=== PATIENT | female | born 1945 | race Caucasian/White ===

== ENCOUNTER → 2017-02-01 | Outpatient (CLI) | payer BC | END | disposition home or self-care (01) | LOC: LABWHC1 12:11 | PROVIDERS: ATTEND Internal Medicine Endocrinology, Diabetes & Metabolism | DX: E89.0 Postprocedural hypothyroidism (principal) | CPT/HCPCS: 36415; 84439; 84443 ==

== ENCOUNTER → 2017-04-23 | Outpatient (CLI) | payer BC ==
--- NOTE | 2017-04-27 07:39 | MM ---
Reason for exam: screening (asymptomatic). Last mammogram was performed 8 months ago. History: Patient is postmenopausal and is nulliparous. Benign excisional biopsy of the right breast. Took estrogen for 1 year beginning at age 53. Took progesterone for 1 year beginning at age 53. Took unspecified hormones for 30 years beginning at age 31. Physical Findings: A clinical breast exam by your physician is recommended on an annual basis and results should be correlated with mammographic findings. MG Screening Mammo w CAD Bilateral CC and MLO view(s) were taken. Prior study comparison: April 20, 2016, bilateral MG screening mammo w CAD. April 18, 2015, bilateral MG screening mammo w CAD. April 16, 2014, bilateral MG screening mammo w CAD. The breast tissue is heterogeneously dense. This may lower the sensitivity of mammography. No significant changes when compared with prior studies. ASSESSMENT: Negative, BI-RAD 1 RECOMMENDATION: Routine screening mammogram of both breasts in 1 year.
== END | disposition home or self-care (01) ==
LOC: RADMAMWWP 12:54
PROVIDERS: ATTEND Internal Medicine Geriatric Medicine
DX: Z12.31 Encounter for screening mammogram for malignant neoplasm of breast (principal)

== ENCOUNTER → 2018-02-11 | Outpatient (CLI) | payer BC ==
[2018-02-11 15:13] LABS: T4, Free (Free Thyroxine) 0.96 ng/dL (0.78-2.19)
== END | disposition home or self-care (01) ==
LOC: LABWHC1 13:25
PROVIDERS: ATTEND Internal Medicine Endocrinology, Diabetes & Metabolism
DX: E89.0 Postprocedural hypothyroidism (principal)
CPT/HCPCS: 36415; 84439; 84443

== ENCOUNTER → 2018-04-29 | Outpatient (CLI) | payer BC ==
--- NOTE | 2018-05-02 11:00 | MM ---
Reason for exam: screening (asymptomatic). Last mammogram was performed 1 year ago. History: Patient is postmenopausal and is nulliparous. Benign excisional biopsy of the right breast. Took estrogen for 1 year beginning at age 53. Took progesterone for 1 year beginning at age 53. Took unspecified hormones for 30 years beginning at age 31. Physical Findings: A clinical breast exam by your physician is recommended on an annual basis and results should be correlated with mammographic findings. MG 3D Screening Mammo W/Cad Bilateral CC and MLO view(s) were taken. Prior study comparison: April 23, 2017, bilateral MG screening mammo w CAD. September 02, 2016, left breast MG 3d diag mammo w/cad LT. The breast tissue is heterogeneously dense. This may lower the sensitivity of mammography. No significant changes when compared with prior studies. ASSESSMENT: Negative, BI-RAD 1 RECOMMENDATION: Routine screening mammogram of both breasts in 1 year.
== END | disposition home or self-care (01) ==
LOC: RADMAMWWP 13:12
PROVIDERS: ATTEND Internal Medicine Geriatric Medicine
DX: Z12.31 Encounter for screening mammogram for malignant neoplasm of breast (principal)
CPT/HCPCS: 77063; 77067

== ENCOUNTER → 2018-06-22 | Outpatient (CLI) | payer BC ==
[2018-06-22 13:25] LABS: T4, Free (Free Thyroxine) 0.98 ng/dL (0.78-2.19)
== END | disposition home or self-care (01) ==
LOC: LABWHC1 12:06
PROVIDERS: ATTEND Internal Medicine Endocrinology, Diabetes & Metabolism
DX: E89.0 Postprocedural hypothyroidism (principal); M89.9 Disorder of bone, unspecified; R00.2 Palpitations
CPT/HCPCS: 36415; 84439; 84443

== ENCOUNTER → 2019-03-04 | Outpatient (CLI) | payer BC ==
[2019-03-04 16:59] LABS: T4, Free (Free Thyroxine) 1.1 ng/dL (0.80-1.80)
== END | disposition home or self-care (01) ==
LOC: LABWHC1 11:23
PROVIDERS: ATTEND Internal Medicine Endocrinology, Diabetes & Metabolism
DX: E89.0 Postprocedural hypothyroidism (principal); M89.9 Disorder of bone, unspecified; R00.2 Palpitations
CPT/HCPCS: 36415; 84439; 84443

== ENCOUNTER → 2019-05-01 | Outpatient (CLI) | payer BC ==
--- NOTE | 2019-05-03 08:06 | MM ---
Reason for exam: screening (asymptomatic). Last mammogram was performed 1 year ago. History: Patient is postmenopausal and is nulliparous. Benign excisional biopsy of the right breast. Took estrogen for 1 year beginning at age 53. Took progesterone for 1 year beginning at age 53. Took unspecified hormones for 30 years beginning at age 31. Physical Findings: A clinical breast exam by your physician is recommended on an annual basis and results should be correlated with mammographic findings. MG 3D Screening Mammo W/Cad Bilateral CC and MLO view(s) were taken. Prior study comparison: April 29, 2018, bilateral MG 3d screening mammo w/cad. April 23, 2017, bilateral MG screening mammo w CAD. The breast tissue is heterogeneously dense. This may lower the sensitivity of mammography. No significant changes when compared with prior studies. ASSESSMENT: Negative, BI-RAD 1 RECOMMENDATION: Routine screening mammogram of both breasts in 1 year.
== END | disposition home or self-care (01) ==
LOC: RADMAMWWP 15:06
PROVIDERS: ATTEND Internal Medicine Geriatric Medicine
DX: Z12.31 Encounter for screening mammogram for malignant neoplasm of breast (principal)
CPT/HCPCS: 77063; 77067

== ENCOUNTER 2020-03-04 09:43 | Inpatient (IN) | payer BC ==
[2020-03-04] MEDS ORDERED: SODIUM CHLORIDE 0.9% 500 ML 500 ML IV STA (10:10)
--- NOTE | 2020-03-04 10:30 | ED ---
General Adult HPI - General Source: patient, family, RN notes reviewed Mode of arrival: wheelchair Limitations: no limitations <Nils Perez - Last Filed: 03/04/20 14:37> <Oz Toledo - Last Filed: 03/04/20 14:46> - General Chief complaint: Neck Pain/Injury Stated complaint: extreme fatigue Time Seen by Provider: 03/04/20 09:53 - History of Present Illness Initial comments: 74-year-old female with a past medical history of hypertension, thyroid disorder presents to the emergency department for several complaints. Patient's main complaint today seems to be weakness for the past month. They said she has required assistance from her with things like getting in the shower whereas she normally does not require this. States she just feels generally weak all over. States she is tired and has significant fatigue. She denies fevers. She states she has a disc bulge in her lumbar spine that is 7 mm and is also causing her pain. States her primary care provider is managing this. Denies any bladder bowel changes, numbness or tingling in the lower extremities, fevers or chills. Patient also complaining of suicidal thoughts. States that when she woke up this morning she felt like no one would help her with her ailments. States that this caused her to feel suicidal and she wanted to take all of her Xanax. States that she is feeling a little better at this time because she thinks we're helping her but that it is not normal for her to have the states of thoughts.Patient has no other complaints at this time including shortness of breath, chest pain, abdominal pain, nausea or vomiting, headache, or visual changes. (Nils Perez) - Related Data Home Medications Medication Instructions Recorded Confirmed ALPRAZolam [Xanax] 0.25 mg PO BID PRN 03/04/20 03/04/20 Acetaminophen Tab [Tylenol Tab] 1,000 mg PO Q6HR PRN 03/04/20 03/04/20 Aspirin [Adult Low Dose Aspirin EC] 81 mg PO DAILY 03/04/20 03/04/20 Biotin 2,500mcg Cap 2,500 mcg PO DAILY 03/04/20 03/04/20 Cholecalciferol [Vitamin D3 (25 1,000 unit PO DAILY 03/04/20 03/04/20 Mcg = 1000 Iu)] Fish Oil/Dha/Epa [Fish Oil 1,200 1 cap PO DAILY 03/04/20 03/04/20 mg Fish Oil] Fludrocortisone [Florinef] 0.05 mg PO DAILY 03/04/20 03/04/20 Hydrocortisone 10 mg PO BID 03/04/20 03/04/20 Levothyroxine Sodium [Synthroid] 37.5 mcg PO SUTH 03/04/20 03/04/20 Levothyroxine Sodium [Synthroid] 75 mcg PO [id number] 03/04/20 03/04/20 Loratadine [Claritin] 10 mg PO DAILY PRN 03/04/20 03/04/20 Metoprolol Succinate (ER) [Toprol 37.5 mg PO BID 03/04/20 03/04/20 Xl] Naproxen Sodium [Aleve] 220 mg PO Q12HR PRN 03/04/20 03/04/20 Vitamin B Complex 1 cap PO DAILY 03/04/20 03/04/20 Vitamin B-12/Folic Acid 400mcg 1 tab SL DAILY 03/04/20 03/04/20 Allergies Allergy/AdvReac Type Severity Reaction Status Date / Time epinephrine Allergy elevates Verified 03/04/20 12:36 heart rate Review of Systems ROS Other: All systems not noted in ROS Statement are negative. <Nils Perez - Last Filed: 03/04/20 14:37> ROS Other: All systems not noted in ROS Statement are negative. <Oz Toledo - Last Filed: 03/04/20 14:46> ROS Statement: Those systems with pertinent positive or pertinent negative responses have been documented in the HPI. Past Medical History Past Medical History: Hypertension, Thyroid Disorder History of Any Multi-Drug Resistant Organisms: None Reported Past Surgical History: Orthopedic Surgery Additional Past Surgical History / Comment(s): rt knee Past Psychological History: Anxiety Smoking Status: Never smoker Past Alcohol Use History: None Reported Past Drug Use History: None Reported <Nils Perez - Last Filed: 03/04/20 14:37> General Exam Limitations: no limitations General appearance: alert, in no apparent distress Head exam: Present: atraumatic, normocephalic, normal inspection Eye exam: Present: normal appearance, PERRL, EOMI. Absent: scleral icterus, conjunctival injection, periorbital swelling ENT exam: Present: normal exam, mucous membranes moist Neck exam: Present: normal inspection, full ROM. Absent: tenderness, meningismus, lymphadenopathy Respiratory exam: Present: normal lung sounds bilaterally. Absent: respiratory distress, wheezes, rales, rhonchi, stridor Cardiovascular Exam: Present: regular rate, normal rhythm, normal heart sounds. Absent: systolic murmur, diastolic murmur, rubs, gallop, clicks GI/Abdominal exam: Present: soft, normal bowel sounds. Absent: distended, tenderness, guarding, rebound, rigid Back exam: Absent: vertebral tenderness Neurological exam: Present: alert, oriented X3, normal gait Psychiatric exam: Present: depressed <Nils Perez - Last Filed: 03/04/20 14:37> Course <Oz Toledo - Last Filed: 03/04/20 14:46> Vital Signs 03/04/20 03/04/20 03/04/20 09:47 09:52 09:56 Temperature 98.2 F Pulse Rate 73 Respiratory 20 18 18 Rate Blood Pressure 176/94 O2 Sat by Pulse 99 Oximetry 03/04/20 03/04/20 03/04/20 10:25 10:30 10:56 Temperature Pulse Rate 68 74 Respiratory 11 L 16 18 Rate Blood Pressure 178/89 166/81 O2 Sat by Pulse 99 98 Oximetry 03/04/20 03/04/20 03/04/20 11:00 11:30 12:00 Temperature Pulse Rate 71 69 71 Respiratory 14 48 H 35 H Rate Blood Pressure 166/81 170/85 170/85 O2 Sat by Pulse 98 Oximetry 03/04/20 03/04/20 12:30 14:17 Temperature Pulse Rate 75 77 Respiratory 21 21 Rate Blood Pressure 166/78 166/94 O2 Sat by Pulse Oximetry - Reevaluation(s) Reevaluation #1: 03/04/20 14:46 PA supervision: I proceeded [id number] evaluation the patient she does present with complaints of generalized weakness and increased lower back pain also she is suicidal today. The patient presents with these findings patient did have imaging studies done in [facility] [place] there going to be brought in by the patient's . Case was discussed with Dr. Calixto. Patient be admitted with inpatient evaluation. I do agree with the assessment and plan (Oz Toledo) EKG Findings - EKG Comments: EKG Findings:: Normal sinus rhythm, ventricular rate 70, LA interval 140, QTC 4 21 <Nils Perez - Last Filed: 03/04/20 14:37> Medical Decision Making - Lab Data Result diagrams: 03/04/20 10:36 03/04/20 10:36 <Nils Perez - Last Filed: 03/04/20 14:37> - Lab Data Result diagrams: 03/04/20 10:36 03/04/20 10:36 <Oz Toledo - Last Filed: 03/04/20 14:46> - Medical Decision Making Vitals are stable. Patient is very weak. She has had generalized weakness for the last few weeks. She has also had associated back pain. She denies weakness being only in her legs and states it is general fatigue. Patient states she any assistance using the restroom from her and she is not able to care for herself at home. Patient was able to get out of the bed with 1 person assist but did feel weak. She does not have any neurologic deficits in the lower extremity. Neurovascular status intact. CBC CMP unremarkable. Patient states she has a 7 mm disc bulge. States she has a disc at home showing this and we will contact her to obtain this. Patient will be admitted to Dr. Calixto for generalized weakness. Dr. Christopher will be consulted given back pain times one month that seems to be worsening. Psychiatry will also be consulted given suicidal thoughts. She will be kept on suicide precautions. (Nils Perez) - Lab Data Lab Results 03/04/20 03/04/20 03/04/20 Range/Units 10:36 10:36 10:36 WBC 7.6 (3.8-10.6) k/uL RBC 4.21 (3.80-5.40) m/uL Hgb 14.3 (11.4-16.0) gm/dL Hct 41.2 (34.0-46.0) % MCV 97.7 (80.0-100.0) fL MCH 33.8 (25.0-35.0) pg MCHC 34.6 (31.0-37.0) g/dL RDW 12.8 (11.5-15.5) % Plt Count 301 (150-450) k/uL Neutrophils % 76 % Lymphocytes % 15 % Monocytes % 6 % Eosinophils % 1 % Basophils % 0 % Neutrophils # 5.8 (1.3-7.7) k/uL Lymphocytes # 1.2 (1.0-4.8) k/uL Monocytes # 0.5 (0-1.0) k/uL Eosinophils # 0.1 (0-0.7) k/uL Basophils # 0.0 (0-0.2) k/uL PT 9.7 (9.0-12.0) sec INR 0.9 (<1.2) APTT 22.6 (22.0-30.0) sec Sodium 132 L (137-145) mmol/L Potassium 4.2 (3.5-5.1) mmol/L Chloride 96 L (98-107) mmol/L Carbon Dioxide 29 (22-30) mmol/L Anion Gap 7 mmol/L BUN 17 (7-17) mg/dL Creatinine 0.55 (0.52-1.04) mg/dL Est GFR (CKD-EPI)AfAm >90 (>60 ml/min/1.73 sqM) Est GFR (CKD-EPI)NonAf >90 (>60 ml/min/1.73 sqM) Glucose 95 (74-99) mg/dL Plasma Lactic Acid Morteza (0.7-2.0) mmol/L Calcium 9.7 (8.4-10.2) mg/dL Magnesium 2.1 (1.6-2.3) mg/dL Total Bilirubin 0.7 (0.2-1.3) mg/dL AST 32 (14-36) U/L ALT 29 (4-34) U/L Alkaline Phosphatase 23 L (38-126) U/L Troponin I (0.000-0.034) ng/mL Total Protein 7.2 (6.3-8.2) g/dL Albumin 4.4 (3.5-5.0) g/dL TSH 8.100 H (0.465-4.680) mIU/L Urine Color Urine Appearance (Clear) Urine pH (5.0-8.0) Ur Specific Lentner (1.001-1.035) Urine Protein (Negative) Urine Glucose (UA) (Negative) Urine Ketones (Negative) Urine Blood (Negative) Urine Nitrite (Negative) Urine Bilirubin (Negative) Urine Urobilinogen (<2.0) mg/dL Ur Leukocyte Esterase (Negative) Urine WBC (0-5) /hpf Amorphous Sediment (None) /hpf Urine Bacteria (None) /hpf Urine Mucus (None) /hpf Urine Opiates Screen (NotDetected) Ur Oxycodone Screen (NotDetected) Urine Methadone Screen (NotDetected) Ur Propoxyphene Screen (NotDetected) Ur Barbiturates Screen (NotDetected) U Tricyclic Antidepress (NotDetected) Ur Phencyclidine Scrn (NotDetected) Ur Amphetamines Screen (NotDetected) U Methamphetamines Scrn (NotDetected) U Benzodiazepines Scrn (NotDetected) Urine Cocaine Screen (NotDetected) U Marijuana (THC) Screen (NotDetected) Coronavirus (PCR) (Not Detectd) 03/04/20 03/04/20 03/04/20 Range/Units 10:36 10:36 10:53 WBC (3.8-10.6) k/uL RBC (3.80-5.40) m/uL Hgb (11.4-16.0) gm/dL Hct (34.0-46.0) % MCV (80.0-100.0) fL MCH (25.0-35.0) pg MCHC (31.0-37.0) g/dL RDW (11.5-15.5) % Plt Count (150-450) k/uL Neutrophils % % Lymphocytes % % Monocytes % % Eosinophils % % Basophils % % Neutrophils # (1.3-7.7) k/uL Lymphocytes # (1.0-4.8) k/uL Monocytes # (0-1.0) k/uL Eosinophils # (0-0.7) k/uL Basophils # (0-0.2) k/uL PT (9.0-12.0) sec INR (<1.2) APTT (22.0-30.0) sec Sodium (137-145) mmol/L Potassium (3.5-5.1) mmol/L Chloride (98-107) mmol/L Carbon Dioxide (22-30) mmol/L Anion Gap mmol/L BUN (7-17) mg/dL Creatinine (0.52-1.04) mg/dL Est GFR (CKD-EPI)AfAm (>60 ml/min/1.73 sqM) Est GFR (CKD-EPI)NonAf (>60 ml/min/1.73 sqM) Glucose (74-99) mg/dL Plasma Lactic Acid Morteza 1.6 (0.7-2.0) mmol/L Calcium (8.4-10.2) mg/dL Magnesium (1.6-2.3) mg/dL Total Bilirubin (0.2-1.3) mg/dL AST (14-36) U/L ALT (4-34) U/L Alkaline Phosphatase (38-126) U/L Troponin I <0.012 (0.000-0.034) ng/mL Total Protein (6.3-8.2) g/dL Albumin (3.5-5.0) g/dL TSH (0.465-4.680) mIU/L Urine Color Urine Appearance (Clear) Urine pH (5.0-8.0) Ur Specific Lentner (1.001-1.035) Urine Protein (Negative) Urine Glucose (UA) (Negative) Urine Ketones (Negative) Urine Blood (Negative) Urine Nitrite (Negative) Urine Bilirubin (Negative) Urine Urobilinogen (<2.0) mg/dL Ur Leukocyte Esterase (Negative) Urine WBC (0-5) /hpf Amorphous Sediment (None) /hpf Urine Bacteria (None) /hpf Urine Mucus (None) /hpf Urine Opiates Screen (NotDetected) Ur Oxycodone Screen (NotDetected) Urine Methadone Screen (NotDetected) Ur Propoxyphene Screen (NotDetected) Ur Barbiturates Screen (NotDetected) U Tricyclic Antidepress (NotDetected) Ur Phencyclidine Scrn (NotDetected) Ur Amphetamines Screen (NotDetected) U Methamphetamines Scrn (NotDetected) U Benzodiazepines Scrn (NotDetected) Urine Cocaine Screen (NotDetected) U Marijuana (THC) Screen (NotDetected) Coronavirus (PCR) Not Detected (Not Detectd) 03/04/20 Range/Units 11:15 WBC (3.8-10.6) k/uL RBC (3.80-5.40) m/uL Hgb (11.4-16.0) gm/dL Hct (34.0-46.0) % MCV (80.0-100.0) fL MCH (25.0-35.0) pg MCHC (31.0-37.0) g/dL RDW (11.5-15.5) % Plt Count (150-450) k/uL Neutrophils % % Lymphocytes % % Monocytes % % Eosinophils % % Basophils % % Neutrophils # (1.3-7.7) k/uL Lymphocytes # (1.0-4.8) k/uL Monocytes # (0-1.0) k/uL Eosinophils # (0-0.7) k/uL Basophils # (0-0.2) k/uL PT (9.0-12.0) sec INR (<1.2) APTT (22.0-30.0) sec Sodium (137-145) mmol/L Potassium (3.5-5.1) mmol/L Chloride (98-107) mmol/L Carbon Dioxide (22-30) mmol/L Anion Gap mmol/L BUN (7-17) mg/dL Creatinine (0.52-1.04) mg/dL Est GFR (CKD-EPI)AfAm (>60 ml/min/1.73 sqM) Est GFR (CKD-EPI)NonAf (>60 ml/min/1.73 sqM) Glucose (74-99) mg/dL Plasma Lactic Acid Morteza (0.7-2.0) mmol/L Calcium (8.4-10.2) mg/dL Magnesium (1.6-2.3) mg/dL Total Bilirubin (0.2-1.3) mg/dL AST (14-36) U/L ALT (4-34) U/L Alkaline Phosphatase (38-126) U/L Troponin I (0.000-0.034) ng/mL Total Protein (6.3-8.2) g/dL Albumin (3.5-5.0) g/dL TSH (0.465-4.680) mIU/L Urine Color Light Yellow Urine Appearance Cloudy H (Clear) Urine pH 7.5 (5.0-8.0) Ur Specific Lentner 1.010 (1.001-1.035) Urine Protein Negative (Negative) Urine Glucose (UA) Negative (Negative) Urine Ketones Negative (Negative) Urine Blood Negative (Negative) Urine Nitrite Negative (Negative) Urine Bilirubin Negative (Negative) Urine Urobilinogen <2.0 (<2.0) mg/dL Ur Leukocyte Esterase Negative (Negative) Urine WBC 2 (0-5) /hpf Amorphous Sediment Rare H (None) /hpf Urine Bacteria Rare H (None) /hpf Urine Mucus Rare H (None) /hpf Urine Opiates Screen Not Detected (NotDetected) Ur Oxycodone Screen Not Detected (NotDetected) Urine Methadone Screen Not Detected (NotDetected) Ur Propoxyphene Screen Not Detected (NotDetected) Ur Barbiturates Screen Not Detected (NotDetected) U Tricyclic Antidepress Not Detected (NotDetected) Ur Phencyclidine Scrn Not Detected (NotDetected) Ur Amphetamines Screen Not Detected (NotDetected) U Methamphetamines Scrn Not Detected (NotDetected) U Benzodiazepines Scrn Not Detected (NotDetected) Urine Cocaine Screen Not Detected (NotDetected) U Marijuana (THC) Screen Not Detected (NotDetected) Coronavirus (PCR) (Not Detectd) Disposition Is patient prescribed a controlled substance at d/c from ED?: No Time of Disposition: 14:41 <Nils Perez - Last Filed: 03/04/20 14:37> <Oz Toledo - Last Filed: 03/04/20 14:46> Clinical Impression: Generalized weakness, Back pain, Suicidal thoughts Disposition: ADMITTED IP TO THIS HOSP Condition: Fair Referrals: Billy Cisse MD [Primary Care Provider] - 1-2 days
[2020-03-04 11:04] LABS: Basophils % (A) 0 %; Eosinophils # (A) 0.1 k/uL (0-0.7); Eosinophils % (A) 1 %; HCT 41.2 % (34.0-46.0); HGB 14.3 gm/dL (11.4-16.0); Lymphocytes # (A) 1.2 k/uL (1.0-4.8); Lymphocytes % (A) 15 %; MCH 33.8 pg (25.0-35.0); MCHC 34.6 g/dL (31.0-37.0); MCV 97.7 fL (80.0-100.0); Mean Platelet Volume 6.9; Monocytes # (A) 0.5 k/uL (0-1.0); Monocytes % (A) 6 %; Neutrophils # (A) 5.8 k/uL (1.3-7.7); Neutrophils % (A) 76 %; Platelet Count 301 k/uL (150-450); RBC 4.21 m/uL (3.80-5.40); RDW 12.8 % (11.5-15.5); WBC 7.6 k/uL (3.8-10.6)
[2020-03-04] MEDS ORDERED: IBUPROFEN 400 MG TAB PO STA (11:08)
--- NOTE | 2020-03-04 11:11 | XR ---
EXAMINATION TYPE: XR chest 1V portable DATE OF EXAM: 03/04/2020 COMPARISON: NONE HISTORY: Weakness TECHNIQUE: Single frontal view of the chest is obtained. FINDINGS: There is no focal air space opacity, pleural effusion, or pneumothorax seen. The cardiac silhouette size is mildly enlarged. The osseous structures are intact. Pulmonary hyperinflation sug gests underlying COPD with biapical lucency noted. IMPRESSION: No acute process.
[2020-03-04 11:16] LABS: ALT 29 U/L (4-34); AST 32 U/L (14-36); African American GFR (CKD) >90 (>60 ml/min/1.73 sqM); Albumin 4.4 g/dL (3.5-5.0); Alkaline Phosphatase 23 U/L (38-126); Anion Gap 7 mmol/L; Blood Urea Nitrogen 17 mg/dL (7-17); Calcium 9.7 mg/dL (8.4-10.2); Carbon Dioxide 29 mmol/L (22-30); Chloride 96 mmol/L (98-107); Glucose 95 mg/dL (74-99); Magnesium 2.1 mg/dL (1.6-2.3); Non-African American GFR(CKD) >90 (>60 ml/min/1.73 sqM); Potassium 4.2 mmol/L (3.5-5.1); Sodium 132 mmol/L (137-145); Total Bilirubin 0.7 mg/dL (0.2-1.3); Total Protein 7.2 g/dL (6.3-8.2)
[2020-03-04 11:23] LABS: INR 0.9 (<1.2); Partial Thromboplastin Time 22.6 sec (22.0-30.0); Prothrombin Time 9.7 sec (9.0-12.0)
[2020-03-04 11:52] LABS: Amorphous Sediment,Urine Rare /hpf; Appearance,Urine Cloudy (Clear); Bacteria,Urine Rare /hpf; Bilirubin,Urine Negative (Negative); Blood,Urine Negative (Negative); Color,Urine Light Yellow; Glucose,Urine (UA) Negative (Negative); Ketones,Urine Negative (Negative); Leukocyte Esterase,Urine Negative (Negative); Mucus,Urine Rare /hpf; Nitrite,Urine Negative (Negative); PH, Urine 7.5 (5.0-8.0); Protein,Urine Negative (Negative); Urobilinogen,Urine <2.0 mg/dL (<2.0); WBC,Urine 2 /hpf (0-5)
[2020-03-04 11:55] LABS: Amphetamine Screen,Urine Not Detected (NotDetected); Barbiturate Screen,Urine Not Detected (NotDetected); Benzodiazepines Screen,Urine Not Detected (NotDetected); Cocaine Screen,Urine Not Detected (NotDetected); Methadone Screen, Urine Not Detected (NotDetected); Opiate Screen,Urine Not Detected (NotDetected); Oxycodone Screen, Urine Not Detected (NotDetected); Phencyclidine Screen,Urine Not Detected (NotDetected); Tricyclic Antidepressant,Urine Not Detected (NotDetected); Urn Cannabinoid Scrn Not Detected (NotDetected)
[2020-03-04] MEDS ORDERED: ACETAMINOPHEN TAB 500 MG TAB PO STA (12:10)
[2020-03-04] MEDS ORDERED: KETOROLAC 30 MG/ML 1 ML VIAL IVP STA (14:15)
[2020-03-04] MEDS: LIDOCAINE 5% PATCH TOPICAL SCH (14:22)
[2020-03-04] MEDS ORDERED: NALOXONE 0.4 MG/ML 1 ML VIAL IV PRN (14:42)
[2020-03-04] MEDS: SODIUM CHLORIDE 0.9% 1,000 ML IV SCH (16:01)
[2020-03-04] MEDS ORDERED: GABAPENTIN 100 MG CAP PO PRN (17:02)
[2020-03-04] MEDS ORDERED: hydrALAZINE HCL 20 MG/ML 1 ML VIAL IVP PRN (17:02)
[2020-03-04] MEDS ORDERED: LORATADINE 10 MG TAB PO PRN (17:03)
[2020-03-04] MEDS: methylPREDNISolone SOD SUCCI 125 MG/2 ML VIAL IV SCH (17:12)
[2020-03-04] MEDS ORDERED: LEVOTHYROXINE 75 MCG TAB PO SCH (17:15)
[2020-03-04] MEDS: KETOROLAC 30 MG/ML 1 ML VIAL IVP PRN (17:16)
[2020-03-04] MEDS: METOPROLOL SUCCINATE (ER) 25 MG TAB.ER.24H PO SCH (20:03)
[2020-03-04] MEDS ORDERED: HYDROCORTISONE 10 MG TAB PO SCH (21:00)
[2020-03-05] MEDS: KETOROLAC 30 MG/ML 1 ML VIAL IVP PRN ×2 (00:03→05:57)
[2020-03-05] MEDS: methylPREDNISolone SOD SUCCI 125 MG/2 ML VIAL IV SCH ×3 (00:04→12:30)
[2020-03-05] MEDS: SODIUM CHLORIDE 0.9% 1,000 ML IV SCH ×3 (00:04→22:33)
[2020-03-05] MEDS: LEVOTHYROXINE 75 MCG TAB PO SCH (05:58)
[2020-03-05] MEDS: ASPIRIN 81 MG PO SCH (07:10)
[2020-03-05] MEDS: CHOLECALCIFEROL 1,000 UNIT TAB PO SCH (07:11)
[2020-03-05] MEDS: FLUDROCORTISONE 0.1 MG TAB PO SCH (07:11)
[2020-03-05] MEDS: METOPROLOL SUCCINATE (ER) 25 MG TAB.ER.24H PO SCH ×2 (07:11→20:31)
[2020-03-05] MEDS: LIDOCAINE 5% PATCH TOPICAL SCH (08:20)
[2020-03-05] MEDS ORDERED: FOLIC ACID SL SCH (09:00)
[2020-03-05] MEDS ORDERED: NON FORMULARY DRUG (Vitamin B Complex [Vitamin B Complex] 1 CAP) PO SCH (09:00)
[2020-03-05] MEDS ORDERED: NON FORMULARY DRUG (Fish Oil/Dha/Epa [Fish Oil 1,200 Mg Fish Oil] 1 CAP) PO SCH (09:00)
[2020-03-05] MEDS ORDERED: VITAMIN B12 SL SCH (09:00)
[2020-03-05 12:58] VITALS: BMI 17.2
[2020-03-05 13:21] LABS: C Reactive Protein <5.0 mg/L (<10.0); Creatine Kinase 38 U/L (30-135)
--- NOTE | 2020-03-05 13:34 | P.CNOR ---
History of Present Illness - [facility] Consult date: 03/05/20 Requesting physician: Nils Perez Consult reason: low back pain History of present illness: Patient is a pleasant 74-year-old female who is seen and examined at the bedside for further evaluation for low back pain. Patient presented to the emergency department yesterday, 03/04/2020 with complaint of generalized weakness. Patient states her generalized weakness started initially in November 2019. She states she was prescribed a steroid medication at the end of December 2019. She was prescribed a second prednisone prescription in early January 2020. She states following the completion of her second steroid prescription she has had significant generalized weakness. She's been following with her primary care provider Dr. Cisse. She states her primary care provider feels her generalized weakness may be in regards to her adrenals. Patient did recently traveled to [facility] and was feeling significant weakness in the lower extremities while in [place]. She had an MRI of the lumbar spine performed while in [place]. This MRI was performed on 02/26/2020. She brought this MRI back with her the imaging has been loaded into [facility]. At the bedside today she states she does not have specific lower extremity radiculopathy or weakness but just feels generally weaker. She is currently being seen by medicine and is undergoing further workup. She does admit to some low back pain most significant on the lower right along some pain of the left buttock. She has been doing some stretches for her left piriformis. She denies any recent falls or specific injuries. Patient's past medical history does include hypertension, anxiety and thyroid disorder. She is eating and voiding without difficulty. At the time of her presentation she told the emergency department she did feel suicidal as she felt no one was helping her with her symptoms and wanted to take all of her Xanax medications. She is currently waiting for psychiatric consultation. She is concerned about the cause of her symptoms and what her plan of care will be when discussed at the bedside. Past Medical History Past Medical History: Hypertension, Thyroid Disorder History of Any Multi-Drug Resistant Organisms: None Reported Past Surgical History: Orthopedic Surgery Additional Past Surgical History / Comment(s): rt knee Past Psychological History: Anxiety Smoking Status: Never smoker Past Alcohol Use History: None Reported Past Drug Use History: None Reported Medications and Allergies Home Medications Medication Instructions Recorded Confirmed Type ALPRAZolam [Xanax] 0.25 mg PO BID PRN 03/04/20 03/04/20 History Acetaminophen Tab [Tylenol Tab] 1,000 mg PO Q6HR PRN 03/04/20 03/04/20 History Aspirin [Adult Low Dose Aspirin EC] 81 mg PO DAILY 03/04/20 03/04/20 History Biotin 2,500mcg Cap 2,500 mcg PO DAILY 03/04/20 03/04/20 History Cholecalciferol [Vitamin D3 (25 1,000 unit PO DAILY 03/04/20 03/04/20 History Mcg = 1000 Iu)] Fish Oil/Dha/Epa [Fish Oil 1,200 1 cap PO DAILY 03/04/20 03/04/20 History mg Fish Oil] Fludrocortisone [Florinef] 0.05 mg PO DAILY 03/04/20 03/04/20 History Hydrocortisone 10 mg PO BID 03/04/20 03/04/20 History Levothyroxine Sodium [Synthroid] 37.5 mcg PO SUTH 03/04/20 03/04/20 History Levothyroxine Sodium [Synthroid] 75 mcg PO MOTUWEFRSA 03/04/20 03/04/20 History Loratadine [Claritin] 10 mg PO DAILY PRN 03/04/20 03/04/20 History Metoprolol Succinate (ER) [Toprol 37.5 mg PO BID 03/04/20 03/04/20 History Xl] Naproxen Sodium [Aleve] 220 mg PO Q12HR PRN 03/04/20 03/04/20 History Vitamin B Complex 1 cap PO DAILY 03/04/20 03/04/20 History Vitamin B-12/Folic Acid 400mcg 1 tab SL DAILY 03/04/20 03/04/20 History Allergies Allergy/AdvReac Type Severity Reaction Status Date / Time epinephrine Allergy elevates Verified 03/04/20 12:36 heart rate Physical Examination Physical exam: Patient is awake, alert, and oriented 3 Vital signs stable Good chest excursion with deep inspiration and expiration Abdomen soft nontender Examination of lumbar spine reveals skin is intact with no abrasions, ulcerations, or bruises; no erythema, purulence or signs of infection Mild pain with palpation over the lower lumbar spine at the right sacroiliac joint Dorsiflexion, plantarflexion, and extensor hallucis longus positive sustained bilaterally Patient is able to perform good active range of motion of the bilateral lower extremities without difficulty throughout range of motion Lower extremity strength 5/5 bilaterally Patellar reflex 2+ bilaterally bilaterally No lower extremity hyperreflexia bilaterally Straight leg test negative bilateral lower extremities Negative Lasegue's test bilaterally No signs or symptoms of DVT; no calf pain No pain with internal and external rotation of the hips bilaterally Neurovascularly intact Results Pertinent studies: MRI of the lumbar spine taken at an outside facility at [facility] in [place] on 02/26/2020 in which imaging is available but not the report: L2-S1 disc desiccation; L1-2 and L2-3 appear to be within normal limits except for disc desiccation; L3-4 small disc bulging and facet arthropathy without evidence of stenosis; L4-5 left-sided disc bulging and facet arthropathy with mild left neural foraminal narrowing without evidence of stenosis; L5-S1 central disc protrusion without evidence of stenosis; no evidence of vertebral body compression fracture; overall alignment appears to be adequately maintained; apparent T12 hemangioma - Labs Labs: H & H 03/04/20 Range/Units 10:36 Hgb 14.3 (11.4-16.0) gm/dL Hct 41.2 (34.0-46.0) % Coagulation 03/04/20 Range/Units 10:36 INR 0.9 (<1.2) Result Diagrams: 03/04/20 10:36 03/04/20 10:36 Assessment and Plan Assessment: Assessment: Generalized full body weakness over the past month History of recent multiple prescriptions for steroid medication Lumbar facet arthropathy Lumbar disc desiccation Left buttock/piriformis pain History of thyroid disorder Anxiety Hypertension (1) Low back pain Current Visit: Yes Status: Acute Code(s): M54.5 - LOW BACK PAIN SNOMED Code(s): 011777582 (2) Lumbar degenerative disc disease Current Visit: Yes Status: Acute Code(s): M51.36 - OTHER INTERVERTEBRAL DISC DEGENERATION, LUMBAR REGION SNOMED Code(s): 22623322 (3) Lumbar facet arthropathy Current Visit: Yes Status: Acute Code(s): M47.816 - SPONDYLOSIS W/O MYELOPATHY OR RADICULOPATHY, LUMBAR REGION SNOMED Code(s): 826242962 (4) Left buttock pain Current Visit: Yes Status: Acute Code(s): M79.18 - MYALGIA, OTHER SITE SNOMED Code(s): 220508133 (5) History of thyroid disorder Current Visit: Yes Status: Acute Code(s): Z86.39 - PERSONAL HISTORY OF ENDO, NUTRITIONAL AND METABOLIC DISEASE SNOMED Code(s): 533254314 (6) History of recent steroid use Current Visit: Yes Status: Acute Code(s): Z92.241 - PERSONAL HISTORY OF SYSTEMIC STEROID THERAPY SNOMED Code(s): 201659176 (7) Generalized weakness Current Visit: Yes Status: Acute Code(s): R53.1 - WEAKNESS SNOMED Code(s): 17126742 (8) Anxiety Current Visit: Yes Status: Acute Code(s): F41.9 - ANXIETY DISORDER, UNSPECIFIED SNOMED Code(s): 44612632 Plan: Plan: 1. After physical examination of the patient, further discussion with the patient in regards to her symptoms, and reviewing of MR imaging, we are not currently planning for acute surgical intervention in regards to her lumbar spine. Reviewing of lumbar imaging does not show evidence of significant herniated nucleus pulposus, no evidence of spinal canal stenosis, no evidence of instability, and no evidence of compression fracture deformity. Patient's most significant symptom is generalized weakness throughout her body which has been significantly exacerbated after completing a second prescription of steroid medication. We discussed she should continue with further workup from a medicine standpoint. Her whole body generalized weakness does not correlate well with her lumbar spine. We discussed were not currently planning for surgical intervention at her lumbar spine as there are not any indications in which surgical intervention would provide any significant improvement of her symptoms. We discussed she may continue to work with physical therapy and may continue with her own stretching exercises in regards to her left puriform S pain. At this time, patient will be clear for discharge from an orthopedic spine standpoint. We did discuss she may plan to follow-up outpatient setting on an as-needed basis. If the patient's symptoms are not improving and she needs follow-up evaluation, she may call [facility] and plan to follow up with Cristi Gonzalez or Dr. Luis Christopher. The patient will be discussed in detail with Dr. Luis Christopher. 2. Patient will continue to be seen and examined by medicine 3. Patient currently waiting for psychiatric evaluation Time with Patient: Greater than 30 (Including obtaining history, physical examination, reviewing of imaging, and dictation.)
[2020-03-05] MEDS: ACETAMINOPHEN TAB 325 MG TAB PO PRN (14:02)
--- NOTE | 2020-03-05 14:12 | P.HPIM ---
History of Present Illness H&P Date: 03/05/20 This is a 74-year-old female patient of Dr. Cervantes with past medical history of hypertension, hypothyroidism, degenerative disc disease, scoliosis. Patient gives history that in November she had increasing lower back pain and saw an orthopedic physician in [place]. Subsequently she started having trouble with her balance and by the end of December she started using a walker. She was able to get to episodes of therapy but then was on shutdown due to Covid 19. Patient states she continued to have increasing weakness and balance issues as well as low back pain to the bilateral lower extremities but more so to the left buttocks and also weakness in her knees. She had some numbness in the left heel area. She denies any falls. She does have radiation of the pain around to the left side or lower abdomen. With ambulation she has pain in both legs. She gives history of having trouble sleeping due to the pain. She states she's been taking Tylenol around the clock. Due to generalized weakness she was recently started on Florinef by Dr. Brock. He states she states she has no energy and feels like just a vegetable bread she went through several days where she did not sleep at nighttime. Patient relates that she was in bed and the pain was severe and she was feeling weak and her stated that no one can help us. She states she snapped and stated I can go on like this we have to take me to the hospital. Patient states that she feels overwhelmed. There was concern for suicidal ideation in the emergency center and suicide precautions were placed. Patient came into [facility] emergency center for evaluation. Initial blood pressure 176/94, afebrile, heart rate 73, pulse ox 99% on room air. CBC unremarkable. Sodium 132, potassium 4.2, chloride 96, CO2 29, BUN 17 creatinine 0.55, blood sugar 55. TSH 8.1. Lactic acid 1.6, troponin negative. Coronavirus PCR not detected. Urinalysis negative, urine drug screen negative. Patient admitted to the [facility] floor and consult in place with psychiatry and orthopedic spine. Patient was started on IV Solu-Medrol. Past Medical History Past Medical History: Hypertension, Thyroid Disorder History of Any Multi-Drug Resistant Organisms: None Reported Past Surgical History: Orthopedic Surgery Additional Past Surgical History / Comment(s): rt knee Past Psychological History: Anxiety Smoking Status: Never smoker Past Alcohol Use History: None Reported Past Drug Use History: None Reported Medications and Allergies Home Medications Medication Instructions Recorded Confirmed Type ALPRAZolam [Xanax] 0.25 mg PO BID PRN 03/04/20 03/04/20 History Acetaminophen Tab [Tylenol Tab] 1,000 mg PO Q6HR PRN 03/04/20 03/04/20 History Aspirin [Adult Low Dose Aspirin EC] 81 mg PO DAILY 03/04/20 03/04/20 History Biotin 2,500mcg Cap 2,500 mcg PO DAILY 03/04/20 03/04/20 History Cholecalciferol [Vitamin D3 (25 1,000 unit PO DAILY 03/04/20 03/04/20 History Mcg = 1000 Iu)] Fish Oil/Dha/Epa [Fish Oil 1,200 1 cap PO DAILY 03/04/20 03/04/20 History mg Fish Oil] Fludrocortisone [Florinef] 0.05 mg PO DAILY 03/04/20 03/04/20 History Hydrocortisone 10 mg PO BID 03/04/20 03/04/20 History Levothyroxine Sodium [Synthroid] 37.5 mcg PO SUTH 03/04/20 03/04/20 History Levothyroxine Sodium [Synthroid] 75 mcg PO MOTUWEFRSA 03/04/20 03/04/20 History Loratadine [Claritin] 10 mg PO DAILY PRN 03/04/20 03/04/20 History Metoprolol Succinate (ER) [Toprol 37.5 mg PO BID 03/04/20 03/04/20 History Xl] Naproxen Sodium [Aleve] 220 mg PO Q12HR PRN 03/04/20 03/04/20 History Vitamin B Complex 1 cap PO DAILY 03/04/20 03/04/20 History Vitamin B-12/Folic Acid 400mcg 1 tab SL DAILY 03/04/20 03/04/20 History Allergies Allergy/AdvReac Type Severity Reaction Status Date / Time epinephrine Allergy elevates Verified 03/04/20 12:36 heart rate Physical Exam Vitals: Vital Signs Temp Pulse Pulse Resp BP BP Pulse Ox 03/05/20 07:00 98.7 F 70 18 135/78 97 03/05/20 03:25 97.9 F 75 149/77 97 03/04/20 20:00 18 03/04/20 19:05 97.9 F 88 134/72 96 03/04/20 17:13 163/80 03/04/20 15:41 98.1 F 72 18 192/94 98 03/04/20 15:10 97 F L 77 21 158/78 98 03/04/20 15:09 97 F L 77 21 158/78 03/04/20 14:17 77 21 166/94 03/04/20 12:30 75 21 166/78 03/04/20 12:00 71 35 H 170/85 03/04/20 11:30 69 48 H 170/85 03/04/20 11:00 71 14 166/81 98 Intake and Output 03/04/20 03/05/20 03/05/20 22:59 06:59 14:59 Intake Total 120 Balance 120 Intake: Oral 120 Other: Voiding Method Bedside Commode Bedside Commode # Voids 1 5 Results CBC & Chem 7: 03/04/20 10:36 03/04/20 10:36 Labs: Abnormal Lab Results - Last 24 Hours (Table) 03/04/20 03/04/20 Range/Units 10:36 11:15 Sodium 132 L (137-145) mmol/L Chloride 96 L (98-107) mmol/L Alkaline Phosphatase 23 L (38-126) U/L TSH 8.100 H (0.465-4.680) mIU/L Urine Appearance Cloudy H (Clear) Amorphous Sediment Rare H (None) /hpf Urine Bacteria Rare H (None) /hpf Urine Mucus Rare H (None) /hpf Thrombosis Risk Factor Assmnt - Choose All That Apply Any of the Below Risk Factors Present?: No Other Risk Factors: No Each Risk Factor Represents 2 Points: Age 61-74 years Other congenital or acquired thrombophilia - If yes, enter type in comment: No Thrombosis Risk Factor Assessment Total Risk Factor Score: 2 Thrombosis Risk Factor Assessment Level: Very Low Risk Assessment and Plan Plan: 1. Generalized weakness and fatigue, malaise possibly secondary to depression, complicated by chronic pain and insomnia/sleep deprivation. Consult with psychiatry. Obtain TSH, free T4, vitamin B12, CPK, sed rate, CRP, BOBO, Lyme titer, cortisol level. Start Flexeril 5 mg 3 times daily. Start melatonin 10 mg at at bedtime. 2. Lumbar facet arthropathy and lumbar disc desiccation, left sciatica. Consult with orthopedic spine. Patient is refusing to take steroids. Continue Toradol 50 mg IV push every 6 hours as needed, Lidoderm patch daily, continue Tylenol. Add Flexeril 5 mg 3 times daily and gabapentin 100 mg 3 times daily as needed. Physical therapy evaluation. 3. Depression with possible suicidal ideation. Patient is in suicide precautions. Consult with psychiatry. 4. Hypertension. Continue Toprol-XL 37.5 mg twice daily, hydralazine 10 mg IV push as needed for elevated blood pressure greater than 160 systolic. 5. Hypothyroidism continue levothyroxine at current dosing. 6. Generalized anxiety disorder and insomnia. Continue Xanax or 0.25 mg twice daily as needed. 7. DVT prophylaxis. Heparin subcu. 8. GI prophylaxis. Pepcid. Patient voiced as an observation status. Discharge plan: Most likely return home. PT evaluation pending. Impression and plan of care have been directed as dictated by the signing physician. Earline Baker nurse practitioner acting as scribe for signing physician.
[2020-03-05] MEDS: CYCLOBENZAPRINE 5 MG TAB PO SCH ×2 (15:18→20:37)
--- NOTE | 2020-03-05 15:43 | P.CN ---
Psychiatric Consult - . Consult date: 03/05/20 Consult:: IDENTIFYING DATA: The patient is 74-year-old female admitted to medicine for evaluation of generalized weakness. The hospitalist submitted a consult to psychiatry for evaluation of suicidal suicide risk. HISTORY OF PRESENT ILLNESS: I reviewed the medical record and interviewed the patient. She was predominantly concerned about her physical health and talked extensively about her physical problem. She is most distressed by a general sense of weakness and fatigue that developed over the last several months and became worse about one month prior to admission. She attributes the marked increase in weakness to oral steroid medications for the treatment of chronic back pain. On the day of admission she became increasingly distressed. She repeatedly asked her to take her to the emergency room for an evaluation. He was unwilling concerned that it with increased risk for exposure to Thorofare virus. She became frustrated because she believes that her did not recognize the severity of her distress and her need for a higher level of medical care. She alleged that in the state of frustration she talked about taking her medication "ending it all". She regrets making the statement because it alarmed her . She denied that she had suicidal intent or plan. During our interview she mentions several times that she wished she could take backpacking that statement. She is frustrated by her worsening health and chronic back pain but she denies feeling persistently depressed, hopeless and worthless. She expresses helplessness regarding her inability to improve her to find treatments that would improve her health and well-being. She denied that she had thought about suicide or any past suicide attempts or gestures. She expressed concern about her health but denied a history of persistent and uncontrollable anxiety. She denied experiencing obsessions or compulsions. She denied panic attacks. She denied such psychotic symptoms as hallucinations, paranoia or disturbance of thought. She does not drink and denied use of drugs get high, help her sleep or change her mood. PAST PSYCHIATRIC HISTORY: She met with a therapist from of her mother. She is made up and prescribed psychotropic medication but except of Xanax for the treatment of mood. She is not met with a psychiatrist. She has had no psychiatric hospitalizations. PAST MEDICAL HISTORY: She reported that the generalized weakness and increasing back pain is worsened since the beginning of the year while she and her were wintering in [place]. ALLERGIES: Ephedrine. SUBSTANCE USE HISTORY: She denied a history of substance use problems. FAMILY PSYCHIATRIC/SUBSTANCE USE HISTORY: She is unaware of family history of psychiatric or substance use problems. SOCIAL HISTORY: She born and raised in intact family. She has 5 sisters. She graduated high school. for 38 years. They have no children. She is retired but her is working at a [employer].. MENTAL STATUS EXAM: He presented as a pale appearing elderly female who is sitting in bed. She frequently sifted positions complaining of back pain. She made eye contact and attempted to interview. She had no distinguishing features or prominent physical abnormalities. She had a blunted but bright facial expression. She is alert and oriented to person, place and time. She showed no abnormality of psychomotor activity. She had no abnormal involuntary movements. Her speech was spontaneous with normal rate, rhythm and volume. Affect was blunted but stable and appropriate. She denied suicidal ideation and wishes. She denied homicidal ideation. She she denied feeling hopeless, helpless or worthless. She ruminated about her physical health, her chronic back pain and increasing fatigue. She did not express phobias, ideas reference, paranoid ideation or delusions. Her thinking was abstract and associations were coherent, logical and goal directed. She denied hallucinations did not appear to be responding to internal stimuli.. IMPRESSIONS: She is a 74-year-old female admitted to Hospital for evaluation of increasing fatigue. The hospitalist consult to psychiatry because prior to admission she expressed suicidal thoughts during which she describes a state of increasing frustration. Despite her repeated urging her would not take her to emergency room to evaluate her medical complaints. She denied that she made a statement with the intent to end her life. She feels guilty for having made a statement and denied that she had suicidal intent or plan. She is no history of major psychiatric disorders. Her primary care prescribed Xanax for anxiety and intermittent insomnia. She has no history of psychiatric hospitalizations and no history of substance use problems. She denied symptoms suggestive of major depressive disorder or major anxiety disorder. There is no indication for psychiatric intervention at this time. PLAN: Discontinue one-to-one. There is no indication for transfer to the psychiatric unit. Refer her for outpatient therapy for stress management. Thank you for this consult. Psychiatry will sign off on the case.. 03/05/20 14:07
[2020-03-05] MEDS: MELATONIN 5 MG TABLET PO SCH (20:37)
[2020-03-05] MEDS: HYDROCORTISONE 10 MG TAB PO SCH (22:30)
[2020-03-06] MEDS: ACETAMINOPHEN TAB 325 MG TAB PO PRN (04:04)
[2020-03-06] MEDS: ALPRAZolam 0.25 MG TAB PO PRN ×2 (04:07→20:43)
[2020-03-06] MEDS: LEVOTHYROXINE 75 MCG TAB PO SCH (05:17)
[2020-03-06] MEDS: SODIUM CHLORIDE 0.9% 1,000 ML IV SCH ×2 (05:17→17:08)
[2020-03-06] MEDS: FLUDROCORTISONE 0.1 MG TAB PO SCH (07:23)
[2020-03-06] MEDS: CYCLOBENZAPRINE 5 MG TAB PO SCH ×3 (07:23→20:43)
[2020-03-06] MEDS: HYDROCORTISONE 10 MG TAB PO SCH ×2 (07:24→16:40)
[2020-03-06] MEDS: LIDOCAINE 5% PATCH TOPICAL SCH (07:24)
[2020-03-06] MEDS: CHOLECALCIFEROL 1,000 UNIT TAB PO SCH (07:24)
[2020-03-06] MEDS: ASPIRIN 81 MG PO SCH (07:24)
[2020-03-06] MEDS: METOPROLOL SUCCINATE (ER) 25 MG TAB.ER.24H PO SCH ×2 (07:24→20:42)
--- NOTE | 2020-03-06 09:51 | P.PN ---
Progress Note - Text Progress Note Date: 03/06/20 patient is seen and examined today at bedside. I reviewed the MRI images as well as the dictation from Cristi Ray yesterday I am in agreement with the dictation from yesterday. The patient is very pleasant and is following commands well and very conversant. She says that her legs feel weak over the past several. She does not know specific incident but had some occasional strain. The weakness feels to be in both her legs. She did start a new calcium channel alison a few months ago disc proceeding her feelings of weakness and she says that she read the product inserted after starting that and noticed that it did have a side effect of possible weakness. She denies any changes in bowel bladder function. She denies any specific pattern to weakness although she says that extends down both legs towards her knees. On exam Patient's afebrile with stable vital signs. She is conversant without any shortness of breath She has no hesitation with motion at her neck upper extremity is or bilateral lower extremities Her neck is nontender to palpation and has full active and passive range of motion upper extremity have full active and passive range of motion. There is no hyperreflexia there is no clonus there is no Johann's At her lower extremity Schloesser legs up off the bed quite easily. She is no pain with internal/external rotation of her hips and has full active and passive range of motion her knees and ankles and feet. There is no calf or thigh tenderness. There is no hyperreflexia there is no clonus. She is able to sit up in bed without any hesitation or problems Assessment and plan Perceived lower extremity weakness without neurologic deficit Decreased confidence in her mobilization and ambulation due to her perceived weakness Degenerative disc disease and facet arthrosis lumbar spine, chronic without specific neurologic impingement or neurologic deficit Mild degenerative osteoarthritis bilateral knees I think the patient is not having any specific weakness or specific radiculopathy from her lumbar spine to contribute significantly to her perceived lower extremity weakness. I do not have any plan for surgical intervention or further imaging or interventional pain management for her lumbar spine at this point. I explained this to her and she understands. I do not think that she has a mechanical issue in her spine causing her perceived weakness. It is difficult to ascertain the specific nature of the symptoms. She has had evaluation with psychiatry which I think is appropriate. I think that medicine we'll continue to investigate the possibility of adrenal issues versus other medication causing some of her symptoms of weakness. She is encouraged to continue with mobilization and physical therapy weightbearing as tolerated. I expect her that I'm very encouraged by her neurologic function that she does have good strength in her lower extremities and it is good for her to try to maintain that strength and gain confidence in her ability to mobilize with physical therapy. I can see her on an as-needed basis outpatient.
[2020-03-06] MEDS: KETOROLAC 30 MG/ML 1 ML VIAL IVP PRN ×2 (13:17→19:47)
--- NOTE | 2020-03-06 14:18 | P.CNNES ---
History of Present Illness Consult date: 03/06/20 Requesting physician: Barby Calixto Reason for Consult: Myopathy, possible myasthenia gravis, has adrenal insufficiency, steroid my History of Present Illness: Patient is a 74-year-old female, who has history of chronic back pain, hypertension, hypothyroidism, came to the ER because of intermittent generalized weakness. Patient states that she has history of chronic back pain. She was in [place], and was given a course of dexamethasone 4 mg for 9 days, for back pain. Right after she was given prednisone 10 mg twice a day for 7 days. She started having episodes of exhaustion, generalized weakness. She felt off balance, as if she was drugged. She has been admitted for possible adrenal insufficiency. She had episodes of feeling extreme tiredness on 02/14/2020. She feels like she was going downhill, couldn't function, moving slow, no strength. She denied any slurred speech, facial droop, diplopia. She did have some blurred vision. No loss of vision. No focal weakness. She has been having some paresthesias of upper extremities. Patient denies any ptosis. She does have some problem with dysphagia with solid food getting caught in the throat but no problem with drinking liquids. Patient had undergone Chest x-ray showed no acute process. EKG showed normal sinus rhythm. Patient had an MRI of the lumbar spine performed 02/26/2020 in [place], which I reviewed, was completely normal. No disc herniation, or degenerative disks. Patient's hepatic panel, renal panel, thyroid functions are normal. Vitamin B12 3095. CRP is normal <0.5, ESR 11. Creatine kinase 38. BOBO negative, ricketts virus PCR negative. Lyme titer negative. UA negative. Troponin negative. Patient denies history of diabetes, tobacco use or alcohol. Review of Systems As above. Patient does have some balance issues, some neck pain but no radicular features. Has chronic back pain. Denies chest pain shortness of breath wheezing or cough. No abdominal pain nausea vomiting diarrhea. All other review of systems unremarkable. She does have fatigue. Past Medical History Past Medical History: Hypertension, Thyroid Disorder History of Any Multi-Drug Resistant Organisms: None Reported Past Surgical History: Orthopedic Surgery Additional Past Surgical History / Comment(s): rt knee Past Psychological History: Anxiety Smoking Status: Never smoker Past Alcohol Use History: None Reported Past Drug Use History: None Reported Medications and Allergies Home Medications Medication Instructions Recorded Confirmed Type ALPRAZolam [Xanax] 0.25 mg PO BID PRN 03/04/20 03/04/20 History Acetaminophen Tab [Tylenol] 1,000 mg PO Q6HR PRN 03/04/20 03/04/20 History Aspirin [Adult Low Dose Aspirin EC] 81 mg PO DAILY 03/04/20 03/04/20 History Biotin 2,500mcg Cap 2,500 mcg PO DAILY 03/04/20 03/04/20 History Cholecalciferol [Vitamin D3 (25 1,000 unit PO DAILY 03/04/20 03/04/20 History Mcg = 1000 Iu)] Fish Oil/Dha/Epa [Fish Oil 1,200 1 cap PO DAILY 03/04/20 03/04/20 History mg Fish Oil] Levothyroxine Sodium [Synthroid] 37.5 mcg PO SUTH 03/04/20 03/04/20 History Levothyroxine Sodium [Synthroid] 75 mcg PO MOTUWEFRSA 03/04/20 03/04/20 History Loratadine [Claritin] 10 mg PO DAILY PRN 03/04/20 03/04/20 History Metoprolol Succinate (ER) [Toprol 37.5 mg PO BID 03/04/20 03/04/20 History XL] Naproxen Sodium [Aleve] 220 mg PO Q12HR PRN 03/04/20 03/04/20 History Vitamin B Complex 1 cap PO DAILY 03/04/20 03/04/20 History Vitamin B-12/Folic Acid 400mcg 1 tab SL DAILY 03/04/20 03/04/20 History Cyclobenzaprine [Flexeril] 5 mg PO TID #90 tab 03/06/20 Rx Gabapentin [Neurontin] 100 mg PO TID PRN #9 cap 03/06/20 Rx Hydrocortisone 10 mg PO BID #34 tab 03/06/20 Rx Lidocaine 5% Patch [Lidoderm 5% 1 patch TOPICAL DAILY #30 patch 03/06/20 Rx Patch] Allergies Allergy/AdvReac Type Severity Reaction Status Date / Time epinephrine Allergy elevates Verified 03/04/20 12:36 heart rate Physical Examination - Vital Signs Vital Signs: Vital Signs Temp Pulse Resp BP Pulse Ox 03/06/20 07:00 97.7 F 69 18 151/79 97 03/06/20 02:46 98.1 F 74 18 160/78 97 03/05/20 18:58 98.2 F 77 16 137/54 99 03/05/20 15:00 98.8 F 83 16 126/60 95 Intake and Output 03/05/20 03/06/20 03/06/20 22:59 06:59 14:59 Intake Total 240 Balance 240 Intake: Oral 240 Other: Voiding Method Toilet # Voids 2 2 3 On examination patient is an elderly female, in no distress. Patient is alert and awake oriented to time place and person. Speech and language functions are normal. Attention and concentration fund of knowledge is adequate. On cranial nerve examination pupils are round and reactive to light. Visual arshad are full, extraocular muscles are intact with no nystagmus. No ptosis. No diplopia on examination. Face is symmetric, tongue protrudes the midline. Palatal elevation and sensation normal. Shoulder shrug normal. On muscle strength testing patient has completely normal strength in the arms and legs distally and proximally including detailed testing of shoulders, biceps triceps, senior planning manager, hip flexion knees and ankles. Reflexes are 1+ in the upper limbs, 2+ to 3 at the knees, 1+ at ankles and plantars are questionable up versus withdrawal. Sensory touch is equal. No ataxia for [id number] testing. Tone and bulk of muscles normal. Patient was able to get up from the bed without much difficulty. Walked with a walker and appeared very steady. No obvious bruit or murmur, peripheral pulses present. No edema. Abdomen soft nontender. Results - Laboratory Findings CBC and BMP: 03/04/20 10:36 03/04/20 10:36 Abnormal Lab Findings: Abnormal Labs 03/04/20 03/04/20 03/05/20 10:36 11:15 12:30 Sodium 132 L Chloride 96 L Alkaline Phosphatase 23 L Vitamin B12 3095.0 H TSH 8.100 H Urine Appearance Cloudy H Amorphous Sediment Rare H Urine Bacteria Rare H Urine Mucus Rare H Assessment and Plan Assessment: * 74-year-old female, admitted with intermittent generalized weakness, unclear etiology. Patient has been on high-dose steroids for back pain, therefore may have developed adrenal insufficiency. At present, there is no clinical evidence of myopathy, or myasthenia gravis. Her strength is completely normal. There are no cranial nerve dysfunction noted either. * Hypertension * Hypothyroidism, controlled. * Chronic back pain with normal MRI lumbar spine. Plan: * Patient is currently on hydrocortisone for possible adrenal insufficiency. * Patient has myasthenia gravis panel checked, the results are pending. I have low index of suspicion for myasthenia gravis. * Patient's neurological examination is normal. * PT OT. * We will check carotid Doppler to rule out carotid stenosis, as patient has been having episodic weakness, rule out stenosis.
--- NOTE | 2020-03-06 14:31 | P.CONS ---
History of Present Illness - Chief Complaint General weakness - History of Present Illness I had the opportunity see patient for inpatient rehab consultation. General weakness and possible myopathy. Patient admitted to [facility] for history previous back pain treated with steroids. May have developed adrenal insufficiency and myopathy. These assents resolved. Evaluated by Dr. Sparks of neurology who feels patient does not have signs of myasthenia or myopathy. Seen by psychiatry for possible suicidal thought but appears not to be a concern at this time. Also by orthopedics for the back pain. PT prescribed but patient declined secondary to walking in the hallway twice with nursing. I've added OT at this time. Previous functional history as elicited from patient: 74-year-old right-handed white female who is lives in one floor home with . Patient retired but her works full-time. Patient describes independent cooking, laundry, driving, standing shower and gait without device. For the last month and a half she's been doing a sitdown shower and using 4 wheeled walker for gait. PMD is Dr. Cisse. Denies tobacco or alcohol. Family history of both parents with hypertension and father with heart disease. Review of Systems Review of systems: ENT: Denies sneezes or discharge. Eyes: Denies discharge or photophobia. Cardiac: Denies chest pain or palpitation. Pulmonary: Denies cough or shortness of breath. Breast: Denies discharge or lumps. Gastrointestinal: Denies nausea, emesis, constipation, diarrhea. Genitourinary: Denies discharge or frequency. Musculoskeletal: Denies muscle or bone aches. Neurologic: General weakness, in fact patient feels that she is unable to ambulate normally although apparently did ambulate in the hallway. Endocrine: Denies shakes or sweats. Oncology: Denies cancers. Dermatologic: Denies rash, itching, pruritus. ALLERGY/immunology: Denies sneezes, rashes. Past Medical History Past Medical History: Hypertension, Thyroid Disorder History of Any Multi-Drug Resistant Organisms: None Reported Past Surgical History: Orthopedic Surgery Additional Past Surgical History / Comment(s): rt knee Past Psychological History: Anxiety Smoking Status: Never smoker Past Alcohol Use History: None Reported Past Drug Use History: None Reported Medications and Allergies Home Medications Medication Instructions Recorded Confirmed Type ALPRAZolam [Xanax] 0.25 mg PO BID PRN 03/04/20 03/04/20 History Acetaminophen Tab [Tylenol] 1,000 mg PO Q6HR PRN 03/04/20 03/04/20 History Aspirin [Adult Low Dose Aspirin EC] 81 mg PO DAILY 03/04/20 03/04/20 History Biotin 2,500mcg Cap 2,500 mcg PO DAILY 03/04/20 03/04/20 History Cholecalciferol [Vitamin D3 (25 1,000 unit PO DAILY 03/04/20 03/04/20 History Mcg = 1000 Iu)] Fish Oil/Dha/Epa [Fish Oil 1,200 1 cap PO DAILY 03/04/20 03/04/20 History mg Fish Oil] Levothyroxine Sodium [Synthroid] 37.5 mcg PO SUTH 03/04/20 03/04/20 History Levothyroxine Sodium [Synthroid] 75 mcg PO MOTUWEFRSA 03/04/20 03/04/20 History Loratadine [Claritin] 10 mg PO DAILY PRN 03/04/20 03/04/20 History Metoprolol Succinate (ER) [Toprol 37.5 mg PO BID 03/04/20 03/04/20 History XL] Naproxen Sodium [Aleve] 220 mg PO Q12HR PRN 03/04/20 03/04/20 History Vitamin B Complex 1 cap PO DAILY 03/04/20 03/04/20 History Vitamin B-12/Folic Acid 400mcg 1 tab SL DAILY 03/04/20 03/04/20 History Cyclobenzaprine [Flexeril] 5 mg PO TID #90 tab 03/06/20 Rx Gabapentin [Neurontin] 100 mg PO TID PRN #9 cap 03/06/20 Rx Hydrocortisone 10 mg PO BID #34 tab 03/06/20 Rx Lidocaine 5% Patch [Lidoderm 5% 1 patch TOPICAL DAILY #30 patch 03/06/20 Rx Patch] Allergies Allergy/AdvReac Type Severity Reaction Status Date / Time epinephrine Allergy elevates Verified 03/04/20 12:36 heart rate Physical Exam Vitals: Vital Signs Temp Pulse Resp BP Pulse Ox 03/06/20 07:00 97.7 F 69 18 151/79 97 03/06/20 02:46 98.1 F 74 18 160/78 97 03/05/20 18:58 98.2 F 77 16 137/54 99 03/05/20 15:00 98.8 F 83 16 126/60 95 Intake and Output 03/05/20 03/06/20 03/06/20 22:59 06:59 14:59 Intake Total 240 Balance 240 Intake: Oral 240 Other: Voiding Method Toilet # Voids 2 2 3 Skin: Good color, texture, turgor. General: Medium build and comfortable appearance. Head: Normocephalic, atraumatic. Eyes: Symmetric. Pupils equal round. Ears: Symmetric. Hearing within normal limits. Mouth: Clear. Neck: Supple. Carotid without bruit. Cardiac: Regular rate and rhythm. Lungs: Clear anteriorly and posteriorly. Abdomen: Soft active nontender. Extremities: Normal tone. Neurological: Mental status: Alert, cooperative, pleasant. Cranial nerves: Symmetric facial tone and trapezius. Motor: Can actively elevate all 4 limbs and otherwise demonstrates normal movement. Sensation: Intact throughout. DTRs: Symmetric and equal throughout. Mobility: Did not attempt to sit or stand on my own. Results CBC & Chem 7: 03/04/20 10:36 03/04/20 10:36 Labs: Abnormal Lab Results - Last 24 Hours (Table) 03/05/20 Range/Units 12:30 Vitamin B12 3095.0 H (200.0-944.0) pg/mL Assessment and Plan (1) History of recent steroid use Current Visit: Yes Status: Acute Code(s): Z92.241 - PERSONAL HISTORY OF SYSTEMIC STEROID THERAPY SNOMED Code(s): 250183939 (2) Lumbar degenerative disc disease Current Visit: Yes Status: Acute Code(s): M51.36 - OTHER INTERVERTEBRAL DISC DEGENERATION, LUMBAR REGION SNOMED Code(s): 17702167 Plan: Impression: 1. General weakness rule out myopathy. 2. Lumbar DDD. 3. Hypertension. 4. Hypothyroid. Comments and plan: At this time PT prescribed and I have added OT. Discussed possible inpatient rehab with patient. She did however have to participate with both PT and OT and demonstrate [facility]
[2020-03-06] MEDS ORDERED: MECLIZINE 25 MG TAB PO PRN (14:55)
--- NOTE | 2020-03-06 15:03 | P.PN ---
Subjective Progress Note Date: 03/06/20 This is a 74-year-old female patient of Dr. Cervantes with past medical history of hypertension, hypothyroidism, degenerative disc disease, scoliosis. Patient gives history that in November she had increasing lower back pain and saw an orthopedic physician in [place]. Subsequently she started having trouble with her balance and by the end of December she started using a walker. She was able to get to episodes of therapy but then was on shutdown due to Covid 19. Patient states she continued to have increasing weakness and balance issues as well as low back pain to the bilateral lower extremities but more so to the left buttocks and also weakness in her knees. She had some numbness in the left heel area. She denies any falls. She does have radiation of the pain around to the left side or lower abdomen. With ambulation she has pain in both legs. She gives history of having trouble sleeping due to the pain. She states she's been taking Tylenol around the clock. Due to generalized weakness she was recently started on Florinef by Dr. Brock. He states she states she has no energy and feels like just a vegetable bread she went through several days where she did not sleep at nighttime. Patient relates that she was in bed and the pain was severe and she was feeling weak and her stated that no one can help us. She states she snapped and stated I can go on like this we have to take me to the hospital. Patient states that she feels overwhelmed. There was concern for suicidal ideation in the emergency center and suicide precautions were placed. Patient came into [facility] emergency center for evaluation. Initial blood pressure 176/94, afebrile, heart rate 73, pulse ox 99% on room air. CBC unremarkable. Sodium 132, potassium 4.2, chloride 96, CO2 29, BUN 17 creatinine 0.55, blood sugar 55. TSH 8.1. Lactic acid 1.6, troponin negative. Coronavirus PCR not detected. Urinalysis negative, urine drug screen negative. Patient admitted to the [facility] floor and consult in place with psychiatry and orthopedic spine. Patient was started on IV Solu-Medrol. 03/06: Patient has been seen by orthopedic spine with no plan for acute surgical intervention. No significant herniated nucleus pulposus, no evidence of spinal, no stenosis, no evidence of instability and no evidence of compression fracture deformity. Patient was cleared for discharge from orthopedics. Patient has refused all steroids which were discontinued yesterday afternoon. Patient has been seen by psychiatry with recommendations to can discontinue suicide precautions and refer to outpatient therapy for stress management. She has been afebrile, heart rate 69, blood pressure 151/79, pulse ox 97% on room air. Vitamin B12 3095, TSH 2.640. C-reactive protein less than 5, CK 38, sed rate 11. Patient was evaluated by physical therapy with recommendations for home care. Patient states that she had an episode of dizziness last night after she took medications and meclizine will be added as needed. At this time, patient states that she is too weak in her upper and lower body in order to do any physical therapy and is not able to go home. Consult will be added for Dr. Jonatan childs to rule out myasthenia gravis. Adjustments have been made to her Cortef as this was discussed with Dr. Niranjan Holden. classification case manager will arrange for home care anticipate discharge home tomorrow. Consult with Dr. Felecia walker for possible inpatient rehab. Objective - Vital Signs Vital signs: Vital Signs Temp 97.7 F 03/06/20 07:00 Pulse 69 03/06/20 07:00 Resp 18 03/06/20 07:00 BP 151/79 03/06/20 07:00 Pulse Ox 97 03/06/20 07:00 Intake & Output 03/05/20 03/06/20 03/06/20 18:59 06:59 18:59 Intake Total 120 120 Balance 120 120 Weight 47 kg Intake: Oral 120 120 Other: Voiding Method Toilet # Voids 3 2 - Exam Review Of Systems: Constitutional: No fever, no chills, no night sweats. No weight change. Reports weakness, fatigue or lethargy. No daytime sleepiness. EENT: No headache. No blurred vision or double vision, no loss of vision. No loss of Hearing, no ringing in the ears, no dizziness. No nasal drainage or congestion. No epistaxis. No sore throat. Lungs: No shortness of breath, cough, no sputum production. No wheezing. Cardiovascular: No chest pain, no lower extremity edema. No palpitations. No paroxysmal nocturnal dyspnea. No orthopnea. No lightheadedness or dizziness. No syncopal episodes. Abdominal: No abdominal pain. No nausea, vomiting. No diarrhea. No constipation. No bloody or tarry stools.. No loss of appetite. Genitourinary: No dysuria, increased frequency, urgency. No urinary retention. Musculoskeletal: No myalgias. Reports muscle weakness, reports gait dysfunction, no frequent falls. Reports back pain. No neck pain. Integumentary: No wounds, no lesions. No rash or pruritus. No unusual bruising. No change in hair or nails. Neurologic: No aphasia. No facial droop. No change in mentation. No head injury. No headache. No paralysis. No paresthesia. Psychiatric: Reports depression. No anxiety. No mood swings. Endocrine: No abnormal blood sugars. No weight change. No excessive sweating or thirst. No cold intolerance. Physical examination Gen: This is a 74-year-old female. Patient is resting in bed appears to be comfortable but anxious. HEENT: Head is atraumatic, normocephalic. Pupils equal, round. Sclerae is anicteric. NECK: Supple. No JVD. No lymphadenopathy. No thyromegaly. LUNGS: Clear to auscultation. No wheezes or rhonchi. No intercostal retractions. HEART: Regular rate and rhythm. No murmur. ABDOMEN: Soft. Bowel sounds are present. No masses. No tenderness. BACK: Tenderness to the left buttocks area. EXTREMITIES: No pedal edema. No calf tenderness. NEUROLOGICAL: Patient is awake, alert and oriented x3. Cranial nerves 2 through 12 are grossly intact. - Labs CBC & Chem 7: 03/04/20 10:36 03/04/20 10:36 Labs: Abnormal Lab Results - Last 24 Hours (Table) 03/05/20 Range/Units 12:30 Vitamin B12 3095.0 H (200.0-944.0) pg/mL Assessment and Plan Plan: 1. Generalized weakness and fatigue, malaise possibly secondary to depression, complicated by chronic pain and insomnia/sleep deprivation. Consult with psychiatry appreciated. TSH, free T4, vitamin B12, CPK, sed rate, CRP, BOBO, cortisol level as above. Lyme titer pending. Continue Flexeril 5 mg 3 times daily, melatonin 10 mg at at bedtime. Consult with neurology for possible myasthenia gravis. Cortef dosing has been adjusted to 15 mg in the morning and 5 in the afternoon and new prescription prepared for home. 2. Lumbar facet arthropathy and lumbar disc desiccation, left sciatica. Consult with orthopedic spine. Patient is refusing to take steroids. Continue Toradol 50 mg IV push every 6 hours as needed, Lidoderm patch daily, continue Tylenol. Continue Flexeril 5 mg 3 times daily and gabapentin 100 mg 3 times daily as needed. Physical therapy evaluation. 3. Depression with possible suicidal ideation. Patient is in suicide precautions. Consult with psychiatry. 4. Hypertension. Continue Toprol-XL 37.5 mg twice daily, hydralazine 10 mg IV push as needed for elevated blood pressure greater than 160 systolic. 5. Hypothyroidism continue levothyroxine at current dosing. 6. Generalized anxiety disorder and insomnia. Continue Xanax or 0.25 mg twice daily as needed. 7. DVT prophylaxis. Heparin subcu. 8. GI prophylaxis. Pepcid. 9. Dizziness. Meclizine added. Discharge plan: Most likely return home. PT evaluation appreciated with recommendations for home with homecare. Consult with Dr. Abel added. Impression and plan of care have been directed as dictated by the signing physician. Earline Baker nurse practitioner acting as scribe for signing physician.
--- NOTE | 2020-03-06 16:14 | US ---
EXAMINATION TYPE: US carotid duplex BILAT DATE OF EXAM: 03/06/2020 COMPARISON: NONE CLINICAL HISTORY: Episodic weakness, rule out TIA. weakness EXAM MEASUREMENTS: RIGHT: Peak Systolic Velocity (PSV) cm/sec ----- Right CCA: 64.5 ----- Right ICA: 106.0 ----- Right ECA: 99.5 ICA/CCA ratio: 1.6 RIGHT: End Diastole cm/sec ----- Right CCA: 16.5 ----- Right ICA: 25.8 ----- Right ECA: 8.9 LEFT: Peak Systolic Velocity (PSV) cm/sec ----- Left CCA: 65.8 ----- Left ICA: 95.6 ----- Left ECA: 95.5 ICA/CCA ratio: 1.5 LEFT: End Diastole cm/sec ----- Left CCA: 13.1 ----- Left ICA: 29.6 ----- Left ECA: 7.6 VERTEBRALS (direction of flow): Right Vertebral: Antegrade Left Vertebral: Antegrade Rhythm: Normal Mild plaque bilateral bifurcations. No evidence of significant stenosis Grayscale, color Doppler, spectral Doppler imaging performed of the carotid arteries. Waveform analys is does not show significant stenosis. IMPRESSION: No hemodynamic significant stenosis of the proximal internal carotid arteries by Doppler criteria, an indirect measurement of carotid stenosis Criteria for Assigning % of Stenosis / Diameter reduction (Estimation based on the indirect measurements of the internal carotid artery velocities (ICA PSV). 1. Normal (no stenosis)=ICA PSV < 125 cm/s: ratio < 2.0: ICA EDV<40 cm/s. 2. Less than 50% stenosis=ICA PSV < 125 cm/s: ratio < 2.0: ICA EDV<40 cm/s. 3. 50 to 69% stenosis=ICA PSV of 125 to 230 cm/s: ration 2.0 ? 4.0: ICA EDV 40-100 cm/s. 4. Greater than 70% stenosis to near occlusion= ICA PSV > 230 cm/s: ratio > 4.0: ICA EDV > 100 cm/s. 5. Near occlusion= ICA PSV velocities may be low or undetectable: variable ratio and ICA EDV. 6. Total occlusion=unable to detect flow.
[2020-03-06] MEDS: GABAPENTIN 100 MG CAP PO SCH ×2 (16:43→20:42)
[2020-03-06 19:49] VITALS: RESP 18
[2020-03-06] MEDS: MELATONIN 5 MG TABLET PO SCH (20:43)
[2020-03-07] MEDS ORDERED: ACETAMINOPHEN TAB 325 MG TAB ONE (01:07)
[2020-03-07] MEDS: SODIUM CHLORIDE 0.9% 1,000 ML IV SCH (06:09)
[2020-03-07] MEDS ORDERED: LEVOTHYROXINE 75 MCG TAB PO SCH ×2 (06:30→17:03)
[2020-03-07] MEDS ORDERED: HYDROCORTISONE 10 MG TAB PO SCH ×2 (08:00)
[2020-03-07 08:31] VITALS: BP 158/83; PULSE 65; TEMP 98
[2020-03-07] MEDS: GABAPENTIN 100 MG CAP PO SCH (10:04)
[2020-03-07] MEDS: CYCLOBENZAPRINE 5 MG TAB PO SCH (10:05)
[2020-03-07] MEDS: LIDOCAINE 5% PATCH TOPICAL SCH (10:05)
[2020-03-07] MEDS: ASPIRIN 81 MG PO SCH (10:05)
[2020-03-07] MEDS: METOPROLOL SUCCINATE (ER) 25 MG TAB.ER.24H PO SCH (10:05)
[2020-03-07] MEDS: CHOLECALCIFEROL 1,000 UNIT TAB PO SCH (10:07)
[2020-03-07] MEDS ORDERED: LEVOTHYROXINE 75 MCG TAB PO STA (10:23)
[2020-03-07] MEDS: ACETAMINOPHEN TAB 325 MG TAB PO PRN (10:34)
[2020-03-07] MEDS: HYDROCORTISONE 10 MG TAB PO SCH (13:01)
--- NOTE | 2020-03-08 07:51 | P.DS ---
Providers Date of admission: 03/04/20 14:52 Expected date of discharge: 03/07/20 Attending physician: Barby Calixto Consults: 03/04/20 14:43 Consult Physician Routine Consulting Provider: Billy Caro Consult Reason/Comments: suicidal thoughts Do you want consulting provider notified?: Yes Consult Physician Routine Consulting Provider: Yared Christopher Consult Reason/Comments: back pain, weakness, Do you want consulting provider notified?: Yes Primary care physician: [facility] Course: This is a 74-year-old female patient of Dr. Cervantes with past medical history of hypertension, hypothyroidism, degenerative disc disease, scoliosis. Patient gives history that in November she had increasing lower back pain and saw an orthopedic physician in [place]. Subsequently she started having trouble with her balance and by the end of December she started using a walker. She was able to get to episodes of therapy but then was on shutdown due to Covid 19. Patient states she continued to have increasing weakness and balance issues as well as low back pain to the bilateral lower extremities but more so to the left buttocks and also weakness in her knees. She had some numbness in the left heel area. She denies any falls. She does have radiation of the pain around to the left side or lower abdomen. With ambulation she has pain in both legs. She gives history of having trouble sleeping due to the pain. She states she's been taking Tylenol around the clock. Due to generalized weakness she was recently started on Florinef by Dr. Brock. He states she states she has no energy and feels like just a vegetable bread she went through several days where she did not sleep at nighttime. Patient relates that she was in bed and the pain was severe and she was feeling weak and her stated that no one can help us. She states she snapped and stated I can go on like this we have to take me to the hospital. Patient states that she feels overwhelmed. There was concern for suicidal ideation in the emergency center and suicide precautions were placed. Patient came into [facility] emergency center for evaluation. Initial blood pressure 176/94, afebrile, heart rate 73, pulse ox 99% on room air. CBC unremarkable. Sodium 132, potassium 4.2, chloride 96, CO2 29, BUN 17 creatinine 0.55, blood sugar 55. TSH 8.1. Lactic acid 1.6, troponin negative. Coronavirus PCR not detected. Urinalysis negative, urine drug screen negative. Patient admitted to the [facility] floor and consult in place with psychiatry and orthopedic spine. Patient was started on IV Solu-Medrol. 03/06: Patient has been seen by orthopedic spine with no plan for acute surgical intervention. No significant herniated nucleus pulposus, no evidence of spinal, no stenosis, no evidence of instability and no evidence of compression fracture deformity. Patient was cleared for discharge from orthopedics. Patient has refused all steroids which were discontinued yesterday afternoon. Patient has been seen by psychiatry with recommendations to can discontinue suicide precautions and refer to outpatient therapy for stress management. She has been afebrile, heart rate 69, blood pressure 151/79, pulse ox 97% on room air. Vitamin B12 3095, TSH 2.640. C-reactive protein less than 5, CK 38, sed rate 11. Patient was evaluated by physical therapy with recommendations for home care. Patient states that she had an episode of dizziness last night after she took medications and meclizine will be added as needed. At this time, patient states that she is too weak in her upper and lower body in order to do any physical therapy and is not able to go home. Consult will be added for Dr. Smith to rule out myasthenia gravis. Adjustments have been made to her Cortef as this was discussed with Dr. Niranjan Holden. insurance agency sales manager will arrange for home care anticipate discharge home tomorrow. Consult with Dr. Izquierdo added for possible inpatient rehab. 03/07: Patient has been seen by neurology and ruled out for myasthenia gravis on clinical evaluation. Patient does not have any weakness, no neurological deficits. If necessary, patient will have myasthenia gravis blood work done as an outpatient. Note that blood work was not ordered yesterday as previously discussed with neurology and will need to be done as an outpatient if necessary. Patient has been seen by PT and OT and have signed off her case as she is independent. Patient will be discharged home today in stable condition. Discharge diagnoses: 1. Generalized weakness and fatigue, malaise possibly secondary to depression, complicated by chronic pain and insomnia/sleep deprivation. 2. Lumbar facet arthropathy and lumbar disc desiccation, left sciatica. 3. Situational depression with possible suicidal ideation ruled out. 4. Hypertension. 5. Hypothyroidism. 6. Generalized anxiety disorder and insomnia. Discharge plan: home with [facility]. Impression and plan of care have been directed as dictated by the signing physician. Earline Baker nurse practitioner acting as scribe for signing physician. Patient Condition at Discharge: Good Plan - Discharge Summary Discharge Rx Participant: Yes New Discharge Prescriptions: New Cyclobenzaprine [Flexeril] 5 mg PO TID #90 tab Gabapentin [Neurontin] 100 mg PO TID PRN #9 cap PRN Reason: pain Lidocaine 5% Patch [Lidoderm 5% Patch] 1 patch TOPICAL DAILY #30 patch Continue Levothyroxine Sodium [Synthroid] 37.5 mcg PO SUTH Metoprolol Succinate (ER) [Toprol XL] 37.5 mg PO BID Naproxen Sodium [Aleve] 220 mg PO Q12HR PRN PRN Reason: Pain Acetaminophen Tab [Tylenol] 1,000 mg PO Q6HR PRN PRN Reason: Pain Biotin 2,500mcg Cap 2,500 mcg PO DAILY Aspirin [Adult Low Dose Aspirin EC] 81 mg PO DAILY Vitamin B-12/Folic Acid 400mcg 1 tab SL DAILY Loratadine [Claritin] 10 mg PO DAILY PRN PRN Reason: Allergy Symptoms Fish Oil/Dha/Epa [Fish Oil 1,200 mg Fish Oil] 1 cap PO DAILY Cholecalciferol [Vitamin D3 (25 Mcg = 1000 Iu)] 1,000 unit PO DAILY Vitamin B Complex 1 cap PO DAILY ALPRAZolam [Xanax] 0.25 mg PO BID PRN PRN Reason: Anxiety Hydrocortisone 10 mg PO BID #34 tab Changed Levothyroxine Sodium [Synthroid] 75 mcg PO DAILY #0 Discontinued Fludrocortisone [Florinef] 0.05 mg PO DAILY Discharge Medication List ALPRAZolam [Xanax] 0.25 mg PO BID PRN 03/04/20 [History] Acetaminophen Tab [Tylenol] 1,000 mg PO Q6HR PRN 03/04/20 [History] Aspirin [Adult Low Dose Aspirin EC] 81 mg PO DAILY 03/04/20 [History] Biotin 2,500mcg Cap 2,500 mcg PO DAILY 03/04/20 [History] Cholecalciferol [Vitamin D3 (25 Mcg = 1000 Iu)] 1,000 unit PO DAILY 03/04/20 [History] Fish Oil/Dha/Epa [Fish Oil 1,200 mg Fish Oil] 1 cap PO DAILY 03/04/20 [History] Levothyroxine Sodium [Synthroid] 37.5 mcg PO SUTH 03/04/20 [History] Loratadine [Claritin] 10 mg PO DAILY PRN 03/04/20 [History] Metoprolol Succinate (ER) [Toprol XL] 37.5 mg PO BID 03/04/20 [History] Naproxen Sodium [Aleve] 220 mg PO Q12HR PRN 03/04/20 [History] Vitamin B Complex 1 cap PO DAILY 03/04/20 [History] Vitamin B-12/Folic Acid 400mcg 1 tab SL DAILY 03/04/20 [History] Cyclobenzaprine [Flexeril] 5 mg PO TID #90 tab 03/06/20 [Rx] Gabapentin [Neurontin] 100 mg PO TID PRN #9 cap 03/06/20 [Rx] Hydrocortisone 10 mg PO BID #34 tab 03/06/20 [Rx] Lidocaine 5% Patch [Lidoderm 5% Patch] 1 patch TOPICAL DAILY #30 patch 03/06/20 [Rx] Levothyroxine Sodium [Synthroid] 75 mcg PO DAILY #0 03/07/20 [Rx] Follow up Appointment(s)/Referral(s): Billy Cisse MD [Primary Care Provider] - 1 Week (Please call office for appointment.) Cristi Gonzalez PAC [PHYSICIAN YOUTH DEVELOPMENT SPECIALIST] - As Needed (Patient may follow-up with Cristi Gonzalez PA-C or Dr. Luis Christopher at [facility] on an as-needed basis following discharge. ) [facility], [NON-STAFF] - Patient Instructions/Handouts: Low Back Strain (DC) Discharge Disposition: HOME WITH HOME HEALTH SERVICES
== END 2020-03-07 13:21 | disposition home health service (06) | DRG 881 ==
LOC: EC 09:43 → 4SSUR 14:52 → OBSVTOIN 03-06 15:45
PROVIDERS: ADMIT Family Medicine; ATTEND Family Medicine
DX: F32.9 Major depressive disorder, single episode, unspecified (principal); E03.9 Hypothyroidism, unspecified; F41.1 Generalized anxiety disorder; G47.00 Insomnia, unspecified; G89.29 Other chronic pain; I10 Essential (primary) hypertension; M41.9 Scoliosis, unspecified; M47.816 Spondylosis without myelopathy or radiculopathy, lumbar region; R13.10 Dysphagia, unspecified; M51.17 Intervertebral disc disorders with radiculopathy, lumbosacral region; M17.0 Bilateral primary osteoarthritis of knee; Z11.59 Encounter for screening for other viral diseases; Z79.82 Long term (current) use of aspirin; Z79.890 Hormone replacement therapy; Z79.899 Other long term (current) drug therapy; Z88.8 Allergy status to other drugs, medicaments and biological substances; Z80.49 Family history of malignant neoplasm of other genital organs; Z82.49 Family history of ischemic heart disease and other diseases of the circulatory system; Z82.61 Family history of arthritis
CPT/HCPCS: 36415; 71045; 80053; 80306; 81001; 82075; 82533; 82550; 82607; 83605; 83735; 84439; 84443; 84484; 85025; 85610; 85652; 85730; 86038; 86140; 86618; 87635; 93005; 93880; 96361; 96374; 99285

== ENCOUNTER 2020-03-29 14:49 | Emergency (ER) | payer BC ==
[2020-03-29] MEDS ORDERED: SODIUM CHLORIDE 0.9% 1,000 ML IV STA (15:49)
[2020-03-29 15:58] LABS: Basophils % (A) 0 %; Eosinophils # (A) 0.1 k/uL (0-0.7); Eosinophils % (A) 1 %; HCT 39.6 % (34.0-46.0); Lymphocytes # (A) 1.4 k/uL (1.0-4.8); Lymphocytes % (A) 21 %; MCH 32.8 pg (25.0-35.0); MCHC 32.9 g/dL (31.0-37.0); MCV 99.9 fL (80.0-100.0); Mean Platelet Volume 6.8; Monocytes # (A) 0.6 k/uL (0-1.0); Monocytes % (A) 9 %; Neutrophils # (A) 4.5 k/uL (1.3-7.7); Neutrophils % (A) 68 %; Platelet Count 237 k/uL (150-450); RBC 3.96 m/uL (3.80-5.40); RDW 12.7 % (11.5-15.5); WBC 6.6 k/uL (3.8-10.6)
[2020-03-29 16:07] LABS: ALT 22 U/L (4-34); AST 23 U/L (14-36); Acetaminophen <10.0 ug/mL; African American GFR (CKD) >90 (>60 ml/min/1.73 sqM); Albumin 3.9 g/dL (3.5-5.0); Alcohol <10 mg/dL; Alkaline Phosphatase 26 U/L (38-126); Anion Gap 3 mmol/L; Blood Urea Nitrogen 16 mg/dL (7-17); Carbon Dioxide 32 mmol/L (22-30); Chloride 98 mmol/L (98-107); Glucose 93 mg/dL (74-99); Non-African American GFR(CKD) >90 (>60 ml/min/1.73 sqM); Salicylate <1.0 mg/dL; Sodium 133 mmol/L (137-145); Total Bilirubin 0.5 mg/dL (0.2-1.3); Total Protein 6.4 g/dL (6.3-8.2)
[2020-03-29] MEDS ORDERED: HYDROCORTISONE 20 MG TAB PO STA (17:17)
--- NOTE | 2020-03-29 17:54 | XR ---
EXAMINATION TYPE: XR chest 2V DATE OF EXAM: 03/29/2020 COMPARISON: 03/04/2020 HISTORY: Weakness TECHNIQUE: Frontal and lateral views of the chest are obtained. FINDINGS: There is no focal air space opacity, pleural effusion, or pneumothorax seen. Biapical riccardo ency suggests underlying COPD. The cardiac silhouette size is stable and mildly enlarged. The osseo us structures are intact. IMPRESSION: No acute cardiopulmonary process.
--- NOTE | 2020-03-29 19:12 | CT ---
EXAMINATION TYPE: CT brain wo con DATE OF EXAM: 03/29/2020 COMPARISON: None HISTORY: Altered mental status CT DLP: 1090.4 mGycm Automated exposure control for dose reduction was used. TECHNIQUE: CT scan of the head is performed without contrast. FINDINGS: There is no acute intracranial hemorrhage or midline shift identified. There is diffuse v entricular and sulcal prominence consistent with diffuse age-related cerebral atrophy. There a few a reas of low-attenuation in the periventricular white matter most commonly related to chronic microang iopathy. The globes are intact. Within the right maxillary sinus there are multiple (at least 4) hig h density probable polyps versus mucosal retention cysts measuring up to 1 cm. There is leftward nasa l septal deviation and a small leftward nasal septal spur. Very scant mucosal thickening of the ethmo id and frontal sinuses. Visualized left maxillary sinus is well aerated. Mild mucosal thickening in t he right sphenoid sinus on image 9. Mastoid air cells are well aerated. Atherosclerosis of the intrac ranial vasculature is seen. IMPRESSION: 1. No acute intracranial hemorrhage or midline shift. There is mild age-related cerebral atrophy and mild burden nonspecific white matter change. 2. Multiple right maxillary high density probable polyps versus mucosal retention cysts. Mild mucosal thickening in the ethmoid, sphenoid, and frontal sinuses.
[2020-03-29 19:32] LABS: Appearance,Urine Clear (Clear); Bilirubin,Urine Negative (Negative); Blood,Urine Negative (Negative); Color,Urine Light Yellow; Glucose,Urine (UA) Negative (Negative); Ketones,Urine Negative (Negative); Leukocyte Esterase,Urine Small (Negative); Mucus,Urine Rare /hpf; Nitrite,Urine Negative (Negative); Protein,Urine Negative (Negative); RBC,Urine 1 /hpf (0-5); Specific Gravity,Urine 1.008 (1.001-1.035); Squamous Epithelial Cell,Urine <1 /hpf (0-4); Urobilinogen,Urine <2.0 mg/dL (<2.0); WBC,Urine 3 /hpf (0-5)
[2020-03-29 20:01] LABS: Amphetamine Screen,Urine Not Detected (NotDetected); Barbiturate Screen,Urine Not Detected (NotDetected); Benzodiazepines Screen,Urine Detected (NotDetected); Cocaine Screen,Urine Not Detected (NotDetected); Methadone Screen, Urine Not Detected (NotDetected); Opiate Screen,Urine Not Detected (NotDetected); Oxycodone Screen, Urine Not Detected (NotDetected); Phencyclidine Screen,Urine Not Detected (NotDetected); Tricyclic Antidepressant,Urine Not Detected (NotDetected); Urn Cannabinoid Scrn Not Detected (NotDetected)
--- NOTE | 2020-03-29 20:49 | ED ---
General Adult HPI - General Chief complaint: Weakness Stated complaint: Weakness Time Seen by Provider: 03/29/20 15:35 Source: EMS, RN notes reviewed Mode of arrival: EMS Limitations: no limitations - History of Present Illness Initial comments: 74-year-old female with past medical history of anxiety, hypertension, adrenal insufficiency presents to the emergency department for weakness. Patient states this is an ongoing for over a month. Patient states she feels fatigue and does not want to get out of bed. She states that she cannot sleep at night. She is not able to eat or drink anything. Her states that he noted she was more lethargic than normal today and called Dr. Cisse who recommended he come to the emergency room. Upon presentation patient admits she took 20 0.25 mg Xanax tablets. States she did this because she is feeling hopeless because she cannot get to the bottom of this fatigue and weakness. She did she did want to hurt herself at the time but denies suicidal thoughts at this moment.Patient has no other complaints at this time including shortness of breath, chest pain, abdominal pain, nausea or vomiting, headache, or visual changes. - Related Data Home Medications Medication Instructions Recorded Confirmed ALPRAZolam [Xanax] 0.25 mg PO BID PRN 03/04/20 03/04/20 Acetaminophen Tab [Tylenol] 1,000 mg PO Q6HR PRN 03/04/20 03/04/20 Aspirin [Adult Low Dose Aspirin EC] 81 mg PO DAILY 03/04/20 03/04/20 Biotin 2,500mcg Cap 2,500 mcg PO DAILY 03/04/20 03/04/20 Cholecalciferol [Vitamin D3 (25 1,000 unit PO DAILY 03/04/20 03/04/20 Mcg = 1000 Iu)] Fish Oil/Dha/Epa [Fish Oil 1,200 1 cap PO DAILY 03/04/20 03/04/20 mg Fish Oil] Levothyroxine Sodium [Synthroid] 37.5 mcg PO SUTH 03/04/20 03/04/20 Loratadine [Claritin] 10 mg PO DAILY PRN 03/04/20 03/04/20 Metoprolol Succinate (ER) [Toprol 37.5 mg PO BID 03/04/20 03/04/20 XL] Naproxen Sodium [Aleve] 220 mg PO Q12HR PRN 03/04/20 03/04/20 Vitamin B Complex 1 cap PO DAILY 03/04/20 03/04/20 Vitamin B-12/Folic Acid 400mcg 1 tab SL DAILY 03/04/20 03/04/20 Previous Rx's Medication Instructions Recorded Cyclobenzaprine [Flexeril] 5 mg PO TID #90 tab 03/06/20 Gabapentin [Neurontin] 100 mg PO TID PRN #9 cap 03/06/20 Hydrocortisone 10 mg PO BID #34 tab 03/06/20 Lidocaine 5% Patch [Lidoderm 5% 1 patch TOPICAL DAILY #30 patch 03/06/20 Patch] Levothyroxine Sodium [Synthroid] 75 mcg PO DAILY #0 03/07/20 Allergies Allergy/AdvReac Type Severity Reaction Status Date / Time epinephrine Allergy elevates Verified 03/04/20 12:36 heart rate Review of Systems ROS Statement: Those systems with pertinent positive or pertinent negative responses have been documented in the HPI. ROS Other: All systems not noted in ROS Statement are negative. Past Medical History Past Medical History: Hypertension, Thyroid Disorder Additional Past Medical History / Comment(s): adrenal insufficiency History of Any Multi-Drug Resistant Organisms: None Reported Past Surgical History: Orthopedic Surgery Additional Past Surgical History / Comment(s): rt knee Past Psychological History: Anxiety Smoking Status: Never smoker Past Alcohol Use History: None Reported Past Drug Use History: None Reported General Exam Limitations: no limitations General appearance: alert (Drowsy but alert), in no apparent distress Head exam: Present: atraumatic, normocephalic, normal inspection Eye exam: Present: normal appearance, PERRL, EOMI. Absent: scleral icterus, conjunctival injection, periorbital swelling ENT exam: Present: normal exam, mucous membranes moist Neck exam: Present: normal inspection, full ROM. Absent: tenderness, meningismus, lymphadenopathy Respiratory exam: Present: normal lung sounds bilaterally. Absent: respiratory distress, wheezes, rales, rhonchi, stridor Cardiovascular Exam: Present: regular rate, normal rhythm, normal heart sounds. Absent: systolic murmur, diastolic murmur, rubs, gallop, clicks GI/Abdominal exam: Present: soft, normal bowel sounds. Absent: distended, tenderness, guarding, rebound, rigid Neurological exam: Present: alert Course Vital Signs 03/29/20 03/29/20 03/29/20 14:50 17:00 19:58 Temperature 98.0 F 98.0 F Pulse Rate 87 78 71 Respiratory 18 16 16 Rate Blood Pressure 150/88 132/74 O2 Sat by Pulse 97 96 97 Oximetry 03/29/20 20:00 Temperature Pulse Rate 71 Respiratory 18 Rate Blood Pressure 152/91 O2 Sat by Pulse 97 Oximetry Medical Decision Making - Medical Decision Making Vitals are stable have remained stable throughout her stay. Poison control was contacted several times and updated on results. CBC and CMP is unremarkable. Urinalysis is unremarkable. Toxicology screen is negative aside from benzodiazepines. Chest x-ray shows no acute cardio pulmonary process. CT shows no acute cranial hemorrhage or midline shift. There is age-related through atrophy and mild burden nonspecific white matter change. Patient was admitted into the hospital for several days for this complaint and saw neurology as well as psychiatry. I had extensive conversation with Dr. Cisse who strongly feels this is psychiatric in nature. I also talked with Dr. Calixto who saw patient in the hospital last stay and agrees. They recommend transferring patient to [facility] facility and both patient and are on board. Patient was signed out to Dr. Bobby at 9:00 PM - Lab Data Result diagrams: 03/29/20 15:40 03/29/20 15:40 Lab Results 03/29/20 03/29/20 03/29/20 Range/Units 15:40 15:40 18:19 WBC 6.6 (3.8-10.6) k/uL RBC 3.96 (3.80-5.40) m/uL Hgb 13.0 (11.4-16.0) gm/dL Hct 39.6 (34.0-46.0) % MCV 99.9 (80.0-100.0) fL MCH 32.8 (25.0-35.0) pg MCHC 32.9 (31.0-37.0) g/dL RDW 12.7 (11.5-15.5) % Plt Count 237 (150-450) k/uL Neutrophils % 68 % Lymphocytes % 21 % Monocytes % 9 % Eosinophils % 1 % Basophils % 0 % Neutrophils # 4.5 (1.3-7.7) k/uL Lymphocytes # 1.4 (1.0-4.8) k/uL Monocytes # 0.6 (0-1.0) k/uL Eosinophils # 0.1 (0-0.7) k/uL Basophils # 0.0 (0-0.2) k/uL Sodium 133 L (137-145) mmol/L Potassium 4.0 (3.5-5.1) mmol/L Chloride 98 (98-107) mmol/L Carbon Dioxide 32 H (22-30) mmol/L Anion Gap 3 mmol/L BUN 16 (7-17) mg/dL Creatinine 0.60 (0.52-1.04) mg/dL Est GFR (CKD-EPI)AfAm >90 (>60 ml/min/1.73 sqM) Est GFR (CKD-EPI)NonAf >90 (>60 ml/min/1.73 sqM) Glucose 93 (74-99) mg/dL Calcium 9.0 (8.4-10.2) mg/dL Total Bilirubin 0.5 (0.2-1.3) mg/dL AST 23 (14-36) U/L ALT 22 (4-34) U/L Alkaline Phosphatase 26 L (38-126) U/L Total Protein 6.4 (6.3-8.2) g/dL Albumin 3.9 (3.5-5.0) g/dL Urine Color Light Yellow Urine Appearance Clear (Clear) Urine pH 6.0 (5.0-8.0) Ur Specific [place] 1.008 (1.001-1.035) Urine Protein Negative (Negative) Urine Glucose (UA) Negative (Negative) Urine Ketones Negative (Negative) Urine Blood Negative (Negative) Urine Nitrite Negative (Negative) Urine Bilirubin Negative (Negative) Urine Urobilinogen <2.0 (<2.0) mg/dL Ur Leukocyte Esterase Small H (Negative) Urine RBC 1 (0-5) /hpf Urine WBC 3 (0-5) /hpf Ur Squamous Epith Cells <1 (0-4) /hpf Urine Mucus Rare H (None) /hpf Salicylates <1.0 mg/dL Urine Opiates Screen Not Detected (NotDetected) Ur Oxycodone Screen Not Detected (NotDetected) Urine Methadone Screen Not Detected (NotDetected) Ur Propoxyphene Screen Not Detected (NotDetected) Acetaminophen <10.0 ug/mL Ur Barbiturates Screen Not Detected (NotDetected) U Tricyclic Antidepress Not Detected (NotDetected) Ur Phencyclidine Scrn Not Detected (NotDetected) Ur Amphetamines Screen Not Detected (NotDetected) U Methamphetamines Scrn Not Detected (NotDetected) U Benzodiazepines Scrn Detected H (NotDetected) Urine Cocaine Screen Not Detected (NotDetected) U Marijuana (THC) Screen Not Detected (NotDetected) Serum Alcohol <10 mg/dL Disposition Clinical Impression: Insomnia, Generalized weakness Disposition: TRANSFER TO PSYCH HOSP/UNIT Condition: Fair Is patient prescribed a controlled substance at d/c from ED?: No Referrals: Billy Cisse MD [Primary Care Provider] - 1-2 days Time of Disposition: 20:51
[2020-03-30] MEDS ORDERED: ACETAMINOPHEN TAB 500 MG TAB PO STA ×2 (06:52→13:50)
[2020-03-30] MEDS ORDERED: METOPROLOL SUCCINATE (ER) 25 MG TAB.ER.24H PO STA (08:41)
[2020-03-30] MEDS ORDERED: HYDROCORTISONE 10 MG TAB PO STA (08:48)
[2020-03-30] MEDS ORDERED: LEVOTHYROXINE 75 MCG TAB PO STA (09:19)
[2020-03-30 14:02] VITALS: RESP 18
[2020-03-30] MEDS ORDERED: SODIUM CHLORIDE 0.9% 500 ML 500 ML IV STA (15:34)
[2020-03-30 18:03] VITALS: BP 130/84; PULSE 84; TEMP 98.3
[2020-03-30] MEDS ORDERED: HYDROCORTISONE 10 MG TAB PO SCH (21:00)
[2020-03-30] MEDS ORDERED: METOPROLOL SUCCINATE (ER) 25 MG TAB.ER.24H PO SCH (21:00)
[2020-03-31] MEDS ORDERED: LEVOTHYROXINE 75 MCG TAB PO SCH ×2 (06:30)
[2020-04-01] MEDS ORDERED: LEVOTHYROXINE 75 MCG TAB PO SCH (06:30)
== END 2020-03-30 18:24 ==
LOC: EC 14:49
DX: G47.00 Insomnia, unspecified (principal); R53.1 Weakness; I10 Essential (primary) hypertension; F41.9 Anxiety disorder, unspecified; E07.9 Disorder of thyroid, unspecified; Z79.82 Long term (current) use of aspirin; Z79.890 Hormone replacement therapy; Z79.899 Other long term (current) drug therapy; Z88.8 Allergy status to other drugs, medicaments and biological substances
CPT/HCPCS: 36415; 70450; 71046; 80053; 80306; 80320; 80329; 81001; 83520; 85025; 93005; 96360; 96361; 99285

== ENCOUNTER 2020-06-17 08:02 | Inpatient (IN) | payer BC, MEDICARE ==
[2020-06-17] MEDS ORDERED: SODIUM CHLORIDE 0.9% 1,000 ML IV STA (08:30)
[2020-06-17 08:51] LABS: Basophils % (A) 0 %; Eosinophils % (A) 1 %; HCT 49.4 % (34.0-46.0); HGB 16.8 gm/dL (11.4-16.0); Lymphocytes # (A) 1.4 k/uL (1.0-4.8); Lymphocytes % (A) 23 %; MCH 31.4 pg (25.0-35.0); MCHC 34.1 g/dL (31.0-37.0); Mean Platelet Volume 7.5; Monocytes # (A) 0.5 k/uL (0-1.0); Monocytes % (A) 8 %; Neutrophils # (A) 4.1 k/uL (1.3-7.7); Neutrophils % (A) 66 %; Platelet Count 186 k/uL (150-450); RBC 5.37 m/uL (3.80-5.40); RDW 12.3 % (11.5-15.5); WBC 6.2 k/uL (3.8-10.6)
[2020-06-17 08:59] LABS: ALT 15 U/L (4-34); African American GFR (CKD) >90 (>60 ml/min/1.73 sqM); Albumin 4.4 g/dL (3.5-5.0); Anion Gap 16 mmol/L; Blood Urea Nitrogen 22 mg/dL (7-17); Calcium 9.1 mg/dL (8.4-10.2); Carbon Dioxide 24 mmol/L (22-30); Chloride 90 mmol/L (98-107); Creatine Kinase 58 U/L (30-135); Glucose 99 mg/dL (74-99); Non-African American GFR(CKD) >90 (>60 ml/min/1.73 sqM); Partial Thromboplastin Time 23.4 sec (22.0-30.0); Sodium 130 mmol/L (137-145); Total Bilirubin 1.1 mg/dL (0.2-1.3); Total Protein 7.2 g/dL (6.3-8.2)
--- NOTE | 2020-06-17 09:00 | ED ---
Weakness HPI - General Chief complaint: Weakness Stated complaint: weakness Time Seen by Provider: 06/17/20 08:14 Source: patient Mode of arrival: ambulatory Limitations: no limitations - History of Present Illness Initial comments: Patient is a 74-year-old female, history of chronic back pain, hypertension, dysphagia, presenting to the emergency Department with complaints of general weakness that has been increasing over the past 2-3 weeks. is here with patient and is helping provide history. states that patient was admitted in the [facility] 3 weeks ago and has had multiple admissions before that for weakness. Patient has not been able to eat solid foods for more than a month and is only drinking a little bit of water and a half a protein shake daily. She has lost a lot of weight in the past month. Patient is complaining of chronic low back pain, no other pains including no chest pain or shortness of breath. She states she used to be able to walk with her walker but in the last 1-2 weeks she is not able to do that on her own. She states that she is completely bedridden. She denies any fever or chills, nausea or vomiting. She denies any diarrhea. She did develop a mild case of C. diff on her past admission at [facility]. She has no further complaints at this time. Upon arrival to the ER, her vitals are stable. - Related Data Home Medications Medication Instructions Recorded Confirmed ALPRAZolam [Xanax] 0.25 mg PO BID PRN 03/04/20 06/17/20 Acetaminophen Tab [Tylenol] 1,000 mg PO Q6HR PRN 03/04/20 06/17/20 Lidocaine 5% Patch [Lidoderm 5% 1 patch TOPICAL DAILY PRN 03/30/20 06/17/20 Patch] Metoprolol Succinate (ER) [Toprol 50 mg PO DAILY 06/17/20 06/17/20 Xl] Previous Rx's Medication Instructions Recorded Levothyroxine Sodium [Synthroid] 75 mcg PO DAILY #0 03/07/20 Allergies Allergy/AdvReac Type Severity Reaction Status Date / Time epinephrine Allergy elevates Verified 06/17/20 09:07 heart rate Review of Systems ROS Statement: Those systems with pertinent positive or pertinent negative responses have been documented in the HPI. ROS Other: All systems not noted in ROS Statement are negative. Past Medical History Past Medical History: Hypertension, Thyroid Disorder Additional Past Medical History / Comment(s): adrenal insufficiency History of Any Multi-Drug Resistant Organisms: None Reported Past Surgical History: Orthopedic Surgery Additional Past Surgical History / Comment(s): rt knee Past Psychological History: Anxiety Smoking Status: Never smoker Past Alcohol Use History: None Reported Past Drug Use History: None Reported - Past Family History Father Additional Family Medical History / Comment(s): "heart problems" Mother Family Medical History: No Reported History Additional Family Medical History / Comment(s): Mother was healthy General Exam - General Exam Comments Initial Comments: GENERAL: Patient is pale, dry, cachectic. HEAD: Atraumatic, normocephalic. EYES: Pupils equal round and reactive to light, extraocular movements intact, sclera anicteric, conjunctiva are normal. Eyelids were unremarkable. ENT: TMs normal, nares patent, oropharynx clear without exudates. Dry mucous membranes, dry lips. NECK: Normal range of motion, supple without lymphadenopathy or JVD. LUNGS: Unlabored respirations. Breath sounds clear to auscultation bilaterally and equal. No wheezes rales or rhonchi. HEART: Regular rate and rhythm without murmurs, rubs or gallops. ABDOMEN: Soft, nontender, normoactive bowel sounds. No guarding, no rebound. No masses appreciated. : Deferred MUSCULOSKELETAL: Normal extremities with decreased strength and normal range of motion, no pitting or edema. No clubbing or cyanosis. She is neurovascular intact bilateral lower extremities. She has chronic low back pain with palpation. NEUROLOGICAL: Patient is alert and oriented x 3. Motor and sensory are also intact. Cranial nerves II through XII grossly intact. Symmetrical smile. Normal speech. PSYCH: Normal mood, normal affect. SKIN: Warm, Dry, normal turgor, no rashes or lesions noted. Limitations: no limitations Course Vital Signs 06/17/20 06/17/20 06/17/20 08:04 08:47 09:17 Temperature 98.7 F Pulse Rate 105 H 75 72 Respiratory 16 18 16 Rate Blood Pressure 122/94 133/89 129/87 O2 Sat by Pulse 97 98 97 Oximetry EKG Findings - EKG Comments: EKG Findings:: Normal sinus rhythm, biatrial enlargement, nonspecific ST-T segment changes in lead 3, lead 2. Ventricular rate 81, AR interval 136, QT 380. Medical Decision Making - Medical Decision Making Patient is a 74-year-old female history hypertension, dysphagia, chronic back pain, here for generalized weakness increasing over the past 3 weeks. Her vital signs are stable. Patient looks pale, dry, cachectic on arrival. Her EKG shows no acute findings. Laboratories normal white count, sodium is low at 1:30, BUN is slightly elevated at 22, troponin is normal, BNP is 134. Urine shows no evidence of infection, 3+ ketones. Chest x-ray shows no acute process, emphysema changes. She was given fluids in the ER. Patient was seen and evaluated by Dr. Cisse. Midline was placed, [facility], [facility]. Consults the GI as well Dr. Christopher. Case discussed with Dr. Bobby. - Lab Data Result diagrams: 06/17/20 08:38 06/17/20 08:38 Lab Results 06/17/20 06/17/20 06/17/20 Range/Units 08:38 08:38 08:38 WBC 6.2 (3.8-10.6) k/uL RBC 5.37 (3.80-5.40) m/uL Hgb 16.8 H (11.4-16.0) gm/dL Hct 49.4 H (34.0-46.0) % MCV 92.0 (80.0-100.0) fL MCH 31.4 (25.0-35.0) pg MCHC 34.1 (31.0-37.0) g/dL RDW 12.3 (11.5-15.5) % Plt Count 186 (150-450) k/uL Neutrophils % 66 % Lymphocytes % 23 % Monocytes % 8 % Eosinophils % 1 % Basophils % 0 % Neutrophils # 4.1 (1.3-7.7) k/uL Lymphocytes # 1.4 (1.0-4.8) k/uL Monocytes # 0.5 (0-1.0) k/uL Eosinophils # 0.0 (0-0.7) k/uL Basophils # 0.0 (0-0.2) k/uL PT 10.0 (9.0-12.0) sec INR 1.0 (<1.2) APTT 23.4 (22.0-30.0) sec Sodium 130 L (137-145) mmol/L Potassium 4.2 (3.5-5.1) mmol/L Chloride 90 L (98-107) mmol/L Carbon Dioxide 24 (22-30) mmol/L Anion Gap 16 mmol/L BUN 22 H (7-17) mg/dL Creatinine 0.49 L (0.52-1.04) mg/dL Est GFR (CKD-EPI)AfAm >90 (>60 ml/min/1.73 sqM) Est GFR (CKD-EPI)NonAf >90 (>60 ml/min/1.73 sqM) Glucose 99 (74-99) mg/dL Plasma Lactic Acid Morteza (0.7-2.0) mmol/L Calcium 9.1 (8.4-10.2) mg/dL Magnesium 1.9 (1.6-2.3) mg/dL Total Bilirubin 1.1 (0.2-1.3) mg/dL AST 35 (14-36) U/L ALT 15 (4-34) U/L Alkaline Phosphatase 35 L (38-126) U/L Creatine Kinase 58 (30-135) U/L Troponin I (0.000-0.034) ng/mL NT-Pro-B Natriuret Pep pg/mL Total Protein 7.2 (6.3-8.2) g/dL Albumin 4.4 (3.5-5.0) g/dL 06/17/20 06/17/20 06/17/20 Range/Units 08:38 08:38 08:38 WBC (3.8-10.6) k/uL RBC (3.80-5.40) m/uL Hgb (11.4-16.0) gm/dL Hct (34.0-46.0) % MCV (80.0-100.0) fL MCH (25.0-35.0) pg MCHC (31.0-37.0) g/dL RDW (11.5-15.5) % Plt Count (150-450) k/uL Neutrophils % % Lymphocytes % % Monocytes % % Eosinophils % % Basophils % % Neutrophils # (1.3-7.7) k/uL Lymphocytes # (1.0-4.8) k/uL Monocytes # (0-1.0) k/uL Eosinophils # (0-0.7) k/uL Basophils # (0-0.2) k/uL PT (9.0-12.0) sec INR (<1.2) APTT (22.0-30.0) sec Sodium (137-145) mmol/L Potassium (3.5-5.1) mmol/L Chloride (98-107) mmol/L Carbon Dioxide (22-30) mmol/L Anion Gap mmol/L BUN (7-17) mg/dL Creatinine (0.52-1.04) mg/dL Est GFR (CKD-EPI)AfAm (>60 ml/min/1.73 sqM) Est GFR (CKD-EPI)NonAf (>60 ml/min/1.73 sqM) Glucose (74-99) mg/dL Plasma Lactic Acid Morteza 1.4 (0.7-2.0) mmol/L Calcium (8.4-10.2) mg/dL Magnesium (1.6-2.3) mg/dL Total Bilirubin (0.2-1.3) mg/dL AST (14-36) U/L ALT (4-34) U/L Alkaline Phosphatase (38-126) U/L Creatine Kinase (30-135) U/L Troponin I <0.012 (0.000-0.034) ng/mL NT-Pro-B Natriuret Pep 134 pg/mL Total Protein (6.3-8.2) g/dL Albumin (3.5-5.0) g/dL Disposition Clinical Impression: Generalized weakness, Dysphagia, Chronic low back pain Disposition: ADMITTED IP TO THIS [facility] Condition: Fair Decision Date: 06/17/20 Decision Time: 09:30
[2020-06-17 09:01] LABS: AST 35 U/L (14-36); Alkaline Phosphatase 35 U/L (38-126); Magnesium 1.9 mg/dL (1.6-2.3); Potassium 4.2 mmol/L (3.5-5.1)
[2020-06-17] MEDS ORDERED: MORPHINE SULFATE 4 MG/ML SYRINGE IV PRN (09:27)
[2020-06-17] MEDS ORDERED: NALOXONE 0.4 MG/ML 1 ML VIAL IV PRN (09:27)
--- NOTE | 2020-06-17 09:38 | XR ---
EXAMINATION TYPE: XR chest 2V DATE OF EXAM: 06/17/2020 CLINICAL HISTORY: Weakness. Chronic lower back pain. TECHNIQUE: Frontal and lateral views of the chest are obtained. COMPARISON: 03/29/2020 chest radiograph FINDINGS: The lungs are hyperexpanded with interstitial coarsening. The cardiomediastinal silhouette is within normal limits for size. Pulmonary vasculature is normal. There is no focal air space opaci ty, pleural effusion, or pneumothorax seen. The osseous structures are intact. IMPRESSION: 1. No acute cardiopulmonary process. 2. Emphysematous changes.
[2020-06-17 10:41] LABS: Amorphous Sediment,Urine Rare /hpf; Bacteria,Urine Rare /hpf; Mucus,Urine Rare /hpf; RBC,Urine 1 /hpf (0-5)
[2020-06-17 10:42] LABS: Appearance,Urine Slightly Cloudy (Clear); Bilirubin,Urine Negative (Negative); Color,Urine Dark Yellow; Glucose,Urine (UA) Negative (Negative); Ketones,Urine 3+ (Negative); Protein,Urine 1+ (Negative)
[2020-06-17 10:43] LABS: Blood,Urine Negative (Negative); Leukocyte Esterase,Urine Small (Negative); Nitrite,Urine Negative (Negative); Urobilinogen,Urine <2.0 mg/dL (<2.0); WBC,Urine 7 /hpf (0-5)
[2020-06-17] MEDS ORDERED: ACETAMINOPHEN TAB 500 MG TAB PO PRN (11:38)
[2020-06-17] MEDS ORDERED: LIDOCAINE 5% PATCH TOPICAL PRN (11:38)
[2020-06-17] MEDS ORDERED: ALPRAZolam 0.25 MG TAB PO PRN (11:38)
--- NOTE | 2020-06-17 11:46 | P.HPIM ---
History of Present Illness H&P Date: 06/17/20 Chief Complaint: Dysphagia, weight loss, failure to thrive, chronic back pain, confusion HISTORY OF PRESENT ILLNESS This is a 74-year-old female patient of Dr. Cisse with past medical history of hypertension, hypothyroidism, degenerative disc disease and chronic back pain, scoliosis. Patient gives history that in November she had increasing lower back pain and saw an orthopedic physician in [place]. Subsequently she started having trouble with her balance and by the end of December she started using a walker. She was hospitalized at [facility] in March of this year which time she was treated for weakness and fatigue, malaise possibly secondary to depression, complicated by chronic pain and insomnia/sleep deprivation. She was seen at that time orthopedic spine was no plan for any surgical intervention. She was discharged home with [facility] at that time. According to the patient's , she has had difficulty with dysphagia, was to be set up with Dr. Pleitez for outpatient EGD. She has had no oral intake for t he past 2 weeks and hardly drinking any water and taking half bottle of protein shake only. She has had weight loss along with increasing weakness and difficulty even walking with walker now into a wheelchair. states she's also had more confusion. She continues to complain of low back pain. Patient's notified us of ER visit. We are ordering midline in order to get IV fluid started and discuss case with ER staff. Patient came into [facility] emergency center for evaluation. She was found to be afebrile, heart rate 105, blood pressure 122/94, pulse ox 97% on room air. WBC 6.2, hemoglobin 16.8, platelet count 186. Sodium 130, potassium 4.2, chloride 90, CO2 24, BUN 22 and creatinine 0.49, blood sugar 99. Liver function tests within normal limits. Lactic acid 1.4. Troponin negative. ProBNP 134. EKG sinus rhythm. Chest x-ray shows no acute cardiopulmonary process. Emphysematous change. Initial blood pressure 176/94, afebrile, heart rate 73, pulse ox 99% on room air. CBC unremarkable. Sodium 132, potassium 4.2, chloride 96, CO2 29, BUN 17 creatinine 0.55, blood sugar 55. TSH 8.1. Lactic acid 1.6, troponin negative. Urinalysis slightly cloudy, protein 1+, ketones 3+. Patient to be admitted to the [facility] floor and consult requested with GI for dysphagia and EGD, pain management for chronic back pain and epidural injection. REVIEW OF SYSTEMS Constitutional: No fever, no chills, no night sweats. Reports weight change. Reports weakness, Reportsfatigue Reportsr lethargy. Reports daytime sleepiness. EENT: No headache. No blurred vision or double vision, no loss of vision. No loss of Hearing, no ringing in the ears, no dizziness. No nasal drainage or congestion. No epistaxis. No sore throat. Lungs: No shortness of breath, cough, no sputum production. No wheezing. Cardiovascular: No chest pain, no lower extremity edema. No palpitations. No paroxysmal nocturnal dyspnea. No orthopnea. No lightheadedness or dizziness. No syncopal episodes. Abdominal: No abdominal pain. No nausea, vomiting. No diarrhea. No constipation. No bloody or tarry stools.. No loss of appetite. Genitourinary: No dysuria, increased frequency, urgency. No urinary retention. Musculoskeletal: No myalgias. Reports muscle weakness, Reports gait dysfunction, no frequent falls. Reports back pain. No neck pain. Integumentary: No wounds, no lesions. No rash or pruritus. No unusual bruising. No change in hair or nails. Neurologic: No aphasia. No facial droop. Reports change in mentation. Reports dysphagia No head injury. No headache. No paralysis. No paresthesia. Psychiatric: No depression. No anxiety. No mood swings. Endocrine: No abnormal blood sugars. SOCIAL HISTORY Patient is a lifelong nonsmoker, no alcohol use, no marijuana use or illicit drug use. Patient lives at home with her . FAMILY HISTORY Mother at age 49 from cervical cancer. Father at age 79 from coronary artery disease. Patient has 5 sisters with no major medical problems. She does not have any brothers. She does not have any children. PHYSICAL EXAMINATION Gen: This is a 74-year-old female. Patient is resting in ER stretcher appears to be comfortable but anxious. HEENT: Head is atraumatic, normocephalic. Pupils equal, round. Sclerae is anicteric. Conjunctiva slightly pale. Oral mucous membranes are dry. NECK: Supple. No JVD. No lymphadenopathy. No thyromegaly. LUNGS: Clear to auscultation. No wheezes or rhonchi. No intercostal retractions. HEART: Regular rate and rhythm. No murmur. ABDOMEN: Soft. Bowel sounds are present. No masses. No tenderness. BACK: Tenderness to the left buttocks area. EXTREMITIES: No pedal edema. No calf tenderness. NEUROLOGICAL: Patient is awake, alert and oriented x3. Cranial nerves 2 through 12 are grossly intact. Significant generalized weakness. ASSESSMENT AND PLAN 1. Metabolic encephalopathy secondary to dehydration, electrolyte ab normalities, malnutrition. 2. Dysphagia, unable to maintain adequate oral intake with weight loss. Consult with GI for EGD. 3. Dehydration with electrolyte abnormalities with hyponatremia and hy pochloremia. Midline has been ordered. IV fluids at 75 mL per hour. 4. Chronic back pain secondary to lumbar facet arthropathy and lumbar disc desiccation, left sciatica. Consult with pain management. Continue Toradol 15 mg IV push every 6 hours as needed, Lidoderm patch daily, continue Tylenol. Physical therapy evaluation. 5. Severe protein calorie malnutrition. Await EGD results. Patient may require PEG tube placement, plan to order protein supplementation. 6. Recurrent depression and generalized anxiety disorder. Patient is currently on Xanax or 0.25 mg twice daily as needed. 7. Hypertension. Continue Toprol-XL 50 mg daily. 8. Hypothyroidism continue levothyroxine 75 g daily. Obtain TSH and free T4. 9. DVT prophylaxis. Heparin subcu. 10. GI prophylaxis. Protonix. CODE STATUS: Full code Patient will be admitted to the hospital for a minimum of 2 night stay. Discharge plan: To be determined. PT, OT, social work for subacute rehab. Impression and plan of care have been directed as dictated by the signing physician. Earline Baker nurse practitioner acting as scribe for signing physician. Past Medical History Past Medical History: Hypertension, Thyroid Disorder Additional Past Medical History / Comment(s): adrenal insufficiency History of Any Multi-Drug Resistant Organisms: None Reported Past Surgical History: Orthopedic Surgery Additional Past Surgical History / Comment(s): rt knee Past Psychological History: Anxiety Smoking Status: Never smoker Past Alcohol Use History: None Reported Past Drug Use History: None Reported - Past Family History Father Additional Family Medical History / Comment(s): "heart problems" Mother Family Medical History: No Reported History Additional Family Medical History / Comment(s): Mother was healthy Medications and Allergies Home Medications Medication Instructions Recorded Confirmed Type ALPRAZolam [Xanax] 0.25 mg PO BID PRN 03/04/20 06/17/20 History Acetaminophen Tab [Tylenol] 1,000 mg PO Q6HR PRN 03/04/20 06/17/20 History Levothyroxine Sodium [Synthroid] 75 mcg PO DAILY #0 03/07/20 06/17/20 Rx Lidocaine 5% Patch [Lidoderm 5% 1 patch TOPICAL DAILY PRN 03/30/20 06/17/20 History Patch] Metoprolol Succinate (ER) [Toprol 50 mg PO DAILY 06/17/20 06/17/20 History Xl] Allergies Allergy/AdvReac Type Severity Reaction Status Date / Time epinephrine Allergy elevates Verified 06/17/20 09:07 heart rate Physical Exam Vitals: Vital Signs Temp Pulse Resp BP Pulse Ox 06/17/20 08:04 98.7 F 105 H 16 122/94 97 Intake and Output 06/16/20 06/17/20 06/17/20 22:59 06:59 14:59 Other: Weight 49.895 kg Results CBC & Chem 7: 06/17/20 08:38 06/17/20 08:38
[2020-06-17] MEDS: SODIUM CHLORIDE 0.9% 1,000 ML IV SCH (13:02)
[2020-06-17] MEDS: KETOROLAC 15 MG/ML 1 ML VIAL IVP PRN ×2 (13:02→21:09)
[2020-06-17 13:13] LABS: T4, Free (Free Thyroxine) 0.75 ng/dL (0.78-2.19)
[2020-06-17] MEDS: HEPARIN SODIUM,PORCINE 5,000 UNIT/ML 1 ML VIAL SQ SCH (19:32)
--- NOTE | 2020-06-18 00:44 | CONS ---
CONSULTATION DATE OF DICTATION: 06/17/2020 REASON FOR CONSULTATION: Decreased oral intake, possible EGD. HISTORY OF PRESENT ILLNESS: The patient is a 74-year-old pleasant white female who was brought into the emergency room by her because of complaining of severe chronic back pain, decreased oral intake and progressive weight loss with increasing weakness for the last several weeks duration. We are consulted for possible upper endoscopy. However, the patient states that her oral intake has been increased, has been normal. She states that she has such severe chronic back pain that she is not able to sit up to eat solid food and as a result her oral intake has decreased significantly over the last several months and thus had lost weight. She, however, reports no dysphagia. She denies any abdominal pain. No nausea, no vomiting. PAST MEDICAL HISTORY: Significant for anxiety, history of severe chronic low back pain and hypertension. MEDICATIONS: Medications at home include Toprol, Tylenol and Xanax. ALLERGIES: EPINEPHRINE. SOCIAL HISTORY: No smoking. No alcohol use. FAMILY HISTORY: Unremarkable. PAST SURGICAL HISTORY: Back surgery. FAMILY HISTORY: Father had heart problems. Mother was healthy. REVIEW OF SYSTEMS: CARDIOPULMONARY: She denies any chest pain or shortness of breath. GENITOURINARY: No dysuria or hematuria. MUSCULOSKELETAL: Severe chronic back pain for several months duration and the pain is so intense that it is affecting her overall life. GI: As mentioned above. NEUROLOGY: Unremarkable. PSYCHIATRIC: Unremarkable. ENT/VISION: Unremarkable. CONSTITUTIONAL: Weight loss of about 20 pounds. No fever, chills, night sweats. PHYSICAL EXAMINATION: She appears comfortable. No apparent distress. Vital signs are stable. Blood pressure is 142/86, pulse rate 67, temperature 98.7. HEENT EXAMINATION: Unremarkable. Conjunctivae pink. Sclerae anicteric. Oral cavity, no lesions. NECK: No JVD or lymph node enlargement. CHEST: Clear to auscultation. HEART: Regular rate and rhythm. ABDOMEN: Soft. Bowel sounds are positive. No organomegaly. EXTREMITIES: No pedal edema. SKIN: No rashes. NEURO: She is alert and oriented x3. No focal deficits. LABS: WBC 6.2, hemoglobin 16.5, platelets are normal. Basic metabolic panel is within normal limits. BUN is 22, creatinine 0.47. ALT and AST are normal. Alkaline phosphatase and T-bilirubin are within normal limits. TSH is 21. IMPRESSION: 1. Severe chronic low back pain. 2. Decreased oral intake resulting in progressive weight loss and fatigue and weakness; however, patient denies any dysphagia. 3. Mild electrolyte abnormalities. 4. History of anxiety and depression. 5. History of hypertension. RECOMMENDATIONS: I had a lengthy discussion with the patient regarding her oral intake. I suggested to the patient that we will start her on a regular diet and see how she does with a calorie count for the next day or 2. If she continues to have any problems with her oral intake, we will consider a barium esophagogram or an upper endoscopy during this hospitalization. At this time, she does not want to have any endoscopy intervention done so we will reevaluate her in the tomorrow and further decisions will be made. Thank you for this consultation. JULIA / TIMOTHY: [id number] /
[2020-06-18] MEDS: SODIUM CHLORIDE 0.9% 1,000 ML IV SCH ×2 (04:31→15:05)
[2020-06-18] MEDS: LEVOTHYROXINE 75 MCG TAB PO SCH (04:34)
[2020-06-18] MEDS: KETOROLAC 15 MG/ML 1 ML VIAL IVP PRN ×2 (04:59→11:16)
[2020-06-18] MEDS: LEVOTHYROXINE 100 MCG TAB PO SCH (06:11)
[2020-06-18 07:30] LABS: Basophils % (A) 1 %; Eosinophils # (A) 0.1 k/uL (0-0.7); Eosinophils % (A) 2 %; HCT 39.5 % (34.0-46.0); Lymphocytes # (A) 0.7 k/uL (1.0-4.8); Lymphocytes % (A) 18 %; MCH 31.2 pg (25.0-35.0); MCHC 33.9 g/dL (31.0-37.0); MCV 92.1 fL (80.0-100.0); Mean Platelet Volume 7.4; Monocytes # (A) 0.3 k/uL (0-1.0); Monocytes % (A) 7 %; Neutrophils # (A) 2.6 k/uL (1.3-7.7); Neutrophils % (A) 71 %; Platelet Count 157 k/uL (150-450); RBC 4.29 m/uL (3.80-5.40); RDW 12.5 % (11.5-15.5); WBC 3.7 k/uL (3.8-10.6)
[2020-06-18 07:43] LABS: ALT 10 U/L (4-34); AST 25 U/L (14-36); African American GFR (CKD) >90 (>60 ml/min/1.73 sqM); Alkaline Phosphatase 22 U/L (38-126); Anion Gap 10 mmol/L; Blood Urea Nitrogen 13 mg/dL (7-17); Calcium 7.6 mg/dL (8.4-10.2); Carbon Dioxide 24 mmol/L (22-30); Chloride 96 mmol/L (98-107); Glucose 82 mg/dL (74-99); HGB 13.4 gm/dL (11.4-16.0); Non-African American GFR(CKD) >90 (>60 ml/min/1.73 sqM); Potassium 3.1 mmol/L (3.5-5.1); Sodium 130 mmol/L (137-145); Total Bilirubin 0.8 mg/dL (0.2-1.3); Total Protein 5.3 g/dL (6.3-8.2)
[2020-06-18] MEDS: HEPARIN SODIUM,PORCINE 5,000 UNIT/ML 1 ML VIAL SQ SCH ×2 (07:45→21:44)
[2020-06-18] MEDS ORDERED: POTASSIUM CHLORIDE ER 20 MEQ TAB.ER PO STA (08:01)
[2020-06-18] MEDS: POTASSIUM CHLORIDE 10 MEQ in WATER FOR INJECTION 1 100ML.BAG IVPB SCH ×4 (08:36→12:29)
[2020-06-18] MEDS: ARIPiprazole 2 MG TAB PO SCH (08:37)
[2020-06-18] MEDS: METOPROLOL SUCCINATE (ER) 50 MG TAB.ER.24H PO SCH (08:37)
[2020-06-18] MEDS ORDERED: PANTOPRAZOLE 40 MG/10 ML VIAL IVP SCH (09:00)
[2020-06-18 09:56] VITALS: BMI 17.7
--- NOTE | 2020-06-18 11:04 | P.PN ---
Subjective Progress Note Date: 06/18/20 HISTORY OF PRESENT ILLNESS This is a 74-year-old female patient of Dr. Cisse with past medical history of hypertension, hypothyroidism, degenerative disc disease and chronic back pain, scoliosis. Patient gives history that in November she had increasing lower back pain and saw an orthopedic physician in [place]. Subsequently she started having trouble with her balance and by the end of December she started using a walker. She was hospitalized at [facility] in March of this year which time she was treated for weakness and fatigue, malaise possibly secondary to depression, complicated by chronic pain and insomnia/sleep deprivation. She was seen at that time orthopedic spine was no plan for any surgical intervention. She was discharged home with [facility] at that time. According to the patient's , she has had difficulty with dysphagia, was to be set up with Dr. Pleitez for outpatient EGD. She has had no oral intake for the past 2 weeks and hardly drinking any water and taking half bottle of protein shake only. She has had weight loss along with increasing weakness and difficulty even walking with walker now into a wheelchair. states she's also had more confusion. She continues to complain of low back pain. Patient's notified us of ER visit. We are ordering midline in order to get IV fluid started and discuss case with ER staff. Patient came into [facility] emergency center for evaluation. She was found to be afebrile, heart rate 105, blood pressure 122/94, pulse ox 97% on room air. WBC 6.2, hemoglobin 16.8, platelet count 186. Sodium 130, potassium 4.2, chloride 90, CO2 24, BUN 22 and creatinine 0.49, blood sugar 99. Liver function tests within normal limits. Lactic acid 1.4. Troponin negative. ProBNP 134. EKG sinus rhythm. Chest x-ray shows no acute cardiopulmonary process. Emphysematous change. Initial blood pressure 176/94, afebrile, heart rate 73, pulse ox 99% on room air . CBC unremarkable. Sodium 132, potassium 4.2, chloride 96, CO2 29, BUN 17 creatinine 0.55, blood sugar 55. TSH 8.1. Lactic acid 1.6, troponin negative. Urinalysis slightly cloudy, protein 1+, ketones 3+. Patient to be admitted to the [facility] floor and consult requested with GI for dysphagia and EGD, pain management for chronic back pain and epidural injection. 06/18: Patient was seen by GI yesterday and attempted diet. Patient refused to eat any food last evening or for at bedtime snack. She is tentatively scheduled for EGD today at 1 PM. We have added in a consult with psychiatry and Abilify was ordered. Patient has had some nausea. Discussed in detail with the patient that she needs to undergo EGD. Later in the morning, patient complained of chest pain to her nurse and we have added an EKG, troponins cardiology consult and echocardiogram. This seems to eat attempt to avoid undergoing EGD versus true episode of chest pain. Blood pressure at the time was 125/71 and heart rate 58. Pulse ox is 99% on room air. Repeat blood work reveals W BC 3.7, hemoglobin 13.4. Sodium 130, potassium 3.1 and will be replaced, chloride 96, CO2 24, creatinine 0.38. Patient is waiting to see pain management which will hopefully occur today. REVIEW OF SYSTEMS Constitutional: No fever, no chills, no night sweats. Reports weight change. Reports weakness, Reports fatigue Reportsr lethargy. Reports daytime sleepiness. EENT: No headache. No blurred vision or double vision, no loss of vision. No loss of Hearing, no ringing in the ears, no dizziness. No nasal drainage or congestion. No epistaxis. No sore throat. Lungs: No shortness of breath, cough, no sputum production. No wheezing. Cardiovascular: No chest pain, no lower extremity edema. No palpitations. No paroxysmal nocturnal dyspnea. No orthopnea. No lightheadedness or dizziness. No syncopal episodes. Abdominal: No abdominal pain. Reports nausea, denies vomiting. No diarrhea. No constipation. No bloody or tarry stools.. No loss of appetite. Genitourinary: No dysuria, increased frequency, urgency. No urinary retention. Musculoskeletal: No myalgias. Reports muscle weakness, Reports gait dysfunction, no frequent falls. Reports back pain. No neck pain. Integumentary: No wounds, no lesions. No rash or pruritus. No unusual bruising. No change in hair or nails. Neurologic: No aphasia. No facial droop. Reports change in mentation. Reports dysphagia No head injury. No headache. No paralysis. No paresthesia. Psychiatric: No depression. No anxiety. No mood swings. Endocrine: No abnormal blood sugars. PHYSICAL EXAMINATION Gen: This is a 74-year-old female. Patient is resting in bed and appears to be comfortable but anxious. HEENT: Head is atraumatic, normocephalic. Pupils equal, round. Sclerae is anicteric. Conjunctiva slightly pale. NECK: Supple. No JVD. No lymphadenopathy. No thyromegaly. LUNGS: Clear to auscultation. No wheezes or rhonchi. No intercostal retractions. HEART: Regular rate and rhythm. No murmur. ABDOMEN: Soft. Bowel sounds are present. No masses. No tenderness. BACK: Tenderness to the left buttocks area. EXTREMITIES: No pedal edema. No calf tenderness. NEUROLOGICAL: Patient is awake, alert and oriented x3. Cranial nerves 2 through 12 are grossly intact. Significant generalized weakness. ASSESSMENT AND PLAN 1. Metabolic encephalopathy secondary to dehydration, electrolyte abnormalities, malnutrition. 2. Dysphagia, unable to maintain adequate oral intake with weight loss. Consult with GI for EGD. 3. Dehydration with electrolyte abnormalities with hyponatremia and hypochloremia. Midline has been ordered. IV fluids at 75 mL per hour. 4. Chronic back pain secondary to lumbar facet arthropathy and lumbar disc desiccation, left sciatica. Consult with pain management. Continue Toradol 15 mg IV push every 6 hours as needed, Lidoderm patch daily, continue Tylenol. Physical therapy evaluation. 5. Severe protein calorie malnutrition. Await EGD results. Patient may require PEG tube placement, plan to order protein supplementation. 6. Recurrent depression and generalized anxiety disorder. Patient is currently on Xanax or 0.25 mg twice daily as needed. 7. Hypertension. Continue Toprol-XL 50 mg daily. 8. Hypothyroidism continue levothyroxine 75 g daily. Obtain TSH and free T4. 9. DVT prophylaxis. Heparin subcu. 10. GI prophylaxis. Protonix. 11. Episode of chest pain. EKG, cardiology consult, troponins, nitroglycerin, echocardiogram. CODE STATUS: Full code Discharge plan: To be determined. PT, OT, social work for subacute rehab. Impression and plan of care have been directed as dictated by the signing physician. Earline Baker nurse practitioner acting as scribe for signing physician. Objective - Vital Signs Vital signs: Vital Signs Temp 97.6 F 08/18/20 05:00 Pulse 71 06/18/20 05:00 Resp 18 06/18/20 05:00 BP 143/89 06/18/20 05:00 Pulse Ox 99 06/18/20 05:00 Intake & Output 06/17/20 06/18/20 06/18/20 18:59 06:59 18:59 Intake Total 0 Balance 0 Weight 49.895 kg Intake: Oral 0 Other: # Voids 2 - Labs CBC & Chem 7: 06/18/20 06:34 06/18/20 06:34 Labs: Abnormal Lab Results - Last 24 Hours (Table) 06/17/20 06/17/20 06/17/20 Range/Units 08:38 08:38 08:38 Hgb 16.8 H (11.4-16.0) gm/dL Hct 49.4 H (34.0-46.0) % Sodium 130 L (137-145) mmol/L Chloride 90 L (98-107) mmol/L BUN 22 H (7-17) mg/dL Creatinine 0.49 L (0.52-1.04) mg/dL Alkaline Phosphatase 35 L (38-126) U/L TSH 21.400 H (0.465-4.680) mIU/L Free T4 0.75 L (0.78-2.19) ng/dL Urine Appearance (Clear) Urine Protein (Negative) Urine Ketones (Negative) Urine WBC (0-5) /hpf Amorphous Sediment (None) /hpf Urine Bacteria (None) /hpf Urine Mucus (None) /hpf 06/17/20 Range/Units 10:28 Hgb (11.4-16.0) gm/dL Hct (34.0-46.0) % Sodium (137-145) mmol/L Chloride (98-107) mmol/L BUN (7-17) mg/dL Creatinine (0.52-1.04) mg/dL Alkaline Phosphatase (38-126) U/L TSH (0.465-4.680) mIU/L Free T4 (0.78-2.19) ng/dL Urine Appearance Slightly Cloudy H (Clear) Urine Protein 1+ H (Negative) Urine Ketones 3+ H (Negative) Urine WBC 7 H (0-5) /hpf Amorphous Sediment Rare H (None) /hpf Urine Bacteria Rare H (None) /hpf Urine Mucus Rare H (None) /hpf
--- NOTE | 2020-06-18 15:54 | P.PAINCN ---
History of Present Illness - Reason for Consult Consult date: 06/18/20 - History of Present Illness This is a 74-year-old patient presenting as inpatient. Patient gives history that in November she had increasing lower back pain and saw an orthopedic physician in [place]. Subsequently she started having trouble with her balance and by the end of December she started using a walker. She was hospitalized at [facility] in March of this year which time she was treated for weakness and fatigue, malaise possibly secondary to depression, complicated by chronic pain and insomnia/sleep deprivation. She was seen at that time orthopedic spine was no plan for any surgical intervention. She was discharged home with [facility] at that time. She was actually admitted for dysphagia and was planning to have an EGD today but ended up not having that. We are consulted for low back pain. Patient states that she has pain in her bilateral low back and bi lateral buttocks are greater than 2 months duration as well as pain in her lower extremities. He says the pain is described as sharp and stabbing and constant throughout the day. She also mentions that she does have weakness in her bilateral legs. Alleviating factors include hot shower. Exacerbating factors include sitting and standing up from a seated position. Of note patient mentions that she has an MRI that she had in [place] in January. She does not have the results of this MRI, however does and will bring them tomorrow. Of note primary care physician note from earlier this year notes that the MRI was completely normal. Patient denies adverse drug effects from medications. Patient also denies new- onset weakness, bowel/bladder incontinence, or any other signs or symptoms of cauda equina syndrome. There are no signs of acute intoxication, and no ind ications of medication diversion or overuse. In addition to above, 13-point review of systems is also negative for chest pain, shortness of breath, changes in vision, changes in hearing, new onset w eakness, abdominal pain, diarrhea, extreme fatigue, malaise, fever, skin changes, homicidal or suicidal ideation, or bowel or bladder incontinence. Physical exam: Vital Signs: Reviewed in EMR GENERAL: Well appearing, in no acute distress PSYCH: Mood and affect is appropriate. Awake, alert, and oriented SKIN: Skin color, texture, turgor normal, no rashes or lesions HEENT: Normocephalic, atraumatic. EOM intact CV: No pedal edema RESP: Respirations are unlabored, no audible wheezing GI: Abdomen non-distended MUSCULOSKELETAL: Patient was unable to purchase vitamin exam. So that she was too weak to get out of bed and could not do any meaningful physical examination maneuvers. Of note she was able to move bilateral lower extremities with hip flexion being seemingly intact. However all other maneuvers were unable to perform given that the patient says she was unable to get out of the bed due to pain Imaging: None in the chart. There is an MRI that the patient's other will bring tomorrow. Assessment: 1. Low back pain 2. Possible sacroiliitis Plan: 1. Explanation: Diagnoses, prognoses, and multiple treatment options including but not limited to physical therapy, interventional therapies, medication management and surgery were discussed with the patient and all questions were answered to the patient's satisfaction. 2. Investigations: Review MRI tomorrow if patient's is able to bring report. 4. Procedures: At this point is unclear what is causing the patient's pain. She is having significant weakness in her bilateral lower extremities that she says is been happening for some time. I am not sure epidural steroid injection be helpful for her. It is possible bilateral sacroiliac joint injection could be helpful for her. I will review the MRI if the patient's brings it tomorrow and see if she is a candidate for any injection 5. Consultations: None 6. Medications: Continue current medication regimen 7. Disposition: We'll review MRI tomorrow Past Medical History Past Medical History: Hypertension, Thyroid Disorder Additional Past Medical History / Comment(s): adrenal insufficiency History of Any Multi-Drug Resistant Organisms: None Reported Past Surgical History: Orthopedic Surgery Additional Past Surgical History / Comment(s): rt knee Past Anesthesia/Blood Transfusion Reactions: No Reported Reaction Past Psychological History: Anxiety Smoking Status: Never smoker Past Alcohol Use History: None Reported Past Drug Use History: None Reported - Past Family History Father Additional Family Medical History / Comment(s): "heart problems" Mother Family Medical History: No Reported History Additional Family Medical History / Comment(s): Mother was healthy Medications and Allergies Home Medications Medication Instructions Recorded Confirmed Type ALPRAZolam [Xanax] 0.25 mg PO BID PRN 03/04/20 06/17/20 History Acetaminophen Tab [Tylenol] 1,000 mg PO Q6HR PRN 03/04/20 06/17/20 History Levothyroxine Sodium [Synthroid] 75 mcg PO DAILY #0 03/07/20 06/17/20 Rx Lidocaine 5% Patch [Lidoderm 5% 1 patch TOPICAL DAILY PRN 03/30/20 06/17/20 History Patch] Metoprolol Succinate (ER) [Toprol 50 mg PO DAILY 06/17/20 06/17/20 History Xl] Allergies Allergy/AdvReac Type Severity Reaction Status Date / Time epinephrine Allergy elevates Verified 06/17/20 09:07 heart rate Physical Exam Vitals: Vital Signs Temp Pulse Pulse Pulse Resp BP BP 06/18/20 15:41 65 16 06/18/20 11:41 97.7 F 60 16 133/67 06/18/20 08:00 70 18 06/18/20 07:42 97.6 F 59 L 20 155/94 06/18/20 05:00 97.6 F 71 18 143/89 06/17/20 21:00 97.5 F L 63 18 129/77 06/17/20 16:22 98.7 F 67 18 147/82 06/17/20 16:00 63 18 Pulse Ox 06/18/20 15:41 06/18/20 11:41 100 06/18/20 08:00 06/18/20 07:42 99 06/18/20 05:00 99 06/17/20 21:00 97 06/17/20 16:22 97 06/17/20 16:00 Intake and Output 06/18/20 06/18/20 06/18/20 06:59 14:59 22:59 Intake Total 900 Balance 900 Intake: Intake, IV Titration 900 Amount Potassium Chloride 10 meq 400 In Water For Injection 1 100ml.bag @ 100 mls/hr IVPB Q1HR [facility] Rx#: [id number] Sodium Chloride 0.9% 1, 500 000 ml @ 75 mls/hr IV . [id number] [facility] Rx#:[id number] Oral 0 Other: # Voids 2 1 1 Weight 49.895 kg Results CBC & Chem 7: 06/18/20 06:34 06/18/20 06:34 Labs: Abnormal Lab Results - Last 24 Hours (Table) 06/18/20 06/18/20 Range/Units 06:34 06:34 WBC 3.7 L (3.8-10.6) k/uL Lymphocytes # 0.7 L (1.0-4.8) k/uL Sodium 130 L (137-145) mmol/L Potassium 3.1 L (3.5-5.1) mmol/L Chloride 96 L (98-107) mmol/L Creatinine 0.38 L (0.52-1.04) mg/dL Calcium 7.6 L (8.4-10.2) mg/dL Alkaline Phosphatase 22 L (38-126) U/L Total Protein 5.3 L (6.3-8.2) g/dL Albumin 3.0 L (3.5-5.0) g/dL PQRS Measure Charge Sheet PQRS Narrative: Smoking Status Never smoker Blood Pressure [Left Arm] 133/67 Blood Pressure 147/82 Pain Intensity [Lower Back] 0 Pain Intensity 0 Pain Scale Used Non Verbal Pain Indicator Scale Used Non Verbal Pain Indicator Home Medications: Ambulatory Orders ALPRAZolam [Xanax] 0.25 mg PO BID PRN 03/04/20 Acetaminophen Tab [Tylenol] 1,000 mg PO Q6HR PRN 03/04/20 Levothyroxine Sodium [Synthroid] 75 mcg PO DAILY #0 03/07/20 Lidocaine 5% Patch [Lidoderm 5% Patch] 1 patch TOPICAL DAILY PRN 03/30/20 Metoprolol Succinate (ER) [Toprol Xl] 50 mg PO DAILY 06/17/20
--- NOTE | 2020-06-18 20:57 | CONS ---
CONSULTATION DATE OF CONSULTATION: 06/18/2020. REASON FOR CONSULTATION: Depression and delusion. IDENTIFYING DATA AND HISTORY OF PRESENT ILLNESS: The patient is a 74-year-old female who presented with complaints of weakness, trouble swallowing and weight loss. The patient has a past medical history of hypertension, hypothyroidism, degenerative disc disease and chronic back pain. Today the patient was supposed to have an upper endoscopy, but she refused to sign the consent, saying "I got so scared when I did see the size of the scope." The patient is very somatically preoccupied. She stated that she has not been able to walk for the last 4 or 5 days because "I don't have any power in my both legs. I lost the sense of walking." The patient reports feeling overwhelmed, not able to sleep at night, poor appetite and fear of swallowing, to the point that she lost at least more than 25 pounds over the last 4 to 6 weeks. She stated that she used to walk with a walker, but for the last 4 or 5 days she has been just "bedridden, and I don't like this." When she did arrive in the emergency room, the patient was dehydrated and it seemed that she had electrolyte imbalance. She was admitted for complete workup. Today when I talked to the patient, she denied any suicidal or homicidal ideation. However, she stated that she has very high depression and anxiety and she rated both 6 out of 10, 10 being the worst. She stated that she has been struggling with anxiety most of her life, but it has been getting worse over the last couple of months. PAST PSYCHIATRIC HISTORY: There is no previous inpatient or outpatient. According to the patient, she was talking with her sister, who has a master's degree in psychology, about anxiety, and she has been receiving Xanax 0.25 twice a day as needed from her primary care physician. But she never has been seen by a psychiatrist, except in March of 2020 she was seen in consultation liaison by Dr. Caro. PAST MEDICAL HISTORY: As I mentioned before, she has a history of hypertension, chronic back pain, generalized weakness. ALLERGIES: EPHEDRINE. SUBSTANCE USE HISTORY: She denied any history of substance use problem. FAMILY PSYCHIATRIC HISTORY: She is not aware about any family history of psychiatric or substance use problem. SOCIAL HISTORY: The patient is the middle of 6. She has 5 sisters. She has been for 49 years. They have no children. She is retired and currently she is home. According to her, over the last year her physical functioning has been declining. MENTAL STATUS EXAMINATION: The patient presented as a very thin, pale, elderly female who was sitting in her bed. She was very anxious and nervous. She made good eye contact. She had a lot of somatic complaints. At times it seems that it is delusional, especially when she stated that she is not able to walk for the last 4 or 5 days. Her speech was spontaneous, normal rate and rhythm and volume. Stated mood: "I am very nervous because my gets mad when I refuse to do the testing." Affect was constricted. She denied any current suicidal ideation or wish. She denied any homicidal ideation. She stated that she has been feeling helpless and overwhelmed with her physical problem and she has been ruminating a lot about her physical health and her chronic weakness and fatigue. She denied any hallucinations. Her thinking was abstract. Her thinking is abstract and her insight and judgment are fair. IMPRESSION: The patient seems to have been suffering from depression and anxiety over the last year. She denied any suicidal thought, but it seems that she has been having a lot of somatization. She is feeling guilty, as she refused to sign the consent, but she stated that "I am having fear of swallowing anything." There is no previous history of inpatient or outpatient psychiatric treatment. Currently her primary symptom is insomnia with high anxiety and depression and somatization. DIAGNOSES: 1. Major depression with psychotic features. Rule out somatization disorder. 2. Anxiety disorder, unspecified. PLAN: I will change the Xanax 0.25 to 0.5 three times a day as needed for anxiety. She was already started on Abilify 2 mg; will continue this. I will start her on Remeron or mirtazapine 15 mg at bedtime for her mood and sleep and also it will improve her appetite. I will continue to follow up as she is on medical floor. If there is no improvement while on the medical floor, we might consider transferring her to the psychiatric unit. However, I doubt that she will sign the consent, so most probably her has to agree to file petition if we need to transfer her to the psychiatric unit. Thank you for this consult. MMODL / IJN: [id number] /
[2020-06-18] MEDS ORDERED: MIRTAZAPINE 15 MG TAB PO SCH (21:00)
--- NOTE | 2020-06-18 22:27 | PN ---
PROGRESS NOTE DATE OF DICTATION: 06/18/2020 The patient is a 74-year-old pleasant white female admitted to the hospital with generalized weakness, poor oral intake, dysphagia, not able to eat well. She was scheduled for an upper endoscopy today. The patient was brought to the endoscopy suite. However, she refused to sign the consent, as she is very concerned about the procedure itself. Despite multiple attempts at trying to convince her about the safety of the procedure, patient refused and hence she was sent back to her room. I had a lengthy discussion with the patient's at this time regarding her overall condition. PHYSICAL EXAMINATION: She appears comfortable. VITAL SIGNS: Blood pressure 133/67, pulse rate 60, temperature 97.6. HEENT examination unremarkable. Conjunctivae pink. Sclerae anicteric. Oral cavity no lesions. NECK: No JVD or lymph node enlargement. CHEST: Clear to auscultation. HEART: Regular rate and rhythm. ABDOMEN: Soft. Bowel sounds are positive. No organomegaly. EXTREMITIES: No pedal edema. NEUROLOGIC: Alert and oriented x3. No focal deficits. LABS: Labs from today show WBC 3.7, hemoglobin 13.4, platelets normal. Basic metabolic panel is within normal limits. Sodium 130, potassium 3.1, chloride 96. CO2 is 24. BUN and creatinine are normal. IMPRESSION: 1. Decreased oral intake, possible dysphagia. The patient was scheduled for an upper endoscopy today, but she refused to sign the consent, and hence the procedure had to be cancelled. 2. Severe chronic back pain. 3. Elevated TSH suggestive of hypothyroidism. 4. History of severe anxiety. RECOMMENDATIONS: 1. Continue pain medications. 2. At this time, since she is refusing an upper endoscopy, will proceed with an upper GI series/barium esophagogram for tomorrow morning. 3. In the meantime, continue with Protonix 40 mg daily. 4. Calorie count on a daily basis. 5. Pain control for her chronic back pain. 6. We will follow with you closely. Thank you for this consultation. MMODL / IJN: [id number] /
[2020-06-19] MEDS: SODIUM CHLORIDE 0.9% 1,000 ML IV SCH ×2 (03:39→19:53)
[2020-06-19] MEDS: LEVOTHYROXINE 100 MCG TAB PO SCH (08:45)
[2020-06-19] MEDS: HEPARIN SODIUM,PORCINE 5,000 UNIT/ML 1 ML VIAL SQ SCH ×2 (08:45→20:00)
[2020-06-19] MEDS: PANTOPRAZOLE 40 MG TABLET PO SCH (08:45)
[2020-06-19] MEDS: ARIPiprazole 2 MG TAB PO SCH (08:45)
[2020-06-19] MEDS: METOPROLOL SUCCINATE (ER) 50 MG TAB.ER.24H PO SCH (08:46)
[2020-06-19] MEDS: LEVOTHYROXINE 75 MCG TAB PO SCH (09:33)
--- NOTE | 2020-06-19 11:12 | P.PN ---
Subjective Progress Note Date: 06/19/20 HISTORY OF PRESENT ILLNESS This is a 74-year-old female patient of Dr. Cisse with past medical history of hypertension, hypothyroidism, degenerative disc disease and chronic back pain, scoliosis. Patient gives history that in November she had increasing lower back pain and saw an orthopedic physician in [place]. Subsequently she started having trouble with her balance and by the end of December she started using a walker. She was hospitalized at [facility] in March of this year which time she was treated for weakness and fatigue, malaise possibly secondary to depression, complicated by chronic pain and insomnia/sleep deprivation. She was seen at that time orthopedic spine was no plan for any surgical intervention. She was discharged home with [facility] at that time. According to the patient's , she has had difficulty with dysphagia, was to be set up with Dr. Pleitez for outpatient EGD. She has had no oral intake for the past 2 weeks and hardly drinking any water and taking half bottle of protein shake only. She has had weight loss along with increasing weakness and difficulty even walking with walker now into a wheelchair. states she's also had more confusion. She continues to complain of low back pain. Patient's notified us of ER visit. We are ordering midline in order to get IV fluid started and discuss case with ER staff. Patient came into [facility] emergency center for evaluation. She was found to be afebrile, heart rate 105, blood pressure 122/94, pulse ox 97% on room air. WBC 6.2, hemoglobin 16.8, platelet count 186. Sodium 130, potassium 4.2, chloride 90, CO2 24, BUN 22 and creatinine 0.49, blood sugar 99. Liver function tests within normal limits. Lactic acid 1.4. Troponin negative. ProBNP 134. EKG sinus rhythm. Chest x-ray shows no acute cardiopulmonary process. Emphysematous change. Initial blood pressure 176/94, afebrile, heart rate 73, pulse ox 99% on room air . CBC unremarkable. Sodium 132, potassium 4.2, chloride 96, CO2 29, BUN 17 creatinine 0.55, blood sugar 55. TSH 8.1. Lactic acid 1.6, troponin negative. Urinalysis slightly cloudy, protein 1+, ketones 3+. Patient to be admitted to the [facility] floor and consult requested with GI for dysphagia and EGD, pain management for chronic back pain and epidural injection. 06/18: Patient was seen by GI yesterday and attempted diet. Patient refused to eat any food last evening or for at bedtime snack. She is tentatively scheduled for EGD today at 1 PM. We have added in a consult with psychiatry and Abilify was ordered. Patient has had some nausea. Discussed in detail with the patient that she needs to undergo EGD. Later in the morning, patient complained of chest pain to her nurse and we have added an EKG, troponins cardiology consult and echocardiogram. This seems to eat attempt to avoid undergoing EGD versus true episode of chest pain. Blood pressure at the time was 125/71 and heart rate 58. Pulse ox is 99% on room air. Repeat blood work reveals W BC 3.7, hemoglobin 13.4. Sodium 130, potassium 3.1 and will be replaced, chloride 96, CO2 24, creatinine 0.38. Patient is waiting to see pain management which will hopefully occur today. 06/19: Patient refused to have EGD yesterday when she was on the table. Her was here trying to convince her to move forward with this testing as well. She does have a upper GI ordered for today the patient had breakfast and this will be delayed until tomorrow. Pain management has evaluated her yesterday and will review MRI that was done in [place]. PT and OT have evaluated and recommended subacute rehab. Social work has arranged for [facility] and she has been accepted there. Regarding chest pain the patient had yesterday, patient states that this has resolved. Troponins were negative on 3 draws. Echocardiogram is pending as well as cardiology consult. Patient recognizes that she has confusion and seems to having signs of early dementia. Consult with neurology will be added. Patient has been evaluated by psychiatry with recommendations for continuing Abilify, add Remeron 15 mg at bedtime and increase Xanax frequency to 3 times daily. Patient has been afebrile, heart rate 65, blood pressure 145/78, pulse ox 99% on room air. REVIEW OF SYSTEMS Constitutional: No fever, no chills, no night sweats. Reports weight change. Reports weakness, Reports fatigue Reportsr lethargy. Reports daytime sleepiness. EENT: No headache. No blurred vision or double vision, no loss of vision. No loss of Hearing, no ringing in the ears, no dizziness. No nasal drainage or congestion. No epistaxis. No sore throat. Lungs: No shortness of breath, cough, no sputum production. No wheezing. Cardiovascular: No chest pain, no lower extremity edema. No palpitations. No p aroxysmal nocturnal dyspnea. No orthopnea. No lightheadedness or dizziness. No syncopal episodes. Abdominal: No abdominal pain. Reports nausea, denies vomiting. No diarrhea. No constipation. No bloody or tarry stools reports loss of appetite. Genitourinary: No dysuria, increased frequency, urgency. No urinary retention. Musculoskeletal: No myalgias. Reports muscle weakness, Reports gait dysfunction, no frequent falls. Reports back pain. No neck pain. Integumentary: No wounds, no lesions. No rash or pruritus. No unusual bruising. No change in hair or nails. Neurologic: No aphasia. No facial droop. Reports change in mentation. Reports dysphagia. No head injury. No headache. Psychiatric: No depression. No anxiety. No mood swings. Endocrine: No abnormal blood sugars. PHYSICAL EXAMINATION Gen: This is a 74-year-old female. Patient is resting in bed and appears to be comfortable but anxious. HEENT: Head is atraumatic, normocephalic. Pupils equal, round. Sclerae is anicteric. Conjunctiva slightly pale. NECK: Supple. No JVD. No lymphadenopathy. No thyromegaly. LUNGS: Clear to auscultation. No wheezes or rhonchi. No intercostal r etractions. HEART: Regular rate and rhythm. No murmur. ABDOMEN: Soft. Bowel sounds are present. No masses. No tenderness. BACK: Tenderness to the left buttocks area. EXTREMITIES: No pedal edema. No calf tenderness. NEUROLOGICAL: Patient is awake, alert and oriented x3. Although patient can answer questions appropriately, patient does have confusion with short-term memory deficit. Cranial nerves 2 through 12 are grossly intact. Significant generalized weakness. ASSESSMENT AND PLAN 1. Metabolic encephalopathy secondary to dehydration, electrolyte abnormalities, malnutrition. 2. Dysphagia, unable to maintain adequate oral intake with weight loss. Consult with GI appreciated. Patient refused EGD. Upper GI rescheduled for tomorrow. 3. Dehydration with electrolyte abnormalities with hyponatremia and hypochloremia. Midline has been ordered. IV fluids at 75 mL per hour. 4. Chronic back pain secondary to lumbar facet arthropathy and lumbar disc desiccation, left sciatica. Consult with pain management appreciated, to review MRI. Continue Toradol 15 mg IV push every 6 hours as needed, Lidoderm patch daily, continue Tylenol. Physical therapy evaluation. 5. Severe protein calorie malnutrition. Await EGD results. Patient may require PEG tube placement, plan to order protein supplementation. 6. Recurrent depression and generalized anxiety disorder. Patient is currently on Xanax or 0.25 mg increase to 3 times daily, Abilify was added yesterday at 2 mg daily, Remeron 15 mg at bedtime also added by psychiatry. psychiatric consult appreciated. 7. Hypertension. Continue Toprol-XL 50 mg daily. 8. Hypothyroidism. Increase levothyroxine 100 g daily. 9. Probable dementia. Consult with neurology. 10. DVT prophylaxis. Heparin subcu. 11. GI prophylaxis. Protonix. 12. Episode of chest pain. Acute coronary syndrome ruled out. Echocardiogram report pending. Cardiology consult appreciated. CODE STATUS: Full code Discharge plan: Leanne under the care of Dr. Cisse. Impression and plan of care have been directed as dictated by the signing physician. Earline Baker nurse practitioner acting as scribe for signing physician. Objective - Vital Signs Vital signs: Vital Signs Temp 97.6 F 06/19/20 05:00 Pulse 65 06/19/20 05:00 Resp 18 06/19/20 05:00 BP 145/78 06/19/20 05:00 Pulse Ox 99 06/19/20 05:00 Intake & Output 06/18/20 06/19/20 06/19/20 18:59 06:59 18:59 Intake Total 1020 0 Balance 1020 0 Weight 49.895 kg Intake: Intake, IV Titration 900 Amount Potassium Chloride 10 meq 400 In Water For Injection 1 100ml.bag @ 100 mls/hr IVPB Q1HR [facility] Rx#: [id number] Sodium Chloride 0.9% 1, 500 000 ml @ 75 mls/hr IV . [id number] [facility] Rx#:[id number] Oral 120 0 Other: # Voids 1 3 - Labs CBC & Chem 7: 06/18/20 06:34 06/18/20 06:34 Labs: Abnormal Lab Results - Last 24 Hours (Table) 06/18/20 06/18/20 Range/Units 06:34 06:34 WBC 3.7 L (3.8-10.6) k/uL Lymphocytes # 0.7 L (1.0-4.8) k/uL Sodium 130 L (137-145) mmol/L Potassium 3.1 L (3.5-5.1) mmol/L Chloride 96 L (98-107) mmol/L Creatinine 0.38 L (0.52-1.04) mg/dL Calcium 7.6 L (8.4-10.2) mg/dL Alkaline Phosphatase 22 L (38-126) U/L Total Protein 5.3 L (6.3-8.2) g/dL Albumin 3.0 L (3.5-5.0) g/dL
--- NOTE | 2020-06-19 11:52 | P.PN ---
Progress Note - Text Progress Note Date: 06/19/20 Psychiatric note: I reviewed records ,talked with patient RN and did interview patient Patient stated that she slept better but was up couple of times because of pain ,patient was seen by pain management yesterday,patient stated that she ate "some sausage for breakfast but it was overcooked" Patient is still somatic preoccupied ,rates her anxiety 8 or 9/10 ,10 being the worst ,when asked about depression ,she replied "I am frustrated from my back pain and my inability to walk as before" Patient denies any suicidal or homicidal ideation,denies any hallucination or paranoia,alert ,oriented to person ,place but not exact date PLAN:increase Remeron 30 mg HS for mood ,continue Abilify 2 mg and Xanax prn Will continue to follow Patient scheduled for Barium swallow tomorrow
--- NOTE | 2020-06-19 13:40 | ECHOF ---
Referral Reason:Chest pain / Cardiology consult MEASUREMENTS -------- HEIGHT: 167.6 cm WEIGHT: 49.9 kg BP: 145/78 IVSd: 1.2 cm (0.6 - 1.1) LVIDd: 3.4 cm (3.9 - 5.3) LVPWd: 1.2 cm (0.6 - 1.1) IVSs: 1.4 cm LVIDs: 2.3 cm LVPWs: 1.7 cm Ao Diam: 2.9 cm (2.0 - 3.7) AV Cusp: 1.9 cm (1.5 - 2.6) LA Diam: 2.9 cm (2.7 - 3.8) MV EXCURSION: 13.970 mm (> 18.000) MV EF SLOPE: 57 mm/s (70 - 150) EPSS: 1.1 cm MV E Tino: 0.56 m/s MV DecT: 257 ms MV A Tino: 0.66 m/s MV E/A Ratio: 0.84 AR PHT: 922 ms RAP: 5.00 mmHg RVSP: 15.50 mmHg FINDINGS -------- Sinus rhythm. This was a technically difficult study with suboptimal views. The left ventricular size is normal. There is mild concentric left ventricular hypertrophy. Overa ll left ventricular systolic function is normal with, an EF between 55 - 60 %. The right ventricle is normal in size. The left atrial size is normal. The right atrial size is normal. The aortic valve was not well visualized. The mitral valve is normal. There is trace mitral regurgitation. The tricuspid valve appears structurally normal. Trace tricuspid regurgitation present. Right sunny tricular systolic pressure is normal at < 35 mmHg. The pulmonic valve was not well visualized. The aortic root size is normal. Normal inferior vena cava with normal inspiratory collapse consistent with estimated right atrial pre ssure of 5 mmHg. There is a trivial pericardial effusion present. CONCLUSIONS -------- 1. Sinus rhythm. 2. The left ventricular size is normal. 3. There is mild concentric left ventricular hypertrophy. 4. Overall left ventricular systolic function is normal with, an EF between 55 - 60 %. 5. There is trace mitral regurgitation. 6. Trace tricuspid regurgitation present. 7. There is a trivial pericardial effusion present. BPM ANALYST: Freda Alaniz RDCS
--- NOTE | 2020-06-19 15:09 | P.PAINPG ---
Subjective Progress Note Date: 06/19/20 This is a 74-year-old presented as an inpatient consult on June 18. To recap, Patient gives history that in November she had increasing lower back pain and saw an orthopedic physician in [place]. Subsequently she started having trouble with her balance and by the end of December she started using a walker. She was hospitalized at [facility] in March of this year which time she was treated for weakness and fatigue, malaise possibly secondary to depression, complicated by chronic pain and insomnia/sleep deprivation. She was seen at that time orthopedic spine was no plan for any surgical intervention. She was discharged home with [facility] at that time. She was actually admitted for dysphagia and was planning to have an EGD today but ended up not having that. We are consulted for low back pain. Patient states that she has pain in her bilateral low back and bilateral buttocks are greater than 2 months duration as well as pain in her lower extremities. He says the pain is described as sharp and stabbing and constant throughout the day. She also mentions that she does have weakness in her bilateral legs. Alleviating factors include hot show er. Exacerbating factors include sitting and standing up from a seated position. Of note patient mentions that she has an MRI that she had in [place] in January. She does not have the results of this MRI, however does and will bring them tomorrow. Of note primary care physician note from earlier this year notes that the MRI was completely normal. 06/19/20: I requested the patient ask her to bring her MRI results when he visited, however he did not do this. Of note patient is scheduled for a barium swallow tomorrow regardless we will not be able to do the procedure tomorrow. Patient is understanding. Patient also denies new-onset weakness, bowel/bladder incontinence, or any other signs or symptoms of cauda equina syndrome. There are no signs of acute intoxication, and no indications of medication diversion or overuse. In addition to above, 13-point review of systems is also negative for chest pain, shortness of breath, changes in vision, changes in hearing, new onset weakness, abdominal pain, diarrhea, extreme fatigue, malaise, fever, skin ch anges, homicidal or suicidal ideation, or bowel or bladder incontinence. Physical exam: Vital Signs: Reviewed in EMR GENERAL: Well appearing, in no acute distress PSYCH: Mood and affect is appropriate. Awake, alert, and oriented SKIN: Skin color, texture, turgor normal, no rashes or lesions HEENT: Normocephalic, atraumatic. EOM intact CV: No pedal edema RESP: Respirations are unlabored, no audible wheezing GI: Abdomen non-distended MUSCULOSKELETAL: Patient was unable to anticipate in exam. So that she was too weak to get out of bed and could not do any meaningful physical examination maneuvers. Of note she was able to move bilateral lower extremities with hip flexion being seemingly intact. Imaging: None in the chart. I have informed the patient to ask her to bring her MRI results and give it to her nurse Assessment: 1. Low back pain 2. Possible sacroiliitis Plan: 1. Explanation: Diagnoses, prognoses, and multiple treatment options including but not limited to physical therapy, interventional therapies, medication management and surgery were discussed with the patient and all questions were answered to the patient's satisfaction. 2. Investigations: Review MRI whenever patient's brings it to the hospital 4. Procedures: At this point is unclear what is causing the patient's pain. She is having significant weakness in her bilateral lower extremities that she says is been happening for some time. I am not sure epidural steroid injection be helpful for her. It is possible bilateral sacroiliac joint injection could be helpful for her. however she has other comorbidities that are being managed on her current inpatient admission. I will give her follow-up for outpatient evaluation at our pain clinic if she is interested in injections 5. Consultations: None 6. Medications: Continue current medication regimen 7. Disposition: Outpatient follow-up as needed Objective - Vital Signs Vital signs: Vital Signs Temp 98.1 F 06/19/20 12:01 Pulse 67 06/19/20 12:01 Resp 17 06/19/20 12:01 BP 137/77 06/19/20 12:01 Pulse Ox 96 06/19/20 12:01 Intake & Output 06/18/20 06/19/20 06/19/20 18:59 06:59 18:59 Intake Total 1020 0 600 Balance 1020 0 600 Weight 49.895 kg Intake: Intake, IV Titration 900 600 Amount Potassium Chloride 10 meq 400 In Water For Injection 1 100ml.bag @ 100 mls/hr IVPB Q1HR [facility] Rx#: [id number] Sodium Chloride 0.9% 1, 500 600 000 ml @ 75 mls/hr IV . [id number] [facility] Rx#:[id number] Oral 120 0 Other: # Voids 1 3 - Labs CBC & Chem 7: 06/18/20 06:34 06/18/20 06:34 PQRS Measure Charge Sheet PQRS Narrative: Smoking Status Never smoker Blood Pressure [Left Arm] 137/77 Blood Pressure 147/82 Pain Intensity [Lower Back] 0 Pain Intensity 0 Pain Scale Used Non Verbal Pain Indicator Scale Used Non Verbal Pain Indicator Home Medications: Ambulatory Orders ALPRAZolam [Xanax] 0.25 mg PO BID PRN 03/04/20 Acetaminophen Tab [Tylenol] 1,000 mg PO Q6HR PRN 03/04/20 Levothyroxine Sodium [Synthroid] 75 mcg PO DAILY #0 03/07/20 Lidocaine 5% Patch [Lidoderm 5% Patch] 1 patch TOPICAL DAILY PRN 03/30/20 Metoprolol Succinate (ER) [Toprol Xl] 50 mg PO DAILY 06/17/20 Controlled Substance Measures - Controlled Substance Measures Is patient prescribed a controlled substance at discharge?: No
--- NOTE | 2020-06-19 15:27 | P.CRDCN ---
History of Present Illness Consult date: 06/19/20 Chief complaint: Chest discomfort History of present illness: This is a 74-year-old female patient with a past medical history significant for hypertension as well as history of recurrent depression who was admitted to the hospital initially with a change in mental status and she was diagnosed with dehydration and also malnutrition. The patient also is known to have chronic back pain. We consulted to see the patient mainly because off chest discomfort. She was moving to her bed when she started experiencing discomfort in the chest as well as in the back. The discomfort lasted only for a few seconds and resolved after that. No associated symptoms of shortness of breath or dizziness or sweating or loss of consciousness or syncope. The EKG showed sinus rhythm without any significant ST or T-wave abnormalities. The cardiac enzymes were checked and came in to be unremarkable. The patient is not aware of any prior cardiac history and she never seen a helmet hat brim cutter in the past. An echocardiogram also was performed during her hospital stay and that revealed normal left ventricular systolic function with no significant valvular abnormalities. The patient continues to be chest pain-free during her hospital stay. Currently she is in process of being evaluated for dysphagia Past Medical History Past Medical History: Hypertension, Thyroid Disorder Additional Past Medical History / Comment(s): adrenal insufficiency History of Any Multi-Drug Resistant Organisms: None Reported Past Surgical History: Orthopedic Surgery Additional Past Surgical History / Comment(s): rt knee Past Anesthesia/Blood Transfusion Reactions: No Reported Reaction Past Psychological History: Anxiety Smoking Status: Never smoker Past Alcohol Use History: None Reported Past Drug Use History: None Reported - Past Family History Father Additional Family Medical History / Comment(s): "heart problems" Mother Family Medical History: No Reported History Additional Family Medical History / Comment(s): Mother was healthy Medications and Allergies Home Medications Medication Instructions Recorded Confirmed Type ALPRAZolam [Xanax] 0.25 mg PO BID PRN 03/04/20 06/17/20 History Acetaminophen Tab [Tylenol] 1,000 mg PO Q6HR PRN 03/04/20 06/17/20 History Levothyroxine Sodium [Synthroid] 75 mcg PO DAILY #0 03/07/20 06/17/20 Rx Lidocaine 5% Patch [Lidoderm 5% 1 patch TOPICAL DAILY PRN 03/30/20 06/17/20 History Patch] Metoprolol Succinate (ER) [Toprol 50 mg PO DAILY 06/17/20 06/17/20 History Xl] Allergies Allergy/AdvReac Type Severity Reaction Status Date / Time epinephrine Allergy elevates Verified 06/17/20 09:07 heart rate Physical Exam Vitals: Vital Signs Temp Pulse Resp BP Pulse Ox 06/19/20 12:01 98.1 F 67 17 137/77 96 06/19/20 05:00 97.6 F 65 18 145/78 99 06/19/20 00:00 18 06/18/20 21:04 97.9 F 63 18 127/73 96 06/18/20 15:41 65 16 Intake and Output 06/19/20 06/19/20 06/19/20 06:59 14:59 22:59 Intake Total 0 600 Balance 0 600 Intake: Intake, IV Titration 600 Amount Sodium Chloride 0.9% 1, 600 000 ml @ 75 mls/hr IV . [id number] [facility] Rx#:[id number] Oral 0 Other: # Voids 3 - Constitutional General appearance: no acute distress - Respiratory Respiratory: bilateral: CTA - Cardiovascular Rhythm: regular Heart sounds: normal: S1, S2 Results 06/18/20 06:34 06/18/20 06:34 Current Medications Generic Name Dose Route Start Last Admin Trade Name Freq PRN Reason Stop Dose Admin Acetaminophen 1,000 mg 06/17/20 11:38 Tylenol Tab PO Q6HR PRN Pain Alprazolam 0.5 mg 06/18/20 14:10 Xanax PO TID PRN Anxiety Aripiprazole 2 mg 06/18/20 09:00 06/19/20 08:45 Abilify PO 2 mg DAILY [facility] Administration Heparin Sodium (Porcine) 5,000 unit 06/17/20 21:00 06/19/20 08:45 Heparin SQ 5,000 unit Q12HR [facility] Administration Sodium Chloride 1,000 mls @ 75 mls/hr 06/17/20 11:45 06/19/20 03:39 Saline 0.9% IV 75 mls/hr .[id number] [facility] Administration Ketorolac Tromethamine 15 mg 06/17/20 09:27 06/18/20 11:16 Toradol IVP 06/20/20 09:28 15 mg Q6HR PRN Administration Moderate Pain Levothyroxine Sodium 100 mcg 06/18/20 06:30 06/19/20 08:45 Synthroid PO 100 mcg DAILY@0630 [facility] Administration Lidocaine 1 patch 06/17/20 11:38 Lidoderm TOPICAL DAILY PRN Pain Metoprolol Succinate 50 mg 06/18/20 09:00 06/19/20 08:46 Toprol Xl PO 50 mg DAILY [facility] Administration Mirtazapine 30 mg 06/19/20 21:00 Remeron PO HS [facility] Morphine Sulfate 4 mg 06/17/20 09:27 Morphine Sulfate (Inj) IV Q4HR PRN Severe Pain Naloxone HCl 0.2 mg 06/17/20 09:27 Narcan IV Q2M PRN Opioid Reversal Pantoprazole Sodium 40 mg 06/19/20 07:30 06/19/20 08:45 Protonix PO 40 mg [id number] [facility] Administration Intake and Output 06/19/20 06/19/20 06/19/20 06:59 14:59 22:59 Intake Total 0 600 Balance 0 600 Intake: Intake, IV Titration 600 Amount Sodium Chloride 0.9% 1, 600 000 ml @ 75 mls/hr IV . [id number] [facility] Rx#:[id number] Oral 0 Other: # Voids 3 06/18/20 06:34 06/18/20 06:34 Assessment and Plan Assessment: Assessment #1 atypical chest discomfort Plan #1 acute coronary event was ruled out #2 consider a conservative medical approach in the absence of chest discomfort at this point as well as absence ischemic ST and T wave changes on the EKG as well as normal cardiac enzymes #3 follow-up with the patient on when necessary
--- NOTE | 2020-06-19 17:53 | P.CNNES ---
History of Present Illness Consult date: 06/19/20 Requesting physician: Earline Baker Reason for Consult: Dementia History of Present Illness: Patient is a 74-year-old female with history of chronic back pain, hypertension, dysphagia, presenting to the ED with complaints of generalized weakness that has been increasing over the past 2-3 weeks. Patient has been evaluated by myself on 03/06/2020 for generalized weakness. At that time her examination was normal with no evidence of myopathy, myasthenia gravis. Neurology was consulted to rule out dementia. Apparently patient has been having some episodes of confusion. Patient at present appears to be in distress, stating, "something is going on in my bladder". Patient states that she does get confused but she knows who she is and where she is at. Patient states her memory is "little disturbed", but not too bad. She feels tired, feels significant pain in the bladder. Not able to provide detailed history. Patient had a carotid Doppler on 03/06/2020, which revealed no hemodynamic significant stenosis of the proximal ICA. Antegrade flow in both vertebral arteries. Chest x-ray showed no acute cardiopulmonary process. Emphysematous changes. 2-D echo from 06/19/2020 showed sinus rhythm, normal left ventricular size, mild concentric LVH. EF is between 55-60%. Trace MR. CT head from 03/29/2020 was normal with no acute intracranial process. Mild age-related cerebral atrophy and mild burden nonspecific white matter change. Some paranasal sinus disease. Patient's blood tests shows elevated TSH 21.4 with low free T4 0.75. Hepatic panel is normal, CBC with WBC 3.7, hemoglobin 13.4. Previous blood test from 03/05/2020 showed normal B12 3095, TSH was elevated. Lyme titer, BOBO negative. ESR normal. Review of Systems Patient in severe pain from bladder. Denies headache. Denies chest pain. No shortness of breath. Patient did not cooperate with further review of system at review. Past Medical History Past Medical History: Hypertension, Thyroid Disorder Additional Past Medical History / Comment(s): adrenal insufficiency History of Any Multi-Drug Resistant Organisms: None Reported Past Surgical History: Orthopedic Surgery Additional Past Surgical History / Comment(s): rt knee Past Anesthesia/Blood Transfusion Reactions: No Reported Reaction Past Psychological History: Anxiety Smoking Status: Never smoker Past Alcohol Use History: None Reported Past Drug Use History: None Reported - Past Family History Father Additional Family Medical History / Comment(s): "heart problems" Mother Family Medical History: No Reported History Additional Family Medical History / Comment(s): Mother was healthy Medications and Allergies Home Medications Medication Instructions Recorded Confirmed Type ALPRAZolam [Xanax] 0.25 mg PO BID PRN 03/04/20 06/17/20 History Acetaminophen Tab [Tylenol] 1,000 mg PO Q6HR PRN 03/04/20 06/17/20 History Levothyroxine Sodium [Synthroid] 75 mcg PO DAILY #0 03/07/20 06/17/20 Rx Lidocaine 5% Patch [Lidoderm 5% 1 patch TOPICAL DAILY PRN 03/30/20 06/17/20 History Patch] Metoprolol Succinate (ER) [Toprol 50 mg PO DAILY 06/17/20 06/17/20 History Xl] Allergies Allergy/AdvReac Type Severity Reaction Status Date / Time epinephrine Allergy elevates Verified 06/17/20 09:07 heart rate Physical Examination - Vital Signs Vital Signs: Vital Signs Temp Pulse Resp BP Pulse Ox 06/19/20 12:01 98.1 F 67 17 137/77 96 06/19/20 05:00 97.6 F 65 18 145/78 99 06/19/20 00:00 18 06/18/20 21:04 97.9 F 63 18 127/73 96 Intake and Output 06/19/20 06/19/20 06/19/20 06:59 14:59 22:59 Intake Total 0 600 Balance 0 600 Intake: Intake, IV Titration 600 Amount Sodium Chloride 0.9% 1, 600 000 ml @ 75 mls/hr IV . [id number] [facility] Rx#:[id number] Oral 0 Other: # Voids 3 On examination patient is alert and awake, but appears to be in distress because of pain in the abdomen. Patient knows it is June 2020, Summer season and that she is in [facility] in [facility]. She knows name of the current president. Speech and language functions are normal. Attention span, concentration is decreased due to pain. Patient has positive bilateral palmo mental reflex. Negative visuospatial apraxia. Clock drawing test was perfect. Pupils are round and reactive to light, visual arshad are full, face is symmetric and tongue protrudes the midline. Palatal elevation normal. Hearing and shoulder shrug appears normal. Muscle strength is normal in the arms. Patient did not cooperate with checking of the legs because of pain. Reflexes are symmetric, sensations are equal. No ataxia for [id number] testing. Tone is normal, bulk of muscles overall decrease. No carotid bruit or murmur. Peripheral pulses present. Chest is clear. Results - Laboratory Findings CBC and BMP: 06/18/20 06:34 06/18/20 06:34 Abnormal Lab Findings: Abnormal Labs 06/17/20 06/17/20 06/17/20 08:38 08:38 08:38 WBC Hgb 16.8 H Hct 49.4 H Lymphocytes # Sodium 130 L Potassium Chloride 90 L BUN 22 H Creatinine 0.49 L Calcium Alkaline Phosphatase 35 L Total Protein Albumin TSH 21.400 H Free T4 0.75 L Urine Appearance Urine Protein Urine Ketones Urine WBC Amorphous Sediment Urine Bacteria Urine Mucus 06/17/20 06/18/20 06/18/20 10:28 06:34 06:34 WBC 3.7 L Hgb Hct Lymphocytes # 0.7 L Sodium 130 L Potassium 3.1 L Chloride 96 L BUN Creatinine 0.38 L Calcium 7.6 L Alkaline Phosphatase 22 L Total Protein 5.3 L Albumin 3.0 L TSH Free T4 Urine Appearance Slightly Cloudy H Urine Protein 1+ H Urine Ketones 3+ H Urine WBC 7 H Amorphous Sediment Rare H Urine Bacteria Rare H Urine Mucus Rare H Assessment and Plan Assessment: * 74-year-old female admitted with abdominal pain. Patient appears to be in distress at this time. Patient is slightly delirious, with decreased attention span, and concentration. No definitive evidence of dementia on examination as of today. * Hypothyroidism * Hypertension * Chronic pain. Plan: * Patient performed fairly well on cognitive function testing. Clock drawing test was perfect. Negative visuospatial apraxia. Patient does have bilaterally positive palmomental reflex. * At this time patient appears to be in distress due to abdominal pain. Limited examination as above does not point towards definitive dementia. * Her recent blood workup shows evidence of hypothyroidism, which may be contributing to memory disturbance. Suggest optimizing thyroid hormone replacement. * Suggest follow-up with neurologist locally as an outpatient, for more detailed cognitive function testing, once her abdominal pain and medical conditions have resolved. * Please call neurology if any further concerns. * Neurology will sign off.
[2020-06-19] MEDS: MIRTAZAPINE 15 MG TAB PO SCH (20:00)
--- NOTE | 2020-06-20 00:07 | PN ---
PROGRESS NOTE DATE OF DICTATION: 06/19/2020 The patient is a 74-year-old pleasant white female admitted to the hospital with severe back pain as well as severe anxiety. She has been having decreased oral intake and some questionable dysphagia. She was scheduled for an upper endoscopy yesterday, but she refused to have the procedure done. She was hence scheduled for a barium esophagogram, which has been rescheduled for tomorrow. She states that she is feeling better. She has eaten her lunch well. She denies any abdominal pain. No nausea, vomiting. PHYSICAL EXAMINATION: Appears comfortable, no apparent distress. Vital signs are stable. Blood pressure is 112/88, pulse rate 67, temperature 98.1. HEENT EXAMINATION: Unremarkable. Conjunctivae pink. Sclerae anicteric. Oral cavity, no lesions. NECK: No JVD or lymph node enlargement. CHEST: Clear to auscultation. HEART: Regular rate and rhythm. ABDOMEN: Soft, it was nontender, nondistended. Bowel sounds are positive. EXTREMITIES: No pedal edema. NEUROLOGIC: Alert and oriented x3. No focal deficits. LABS: No labs available from today. The troponin less than 0.012. IMPRESSION: 1. Decreased oral intake, questionable dysphagia of unclear etiology. Patient refusing to have an upper endoscopy at this time. She is scheduled for a barium swallow/upper GI series tomorrow. 2. Severe chronic back pain. 3. History of anxiety, presently being evaluated by psychiatrist. 4. Hypothyroidism. RECOMMENDATION: 1. Continue with Protonix 40 mg daily. 2. Advance diet as tolerated. 3. Await results of barium swallow that is scheduled for tomorrow. 4. We will hold off any endoscopy intervention at the present time. 5. We will follow with you closely. Thank you for this consultation. MMODL / IJN: [id number] /
[2020-06-20] MEDS: SODIUM CHLORIDE 0.9% 1,000 ML IV SCH ×2 (05:31→16:18)
[2020-06-20 07:38] LABS: HCT 41.3 % (34.0-46.0); HGB 14.6 gm/dL (11.4-16.0); MCH 31.8 pg (25.0-35.0); MCHC 35.3 g/dL (31.0-37.0); MCV 90.1 fL (80.0-100.0); Mean Platelet Volume 7.2; Platelet Count 179 k/uL (150-450); RBC 4.58 m/uL (3.80-5.40); RDW 12.3 % (11.5-15.5); WBC 4.8 k/uL (3.8-10.6)
[2020-06-20 07:53] LABS: African American GFR (CKD) >90 (>60 ml/min/1.73 sqM); Anion Gap 10 mmol/L; Blood Urea Nitrogen 2 mg/dL (7-17); Calcium 7.7 mg/dL (8.4-10.2); Carbon Dioxide 26 mmol/L (22-30); Chloride 94 mmol/L (98-107); Glucose 84 mg/dL (74-99); Non-African American GFR(CKD) >90 (>60 ml/min/1.73 sqM); Potassium 2.8 mmol/L (3.5-5.1); Sodium 130 mmol/L (137-145)
[2020-06-20] MEDS: ALPRAZolam 0.5 MG TAB PO PRN (08:19)
[2020-06-20] MEDS: KETOROLAC 15 MG/ML 1 ML VIAL IVP PRN (08:19)
[2020-06-20] MEDS: HEPARIN SODIUM,PORCINE 5,000 UNIT/ML 1 ML VIAL SQ SCH ×2 (09:32→19:57)
--- NOTE | 2020-06-20 11:37 | P.PN ---
Subjective Progress Note Date: 06/20/20 HISTORY OF PRESENT ILLNESS This is a 74-year-old female patient of Dr. Cisse with past medical history of hypertension, hypothyroidism, degenerative disc disease and chronic back pain, scoliosis. Patient gives history that in November she had increasing lower back pain and saw an orthopedic physician in [place]. Subsequently she started having trouble with her balance and by the end of December she started using a walker. She was hospitalized at [facility] in March of this year which time she was treated for weakness and fatigue, malaise possibly secondary to depression, complicated by chronic pain and insomnia/sleep deprivation. She was seen at that time orthopedic spine was no plan for any surgical intervention. She was discharged home with [facility] at that time. According to the patient's , she has had difficulty with dysphagia, was to be set up with Dr. Pleitez for outpatient EGD. She has had no oral intake for the past 2 weeks and hardly drinking any water and taking half bottle of protein shake only. She has had weight loss along with increasing weakness and difficulty even walking with walker now into a wheelchair. states she's also had more confusion. She continues to complain of low back pain. Patient's notified us of ER visit. We are ordering midline in order to get IV fluid started and discuss case with ER staff. Patient came into [facility] emergency center for evaluation. She was found to be afebrile, heart rate 105, blood pressure 122/94, pulse ox 97% on room air. WBC 6.2, hemoglobin 16.8, platelet count 186. Sodium 130, potassium 4.2, chloride 90, CO2 24, BUN 22 and creatinine 0.49, blood sugar 99. Liver function tests within normal limits. Lactic acid 1.4. Troponin negative. ProBNP 134. EKG sinus rhythm. Chest x-ray shows no acute cardiopulmonary process. Emphysematous change. Initial blood pressure 176/94, afebrile, heart rate 73, pulse ox 99% on room air . CBC unremarkable. Sodium 132, potassium 4.2, chloride 96, CO2 29, BUN 17 creatinine 0.55, blood sugar 55. TSH 8.1. Lactic acid 1.6, troponin negative. Urinalysis slightly cloudy, protein 1+, ketones 3+. Patient to be admitted to the [facility] floor and consult requested with GI for dysphagia and EGD, pain management for chronic back pain and epidural injection. 06/18: Patient was seen by GI yesterday and attempted diet. Patient refused to eat any food last evening or for at bedtime snack. She is tentatively scheduled for EGD today at 1 PM. We have added in a consult with psychiatry and Abilify was ordered. Patient has had some nausea. Discussed in detail with the patient that she needs to undergo EGD. Later in the morning, patient complained of chest pain to her nurse and we have added an EKG, troponins cardiology consult and echocardiogram. This seems to eat attempt to avoid undergoing EGD versus true episode of chest pain. Blood pressure at the time was 125/71 and heart rate 58. Pulse ox is 99% on room air. Repeat blood work reveals W BC 3.7, hemoglobin 13.4. Sodium 130, potassium 3.1 and will be replaced, chloride 96, CO2 24, creatinine 0.38. Patient is waiting to see pain management which will hopefully occur today. 06/19: Patient refused to have EGD yesterday when she was on the table. Her was here trying to convince her to move forward with this testing as well. She does have a upper GI ordered for today the patient had breakfast and this will be delayed until tomorrow. Pain management has evaluated her yesterday and will review MRI that was done in [place]. PT and OT have evaluated and recommended subacute rehab. Social work has arranged for [facility] and she has been accepted there. Regarding chest pain the patient had yesterday, patient states that this has resolved. Troponins were negative on 3 draws. Echocardiogram is pending as well as cardiology consult. Patient recognizes that she has confusion and seems to having signs of early dementia. Consult with neurology will be added. Patient has been evaluated by psychiatry with recommendations for continuing Abilify, add Remeron 15 mg at bedtime and increase Xanax frequency to 3 times daily. Patient has been afebrile, heart rate 65, blood pressure 145/78, pulse ox 99% on room air. 06/20: Patient has been seen by Dr. Sparks with no obvious signs of dementia and recommends outpatient neurology workup for cognitive functional testing. Kassy nt is been seen by Dr. Dave and he has signed off. No complaints of chest pain and no acute coronary syndrome. Echocardiogram reveals EF of 55-60% with mild concentric left ventricular hypertrophy, trace mitral regurgitation, trace tricuspid regurgitation. Pain management has evaluated the patient again yesterday, waiting for to bring an MRI that was done in [place]. She will be scheduled for epidural was afternoon. Patient is scheduled for upper GI series today. Dr. Spears continues to follow with no plan for EGD at this point. Patient has been afebrile, heart rate 78, blood pressure 148/91, pulse ox 98% on room air. CBC is unremarkable. Sodium 130, potassium 2.8, chloride 94, CO2 26, BUN 2 and creatinine 0.37. Patient's potassium will be replaced. We are planning for discharge to [facility] tomorrow. [facility] disease and has been updated. COVID-19 testing will need to be done prior to discharge. REVIEW OF SYSTEMS Constitutional: No fever, no chills, no night sweats. Reports weight change. Reports weakness, Reports fatigue Reportsr lethargy. Reports daytime sleepiness. EENT: No headache. No blurred vision or double vision, no loss of vision. No loss of Hearing, no ringing in the ears, no dizziness. No nasal drainage or congestion. No epistaxis. No sore throat. Lungs: No shortness of breath, cough, no sputum production. No wheezing. Cardiovascular: No chest pain, no lower extremity edema. No palpitations. No paroxysmal nocturnal dyspnea. No orthopnea. No lightheadedness or dizziness. No syncopal episodes. Abdominal: No abdominal pain. Reports nausea, denies vomiting. No diarrhea. No constipation. No bloody or tarry stools reports loss of appetite. Genitourinary: No dysuria, increased frequency, urgency. No urinary retention. Musculoskeletal: No myalgias. Reports muscle weakness, Reports gait dysfunction, no frequent falls. Reports back pain. No neck pain. Integumentary: No wounds, no lesions. No rash or pruritus. No unusual bruising. No change in hair or nails. Neurologic: No aphasia. No facial droop. Reports change in mentation. Reports dysphagia. No head injury. No headache. Psychiatric: No depression. Reports anxiety. Endocrine: No abnormal blood sugars. PHYSICAL EXAMINATION Gen: This is a 74-year-old female. Patient is resting in bed and appears to be comfortable but anxious. HEENT: Head is atraumatic, normocephalic. Pupils equal, round. Sclerae is anicteric. Conjunctiva slightly pale. NECK: Supple. No JVD. No lymphadenopathy. No thyromegaly. LUNGS: Clear to auscultation. No wheezes or rhonchi. No intercostal retractions. HEART: Regular rate and rhythm. No murmur. ABDOMEN: Soft. Bowel sounds are present. No masses. No tenderness. BACK: Tenderness to the left buttocks area. EXTREMITIES: No pedal edema. No calf tenderness. NEUROLOGICAL: Patient is awake, alert and oriented x3. Cranial nerves 2 through 12 are grossly intact. Significant generalized weakness. ASSESSMENT AND PLAN 1. Metabolic encephalopathy secondary to dehydration, electrolyte abnormalities, malnutrition. 2. Dysphagia, unable to maintain adequate oral intake with weight loss. Consult with GI appreciated. Patient refused EGD. Upper GI rescheduled for today. 3. Dehydration with electrolyte abnormalities with hyponatremia and hypochloremia. Midline has been ordered. IV fluids at 75 mL per hour. 4. Chronic back pain secondary to lumbar facet arthropathy and lumbar disc desiccation, left sciatica. Consult with pain management appreciated, to review MRI. Pain management is waiting for to bring an MRI report. Continue Toradol 15 mg IV push every 6 hours as needed, Lidoderm patch daily, continue Tylenol. Physical therapy evaluation. Patient scheduled for epidural injection today. 5. Severe protein calorie malnutrition. Continue protein supplementation. 6. Recurrent depression and generalized anxiety disorder. Patient is currently on Xanax or 0.25 mg increase to 3 times daily, Abilify 2 mg daily, Remeron 15 mg at bedtime. Psychiatric consult appreciated. 7. Hypertension. Continue Toprol-XL 50 mg daily. 8. Hypothyroidism. Increase levothyroxine 100 g daily. 9. Possible dementia. Consult with neurology appreciated. Patient to follow- up with outpatient neurology for cognitive functional testing. 10. DVT prophylaxis. Heparin subcu. 11. GI prophylaxis. Protonix. 12. Episode of chest pain. Acute coronary syndrome ruled out. Echocardiogram report as above. Cardiology consult appreciated. 13. COVID-19 testing. CODE STATUS: Full code Discharge plan: Leanne under the care of Dr. Cisse on Wednesday. Impression and plan of care have been directed as dictated by the signing physician. Earline Baker nurse practitioner acting as scribe for signing physician. Objective - Vital Signs Vital signs: Vital Signs Temp 97.5 F L 06/20/20 05:01 Pulse 70 06/20/20 05:01 Resp 16 06/20/20 05:01 BP 143/91 06/20/20 05:01 Pulse Ox 98 06/20/20 05:01 Intake & Output 06/19/20 06/20/20 06/20/20 18:59 06:59 18:59 Intake Total 600 300 Balance 600 300 Intake: Intake, IV Titration 600 300 Amount Sodium Chloride 0.9% 1, 600 300 000 ml @ 75 mls/hr IV . [id number] [facility] Rx#:[id number] Other: Voiding Method Bedside Commode # Voids 4 - Labs CBC & Chem 7: 06/20/20 06:12 06/20/20 06:12
--- NOTE | 2020-06-20 12:03 | P.PN ---
Progress Note - Text Progress Note Date: 06/20/20 Psychiatric note: I reviewed records and I interviewed patient: Patient stated that she has been feeling better mentally as she said "I am eating better ,I am more positive and I am accepting weakness in my legs and I am ready to work with PT ,I am perfectionist ",patient talked about her who is still active and working as [employer] saying "He is so busy with his work" Patient received PRN Xanax this morning prior to her Barium swallow test and she said "I did very well ,I have problem with swallowing when I am in pain " Patient stated that she used to get injection in her back for chronic pain and currently she rates her pain 5 or 6/10,she slept better last night ,she is less anxious today and pleasant Patient denies any suicidal or homicidal ideation,denies any hallucination or paranoia,alert ,oriented to person ,place but not exact date PLAN:Continue Remeron 30 mg HS for mood ,continue Abilify 2 mg and Xanax prn SW to refer her to outpatient therapy ,psychiatry will sign off
--- NOTE | 2020-06-20 12:11 | FL ---
EXAMINATION TYPE: FL UGI air w esophagus, single contrast DATE OF EXAM: 06/20/2020 COMPARISON: NONE HISTORY: 74-year-old female weight loss and poor oral intake TECHNIQUE: A single contrast esophagram and UGI study is performed. Total fluoroscopy time: 2 minutes 35 seconds. Total images: 62 FINDINGS: The table was angled at approximately 30 degrees as the patient could not weight-bear. Assessment of the cervical esophagus shows prominent anterior endplate spondylosis at C5-C6 causing m oderate focal impression onto the posterior wall of the upper cervical esophagus esophagus without ob struction. The remainder of the esophagus shows normal overall motility, course, and contour. No mucosal lesion or definite suspicious filling defect is encountered given single contrast technique. No sizable hiat al hernia is seen. Single contrast exam limits assessment of the stomach. However, these images, there is possible mass along the greater curvature of the gastric body given the appearance of persistent filling defect in this region. No discrete ulcers are identified. Visualized duodenum shows no gross abnormal body. IMPRESSION: 1. Exam limited by single contrast technique. The table was angled at approximately 30 degrees as the patient could not stand. 2. Mild narrowing of the upper cervical esophagus secondary to anterior endplate spondylosis at C5-C6 . No obstruction at this level. 3. Possible mass/large filling defect along the greater curvature of the gastric body. Direct visuali zation recommended.
[2020-06-20] MEDS: LEVOTHYROXINE 100 MCG TAB PO SCH (12:50)
[2020-06-20] MEDS: PANTOPRAZOLE 40 MG TABLET PO SCH (12:50)
[2020-06-20] MEDS ORDERED: IV FLUID CONTINUATION 1,000 ML IV ONE ×2 (13:41)
[2020-06-20] MEDS ORDERED: IOPAMIDOL CONTRAST (ORAL USE) VIAL PO PRN (14:32)
--- NOTE | 2020-06-20 14:45 | P.PN ---
Progress Note - Text Progress Note Date: 06/20/20 She was scheduled for bilateral sacroiliac joint injection due to low back pain especially in the buttock region. When we entered the room, patient remarked that she needed to call her although she did not know his number. Kept remarking that her would be very upset if she didn't go through with the injection. As she started to move her over to the table she noted that she felt significantly weak, and did not think the procedure was is involved as it seemed. Rest of the procedure would help with her weakness, I told her it would not. She kept Saying that she had no one at home to take care of her. I reminded the patient that this type of injection doesn't require much after procedure care. He should continue to go back and forth considering if she would do the procedure. Finally patient transitioned to the bed and laid prone. However patient is unable to tolerate lying prone due to extreme pain. Procedure was canceled. We'll put outpatient follow-up instructions and her her discharge plan. She can follow up as needed
[2020-06-20] MEDS ORDERED: POTASSIUM CHLORIDE 20 MEQ in WATER FOR INJECTION 1 100ML.BAG IVPB STA (16:03)
[2020-06-20] MEDS: METOPROLOL SUCCINATE (ER) 50 MG TAB.ER.24H PO SCH (16:20)
[2020-06-20] MEDS: ARIPiprazole 2 MG TAB PO SCH (16:20)
[2020-06-20] MEDS: POTASSIUM CHLORIDE ER 20 MEQ TAB.ER PO SCH ×2 (16:20→20:01)
[2020-06-20] MEDS: MIRTAZAPINE 15 MG TAB PO SCH (20:22)
[2020-06-21] MEDS: LEVOTHYROXINE 100 MCG TAB PO SCH (05:41)
[2020-06-21] MEDS: METOPROLOL SUCCINATE (ER) 50 MG TAB.ER.24H PO SCH (08:30)
[2020-06-21] MEDS: PANTOPRAZOLE 40 MG TABLET PO SCH (08:31)
[2020-06-21] MEDS: HEPARIN SODIUM,PORCINE 5,000 UNIT/ML 1 ML VIAL SQ SCH ×2 (08:31→21:07)
[2020-06-21] MEDS: ARIPiprazole 2 MG TAB PO SCH (08:31)
[2020-06-21 09:31] LABS: African American GFR (CKD) >90 (>60 ml/min/1.73 sqM); Anion Gap 7 mmol/L; Blood Urea Nitrogen 2 mg/dL (7-17); Calcium 7.6 mg/dL (8.4-10.2); Carbon Dioxide 30 mmol/L (22-30); Chloride 93 mmol/L (98-107); Glucose 93 mg/dL (74-99); Non-African American GFR(CKD) >90 (>60 ml/min/1.73 sqM); Sodium 130 mmol/L (137-145)
[2020-06-21 09:57] LABS: Potassium 2.7 mmol/L (3.5-5.1)
[2020-06-21] MEDS: POTASSIUM BICARBONATE/CIT AC 20 MEQ TABLET.EFF PO SCH ×2 (10:07→10:08)
[2020-06-21] MEDS ORDERED: Potassium Replacement Protocol 1 EACH MISC MISCELLANE PRN (10:32)
[2020-06-21] MEDS: POTASSIUM CHLORIDE 10 MEQ in WATER FOR INJECTION 1 100ML.BAG IVPB SCH ×6 (10:46→17:39)
[2020-06-21] MEDS: ALPRAZolam 0.5 MG TAB PO PRN ×2 (11:01→21:14)
[2020-06-21] MEDS: SODIUM CHLORIDE 0.9% 1,000 ML IV SCH ×2 (11:12→21:09)
--- NOTE | 2020-06-21 12:07 | P.PN ---
Subjective Progress Note Date: 06/21/20 HISTORY OF PRESENT ILLNESS This is a 74-year-old female patient of Dr. Cisse with past medical history of hypertension, hypothyroidism, degenerative disc disease and chronic back pain, scoliosis. Patient gives history that in November she had increasing lower back pain and saw an orthopedic physician in [place]. Subsequently she started having trouble with her balance and by the end of December she started using a walker. She was hospitalized at [facility] in March of this year which time she was treated for weakness and fatigue, malaise possibly secondary to depression, complicated by chronic pain and insomnia/sleep deprivation. She was seen at that time orthopedic spine was no plan for any surgical intervention. She was discharged home with [facility] at that time. According to the patient's , she has had difficulty with dysphagia, was to be set up with Dr. Pleitez for outpatient EGD. She has had no oral intake for the past 2 weeks and hardly drinking any water and taking half bottle of protein shake only. She has had weight loss along with increasing weakness and difficulty even walking with walker now into a wheelchair. states she's also had more confusion. She continues to complain of low back pain. Patient's notified us of ER visit. We are ordering midline in order to get IV fluid started and discuss case with ER staff. Patient came into [facility] emergency center for evaluation. She was found to be afebrile, heart rate 105, blood pressure 122/94, pulse ox 97% on room air. WBC 6.2, hemoglobin 16.8, platelet count 186. Sodium 130, potassium 4.2, chloride 90, CO2 24, BUN 22 and creatinine 0.49, blood sugar 99. Liver function tests within normal limits. Lactic acid 1.4. Troponin negative. ProBNP 134. EKG sinus rhythm. Chest x-ray shows no acute cardiopulmonary process. Emphysematous change. Initial blood pressure 176/94, afebrile, heart rate 73, pulse ox 99% on room air . CBC unremarkable. Sodium 132, potassium 4.2, chloride 96, CO2 29, BUN 17 creatinine 0.55, blood sugar 55. TSH 8.1. Lactic acid 1.6, troponin negative. Urinalysis slightly cloudy, protein 1+, ketones 3+. Patient to be admitted to the [facility] floor and consult requested with GI for dysphagia and EGD, pain management for chronic back pain and epidural injection. 06/18: Patient was seen by GI yesterday and attempted diet. Patient refused to eat any food last evening or for at bedtime snack. She is tentatively scheduled for EGD today at 1 PM. We have added in a consult with psychiatry and Abilify was ordered. Patient has had some nausea. Discussed in detail with the patient that she needs to undergo EGD. Later in the morning, patient complained of chest pain to her nurse and we have added an EKG, troponins cardiology consult and echocardiogram. This seems to eat attempt to avoid undergoing EGD versus true episode of chest pain. Blood pressure at the time was 125/71 and heart rate 58. Pulse ox is 99% on room air. Repeat blood work reveals W BC 3.7, hemoglobin 13.4. Sodium 130, potassium 3.1 and will be replaced, chloride 96, CO2 24, creatinine 0.38. Patient is waiting to see pain management which will hopefully occur today. 06/19: Patient refused to have EGD yesterday when she was on the table. Her was here trying to convince her to move forward with this testing as well. She does have a upper GI ordered for today the patient had breakfast and this will be delayed until tomorrow. Pain management has evaluated her yesterday and will review MRI that was done in [place]. PT and OT have evaluated and recommended subacute rehab. Social work has arranged for [facility] and she has been accepted there. Regarding chest pain the patient had yesterday, patient states that this has resolved. Troponins were negative on 3 draws. Echocardiogram is pending as well as cardiology consult. Patient recognizes that she has confusion and seems to having signs of early dementia. Consult with neurology will be added. Patient has been evaluated by psychiatry with recommendations for continuing Abilify, add Remeron 15 mg at bedtime and increase Xanax frequency to 3 times daily. Patient has been afebrile, heart rate 65, blood pressure 145/78, pulse ox 99% on room air. 06/20: Patient has been seen by Dr. Sparks with no obvious signs of dementia and recommends outpatient neurology workup for cognitive functional testing. Kassy nt is been seen by Dr. Dave and he has signed off. No complaints of chest pain and no acute coronary syndrome. Echocardiogram reveals EF of 55-60% with mild concentric left ventricular hypertrophy, trace mitral regurgitation, trace tricuspid regurgitation. Pain management has evaluated the patient again yesterday, waiting for to bring an MRI that was done in [place]. She will be scheduled for epidural was afternoon. Patient is scheduled for upper GI series today. Dr. Spears continues to follow with no plan for EGD at this point. Patient has been afebrile, heart rate 78, blood pressure 148/91, pulse ox 98% on room air. CBC is unremarkable. Sodium 130, potassium 2.8, chloride 94, CO2 26, BUN 2 and creatinine 0.37. Patient's potassium will be replaced. We are planning for discharge to [facility] tomorrow. [facility] disease and has been updated. COVID-19 testing will need to be done prior to discharge. 06/21: Patient was unable to tolerate positioning/refused bilateral sacroiliac injections from pain management yesterday and procedure was canceled, patient to follow-up as an outpatient. Upper GI was a limited study, mild narrowing of the upper cervical esophagus secondary to anterior endplate spondylosis at C5/C6. No obstruction at this level. Possible mass/large filling defect along the greater curvature of the gastric body. Today, she is scheduled for EGD and CAT scan of the abdomen which most likely will occur late in the afternoon. Patient is reduced diffusing to take potassium and IV potassium ordered. We'll plan for patient to be discharged to [facility] most likely tomorrow. She has been afebrile, heart rate 67, blood pressure 150/90, pulse ox 96% on room air. Repeat blood work reveals sodium 130, potassium 2.7 and will be replaced with 60 mEq of potassium IV. Chloride 93, CO2 30, BUN 2 and creatinine 0.42. COVID-19 not detected. REVIEW OF SYSTEMS Constitutional: No fever, no chills, no night sweats. Reports weight change. Reports weakness, Reports fatigue Reports lethargy. Reports daytime sleepiness. EENT: No headache. No blurred vision or double vision, no loss of vision. No loss of Hearing, no ringing in the ears, no dizziness. No nasal drainage or congestion. Lungs: No shortness of breath, cough, no sputum production. No wheezing. Cardiovascular: No chest pain, no lower extremity edema. No palpitations. No paroxysmal nocturnal dyspnea. No orthopnea. No lightheadedness or dizziness. No syncopal episodes. Abdominal: No abdominal pain. Reports nausea, denies vomiting. No diarrhea. No constipation. No bloody or tarry stools reports loss of appetite. Genitourinary: No dysuria, increased frequency, urgency. No urinary retention. Musculoskeletal: No myalgias. Reports muscle weakness, Reports gait dysfunction, no frequent falls. Reports back pain. No neck pain. Integumentary: No wounds, no lesions. No rash or pruritus. No unusual bruising. No change in hair or nails. Neurologic: No aphasia. No facial droop. Reports change in mentation. Reports dysphagia. No head injury. No headache. Psychiatric: No depression. Reports anxiety. Endocrine: No abnormal blood sugars. PHYSICAL EXAMINATION Gen: This is a 74-year-old female. Patient is resting in bed and appears to be comfortable but anxious. is at bedside. HEENT: Head is atraumatic, normocephalic. Pupils equal, round. Sclerae is anicteric. Conjunctiva slightly pale. NECK: Supple. No JVD. No lymphadenopathy. No thyromegaly. LUNGS: Clear to auscultation. No wheezes or rhonchi. No intercostal retractions. HEART: Regular rate and rhythm. No murmur. ABDOMEN: Soft. Bowel sounds are present. No masses. No tenderness. BACK: Tenderness to the left buttocks area. EXTREMITIES: No pedal edema. No calf tenderness. NEUROLOGICAL: Patient is awake, alert and oriented x3. Cranial nerves 2 through 12 are grossly intact. Significant generalized weakness. ASSESSMENT AND PLAN 1. Metabolic encephalopathy secondary to dehydration, electrolyte abn ormalities, malnutrition. 2. Dysphagia, unable to maintain adequate oral intake with weight loss. Consult with GI appreciated. Upper GI as above. EGD and CAT scan of the abdomen today to evaluate possible mass at the greater curvature of the gastric body. 3. Dehydration with electrolyte abnormalities with hyponatremia and hypochloremia. Midline has been ordered. IV fluids at 75 mL per hour. 4. Chronic back pain secondary to lumbar facet arthropathy and lumbar disc desiccation, left sciatica. Consult with pain management appreciated, to review MRI. Pain management is waiting for to bring an MRI report. Continue Toradol 15 mg IV push every 6 hours as needed, Lidoderm patch daily, continue Tylenol. Physical therapy evaluation. Patient to follow up outpatient with pain management 5. Severe protein calorie malnutrition. Continue protein supplementation. 6. Recurrent depression and generalized anxiety disorder. Patient is currently on Xanax or 0.25 mg increase to 3 times daily, Abilify 2 mg daily, Remeron 15 mg at bedtime. Psychiatric consult appreciated. 7. Hypertension. Continue Toprol-XL 50 mg daily. 8. Hypothyroidism. Increase levothyroxine 100 g daily. 9. Possible dementia. Consult with neurology appreciated. Patient to follow- up with outpatient neurology for cognitive functional testing. 10. DVT prophylaxis. Heparin subcu. 11. GI prophylaxis. Protonix. 12. Episode of chest pain. Acute coronary syndrome ruled out. Echocardiogram report as above. Cardiology consult appreciated. 13. COVID-19 infection not present. CODE STATUS: Full code Discharge plan: Leanne under the care of Dr. Cisse on Wednesday or Wednesday. Impression and plan of care have been directed as dictated by the signing physician. Earline Baker nurse practitioner acting as scribe for signing physician. Objective - Vital Signs Vital signs: Vital Signs Temp 97.5 F L 06/21/20 05:22 Pulse 67 06/21/20 05:22 Resp 16 06/21/20 05:22 BP 158/90 06/21/20 05:22 Pulse Ox 96 06/21/20 05:22 Intake & Output 06/20/20 06/21/20 06/21/20 18:59 06:59 18:59 Intake Total 650 785 Output Total 625 Balance 650 160 Weight 49.895 kg Intake: IV 50 Intake, IV Titration 600 725 Amount Sodium Chloride 0.9% 1, 600 725 000 ml @ 75 mls/hr IV . [id number] [facility] Rx#:[id number] Oral 60 Output: Urine 625 Other: Voiding Method Bedside Commode Bedside Commode # Voids 2 1 - Labs CBC & Chem 7: 06/20/20 06:12 06/21/20 08:44 Labs: Abnormal Lab Results - Last 24 Hours (Table) 06/20/20 Range/Units 06:12 Sodium 130 L (137-145) mmol/L Potassium 2.8 L (3.5-5.1) mmol/L Chloride 94 L (98-107) mmol/L BUN 2 L (7-17) mg/dL Creatinine 0.37 L (0.52-1.04) mg/dL Calcium 7.7 L (8.4-10.2) mg/dL
[2020-06-21] MEDS ORDERED: IOPAMIDOL CONTRAST (ORAL USE) VIAL PO PRN (12:30)
--- NOTE | 2020-06-21 13:45 | CT ---
EXAMINATION TYPE: CT abdomen wo/w con DATE OF EXAM: 06/21/2020 COMPARISON: None HISTORY: gastric mass CT DLP: 434 mGycm CONTRAST: CT scan of the abdomen is performed with Oral Contrast and with IV Contrast, patient injected with 10 0 mL of Isovue 300. FINDINGS: LUNG BASES-: No visible nodule. No infiltrate. LIVER/GB: No calcified gallstones. No space occupying hepatic lesion. Biliary tree is of normal ca liber. PANCREAS: No inflammation. No distinct mass. SPLEEN: No splenic enlargement. No lesion seen. ADRENALS: No nodule. No thickening. KIDNEYS/BLADDER: No hydronephrosis. No nephrolithiasis. No distinct renal mass. Urinary bladder g rossly unremarkable. BOWEL: The stomach is not ideally distended however there may be wall thickening involving the mid to distal stomach. Direct visualization is recommended to exclude malignancy. Visualized portions of th e small and large bowel appear to be of normal caliber. LYMPH NODES: No greater than 1cm abdominal or pelvic lymph nodes are appreciated. AORTA: No significant abnormality. OSSEOUS STRUCTURES: No significant abnormality is seen. OTHER: No significant additional abnormality is seen. IMPRESSION: 1. The stomach is not ideally distended however there may be wall thickening involving the mid to dis epi stomach. Direct visualization is recommended to exclude malignancy.
[2020-06-21] MEDS: MIRTAZAPINE 15 MG TAB PO SCH (21:07)
--- NOTE | 2020-06-21 21:53 | PN ---
PROGRESS NOTE DATE OF SERVICE: June 21, 2020 Patient is a 74-year-old pleasant white female admitted to hospital with decreased oral intake and dysphagia. She had an upper GI series done yesterday that showed questionable filling defect in the greater curvature of the stomach and hence a direct upper endoscopy was recommended. The patient was scheduled for an upper endoscopy today, but because of hyponatremia, the procedure was canceled by Anesthesia. She denies any new symptoms today. PHYSICAL EXAMINATION: Appears comfortable, no apparent distress. Vital signs stable. Blood pressure 112/86, pulse rate 82 per minute and afebrile. HEENT examination unremarkable. Conjunctivae pink. Sclerae anicteric. Oral cavity no lesions. NECK: No JVD or lymph node enlargement. Chest was clear to auscultation. HEART: Regular rate and rhythm. ABDOMEN: Soft. Bowel sounds are positive. Extremities no pedal edema. SKIN: No rashes. NEUROLOGIC: Alert and oriented x3. No focal deficits. LABS: From today, sodium 130, potassium 2.7, BUN and creatinine normal. IMPRESSION: 1. Dysphagia, decreased oral intake. Upper GI series done yesterday showed a questionable filling defect along the greater curvature of stomach, upper endoscopy was recommended. 2. Severe back pain, status post epidural injection yesterday. 3. Progressive weight loss. 4. CT of the abdomen done today showed thickening of the distal stomach. RECOMMENDATIONS: We will proceed with an upper endoscopy tomorrow. I discussed with her risks, benefits and complications and she is agreeable to it. In the meantime, continue to replace potassium and repeat the CMP in the morning. Thank you for this consultation. MMODL / IJN: [id number] /
[2020-06-22] MEDS: LEVOTHYROXINE 100 MCG TAB PO SCH (05:19)
[2020-06-22 08:13] LABS: African American GFR (CKD) >90 (>60 ml/min/1.73 sqM); Anion Gap 7 mmol/L; Blood Urea Nitrogen 4 mg/dL (7-17); Carbon Dioxide 28 mmol/L (22-30); Chloride 95 mmol/L (98-107); Glucose 88 mg/dL (74-99); Non-African American GFR(CKD) >90 (>60 ml/min/1.73 sqM); Potassium 3.5 mmol/L (3.5-5.1); Sodium 130 mmol/L (137-145)
[2020-06-22] MEDS ORDERED: LIDOCAINE 1% INJ 10MG/ML (20 ML MDV) ONE (08:43)
[2020-06-22] MEDS ORDERED: PROPOFOL 10 MG/ML 20 ML VIAL IV ONE (08:43)
--- NOTE | 2020-06-22 08:57 | P.PCN ---
Date of Procedure: 06/22/20 Procedure(s) Performed: BRIEF HISTORY: Patient is a 74-year-old, pleasant, white female scheduled for an upper endoscopy as a part of evaluation of his oral intake intermittent dysphagia to solids. She had an upper GI series done that showed questionable filling defect in stomach along the greater curvature and hence he scheduled for an upper endoscopy to evaluate further. PROCEDURE PERFORMED: Esophagogastroduodenoscopy with biopsy. PREOPERATIVE DIAGNOSIS: Intermittent dysphagia to solids/decreased oral intake/abnormal upper GI series. IV sedation per anesthesia. PROCEDURE: After informed consent was obtained, the patient was brought into the endoscopy unit. IV sedation was administered by Anesthesia under continuous monitoring. Initially the Olympus GIF-140 video endoscope was inserted into the mouth. Esophagus intubated without any difficulty. It was gradually advanced into the stomach and duodenum and carefully examined. The second part of the duodenum appeared normal. In the duodenal bulb there was a superficial duodenal ulcer identified. The scope at this time was withdrawn to the stomach, adequately insufflated with air, and upon careful examination, mucosa of the antrum, had a 7 mm deep antral ulcer with no active bleeding and biopsies were done from this area. Mucosa of the body, cardia and the fundus appeared normal. The scope was then withdrawn into the esophagus. The GE junction was located at 39 cm from the incisors. The esophagus appeared normal. There were no erosions or ulcerations seen and the patient tolerated the procedure well. IMPRESSION: 1. 7 mm antral ulcer and antral erosive gastritis status post biopsy 2. Small superficial duodenal bulbar ulcer status post biopsy. 3. No evidence of gastric mass RECOMMENDATIONS: The findings of this examination were discussed with the patient as well as a family..she was advised to follow with the biopsy results. She will be continued on Protonix 40 mg daily and was advised to avoid NSAIDs
[2020-06-22] MEDS ORDERED: IV FLUID CONTINUATION 500 ML IV ONE (08:58)
--- NOTE | 2020-06-22 10:25 | P.DS ---
Providers Date of admission: 06/18/20 07:57 Attending physician: Billy Cisse Consults: 06/17/20 08:32 Consult Physician Routine Consulting Provider: Ann Spears Consult Reason/Comments: dysphagia, EGD Do you want consulting provider notified?: Yes 06/17/20 08:33 Consult Physician Routine Consulting Provider: Baljeet Pike Consult Reason/Comments: chronic back pain, epidural Do you want consulting provider notified?: Yes 06/18/20 05:49 Consult Physician Routine Consulting Provider: Marilin Krishnamurthy Consult Reason/Comments: Severe Depression with delusion and Confusion Do you want consulting provider notified?: Yes 06/18/20 09:55 Consult Physician Routine Consulting Provider: [facility] Consult Reason/Comments: Chest pain Do you want consulting provider notified?: Yes 06/19/20 08:16 Consult Physician Routine Consulting Provider: Jane Sparks Consult Reason/Comments: dementia Do you want consulting provider notified?: Yes Primary care physician: [facility] Course: This is 74 years old female with past medical history significant for multiple medical problems presents to the hospital with encephalopathy and dehydration patient was started on IV fluid with electrolyte replacement protocol and was evaluated by GI and general surgery due to dysphagia and on the day of the discharge patient received EGD by GI who noticed mild erosions and possible peptic ulcer disease recommendation was to have patient's follow-up outpatient and continue her current medication. Patient had computed tomography scan of the abdomen that showed normal finding and her electrolyte responded to IV fluids and correction protocol. Patient suffers from chronic pain syndrome and was stabilized with current home medication. Patient suffered from anxiety that was managed with Xanax and responded well and continued to be on her mood stabilizers with the Abilify and Remeron. Patient was evaluated by physical therapy who recommended subacute rehab and was discharged to [facility] and her the care of Dr. Moralez in stable condition. Plan discussed with case management and nursing staff Patient Condition at Discharge: Fair Plan - Discharge Summary Discharge Rx Participant: No New Discharge Prescriptions: New ARIPiprazole [Abilify] 2 mg PO DAILY #0 tab Potassium Chloride ER [K-Dur 20] 20 meq PO BID tab.er.prt Pantoprazole [Protonix] 40 mg PO AC-BRKFST tablet. Mirtazapine [Remeron] 30 mg PO HS tab Levothyroxine Sodium [Synthroid] 100 mcg PO DAILY@0630 tab ALPRAZolam [Xanax] 0.5 mg PO TID PRN #9 tab PRN Reason: Anxiety Continue Acetaminophen Tab [Tylenol] 1,000 mg PO Q6HR PRN PRN Reason: Pain Lidocaine 5% Patch [Lidoderm 5% Patch] 1 patch TOPICAL DAILY PRN PRN Reason: Pain Metoprolol Succinate (ER) [Toprol XL] 50 mg PO DAILY Discontinued ALPRAZolam [Xanax] 0.25 mg PO BID PRN PRN Reason: Anxiety Levothyroxine Sodium [Synthroid] 75 mcg PO DAILY #0 Discharge Medication List Acetaminophen Tab [Tylenol] 1,000 mg PO Q6HR PRN 03/04/20 [History] Lidocaine 5% Patch [Lidoderm 5% Patch] 1 patch TOPICAL DAILY PRN 03/30/20 [History] Metoprolol Succinate (ER) [Toprol XL] 50 mg PO DAILY 06/17/20 [History] ALPRAZolam [Xanax] 0.5 mg PO TID PRN #9 tab 06/21/20 [Rx] ARIPiprazole [Abilify] 2 mg PO DAILY #0 tab 06/21/20 [Rx] Levothyroxine Sodium [Synthroid] 100 mcg PO DAILY@0630 tab 06/21/20 [Rx] Mirtazapine [Remeron] 30 mg PO HS tab 06/21/20 [Rx] Pantoprazole [Protonix] 40 mg PO AC-BRKFST tablet.dr 06/21/20 [Rx] Potassium Chloride ER [K-Dur 20] 20 meq PO BID tab.er.prt 06/21/20 [Rx] Follow up Appointment(s)/Referral(s): Billy Cisse MD [Primary Care Provider] - 1 Week (at [facility]) [facility],Ellen BARGER [NON-STAFF] - 1 Week
[2020-06-22] MEDS: ARIPiprazole 2 MG TAB PO SCH (10:36)
[2020-06-22] MEDS: PANTOPRAZOLE 40 MG TABLET PO SCH (10:36)
[2020-06-22] MEDS: METOPROLOL SUCCINATE (ER) 50 MG TAB.ER.24H PO SCH (10:36)
[2020-06-22] MEDS: POTASSIUM BICARBONATE/CIT AC 20 MEQ TABLET.EFF PO SCH (10:36)
[2020-06-22] MEDS: SODIUM CHLORIDE 0.9% 1,000 ML IV SCH (10:38)
[2020-06-22] MEDS: HEPARIN SODIUM,PORCINE 5,000 UNIT/ML 1 ML VIAL SQ SCH (10:38)
[2020-06-22 12:59] VITALS: BP 128/76; PULSE 77; RESP 16; TEMP 97.8
== END 2020-06-22 14:14 | DRG 640 ==
LOC: CATHCVL 08:02 → 5NMEDONC 09:33 → OBSVTOIN 06-18 07:57
PROVIDERS: ADMIT Internal Medicine Geriatric Medicine; ATTEND Internal Medicine Geriatric Medicine
PROC: 0DB78ZX Excision of Stomach, Pylorus, Via Natural or Artificial Opening Endoscopic, Diagnostic (ICD-10-PCS; principal; 2020-06-22 07:00)
PROC: 0DB98ZX Excision of Duodenum, Via Natural or Artificial Opening Endoscopic, Diagnostic (ICD-10-PCS; principal; 2020-06-22 07:00)
DX: E86.0 Dehydration (principal); E43 Unspecified severe protein-calorie malnutrition; G93.41 Metabolic encephalopathy; E27.40 Unspecified adrenocortical insufficiency; R64 Cachexia; Z68.1 Body mass index [BMI] 19.9 or less, adult; F33.3 Major depressive disorder, recurrent, severe with psychotic symptoms; E87.1 Hypo-osmolality and hyponatremia; R13.10 Dysphagia, unspecified; M54.42 Lumbago with sciatica, left side; I11.9 Hypertensive heart disease without heart failure; G47.00 Insomnia, unspecified; E87.8 Other disorders of electrolyte and fluid balance, not elsewhere classified; M47.816 Spondylosis without myelopathy or radiculopathy, lumbar region; F41.1 Generalized anxiety disorder; E03.9 Hypothyroidism, unspecified; R07.89 Other chest pain; F03.90 Unspecified dementia, unspecified severity, without behavioral disturbance, psychotic disturbance, mood disturbance, and anxiety; Z20.828 Contact with and (suspected) exposure to other viral communicable diseases; Z53.9 Procedure and treatment not carried out, unspecified reason; M41.9 Scoliosis, unspecified; R62.7 Adult failure to thrive; K29.00 Acute gastritis without bleeding; R40.2362 Coma scale, best motor response, obeys commands, at arrival to emergency department; R40.2142 Coma scale, eyes open, spontaneous, at arrival to emergency department; R40.2252 Coma scale, best verbal response, oriented, at arrival to emergency department; K26.9 Duodenal ulcer, unspecified as acute or chronic, without hemorrhage or perforation; G89.4 Chronic pain syndrome; Z74.01 Bed confinement status; Z79.899 Other long term (current) drug therapy; Z79.890 Hormone replacement therapy; Z88.8 Allergy status to other drugs, medicaments and biological substances; Z98.890 Other specified postprocedural states; Z82.49 Family history of ischemic heart disease and other diseases of the circulatory system; Z99.3 Dependence on wheelchair; Z80.49 Family history of malignant neoplasm of other genital organs
CPT/HCPCS: 36410; 36415; 43239; 71046; 74170; 74246; 76937; 80048; 80053; 81001; 82550; 83605; 83735; 83880; 84132; 84439; 84443; 84484; 85025; 85027; 85610; 85730; 87635; 88305; 93005; 93306; 96361; 96374; 99285

== ENCOUNTER 2020-11-16 14:54 | Inpatient (IN) | payer BC, MEDICARE ==
[2020-11-16] MEDS ORDERED: ALPRAZolam 0.5 MG TAB PO STA (15:21)
[2020-11-16] MEDS ORDERED: SODIUM CHLORIDE 0.9% 500 ML 500 ML IV ONE (15:21)
[2020-11-16 15:48] LABS: Basophils % (A) 1 %; Eosinophils # (A) 0.1 k/uL (0-0.7); Eosinophils % (A) 1 %; HCT 40.3 % (34.0-46.0); Lymphocytes # (A) 2.1 k/uL (1.0-4.8); Lymphocytes % (A) 31 %; MCH 31.7 pg (25.0-35.0); MCHC 34.8 g/dL (31.0-37.0); MCV 90.9 fL (80.0-100.0); Mean Platelet Volume 6.7; Monocytes # (A) 0.7 k/uL (0-1.0); Monocytes % (A) 10 %; Neutrophils # (A) 3.7 k/uL (1.3-7.7); Neutrophils % (A) 55 %; Platelet Count 210 k/uL (150-450); RBC 4.43 m/uL (3.80-5.40); RDW 11.8 % (11.5-15.5); WBC 6.8 k/uL (3.8-10.6)
[2020-11-16 15:57] LABS: ALT 17 U/L (4-34); AST 29 U/L (14-36); African American GFR (CKD) >90 (>60 ml/min/1.73 sqM); Alkaline Phosphatase 23 U/L (38-126); Anion Gap 8 mmol/L; Blood Urea Nitrogen 22 mg/dL (7-17); Carbon Dioxide 25 mmol/L (22-30); Chloride 98 mmol/L (98-107); Glucose 106 mg/dL (74-99); Non-African American GFR(CKD) >90 (>60 ml/min/1.73 sqM); Potassium 4.6 mmol/L (3.5-5.1); Sodium 131 mmol/L (137-145); Total Bilirubin 0.7 mg/dL (0.2-1.3); Total Protein 6.8 g/dL (6.3-8.2)
--- NOTE | 2020-11-16 16:15 | XR ---
EXAMINATION TYPE: XR chest 2V DATE OF EXAM: 11/16/2020 COMPARISON: 06/17/2020. HISTORY: Pain status post fall. TECHNIQUE: Frontal and lateral views of the chest are obtained. FINDINGS: There is no focal air space opacity, pleural effusion, or pneumothorax seen. The cardiac silhouette size is within normal limits. The osseous structures are intact. IMPRESSION: No acute cardiopulmonary process.
--- NOTE | 2020-11-16 16:20 | CT ---
EXAMINATION TYPE: CT brain cspine wo con DATE OF EXAM: 11/16/2020 COMPARISON: 03/29/2020. HISTORY: pt fall, head injury CT DLP: 1253 mGycm Automated exposure control for dose reduction was used. TECHNIQUE: CT scan of the head and cervical spine are performed without contrast. FINDINGS: There is no acute intracranial hemorrhage, mass effect, or midline shift identified. The ventricles and sulci are within normal limits in size. The globes are intact. The visualized sinuse s demonstrate multiple mucus retention cysts in the bilateral maxillary sinuses. Cervical spine is visualized in its entirety from C1 through upper thoracic levels and demonstrates s atisfactory alignment without evidence of acute fracture or dislocation. Prevertebral soft tissue ap pears within normal limits. The C1-C2 articulation is unremarkable. There is multilevel mild cervic al spondylosis. IMPRESSION: 1. There is no acute fracture or dislocation evident in the cervical spine. 2. No acute intracranial hemorrhage, mass effect, or midline shift is seen.
--- NOTE | 2020-11-16 16:33 | ED ---
Fall HPI - General Source: patient, EMS Mode of arrival: EMS <Jean-Pierre Armenta - Last Filed: 11/16/20 18:26> <Laila Wells - Last Filed: 11/20/20 16:17> - General Chief Complaint: Fall Stated Complaint: fall, back pain Time Seen by Provider: 11/16/20 15:05 - History of Present Illness Initial Comments: 75-year-old female presenting to emergency Department with a chief complaint of a fall. Patient states she was standing with her walker, tripped with her feet and fell back. Patient does not remember falling. states he was immediately present at the site of the incident he does not believe there was a head injury. Patient is not on blood thinners. Patient also reports pain in the back. is concerned because the patient has been losing about 20-30 pounds over the last 6 months. States this seen the primary care physician without any definitive diagnosis. states the patient has been admitted to the hospital before but again, there are no acute findings that could explain her situation. also states the patient is very anxious and typically Xanax works well for her. states the patient is also confused slightly more than usual. (Jean-Pierre Armenta) - Related Data Home Medications Medication Instructions Recorded Confirmed Acetaminophen Tab [Tylenol] 1,000 mg PO Q6HR PRN 03/04/20 11/16/20 Metoprolol Succinate (ER) [Toprol 50 mg PO DAILY 06/17/20 11/16/20 XL] Melatonin 5 mg PO HS 11/16/20 11/16/20 Previous Rx's Medication Instructions Recorded Levothyroxine Sodium [Synthroid] 100 mcg PO DAILY@0630 tab 06/21/20 ARIPiprazole [Abilify] 5 mg PO DAILY #30 tab 11/19/20 Mirtazapine [Remeron] 7.5 mg PO HS #30 tab 11/19/20 Allergies Allergy/AdvReac Type Severity Reaction Status Date / Time epinephrine AdvReac Rapid Verified 11/16/20 17:21 Heart Rate Review of Systems ROS Other: All systems not noted in ROS Statement are negative. <Jean-Pierre Armenta - Last Filed: 11/16/20 18:26> ROS Other: All systems not noted in ROS Statement are negative. <Laila Wells - Last Filed: 11/20/20 16:17> ROS Statement: Those systems with pertinent positive or pertinent negative responses have been documented in the HPI. Past Medical History Past Medical History: Hypertension, Thyroid Disorder Additional Past Medical History / Comment(s): adrenal insufficiency History of Any Multi-Drug Resistant Organisms: None Reported Past Surgical History: Orthopedic Surgery Additional Past Surgical History / Comment(s): rt knee Past Anesthesia/Blood Transfusion Reactions: No Reported Reaction Past Psychological History: Anxiety Smoking Status: Never smoker Past Alcohol Use History: None Reported Past Drug Use History: None Reported - Past Family History Father Additional Family Medical History / Comment(s): "heart problems" Mother Family Medical History: No Reported History Additional Family Medical History / Comment(s): Mother was healthy <Jean-Pierre Armenta - Last Filed: 11/16/20 18:26> General Exam Limitations: no limitations General appearance: alert, appears intoxicated Head exam: Present: atraumatic, normocephalic, normal inspection Eye exam: Present: normal appearance, PERRL, EOMI Pupils: Present: normal accommodation ENT exam: Present: normal exam, normal oropharynx, mucous membranes moist, TM's normal bilaterally, normal external ear exam Neck exam: Present: normal inspection, full ROM. Absent: tenderness Respiratory exam: Present: normal lung sounds bilaterally. Absent: respiratory distress, wheezes, rales, rhonchi, stridor Cardiovascular Exam: Present: regular rate, normal rhythm, normal heart sounds GI/Abdominal exam: Present: soft. Absent: distended, tenderness, guarding, rebound Extremities exam: Present: normal inspection, full ROM, normal capillary refill Back exam: Present: normal inspection, full ROM. Absent: tenderness, CVA tenderness (R), CVA tenderness (L) Neurological exam: Present: alert, normal gait Psychiatric exam: Present: normal affect, anxious Skin exam: Present: warm, dry, intact, normal color <Jean-Pierre Armenta - Last Filed: 11/16/20 18:26> Course Vital Signs 11/16/20 11/16/20 14:55 16:54 Pulse Rate 72 58 L Respiratory 16 16 Rate Blood Pressure 171/93 114/95 O2 Sat by Pulse 100 100 Oximetry Medical Decision Making - Lab Data Result diagrams: 11/16/20 15:21 11/16/20 15:21 <Jean-Pierre Armenta - Last Filed: 11/16/20 18:26> - Lab Data Result diagrams: 11/18/20 05:25 11/18/20 05:25 <Laila Wells - Last Filed: 11/20/20 16:17> - Medical Decision Making 75-year-old female presenting to the emergency department with a chief complaint of fall. On physical examination, patient was very anxious initially. She did have stable vitals. Patient was given anxiolytics. On reevaluation patient reports improvement of symptoms. She did not have any injuries to the head. Patient does have a low BMI of 19. Chest x-ray is unremarkable. CT of the brain and C-spine without contrast is unremarkable. CBC unremarkable. CMP reveals elevated BUN of 22. Patient was given 500 mL of IV fluids. UA positive for urinary tract infection with positive nitrates, leukocyte esterase and elevated white blood cells. Urine culture pending. Most recent urine culture revealed P retgerri which is resistant to many outpatient oral antibodies. She will need IV antibiotics. Patient started on Zosyn. Case was discussed with Dr. Wells. Admitting physician is (Jean-Pierre Armenta) I was available for consultation in the emergency department. The history and physical exam were done by the midlevel provider. I was consulted for this patients care. I reviewed the case with the midlevel provider and based on their presentation of the patient, I agree with the assessment, medical decision making and plan of care as documented. I spoke with Dr. Cisse who agreed to admit the patient Chart was dictated using [employer] dictation software. Attempts were made to correct any dictation errors however some typographical errors may persist. Patient was seen during a national state of emergency due to the Covid-19 pandemic. (Laila Wells) - Lab Data Lab Results 11/16/20 11/16/20 11/16/20 Range/Units 15:21 15: 15:22 WBC 6.8 (3.8-10.6) k/uL RBC 4.43 (3.80-5.40) m/uL Hgb 14.0 (11.4-16.0) gm/dL Hct 40.3 (34.0-46.0) % MCV 90.9 (80.0-100.0) fL MCH 31.7 (25.0-35.0) pg MCHC 34.8 (31.0-37.0) g/dL RDW 11.8 (11.5-15.5) % Plt Count 210 (150-450) k/uL MPV 6.7 Neutrophils % 55 % Lymphocytes % 31 % Monocytes % 10 % Eosinophils % 1 % Basophils % 1 % Neutrophils # 3.7 (1.3-7.7) k/uL Lymphocytes # 2.1 (1.0-4.8) k/uL Monocytes # 0.7 (0-1.0) k/uL Eosinophils # 0.1 (0-0.7) k/uL Basophils # 0.0 (0-0.2) k/uL Sodium 131 L (137-145) mmol/L Potassium 4.6 (3.5-5.1) mmol/L Chloride 98 (98-107) mmol/L Carbon Dioxide 25 (22-30) mmol/L Anion Gap 8 mmol/L BUN 22 H (7-17) mg/dL Creatinine 0.58 (0.52-1.04) mg/dL Est GFR (CKD-EPI)AfAm >90 (>60 ml/min/1.73 sqM) Est GFR (CKD-EPI)NonAf >90 (>60 ml/min/1.73 sqM) Glucose 106 H (74-99) mg/dL Calcium 9.0 (8.4-10.2) mg/dL Total Bilirubin 0.7 (0.2-1.3) mg/dL AST 29 (14-36) U/L ALT 17 (4-34) U/L Alkaline Phosphatase 23 L (38-126) U/L Troponin I (0.000-0.034) ng/mL Total Protein 6.8 (6.3-8.2) g/dL Albumin 4.0 (3.5-5.0) g/dL Urine Color Yellow Urine Appearance Cloudy H (Clear) Urine pH 6.5 (5.0-8.0) Ur Specific [place] 1.022 (1.001-1.035) Urine Protein Trace H (Negative) Urine Glucose (UA) Negative (Negative) Urine Ketones Negative (Negative) Urine Blood Negative (Negative) Urine Nitrite Positive H (Negative) Urine Bilirubin Negative (Negative) Urine Urobilinogen <2.0 (<2.0) mg/dL Ur Leukocyte Esterase Large H (Negative) Urine RBC 3 (0-5) /hpf Urine WBC 57 H (0-5) /hpf Ur Squamous Epith Cells 1 (0-4) /hpf Amorphous Sediment Rare H (None) /hpf Urine Bacteria Rare H (None) /hpf Urine Mucus Moderate H (None) /hpf 11/16/20 Range/Units 15:22 WBC (3.8-10.6) k/uL RBC (3.80-5.40) m/uL Hgb (11.4-16.0) gm/dL Hct (34.0-46.0) % MCV (80.0-100.0) fL MCH (25.0-35.0) pg MCHC (31.0-37.0) g/dL RDW (11.5-15.5) % Plt Count (150-450) k/uL MPV Neutrophils % % Lymphocytes % % Monocytes % % Eosinophils % % Basophils % % Neutrophils # (1.3-7.7) k/uL Lymphocytes # (1.0-4.8) k/uL Monocytes # (0-1.0) k/uL Eosinophils # (0-0.7) k/uL Basophils # (0-0.2) k/uL Sodium (137-145) mmol/L Potassium (3.5-5.1) mmol/L Chloride (98-107) mmol/L Carbon Dioxide (22-30) mmol/L Anion Gap mmol/L BUN (7-17) mg/dL Creatinine (0.52-1.04) mg/dL Est GFR (CKD-EPI)AfAm (>60 ml/min/1.73 sqM) Est GFR (CKD-EPI)NonAf (>60 ml/min/1.73 sqM) Glucose (74-99) mg/dL Calcium (8.4-10.2) mg/dL Total Bilirubin (0.2-1.3) mg/dL AST (14-36) U/L ALT (4-34) U/L Alkaline Phosphatase (38-126) U/L Troponin I <0.012 (0.000-0.034) ng/mL Total Protein (6.3-8.2) g/dL Albumin (3.5-5.0) g/dL Urine Color Urine Appearance (Clear) Urine pH (5.0-8.0) Ur Specific [place] (1.001-1.035) Urine Protein (Negative) Urine Glucose (UA) (Negative) Urine Ketones (Negative) Urine Blood (Negative) Urine Nitrite (Negative) Urine Bilirubin (Negative) Urine Urobilinogen (<2.0) mg/dL Ur Leukocyte Esterase (Negative) Urine RBC (0-5) /hpf Urine WBC (0-5) /hpf Ur Squamous Epith Cells (0-4) /hpf Amorphous Sediment (None) /hpf Urine Bacteria (None) /hpf Urine Mucus (None) /hpf - EKG Data EKG Comments: Sinus rhythm Ventricular rate 63, NM 156, QRS 74, QTC 443. (Jean-Pierre Armenta) Disposition Is patient prescribed a controlled substance at d/c from ED?: No Time of Disposition: 18:02 <Jean-Pierre Armenta - Last Filed: 11/16/20 18:26> <Laila Wells - Last Filed: 11/20/20 16:17> Clinical Impression: Fall, Urinary tract infection, Weakness Disposition: ADMITTED IP TO THIS HOSP Condition: Stable
[2020-11-16 17:25] LABS: Amorphous Sediment,Urine Rare /hpf; Appearance,Urine Cloudy (Clear); Bacteria,Urine Rare /hpf; Bilirubin,Urine Negative (Negative); Blood,Urine Negative (Negative); Color,Urine Yellow; Glucose,Urine (UA) Negative (Negative); Ketones,Urine Negative (Negative); Leukocyte Esterase,Urine Large (Negative); Mucus,Urine Moderate /hpf; Nitrite,Urine Positive (Negative); PH, Urine 6.5 (5.0-8.0); Protein,Urine Trace (Negative); RBC,Urine 3 /hpf (0-5); Specific Gravity,Urine 1.022 (1.001-1.035); Squamous Epithelial Cell,Urine 1 /hpf (0-4); Urobilinogen,Urine <2.0 mg/dL (<2.0); WBC,Urine 57 /hpf (0-5)
[2020-11-16] MEDS ORDERED: PIPERACILLIN-TAZOBACTAM 3.375 GM in SODIUM CHLORIDE 0.9% 100 ML IVPB STA (17:44)
[2020-11-16] MEDS ORDERED: HYDROmorphone 1 MG/ML 1 ML SYRINGE IVP PRN (18:05)
[2020-11-16] MEDS ORDERED: MORPHINE SULFATE 4 MG/ML SYRINGE IV PRN (18:05)
[2020-11-16] MEDS ORDERED: ONDANSETRON 4 MG/2 ML VIAL IVP PRN (18:05)
[2020-11-16] MEDS ORDERED: NALOXONE 0.4 MG/ML 1 ML VIAL IV PRN (18:05)
--- NOTE | 2020-11-16 18:11 | XR ---
Result: History: Back pain status post fall. Comparison: None available. Technique: 5 views of the lumbar spine. Findings: The bone mineralization is normal. Images of the lumbar spine demonstrate 5 lumbar-type vertebrae. There is no acute fracture or sublux ation. The vertebral body heights are preserved throughout the imaged lumbar spine. The vertebral e lements are in anatomic alignment. There is mild disc height narrowing at L5-S1. Moderate facet arth ropathy in the mid to lower lumbar spine. No definite pars defect is seen in the oblique views. Impression: No acute fracture or subluxation of the lumbar spine.
[2020-11-16] MEDS ORDERED: ACETAMINOPHEN TAB 500 MG TAB PO PRN (21:14)
[2020-11-17] MEDS: HYDROmorphone 0.5 MG/0.5 ML SYRINGE IVP PRN (03:55)
[2020-11-17] MEDS: SODIUM CHLORIDE 0.9% 1,000 ML IV SCH ×2 (05:34→07:19)
[2020-11-17] MEDS: LEVOTHYROXINE 100 MCG TAB PO SCH (05:34)
[2020-11-17] MEDS: ARIPiprazole 2 MG TAB PO SCH (08:42)
[2020-11-17] MEDS: ESCITALOPRAM 10 MG TAB PO SCH (08:42)
[2020-11-17] MEDS: METOPROLOL SUCCINATE (ER) 50 MG TAB.ER.24H PO SCH (08:43)
--- NOTE | 2020-11-17 11:14 | P.HPIM ---
History of Present Illness H&P Date: 11/17/20 History of present illness This is a 75-year-old female who presented to the emergency room with chief complaint of a fall. Patient states that she was standing with her walker and tripped over her feet falling backwards. Patient does not remember falling. states that he was present for the incident and does not believe she had any head injuries. He is she is not on any blood thinners. Patient does report pain in the back which is not a new concern. states that the patient has been losing weight approximate 20-30 pounds over the last 6 months. states that the patient has been more confused than normal. At this time patient is found resting comfortably in bed. She did state that she was able to sleep with the addition of pain medication. Patient continues to have symptoms of urinary pressure and frequency. Patient states that she sends majority of her time in bed. She does not have any energy to get up and do things. Her has been doing all the major housework and cooking and cleaning at this time. Normally patient and would go to [place] during this time but because of her fatigue they're not going. Patient has history of depression and panic disorder. She also has history of dysphagia, a scope procedure was performed on her last hospitalization. Review Of Systems: Constitutional: No fever, no chills, no night sweats. No weight change. Report weakness and fatigue no lethargy. No daytime sleepiness. EENT: No headache. No blurred vision or double vision, no loss of vision. No loss of Hearing, no ringing in the ears, no dizziness. No nasal drainage or congestion. No epistaxis. No sore throat. Lungs: No shortness of breath, cough, no sputum production. No wheezing. Cardiovascular: No chest pain, no lower extremity edema. No palpitations. No paroxysmal nocturnal dyspnea. No orthopnea. No lightheadedness or dizziness. No syncopal episodes. Abdominal: Reports abdominal discomfort. No nausea, vomiting. no diarrhea. No constipation. No bloody or tarry stools. no loss of appetite. Genitourinary: Reports dysuria, reports increased frequency and urgency. No urinary retention. Musculoskeletal: No myalgias. No muscle weakness, no gait dysfunction, no frequent falls. No back pain. No neck pain. Integumentary: No wounds, no lesions. No rash or pruritus. No unusual bruising. No change in hair or nails. Neurologic: No aphasia. No facial droop. No change in mentation. No head injury. No headache. No paralysis. No paresthesia. Psychiatric: Reports depression. Reports difficulty sleeping. No anxiety. No mood swings. Endocrine: No abnormal blood sugars. No weight change. No excessive sweating or thirst. Social history: Patient is lifelong nonsmoker, no alcohol use, no marijuana use or illicit drug use. Patient lives at home with her . Family history: Mother at age 49 for cervical cancer. Father at 79 from coronary artery disease. Patient has 5 sisters with no major medical problems. Patient does not have any brothers. She does not have any children. Physical examination General Appearance: Alert, cooperative, cachectic, no distress, 75-year-old pleasant female appears stated age. Neck HEENT: Supple, no lymphadenopathy, no thyroid enlargement, no carotid bruits. Lungs: Clear to auscultation without crackles or wheezes no rhonchi, no deformity. Chest Wall: Chest wall normal expansion with deep inspiration no tenderness and no deformity was found on exam, no costochondral pain or discomfort. Heart: Regular rate and rhythm, S1, S2 normal, no murmur, rub or gallop. Back: Symmetric, no curvature, ROM normal, no CVA tenderness. Abdomen: Soft, non-tender, no rebound or rigidity, no hepatosplenomegaly. Extremities: Extremities normal, atraumatic, no cyanosis or edema. Pulses: 2+ and symmetric. Skin: Skin color, texture, tugor normal, no rashes or lesions. Neurologic: Alert oriented x3 cranial nerves II through XII intact, no motor deficit, no abnormal balance or gait Assessment and plan 1. Acute encephalopathy. Rocephin 1 g daily. Consult neurology. 2. Acute urinary sepsis. Awaiting urine culture. Patient was given 1 dose of Zosyn, continue with Rocephin 1 g daily. Dilaudid 0.5 mg IV every 3 hours as needed for pain. 3. Fall with weakness. Consult PT/OT 4. Depression with panic attacks. Abilify 2 mg by mouth daily, Lexapro 10 mg by mouth daily. Ativan 0.5 mg every 6 hours as needed. Consult psychiatry. 5. Dysphagia. Patient was seen by Dr. Spears who did a endoscopic that did not require any dilatation at the time. 6. Hypertension. Metoprolol 50 mg by mouth daily 7. Hypothyroidism. Levothyroxine 100 g by mouth daily 8. Insomnia. Melatonin 5 mg by mouth at bedtime, may utilize Ativan 0.5 mg as needed to help with sleep 9. DVT prophylaxis. Pneumatic compression stockings, heparin 5000 units subcu 10. GI prophylaxis Pepcid 20 mg IV daily CODE STATUS: Full code Patient will be admitted minimum [facility] stay Discharge plan: Possibly home with homecare Impression and plan of care have been directed as dictated by the signing physician. Barbra Temple nurse practitioner acting as scribe for signing physician. Past Medical History Past Medical History: Hypertension, Thyroid Disorder Additional Past Medical History / Comment(s): adrenal insufficiency History of Any Multi-Drug Resistant Organisms: None Reported Past Surgical History: Orthopedic Surgery Additional Past Surgical History / Comment(s): rt knee Past Anesthesia/Blood Transfusion Reactions: No Reported Reaction Past Psychological History: Anxiety Additional Psychological History / Comment(s): Pt resides with spouse. Smoking Status: Never smoker Past Alcohol Use History: None Reported Past Drug Use History: None Reported - Past Family History Father Additional Family Medical History / Comment(s): "heart problems" Mother Family Medical History: No Reported History Additional Family Medical History / Comment(s): Mother was healthy Medications and Allergies Home Medications Medication Instructions Recorded Confirmed Type Acetaminophen Tab [Tylenol] 1,000 mg PO Q6HR PRN 03/04/20 11/16/20 History Metoprolol Succinate (ER) [Toprol 50 mg PO DAILY 06/17/20 11/16/20 History XL] ARIPiprazole [Abilify] 2 mg PO DAILY #0 tab 06/21/20 11/16/20 Rx Levothyroxine Sodium [Synthroid] 100 mcg PO DAILY@0630 tab 06/21/20 11/16/20 Rx Escitalopram [Lexapro] 10 mg PO DAILY 11/16/20 11/16/20 History Melatonin 5 mg PO HS 11/16/20 11/16/20 History Allergies Allergy/AdvReac Type Severity Reaction Status Date / Time epinephrine AdvReac Rapid Verified 11/16/20 17:21 Heart Rate Physical Exam Vitals: Vital Signs Temp Pulse Pulse Resp BP BP Pulse Ox 11/17/20 10:57 97.7 F 59 L 16 123/70 100 11/17/20 08:40 55 L 16 133/73 97 11/17/20 08:00 55 L 16 11/16/20 23:08 97.4 F L 54 L 16 133/75 100 11/16/20 19:10 16 11/16/20 16:54 58 L 16 114/95 100 11/16/20 14:55 72 16 171/93 100 Intake and Output 11/16/20 11/17/20 11/17/20 22:59 06:59 14:59 Intake Total 120 2220 120 Balance 120 2220 120 Intake: Intake, IV Titration 900 Amount Sodium Chloride 0.9% 1, 900 000 ml @ 75 mls/hr IV . [id number] [facility] Rx#:[id number] Oral 120 1320 120 Other: Voiding Method Toilet # Voids 1 Weight 45.359 kg Results CBC & Chem 7: 11/16/20 15:21 11/16/20 15:21 Labs: Abnormal Lab Results - Last 24 Hours (Table) 11/16/20 11/16/20 Range/Units 15:21 15:22 Sodium 131 L (137-145) mmol/L BUN 22 H (7-17) mg/dL Glucose 106 H (74-99) mg/dL Alkaline Phosphatase 23 L (38-126) U/L Urine Appearance Cloudy H (Clear) Urine Protein Trace H (Negative) Urine Nitrite Positive H (Negative) Ur Leukocyte Esterase Large H (Negative) Urine WBC 57 H (0-5) /hpf Amorphous Sediment Rare H (None) /hpf Urine Bacteria Rare H (None) /hpf Urine Mucus Moderate H (None) /hpf Microbiology - Last 24 Hours (Table) 11/16/20 15:22 Urine Culture - Preliminary Urine,Voided Thrombosis Risk Factor Assmnt - Choose All That Apply Other Risk Factors: Yes Each Risk Factor Represents 2 Points: Age 61-74 years Thrombosis Risk Factor Assessment Total Risk Factor Score: 2 Thrombosis Risk Factor Assessment Level: Low Risk
[2020-11-17] MEDS: traMADol 50 MG TAB PO PRN (12:11)
[2020-11-17] MEDS: LORazepam 2 MG/ML INJ IV PRN ×2 (14:15→20:08)
[2020-11-17 14:27] VITALS: BMI 19.5
--- NOTE | 2020-11-17 16:43 | P.CNNES ---
History of Present Illness Consult date: 11/17/20 Reason for Consult: mental status changes History of Present Illness: The patient is a 75-year-old female who is seen in neurologic [facility] on November 17, 2020 via teleneurology. The patient is being seen because of altered mental status. Patient reports falling at home. She says she has been having "difficulty getting around since December 2019". She apparently had surgery at that time. She says she uses a walker for assistance with gait. She believes that she lost her balance and "fell backward" her helped her up. The patient denies falling frequently. There was no loss of consciousness with this fall. The patient reportedly has lost more than 20 pounds in the past 6-7 months. According to the ER report, the patient's has been concerned about this. He is also concerned that her memory seems to be failing. The patient herself reports that her memory is "not too too bad". She denies difficulty swallowing. She denies headaches. She reports that she has a good appetite. Patient reports that her legs are weak and her hands are "stiff". Patient denies changes in vision. She denies difficulty with speech and swallowing. She does report difficulty sleeping. She takes either melatonin or Xanax every night. Per the patient's RN, the patient has been out of bed this morning. She is note d to be unsteady on her feet. She is oriented. Past Medical History Past Medical History: Hypertension, Thyroid Disorder Additional Past Medical History / Comment(s): adrenal insufficiency History of Any Multi-Drug Resistant Organisms: None Reported Past Surgical History: Orthopedic Surgery Additional Past Surgical History / Comment(s): rt knee Past Anesthesia/Blood Transfusion Reactions: No Reported Reaction Past Psychological History: Anxiety Additional Psychological History / Comment(s): Pt resides with spouse. Smoking Status: Never smoker Past Alcohol Use History: None Reported Past Drug Use History: None Reported - Past Family History Father Additional Family Medical History / Comment(s): "heart problems" Mother Family Medical History: No Reported History Additional Family Medical History / Comment(s): Mother was healthy Medications and Allergies Home Medications Medication Instructions Recorded Confirmed Type Acetaminophen Tab [Tylenol] 1,000 mg PO Q6HR PRN 03/04/20 11/16/20 History Metoprolol Succinate (ER) [Toprol 50 mg PO DAILY 06/17/20 11/16/20 History XL] ARIPiprazole [Abilify] 2 mg PO DAILY #0 tab 06/21/20 11/16/20 Rx Levothyroxine Sodium [Synthroid] 100 mcg PO DAILY@0630 tab 06/21/20 11/16/20 Rx Escitalopram [Lexapro] 10 mg PO DAILY 11/16/20 11/16/20 History Melatonin 5 mg PO HS 11/16/20 11/16/20 History Allergies Allergy/AdvReac Type Severity Reaction Status Date / Time epinephrine AdvReac Rapid Verified 11/16/20 17:21 Heart Rate Physical Examination - Vital Signs Vital Signs: Vital Signs Temp Pulse Pulse Resp BP BP Pulse Ox 11/17/20 10:57 97.7 F 59 L 16 123/70 100 11/17/20 08:40 55 L 16 133/73 97 11/17/20 08:00 55 L 16 11/16/20 23:08 97.4 F L 54 L 16 133/75 100 11/16/20 19:10 16 11/16/20 16:54 58 L 16 114/95 100 11/16/20 14:55 72 16 171/93 100 Intake and Output 11/16/20 11/17/20 11/17/20 22:59 06:59 14:59 Intake Total 120 2220 120 Balance 120 2220 120 Intake: Intake, IV Titration 900 Amount Sodium Chloride 0.9% 1, 900 000 ml @ 75 mls/hr IV . [id number] [facility] Rx#:[id number] Oral 120 1320 120 Other: Voiding Method Toilet # Voids 1 Weight 45.359 kg Gen.: The patient is reclining in the bed. She is thin. She is in no acute distress. HEENT: Head is atraumatic, normocephalic. Fundus not visualized. There is no scleral icterus. Mucous membranes are moist. Neck: Without carotid bruits Heart: Regular rate and rhythm Lungs: Clear to auscultation, with decreased breath sounds in the right upper lobe Extremities: Decreased muscle bulk Neurological examination Mental status: The patient is awake, alert and oriented to her name, date of , age, month and president. She reports the year to be "2000". When I ask the patient what the previous year was, she reports "1999". Cranial nerves: Pupils are equal, round and reactive to light. Visual arshad are full to confrontation. Extraocular movements are intact. There is no nystagmus. Facial sensation is intact. There is no facial asymmetry. Hearing is grossly intact. Uvula and palate are midline. Shoulder shrug is symmetric. Tongue protrudes midline. Motor: Upper extremity strength is 3/5. Bilateral ankle dorsi and plantar flexors 4/5. Sensation: Intact to light touch throughout. There is no extinction with double simultaneous stimulation. Coordination: [id number] testing is intact. Patient has mild difficulty with right arhr-dc-[id number] testing however this is likely secondary to weakness. Deep tendon reflexes: 2+/4+ throughout Gait: Not assessed Results - Laboratory Findings CBC and BMP: 11/16/20 15:21 11/16/20 15:21 Abnormal Lab Findings: Abnormal Labs 11/16/20 11/16/20 15:21 15:22 Sodium 131 L BUN 22 H Glucose 106 H Alkaline Phosphatase 23 L Urine Appearance Cloudy H Urine Protein Trace H Urine Nitrite Positive H Ur Leukocyte Esterase Large H Urine WBC 57 H Amorphous Sediment Rare H Urine Bacteria Rare H Urine Mucus Moderate H Assessment and Plan Assessment: 1. Toxic encephalopathy secondary to urinary tract infection-no focal or lateralizing deficits to suggest SCHOOL SPEECH LANGUAGE PATHOLOGIST etiology 2. Generalized weakness secondary to excessive weight loss and UTI 3. Unexplained weight loss Plan: 1. Check TSH 2. Physical therapy consultation 3. Your treatment of urinary tract infection 4. Dr. Mohsen Edwards will assume neurologic coverage at this patient tomorrow Thank you for allowing me to participate in the care of this patient Time with Patient: Greater than 30 (spent 40 minutes with patient via teleneurology)
[2020-11-17] MEDS: HEPARIN SODIUM,PORCINE 5,000 UNIT/ML 1 ML VIAL SQ SCH (20:07)
[2020-11-17] MEDS: MELATONIN 5 MG TABLET PO SCH (21:36)
[2020-11-18] MEDS: LORazepam 2 MG/ML INJ IV PRN ×3 (02:16→19:13)
[2020-11-18] MEDS: traMADol 50 MG TAB PO PRN ×2 (02:46→08:31)
[2020-11-18] MEDS: SODIUM CHLORIDE 0.9% 1,000 ML IV SCH ×3 (05:55→19:09)
[2020-11-18] MEDS: LEVOTHYROXINE 100 MCG TAB PO SCH (05:55)
[2020-11-18 06:43] LABS: Basophils % (A) 1 %; Eosinophils # (A) 0.1 k/uL (0-0.7); Eosinophils % (A) 2 %; HCT 37.5 % (34.0-46.0); HGB 12.8 gm/dL (11.4-16.0); Lymphocytes # (A) 1.8 k/uL (1.0-4.8); Lymphocytes % (A) 35 %; MCH 31.5 pg (25.0-35.0); MCHC 34.1 g/dL (31.0-37.0); MCV 92.3 fL (80.0-100.0); Mean Platelet Volume 6.9; Monocytes # (A) 0.5 k/uL (0-1.0); Monocytes % (A) 9 %; Neutrophils # (A) 2.7 k/uL (1.3-7.7); Neutrophils % (A) 53 %; Platelet Count 199 k/uL (150-450); RBC 4.06 m/uL (3.80-5.40); RDW 12.5 % (11.5-15.5); WBC 5.2 k/uL (3.8-10.6)
[2020-11-18] MEDS: ARIPiprazole 2 MG TAB PO SCH ×3 (08:30→10:03)
[2020-11-18] MEDS: HEPARIN SODIUM,PORCINE 5,000 UNIT/ML 1 ML VIAL SQ SCH ×2 (08:31→20:36)
[2020-11-18] MEDS: METOPROLOL SUCCINATE (ER) 50 MG TAB.ER.24H PO SCH ×3 (08:31→10:03)
[2020-11-18] MEDS: ESCITALOPRAM 10 MG TAB PO SCH ×3 (08:31→10:03)
[2020-11-18] MEDS ORDERED: FAMOTIDINE 20 MG/2 ML VIAL IV SCH (09:00)
[2020-11-18 09:25] LABS: African American GFR (CKD) 104.1 (60.0-200.0); Albumin 3.6 g/dL (3.80-4.90); Anion Gap 4.4 mmol/L (4.00-12.00); BUN/Creat Ratio 13.33 Ratio (12.00-20.00); Calcium 8.7 mg/dL (8.7-10.3); Carbon Dioxide 27.6 mmol/L (21.6-31.8); Globulin 1.8 g/dL (1.6-3.3); Non-African American GFR(CKD) 89.8 (60.0-200.0); Potassium 4.1 mmol/L (3.5-5.5); Total Bilirubin 0.4 mg/dL (0.2-1.2); Total Protein 5.4 g/dL (6.2-8.2)
--- NOTE | 2020-11-18 12:16 | P.PN ---
Subjective Progress Note Date: 11/18/20 The patient was seen at bedside and she stated that she's doing well. She denies of any focal weakness, numbness, diplopia, difficulty getting her words out. Objective - Vital Signs Vital signs: Vital Signs Temp 97.5 F L 11/18/20 11:00 Pulse 72 11/18/20 11:00 Resp 16 11/18/20 11:00 BP 109/68 11/18/20 11:00 Pulse Ox 99 11/18/20 11:00 Intake & Output 11/17/20 11/18/20 11/18/20 18:59 06:59 18:59 Intake Total 1040 590 Balance 1040 590 Weight 45.359 kg Intake: Oral 1040 590 Other: Voiding Method Toilet Toilet Toilet # Voids 3 4 - Exam GENERAL: The patient is lying in bed and is not in acute distress. NEUROLOGICAL: Higher mental function: The patient is awake, alert, oriented to self, place and time. Patient is following commands. No aphasia and no neglect. Cranial nerves: The pupils are round, equal and reactive to light and accommodation. Visual arshad are full to confrontation throughout. Extraocular movement is intact no nystagmus is noted. Facial sensation is normal to touch throughout. The facial strength is normal throughout. Hearing is normal bilaterally to hand rub. Tongue is midline and moved [id number] without any difficulty. No dysarthria is noted. Shoulder shrug is normal bilaterally. Motor: The strength is 5 over 5 throughout. Normal tone and bulk. Cerebellum: Normal finger to nose and heel to frias bilaterally. Sensation: Sensation is normal to touch throughout. Reflexes: 2+ throughout. Plantars are downgoing bilaterally. - Labs CBC & Chem 7: 11/18/20 05:25 11/18/20 05:25 Labs: Abnormal Lab Results - Last 24 Hours (Table) 11/18/20 Range/Units 05:25 BUN 8.0 L (9.0-27.0) mg/dL Alkaline Phosphatase 23 L (41-126) U/L Total Protein 5.4 L (6.2-8.2) g/dL Albumin 3.60 L (3.80-4.90) g/dL Microbiology - Last 24 Hours (Table) 11/16/20 15:22 Urine Culture - Preliminary Urine,Voided Gram Neg Bacilli Assessment and Plan Assessment: 1. Toxic encephalopathy secondary to urinary tract infection-no focal or lateralizing deficits to suggest CONCRETING SUPERVISOR etiology---mentation improed 2. Generalized weakness secondary to excessive weight loss and UTI 3. Unexplained weight loss Plan: Dr. Lugo ordered TSH but not ordered. So I ordered TSH, vitamin B12 and folate. If vitamin B12 is low then recommend placing the patient on the thousand micrograms daily and if the folate level is low recommend placing the patient on folic acid 1 mg daily. Physical therapy and occupation therapy are consulted. Otherwise there is no further workup needed from neurology perspective. Mohsen Edwards MD Neuro-Hospitalist. Time with Patient: Less than 30
--- NOTE | 2020-11-18 13:26 | P.PN ---
Subjective Progress Note Date: 11/18/20 History of present illness This is a 75-year-old female who presented to the emergency room with chief complaint of a fall. Patient states that she was standing with her walker and tripped over her feet falling backwards. Patient does not remember falling. states that he was present for the incident and does not believe she had any head injuries. He is she is not on any blood thinners. Patient does report pain in the back which is not a new concern. states that the patient has been losing weight approximate 20-30 pounds over the last 6 months. states that the patient has been more confused than normal. At this time patient is found resting comfortably in bed. She did state that she was able to sleep with the addition of pain medication. Patient continues to have symptoms of urinary pressure and frequency. Patient states that she sends majority of her time in bed. She does not have any energy to get up and do things. Her has been doing all the major housework and cooking and cleaning at this time. Normally patient and would go to [place] during this time but because of her fatigue they're not going. Patient has history of depression and panic disorder. She also has history of dysphagia, a scope procedure was performed on her last hospitalization. 11/18: Patient has been seen by neurology for toxic encephalopathy secondary to UTI. Mentation is improving. TSH, vitamin B-12 and folate levels ordered. Ps ychiatry evaluation is ordered. Patient has been afebrile, heart rate 61, blood pressure 121/69, pulse ox 90% on room air. CBC is unremarkable. Electrolytes normal. BUN 8 and creatinine 0.6. PT is recommended subacute rehab. Review Of Systems: Constitutional: No fever, no chills, no night sweats. Reported weight change. Report weakness and fatigue no lethargy. No daytime sleepiness. EENT: No headache. No blurred vision or double vision, no loss of vision. No l oss of Hearing, no ringing in the ears, no dizziness. No nasal drainage or congestion. No epistaxis. No sore throat. Lungs: No shortness of breath, cough, no sputum production. No wheezing. Cardiovascular: No chest pain, no lower extremity edema. No palpitations. No paroxysmal nocturnal dyspnea. No orthopnea. No lightheadedness or dizziness. No syncopal episodes. Abdominal: Reports abdominal discomfort. No nausea, vomiting. no diarrhea. No constipation. No bloody or tarry stools. no loss of appetite. Genitourinary: Reports dysuria, reports increased frequency and urgency. No uri nary retention. Musculoskeletal: No myalgias. No muscle weakness, no gait dysfunction, no frequent falls. No back pain. No neck pain. Integumentary: No wounds, no lesions. No rash or pruritus. No unusual bruising. No change in hair or nails. Neurologic: No aphasia. No facial droop. No change in mentation. No head injury. No headache. No paralysis. No paresthesia. Psychiatric: Reports depression. Reports difficulty sleeping. No anxiety. No mood swings. Endocrine: No abnormal blood sugars. No weight change. No excessive sweating or thirst. Physical examination General Appearance: Alert, cooperative, cachectic, no distress, 75-year-old pleasant female appears stated age. No acute distress. Neck HEENT: Supple, no lymphadenopathy, no thyroid enlargement, no carotid bruits. Lungs: Clear to auscultation without crackles or wheezes no rhonchi, no deformity. Chest Wall: Chest wall normal expansion with deep inspiration no tenderness and no deformity was found on exam, no costochondral pain or discomfort. Heart: Regular rate and rhythm, S1, S2 normal, no murmur, rub or gallop. Back: Symmetric, no curvature, ROM normal, no CVA tenderness. Abdomen: Soft, non-tender, no rebound or rigidity, no hepatosplenomegaly. Extremities: Extremities normal, atraumatic, no cyanosis or edema. Pulses: 2+ and symmetric. Skin: Skin color, texture, tugor normal, no rashes or lesions. Neurologic: Alert oriented x3 cranial nerves II through XII intact, no motor deficit, no abnormal balance or gait Assessment and plan 1. Acute encephalopathy. Rocephin 1 g daily. Consult neurology. 2. Acute urinary sepsis. Awaiting urine culture. Patient was given 1 dose of Zosyn, continue with Rocephin 1 g daily. Dilaudid 0.5 mg IV every 3 hours as needed for pain. 3. Fall with weakness. Consult PT/OT 4. Depression with panic attacks. Abilify 2 mg by mouth daily, Lexapro 10 mg by mouth daily. Ativan 0.5 mg every 6 hours as needed. Consult psychiatry. 5. Dysphagia. Patient was seen by Dr. Spears who did a endoscopic that did not require any dilatation at the time. 6. Hypertension. Metoprolol 50 mg by mouth daily 7. Hypothyroidism. Levothyroxine 100 g by mouth daily 8. Insomnia. Melatonin 5 mg by mouth at bedtime, may utilize Ativan 0.5 mg as needed to help with sleep 9. DVT prophylaxis. Pneumatic compression stockings, heparin 5000 units subcu 10. GI prophylaxis Pepcid 20 mg IV daily CODE STATUS: Full code Discharge plan: Home without home care Impression and plan of care have been directed as dictated by the signing physician. Earline Baker nurse practitioner acting as scribe for signing phys ician. Objective - Vital Signs Vital signs: Vital Signs Temp 97.7 F 11/18/20 05:00 Pulse 61 11/18/20 05:00 Resp 16 11/18/20 05:00 BP 121/69 11/18/20 05:00 Pulse Ox 98 11/18/20 05:00 Intake & Output 11/17/20 11/18/20 11/18/20 18:59 06:59 18:59 Intake Total 1040 590 Balance 1040 590 Weight 45.359 kg Intake: Oral 1040 590 Other: Voiding Method Toilet Toilet # Voids 3 4 - Labs CBC & Chem 7: 11/18/20 05:25 11/18/20 05:25 Labs: Microbiology - Last 24 Hours (Table) 11/16/20 15:22 Urine Culture - Preliminary Urine,Voided Gram Neg Bacilli
--- NOTE | 2020-11-18 14:45 | P.CN ---
Psychiatric Consult - . Consult date: 11/18/20 Consult:: IDENTIFYING DATA: This patient is a , retired, 75-year-old female who was admitted for falls HISTORY OF PRESENT ILLNESS: The patient presented to the hospital on 11/16/2020 after experiencing a witnessed fall. Patient has been noted by her to be increasingly weak and lacking motivation. Psychiatry has been consulted for evaluation of depression. The patient is currently not endorsing any significant depression at this time. She is not reporting any suicidal or homicidal ideation, intention, and/or plan. She does admit to low appetite with a 20 pound weight loss over the past 5 months. Furthermore she does admit to low energy and low motivation. She denies any anhedonia at this time. Her does express significant concern for depression. He states that this has started this past year. He reports that while they were in [place], the patient received prednisone for management of her back pain. He states since then the patient has had difficulty with her energy and mood. He reports that currently the patient has an expressing significant symptoms of depression including an inability to care for self. He reports that the patient does not address her hygiene and that he has forge helper to help her with this. He reports that she does not shower or brush her teeth anymore. He also further reports that she no longer cares for her hair which she use to be very meticulous about. Furthermore he does report that the patient expresses significant anxiety in regards to eating. He does admit that the patient has not been eating and has had significant weight loss. He states overall her mood has been increasingly anxious with increased panic attacks that occur primarily at night. He states that the medications that she is currently prescribed have not been working. He does not provide any significant history of dementia. Her depression led her to overdose on Xanax and attempted suicide which led to an inpatient psychiatric admission to the geriatric mental health unit this past March. The patient was also seen by psychiatry during her hospital admission in June during which time the patient was also treated for depression, anxiety, and this somatic problem of being unable to swallow. PAST PSYCHIATRIC HISTORY: Patient has a a history of depression and anxiety. Currently on a regimen of Abilify 2 mg by mouth at bedtime, Lexapro 10 mg by mouth daily, and melatonin 5 mg by mouth at bedtime. The patient has had 1 prior psychiatric hospitalization at [facility] for depression. She follows with her primary care physician for psychiatric medications. She has one prior attempt at suicide by overdose this past March. PAST MEDICAL HISTORY: Hypertension, thyroid disorder ALLERGIES: Epinephrine CHEMICAL DEPENDENCY HISTORY: Patient denies any tobacco, alcohol, marijuana, or illicit drug use. FAMILY PSYCHIATRIC/SUBSTANCE USE HISTORY: No reported psychiatric history. SOCIAL HISTORY: Patient was born and raised in [place], [place]. 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 They have no children. She is been to her for 57 years. She lives at home with her and their dog Lingling. MENTAL STATUS EXAM: General Appearance: Patient appears to be stated age is alert, pleasant, and cooperative. Patient appears to have fair hygiene and grooming wearing hospital gown with fair eye contact. Patient appears frail and thin. Behavior: Patient is calmly lying in bed without any agitated behavior. Speech: Patient's speech is fluent and nonpressured. Mood/Affect: Patient reports their mood is "okay", affect is blunted. Suicidality/Homicidality: Patient denies having any suicidal or homicidal ideation intent or plan. Perceptions: Patient denies any visual hallucinations and denies any auditory hallucinations Though content/process: Patient is somewhat somatic. Memory and concentration: AOX3, grossly intact for the purposes of this session. Can spell "WORLD" backwards Judgment and insight: Poor IMPRESSIONS: Major depressive disorder, recurrent, severe Anxiety disorder, unspecified Urinary tract infection PLAN: -At this time patient DOES meet criteria for inpatient psychiatric admission - the patient has not had the ability to care for self due to worsening depression has made evident by her inability to properly address her ADLs, hygiene, or supply herself with nutrition. -We recommend a geriatric mental health unit once the patient is medically cleared. -Delirium precautions recommended with patient including - avoiding use of narcotics and LEVELER sedatives, limit anticholinergic medications when possible, frequent re-orientation, minimize use of restraints, open window shades during the day and close them at night -The risks, benefits, and treatment alternatives were discussed at length with the patient's who is agreeable with the plan. We discussed at length the black box warning of antipsychotic medication in the geriatric population which may lead to cardiac events in the elderly. -EKG reviewed - NSR with a QTC of 433ms. -We will increase Abilify to 5 mg by mouth daily for mood augmentation/somatization -We will discontinue Lexapro. We will start Remeron 7.5 mg by mouth at bedtime for management of depression/lack of appetite -Continue melatonin 5 mg daily at bedtime for insomnia -Continue Ativan 0.5 mg IV every 6 hours when necessary for anxiety -Cannot leave AMA at this time. Patient will need a petition and certification if attempting to leave AMA. -Will continue to follow along 11/18/20 14:27
[2020-11-18] MEDS: HYDROmorphone 0.5 MG/0.5 ML SYRINGE IVP PRN (16:34)
[2020-11-18] MEDS: MIRTAZAPINE 15 MG TAB PO SCH (20:35)
[2020-11-18] MEDS: MELATONIN 5 MG TABLET PO SCH (20:36)
[2020-11-19] MEDS: LORazepam 2 MG/ML INJ IV PRN ×2 (03:29→16:43)
[2020-11-19] MEDS: traMADol 50 MG TAB PO PRN ×4 (04:08→23:58)
[2020-11-19] MEDS: LEVOTHYROXINE 100 MCG TAB PO SCH (04:10)
[2020-11-19] MEDS: METOPROLOL SUCCINATE (ER) 50 MG TAB.ER.24H PO SCH (08:09)
[2020-11-19] MEDS: FAMOTIDINE 20 MG TAB PO SCH (08:09)
[2020-11-19] MEDS: ARIPiprazole 5 MG TAB PO SCH (08:09)
[2020-11-19] MEDS: HEPARIN SODIUM,PORCINE 5,000 UNIT/ML 1 ML VIAL SQ SCH ×2 (08:10→20:18)
--- NOTE | 2020-11-19 11:09 | P.PN ---
Subjective Progress Note Date: 11/19/20 History of present illness This is a 75-year-old female who presented to the emergency room with chief complaint of a fall. Patient states that she was standing with her walker and tripped over her feet falling backwards. Patient does not remember falling. states that he was present for the incident and does not believe she had any head injuries. He is she is not on any blood thinners. Patient does report pain in the back which is not a new concern. states that the patient has been losing weight approximate 20-30 pounds over the last 6 months. states that the patient has been more confused than normal. At this time patient is found resting comfortably in bed. She did state that she was able to sleep with the addition of pain medication. Patient continues to have symptoms of urinary pressure and frequency. Patient states that she sends majority of her time in bed. She does not have any energy to get up and do things. Her has been doing all the major housework and cooking and cleaning at this time. Normally patient and would go to [place] during this time but because of her fatigue they're not going. Patient has history of depression and panic disorder. She also has history of dysphagia, a scope procedure was performed on her last hospitalization. 11/18: Patient has been seen by neurology for toxic encephalopathy secondary to UTI. Mentation is improving. TSH, vitamin B-12 and folate levels ordered. Ps ychiatry evaluation is ordered. Patient has been afebrile, heart rate 61, blood pressure 121/69, pulse ox 90% on room air. CBC is unremarkable. Electrolytes normal. BUN 8 and creatinine 0.6. PT is recommended subacute rehab. 11/19: Patient has been seen by psychiatry with recommendations for geriatric mental health unit, increase Abilify to 5 mg daily, discontinue Lexapro and start Remeron 7.5 at bedtime, continue melatonin, continue Ativan 0.5 mg IV every 6 hours as necessary. This has been discussed with the patient and Dimitry, patient's , contacted over the phone and updated regarding current recommendations. He is in agreement for geriatric psych unit but does not wish for her to go back to the [facility]. Social work has been notified this morning and hopefully arrangements can be completed today so she can be discharged later. Urine culture is showing 50-100,000 colonies gram-negative bacilli. Review Of Systems: Constitutional: No fever, no chills, no night sweats. Reported weight change. Report weakness and fatigue no lethargy. No daytime sleepiness. EENT: No headache. No blurred vision or double vision, no loss of vision. No loss of Hearing, no ringing in the ears, no dizziness. No nasal drainage or congestion. No epistaxis. No sore throat. Lungs: No shortness of breath, cough, no sputum production. No wheezing. Cardiovascular: No chest pain, no lower extremity edema. No palpitations. No paroxysmal nocturnal dyspnea. No orthopnea. No lightheadedness or dizziness. No syncopal episodes. Abdominal: Reports abdominal discomfort. No nausea, vomiting. no diarrhea. No constipation. No bloody or tarry stools. no loss of appetite. Genitourinary: Reports dysuria, reports increased frequency and urgency. No u rinary retention. Musculoskeletal: No myalgias. No muscle weakness, no gait dysfunction, no frequent falls. No back pain. No neck pain. Integumentary: No wounds, no lesions. No rash or pruritus. No unusual bruising. No change in hair or nails. Neurologic: No aphasia. No facial droop. No change in mentation. No head injury. No headache. No paralysis. No paresthesia. Psychiatric: Reports depression. Reports difficulty sleeping. No anxiety. No mood swings. Endocrine: No abnormal blood sugars. No weight change. No excessive sweating or thirst. Physical examination General Appearance: Alert, cooperative, cachectic, no distress, 75-year-old pleasant female appears stated age. No acute distress. Neck HEENT: Supple, no lymphadenopathy, no thyroid enlargement, no carotid bruits. Lungs: Clear to auscultation without crackles or wheezes no rhonchi, no deformity. Chest Wall: Chest wall normal expansion with deep inspiration no tenderness and no deformity was found on exam, no costochondral pain or discomfort. Heart: Regular rate and rhythm, S1, S2 normal, no murmur, rub or gallop. Back: Symmetric, no curvature, ROM normal, no CVA tenderness. Abdomen: Soft, non-tender, no rebound or rigidity, no hepatosplenomegaly. Extremities: Extremities normal, atraumatic, no cyanosis or edema. Pulses: 2+ and symmetric. Skin: Skin color, texture, tugor normal, no rashes or lesions. Neurologic: Alert oriented x3 cranial nerves II through XII intact, no motor deficit, no abnormal balance or gait Assessment and plan 1. Acute encephalopathy. Rocephin 1 g daily. Consult neurology. 2. Acute tract infection and sepsis. Awaiting urine culture. Patient was given 1 dose of Zosyn, continue with Rocephin 1 g daily. Dilaudid 0.5 mg IV every 3 hours as needed for pain. 3. Fall with weakness. Consult PT/OT 4. Depression with panic attacks. Consult with psychiatry appreciated. Abilify increased to 5 mg daily, Lexapro discontinued. Remeron 7.5 mg at bedtime started. Patient continued on melatonin and Ativan as needed. 5. Dysphagia. Patient was seen by Dr. Spears who did a endoscopic that did not require any dilatation at the time. 6. Hypertension. Metoprolol 50 mg by mouth daily 7. Hypothyroidism. Levothyroxine 100 g by mouth daily 8. Insomnia. Melatonin 5 mg by mouth at bedtime, may utilize Ativan 0.5 mg as needed to help with sleep 9. DVT prophylaxis. Pneumatic compression stockings, heparin 5000 units subcu 10. GI prophylaxis Pepcid 20 mg IV daily CODE STATUS: Full code Discharge plan: Transfer to geriatric psychiatric Center. Impression and plan of care have been directed as dictated by the signing physician. Earline Baker nurse practitioner acting as scribe for signing physician. Objective - Vital Signs Vital signs: Vital Signs Temp 98.0 F 11/19/20 05:00 Pulse 66 11/19/20 05:00 Resp 16 11/19/20 05:00 BP 144/78 11/19/20 05:00 Pulse Ox 96 11/19/20 05:00 Intake & Output 11/18/20 11/19/20 11/19/20 18:59 06:59 18:59 Intake Total 50 725 Balance 50 725 Intake: Intake, IV Titration 50 725 Amount Sodium Chloride 0.9% 1, 725 000 ml @ 75 mls/hr IV . [id number] [facility] Rx#:[id number] cefTRIAXone 1 gm In 50 Sodium Chloride 0.9% 50 ml @ 100 mls/hr IVPB Q24HR [facility] Rx#:[id number] Other: Voiding Method Toilet Toilet # Voids 2 1 - Labs CBC & Chem 7: 11/18/20 05:25 11/18/20 05:25 Labs: Abnormal Lab Results - Last 24 Hours (Table) 11/18/20 11/18/20 11/19/20 Range/Units 05:25 05:25 05:20 BUN 8.0 L (9.0-27.0) mg/dL Alkaline Phosphatase 23 L (41-126) U/L Total Protein 5.4 L (6.2-8.2) g/dL Albumin 3.60 L (3.80-4.90) g/dL TSH 0.110 L 0.078 L (0.350-5.500) uIU/mL
--- NOTE | 2020-11-19 11:13 | P.DS ---
Providers Date of admission: 11/16/20 17:48 Expected date of discharge: 11/19/20 Attending physician: Billy Cisse Consults: 11/17/20 09:20 Consult Physician Routine Consulting Provider: Qiana Lugo Consult Reason/Comments: change in mental status Do you want consulting provider notified?: Yes Consult Physician Routine Consulting Provider: Ralph Gilmore Consult Reason/Comments: depression Do you want consulting provider notified?: Yes Primary care physician: [facility] Course: History of present illness This is a 75-year-old female who presented to the emergency room with chief complaint of a fall. Patient states that she was standing with her walker and tripped over her feet falling backwards. Patient does not remember falling. states that he was present for the incident and does not believe she had any head injuries. He is she is not on any blood thinners. Patient does report pain in the back which is not a new concern. states that the patient has been losing weight approximate 20-30 pounds over the last 6 months. states that the patient has been more confused than normal. At this time patient is found resting comfortably in bed. She did state that she was able to sleep with the addition of pain medication. Patient continues to have symptoms of urinary pressure and frequency. Patient states that she sends majority of her time in bed. She does not have any energy to get up and do things. Her has been doing all the major housework and cooking and cleaning at this time. Normally patient and would go to [place] during this time but because of her fatigue they're not going. Patient has history of depression and panic disorder. She also has history of dysphagia, a scope procedure was performed on her last hospitalization. 11/18: Patient has been seen by neurology for toxic encephalopathy secondary to UTI. Mentation is improving. TSH, vitamin B-12 and folate levels ordered. Psychiatry evaluation is ordered. Patient has been afebrile, heart rate 61, blood pressure 121/69, pulse ox 90% on room air. CBC is unremarkable. Electrolytes normal. BUN 8 and creatinine 0.6. PT is recommended subacute rehab. 11/19: Patient has been seen by psychiatry with recommendations for geriatric mental health unit, increase Abilify to 5 mg daily, discontinue Lexapro and start Remeron 7.5 at bedtime, continue melatonin, continue Ativan 0.5 mg IV every 6 hours as necessary. This has been discussed with the patient and Dimitry, patient's , contacted over the phone and updated regarding current recommendations. He is in agreement for geriatric psych unit but does not wish for her to go back to the [facility]. Social work has been notified this morning and hopefully arrangements can be completed today so she can be discharged later. Urine culture is showing 50-100,000 colonies gram-negative bacilli. 11/20: This morning, patient states that she is too weak to eat. She apparently had a few bites of oatmeal and is stating that she can't swallow. She states her neck is sore and it is preventing her from swallowing. Consult with speech therapy will be added. Patient is set up and eat for us and did not seem to have any difficulty swallowing foods. She has been refusing her medication this morning. Patient seems to have flat affect today. We have completed a physician circumflex and will come in to do petition. Social work is working on transfer to [facility] [place]. Patient has been afebrile, heart rate 68, blood pressure 150/70, pulse ox 97% on room air. She will be transferred once all arrangements are completed. Coronavirus PCR ordered yesterday not detected. Assessment and plan 1. Acute encephalopathy. 2. Acute urinary tract infection and sepsis. Patient completed course of antibiotics. 3. Fall with weakness. 4. Depression with panic attacks. 5. Dysphagia. 6. Hypertension. 7. Hypothyroidism. 8. Insomnia. Discharge plan: Transfer to [facility] [place]. Impression and plan of care have been directed as dictated by the signing physician. Earline Baker nurse practitioner acting as scribe for signing physician. Patient Condition at Discharge: Stable Plan - Discharge Summary New Discharge Prescriptions: New ARIPiprazole [Abilify] 5 mg PO DAILY #30 tab Mirtazapine [Remeron] 7.5 mg PO HS #30 tab Continue Acetaminophen Tab [Tylenol] 1,000 mg PO Q6HR PRN PRN Reason: Pain Metoprolol Succinate (ER) [Toprol XL] 50 mg PO DAILY Levothyroxine Sodium [Synthroid] 100 mcg PO DAILY@0630 tab Melatonin 5 mg PO HS Discontinued ARIPiprazole [Abilify] 2 mg PO DAILY #0 tab Escitalopram [Lexapro] 10 mg PO DAILY Discharge Medication List Acetaminophen Tab [Tylenol] 1,000 mg PO Q6HR PRN 03/04/20 [History] Metoprolol Succinate (ER) [Toprol XL] 50 mg PO DAILY 06/17/20 [History] Levothyroxine Sodium [Synthroid] 100 mcg PO DAILY@0630 tab 06/21/20 [Rx] Melatonin 5 mg PO HS 11/16/20 [History] ARIPiprazole [Abilify] 5 mg PO DAILY #30 tab 11/19/20 [Rx] Mirtazapine [Remeron] 7.5 mg PO HS #30 tab 11/19/20 [Rx] Follow up Appointment(s)/Referral(s): Billy Cisse MD [Primary Care Provider] - 1 Week (After discharge from geriatric psych center) Discharge Disposition: TRANSFER TO PSYCH HOSP/UNIT
[2020-11-19] MEDS: SODIUM CHLORIDE 0.9% 1,000 ML IV SCH ×2 (11:57→20:18)
[2020-11-19 14:43] LABS: % Iron Saturation 43.15 (12.00-45.00)
--- NOTE | 2020-11-19 15:01 | CDI ---
Documentation Clarification Form Date: 11/19/2020 02:35 PM CDS: Italia Jauregui RN, CCDS Admit Date: 11/16/2020 Patient Name: Mackenzie Sharp ATTENTION: The Clinical Documentation Specialists (CDI) and [facility] Coding Staff appreciate your assistance in clarifying documentation. Please respond to the clarification below the line at the bottom and electronically sign. The CDI & [facility] Coding staff will review the response and follow-up if needed. Please note: Queries are made part of the Legal Health Record. If you have any questions, please contact the author of this message via ITS. Dr. Cisse A 20-pound weight loss over the past 5 months is documented in the Psychiatric consult 11/18/20 History/Risk Factors: 75-year-old female presents to the ED after a fall at home with back pain, is concerned the patient had lost a 20-30 pounds over 6 months. Medical History: Depression with panic attacks, weakness, falls, dysphagia and Insomnia. Clinical Indicators: Admitting diagnosis: Acute Encephalopathy; Acute UTI with sepsis; dysphagia and weakness. Per Psychiatric consult 11/18 -At this time patient DOES meet criteria for inpatient psychiatric admission - the patient has not had the ability to care for self-due to worsening depression has made evident by her inability to properly address her ADLs, hygiene, or supply herself with nutrition. Current BMI: 19.5 Nutritional consult: Estimated Nutritional KCALS: Used ideal body weight- Energy formula for estimated nutritional needs 25-30 Kcals/Kg; Energy needs: Kcal 1134- 1361. Estimated Protein needs using Ferguson body weight: Estimated protein range (grams/kg) 1.0-1.2. Estimated protein needs a day 45-54. Nutritional Diagnosis Related to abdominal pain/poor appetite/sepsis. As evidenced by:<25% documented intake. Nutritional Goals: Weight Gain meeting 75% of estimated nutritional needs. Treatment: Regular diet; Monitor po intake, Dietary Consult: See above Supplements: Ensure Enlive with Dinner In your professional opinion, can you please clarify if these findings signify one of the following conditions? Mild Protein-Calorie Malnutrition xx Moderate Protein-Calorie Malnutrition Severe Protein-Calorie Malnutrition Other condition, please specify Unable to determine (Last Revision: May 2019) MTDD
[2020-11-19] MEDS: MIRTAZAPINE 15 MG TAB PO SCH (20:18)
[2020-11-19] MEDS: MELATONIN 5 MG TABLET PO SCH (20:18)
[2020-11-20] MEDS: LEVOTHYROXINE 100 MCG TAB PO SCH (06:20)
[2020-11-20] MEDS: METOPROLOL SUCCINATE (ER) 50 MG TAB.ER.24H PO SCH ×2 (08:00→09:38)
[2020-11-20] MEDS: HEPARIN SODIUM,PORCINE 5,000 UNIT/ML 1 ML VIAL SQ SCH (08:01)
[2020-11-20] MEDS: FAMOTIDINE 20 MG TAB PO SCH ×2 (08:01→09:38)
[2020-11-20] MEDS: ARIPiprazole 5 MG TAB PO SCH ×2 (08:01→09:37)
[2020-11-20] MEDS: LORazepam 2 MG/ML INJ IV PRN (09:54)
[2020-11-20 12:33] VITALS: BP 153/92; PULSE 70; RESP 16; TEMP 98
--- NOTE | 2020-11-20 12:44 | P.PN ---
Subjective Progress Note Date: 11/20/20 History of present illness This is a 75-year-old female who presented to the emergency room with chief complaint of a fall. Patient states that she was standing with her walker and tripped over her feet falling backwards. Patient does not remember falling. states that he was present for the incident and does not believe she had any head injuries. He is she is not on any blood thinners. Patient does report pain in the back which is not a new concern. states that the patient has been losing weight approximate 20-30 pounds over the last 6 months. states that the patient has been more confused than normal. At this time patient is found resting comfortably in bed. She did state that she was able to sleep with the addition of pain medication. Patient continues to have symptoms of urinary pressure and frequency. Patient states that she sends majority of her time in bed. She does not have any energy to get up and do things. Her has been doing all the major housework and cooking and cleaning at this time. Normally patient and would go to [place] during this time but because of her fatigue they're not going. Patient has history of depression and panic disorder. She also has history of dysphagia, a scope procedure was performed on her last hospitalization. 11/18: Patient has been seen by neurology for toxic encephalopathy secondary to UTI. Mentation is improving. TSH, vitamin B-12 and folate levels ordered. Ps ychiatry evaluation is ordered. Patient has been afebrile, heart rate 61, blood pressure 121/69, pulse ox 90% on room air. CBC is unremarkable. Electrolytes normal. BUN 8 and creatinine 0.6. PT is recommended subacute rehab. 11/19: Patient has been seen by psychiatry with recommendations for geriatric mental health unit, increase Abilify to 5 mg daily, discontinue Lexapro and start Remeron 7.5 at bedtime, continue melatonin, continue Ativan 0.5 mg IV every 6 hours as necessary. This has been discussed with the patient and Dimitry, patient's , contacted over the phone and updated regarding current recommendations. He is in agreement for geriatric psych unit but does not wish for her to go back to the [facility]. Social work has been notified this morning and hopefully arrangements can be completed today so she can be discharged later. Urine culture is showing 50-100,000 colonies gram-negative bacilli. 11/20: Patient has been afebrile, heart rate 60, blood pressure 150/78, pulse ox 97% on room air. Coronavirus PCR ordered yesterday not detected. Physician certification done today. Patient is waiting for bed at [facility]. This morning, patient states that she is too weak to eat. She apparently had a few bites of oatmeal and is stating that she can't swallow. She states her neck is sore and it is preventing her from swallowing. Consult with speech therapy will be added. Patient is set up and eat for us and did not seem to have any difficulty swallowing foods. She has been refusing her medication this morning. Patient seems to have flat affect today. We have completed a physician circumflex and will come in to do petition. Social work is working on transfer to [facility]. Patient has been afebrile, heart rate 68, blood pressure 150/70, pulse ox 97% on room air. She will be transferred once all arrangements are completed. Review Of Systems: Constitutional: No fever, no chills, no night sweats. Reported weight change. Report weakness and fatigue no lethargy. No daytime sleepiness. EENT: No headache. No blurred vision or double vision, no loss of vision. No loss of Hearing, no ringing in the ears, no dizziness. No nasal drainage or congestion. No epistaxis. No sore throat. Lungs: No shortness of breath, cough, no sputum production. No wheezing. Cardiovascular: No chest pain, no lower extremity edema. No palpitations. No paroxysmal nocturnal dyspnea. No orthopnea. No lightheadedness or dizziness. No syncopal episodes. Abdominal: Reports abdominal discomfort. No nausea, vomiting. no diarrhea. No constipation. No bloody or tarry stools. Reports loss of appetite. Genitourinary: Reports dysuria, reports increased frequency and urgency. No urinary retention. Musculoskeletal: No myalgias. No muscle weakness, no gait dysfunction, no frequent falls. No back pain. No neck pain. Integumentary: No wounds, no lesions. No rash or pruritus. No unusual bruising. No change in hair or nails. Neurologic: No aphasia. No facial droop. No change in mentation. No head injury. No headache. No paralysis. No paresthesia. Psychiatric: Reports depression. Reports difficulty sleeping. No anxiety. No mood swings. Endocrine: No abnormal blood sugars. No weight change. No excessive sweating or thirst. Physical examination General Appearance: Alert, cooperative, cachectic, no distress, 75-year-old pleasant female appears stated age. No acute distress. Neck HEENT: Supple, no lymphadenopathy, no thyroid enlargement, no carotid bruits. Lungs: Clear to auscultation without crackles or wheezes no rhonchi, no deformi ty. Chest Wall: Chest wall normal expansion with deep inspiration no tenderness and no deformity was found on exam, no costochondral pain or discomfort. Heart: Regular rate and rhythm, S1, S2 normal, no murmur, rub or gallop. Back: Symmetric, no curvature, ROM normal, no CVA tenderness. Abdomen: Soft, non-tender, no rebound or rigidity, no hepatosplenomegaly. Extremities: Extremities normal, atraumatic, no cyanosis or edema. Pulses: 2+ and symmetric. Skin: Skin color, texture, tugor normal, no rashes or lesions. Neurologic: Alert oriented x3 cranial nerves II through XII intact, no motor deficit, no abnormal balance or gait Assessment and plan 1. Acute encephalopathy. Rocephin 1 g daily. Consult neurology. No antibiotics at the time of discharge. 2. Acute tract infection and sepsis. Awaiting urine culture. Continue with Rocephin 1 g daily. Dilaudid 0.5 mg IV every 3 hours as needed for pain. 3. Fall with weakness. Consult PT/OT 4. Depression with panic attacks. Consult with psychiatry appreciated. Abilify increased to 5 mg daily, Lexapro discontinued. Remeron 7.5 mg at bedtime started. Patient continued on melatonin and Ativan as needed. 5. Dysphagia. Patient was seen by Dr. Spears who did a endoscopic that did not require any dilatation at the time. 6. Hypertension. Metoprolol 50 mg by mouth daily 7. Hypothyroidism. Levothyroxine 100 g by mouth daily 8. Insomnia. Melatonin 5 mg by mouth at bedtime, may utilize Ativan 0.5 mg as needed to help with sleep 9. DVT prophylaxis. Pneumatic compression stockings, heparin 5000 units subcu 10. GI prophylaxis Pepcid 20 mg IV daily 11. Moderate protein calorie malnutrition. Speech therapy for self-reported dysphagia. CODE STATUS: Full code Discharge plan: Transfer to geriatric psychiatric Center. Impression and plan of care have been directed as dictated by the signing physician. Earline Baker nurse practitioner acting as scribe for signing physician. Objective - Vital Signs Vital signs: Vital Signs Temp 97.8 F 11/20/20 05:00 Pulse 68 11/20/20 05:00 Resp 18 11/20/20 05:00 BP 150/78 11/20/20 05:00 Pulse Ox 97 11/20/20 05:00 Intake & Output 11/19/20 11/20/20 11/20/20 18:59 06:59 18:59 Intake Total 950 350 Balance 950 350 Intake: Intake, IV Titration 950 Amount Sodium Chloride 0.9% 1, 900 000 ml @ 75 mls/hr IV . [id number] [facility] Rx#:[id number] cefTRIAXone 1 gm In 50 Sodium Chloride 0.9% 50 ml @ 100 mls/hr IVPB Q24HR [facility] Rx#:[id number] Oral 350 Other: Voiding Method Toilet Toilet # Voids 1 2 - Labs CBC & Chem 7: 11/18/20 05:25 11/18/20 05:25 Labs: Microbiology - Last 24 Hours (Table) 11/16/20 15:22 Urine Culture - Final Urine,Voided Pseudomonas aeruginosa
[2020-11-20] MEDS: traMADol 50 MG TAB PO PRN (12:49)
[2020-11-20] MEDS ORDERED: LORazepam 2 MG/ML INJ IV STA (13:16)
== END 2020-11-20 13:45 | DRG 871 ==
LOC: EC 14:54 → 6NMEDSUR 17:48
PROVIDERS: ADMIT Internal Medicine Geriatric Medicine; ATTEND Internal Medicine Geriatric Medicine
DX: A41.9 Sepsis, unspecified organism (principal); G92 Toxic encephalopathy; E44.0 Moderate protein-calorie malnutrition; E27.40 Unspecified adrenocortical insufficiency; Z68.1 Body mass index [BMI] 19.9 or less, adult; N39.0 Urinary tract infection, site not specified; F33.2 Major depressive disorder, recurrent severe without psychotic features; E03.9 Hypothyroidism, unspecified; Z20.822 Contact with and (suspected) exposure to COVID-19; F41.0 Panic disorder [episodic paroxysmal anxiety]; G47.00 Insomnia, unspecified; I10 Essential (primary) hypertension; R13.10 Dysphagia, unspecified; Z82.49 Family history of ischemic heart disease and other diseases of the circulatory system; Z80.49 Family history of malignant neoplasm of other genital organs; Z79.899 Other long term (current) drug therapy; Z79.890 Hormone replacement therapy; Z88.8 Allergy status to other drugs, medicaments and biological substances; Z98.890 Other specified postprocedural states
CPT/HCPCS: 36415; 70450; 71046; 72110; 72125; 80053; 81001; 82607; 82747; 83540; 83550; 84439; 84443; 84484; 85025; 87077; 87086; 87186; 87635; 93005; 96361; 96365; 99285

== ENCOUNTER 2020-12-28 07:05 | Emergency (ER) | payer BC, MEDICARE ==
[2020-12-28 07:13] VITALS: RESP 16
[2020-12-28] MEDS ORDERED: LORazepam 1 MG TAB PO STA (07:17)
--- NOTE | 2020-12-28 07:20 | ED ---
General Adult HPI - General Chief complaint: Anxiety Stated complaint: anxiety Time Seen by Provider: 12/28/20 07:13 Source: patient, EMS, RN notes reviewed Mode of arrival: EMS Limitations: no limitations - History of Present Illness Initial comments: Patient is a pleasant 75-year-old female presenting to the emergency department with anxiety. Patient states she feels shaky shaky inside. Onset of symptoms was this morning. Patient states she does do ECT there are different facility however does not know much about it. Patient denies suicidal thoughts. Patient does add that she has had recent medication change however does not know what it is. Patient has no other complaints this time. No weakness or pain. - Related Data Home Medications Medication Instructions Recorded Confirmed Ergocalciferol [Vitamin D2 (1250 1,250 mcg PO Q7D 12/28/20 12/28/20 Mcg = 93120 Iu)] FLUoxetine HCL [PROzac] 20 mg PO DAILY 12/28/20 12/28/20 Famotidine [Pepcid] 40 mg PO BID 12/28/20 12/28/20 Gabapentin [Neurontin] 100 mg PO BID 12/28/20 12/28/20 LORazepam [Ativan] 0.5 mg PO HS 12/28/20 12/28/20 Levothyroxine Sodium [Synthroid] 75 mcg PO DAILY 12/28/20 12/28/20 Lidocaine 5% Patch [Lidoderm] 1 patch TOPICAL DAILY 12/28/20 12/28/20 Melatonin 6 mg PO HS 12/28/20 12/28/20 Metoprolol Tartrate [Lopressor] 25 mg PO BID 12/28/20 12/28/20 Mirtazapine [Remeron] 30 mg PO HS 12/28/20 12/28/20 Polyethylene Glycol 3350 [Miralax] 17 gm PO DAILY 12/28/20 12/28/20 risperiDONE [RisperDAL] 1 mg PO HS 12/28/20 12/28/20 Allergies Allergy/AdvReac Type Severity Reaction Status Date / Time epinephrine AdvReac Rapid Verified 12/28/20 07:56 Heart Rate Review of Systems ROS Statement: Those systems with pertinent positive or pertinent negative responses have been documented in the HPI. ROS Other: All systems not noted in ROS Statement are negative. Constitutional: Denies: fever Eyes: Denies: eye pain ENT: Denies: ear pain Respiratory: Denies: cough Cardiovascular: Denies: chest pain Endocrine: Denies: fatigue Gastrointestinal: Denies: abdominal pain Genitourinary: Denies: dysuria Musculoskeletal: Denies: back pain Skin: Denies: rash Neurological: Denies: headache Psychiatric: Reports: anxiety Past Medical History Past Medical History: Hypertension, Thyroid Disorder Additional Past Medical History / Comment(s): adrenal insufficiency History of Any Multi-Drug Resistant Organisms: None Reported Past Surgical History: Orthopedic Surgery Additional Past Surgical History / Comment(s): rt knee Past Anesthesia/Blood Transfusion Reactions: No Reported Reaction Past Psychological History: Anxiety Smoking Status: Never smoker Past Alcohol Use History: None Reported Past Drug Use History: None Reported - Past Family History Father Additional Family Medical History / Comment(s): "heart problems" Mother Family Medical History: No Reported History Additional Family Medical History / Comment(s): Mother was healthy General Exam Limitations: no limitations General appearance: alert, in no apparent distress Head exam: Present: normocephalic Eye exam: Present: normal appearance, PERRL, EOMI ENT exam: Present: normal exam Neck exam: Present: normal inspection Respiratory exam: Present: normal lung sounds bilaterally Cardiovascular Exam: Present: regular rate, normal rhythm GI/Abdominal exam: Present: soft. Absent: tenderness Back exam: Present: normal inspection Neurological exam: Present: alert, CN II-XII intact. Absent: motor sensory deficit Expanded Patient oriented to: Present: person, place. Absent: time (States the year is 2000) Cranial nerves: EOM's Intact: Normal Motor strength exam: RUE: 5, LUE: 5, RLE: 5, LLE: 5 Eye Response: (4) open spontaneously Motor Response: (6) obeys commands Verbal Response: (4) confused conversation Psychiatric exam: Present: normal affect, normal mood Skin exam: Present: normal color Course Vital Signs 12/28/20 12/28/20 07:09 07:25 Temperature 97.7 F 97.9 F Pulse Rate 64 70 Respiratory 16 16 Rate Blood Pressure 163/81 163/81 O2 Sat by Pulse 100 100 Oximetry - Reevaluation(s) Reevaluation #1: 12/28/20 07:35 now present. Additional history taken. He states patient has been very anxious last 2 days since stopping trazodone. Patient is throwing herself on the floor and anxious and calling 911. He states the medication adjustment is overwhelming for him. EKG Findings - EKG Comments: EKG Findings:: Normal sinus rhythm at 67. SC 152. QRS 82. QT 412. QTC 435. Normal axis. Normal QRS. No acute ST change. Medical Decision Making - Medical Decision Making Case discussed with Dr. Cisse who did come evaluate patient in the emergency department and comfortable with discharge. Patient will resume lorazepam. Patient does request Tylenol. - Lab Data Result diagrams: 12/28/20 08:15 12/28/20 08:15 Lab Results 12/28/20 12/28/20 12/28/20 Range/Units 08:15 08:15 08:15 WBC 5.4 (3.8-10.6) k/uL RBC 4.15 (3.80-5.40) m/uL Hgb 13.2 (11.4-16.0) gm/dL Hct 40.2 (34.0-46.0) % MCV 96.7 (80.0-100.0) fL MCH 31.8 (25.0-35.0) pg MCHC 32.9 (31.0-37.0) g/dL RDW 13.9 (11.5-15.5) % Plt Count 283 (150-450) k/uL MPV 6.6 Neutrophils % 66 % Lymphocytes % 20 % Monocytes % 11 % Eosinophils % 1 % Basophils % 1 % Neutrophils # 3.5 (1.3-7.7) k/uL Lymphocytes # 1.1 (1.0-4.8) k/uL Monocytes # 0.6 (0-1.0) k/uL Eosinophils # 0.1 (0-0.7) k/uL Basophils # 0.1 (0-0.2) k/uL Sodium 133 L (137-145) mmol/L Potassium 5.2 H (3.5-5.1) mmol/L Chloride 100 (98-107) mmol/L Carbon Dioxide 22 (22-30) mmol/L Anion Gap 11 mmol/L BUN 22 H (7-17) mg/dL Creatinine 0.56 (0.52-1.04) mg/dL Est GFR (CKD-EPI)AfAm >90 (>60 ml/min/1.73 sqM) Est GFR (CKD-EPI)NonAf >90 (>60 ml/min/1.73 sqM) Glucose 93 (74-99) mg/dL Calcium 9.1 (8.4-10.2) mg/dL Urine Color Light Yellow Urine Appearance Clear (Clear) Urine pH 5.5 (5.0-8.0) Ur Specific [place] 1.009 (1.001-1.035) Urine Protein Negative (Negative) Urine Glucose (UA) Negative (Negative) Urine Ketones Negative (Negative) Urine Blood Negative (Negative) Urine Nitrite Negative (Negative) Urine Bilirubin Negative (Negative) Urine Urobilinogen <2.0 (<2.0) mg/dL Ur Leukocyte Esterase Moderate H (Negative) Urine RBC <1 (0-5) /hpf Urine WBC 3 (0-5) /hpf Urine Mucus Rare H (None) /hpf Urine Opiates Screen Not Detected (NotDetected) Ur Oxycodone Screen Not Detected (NotDetected) Urine Methadone Screen Not Detected (NotDetected) Ur Propoxyphene Screen Not Detected (NotDetected) Ur Barbiturates Screen Not Detected (NotDetected) U Tricyclic Antidepress Not Detected (NotDetected) Ur Phencyclidine Scrn Not Detected (NotDetected) Ur Amphetamines Screen Not Detected (NotDetected) U Methamphetamines Scrn Not Detected (NotDetected) U Benzodiazepines Scrn Detected H (NotDetected) Urine Cocaine Screen Not Detected (NotDetected) U Marijuana (THC) Screen Not Detected (NotDetected) Serum Alcohol <10 mg/dL Disposition Clinical Impression: Acute anxiety Disposition: HOME SELF-CARE Condition: Stable Instructions (If sedation given, give patient instructions): Generalized Anxiety Disorder (ED) Additional Instructions: As directed for Dr. Cisse, please resume lorazepam. Return for increased anxiety, worsening change in symptoms or any other concerns. Follow-up with mental health as directed. Is patient prescribed a controlled substance at d/c from ED?: No Referrals: Billy Cisse MD [Primary Care Provider] - 1-2 days Time of Disposition: 09:53
[2020-12-28 07:27] VITALS: TEMP 97.9
[2020-12-28 08:30] LABS: Basophils # (A) 0.1 k/uL (0-0.2); Basophils % (A) 1 %; Eosinophils # (A) 0.1 k/uL (0-0.7); Eosinophils % (A) 1 %; HCT 40.2 % (34.0-46.0); HGB 13.2 gm/dL (11.4-16.0); Lymphocytes # (A) 1.1 k/uL (1.0-4.8); Lymphocytes % (A) 20 %; MCH 31.8 pg (25.0-35.0); MCHC 32.9 g/dL (31.0-37.0); MCV 96.7 fL (80.0-100.0); Mean Platelet Volume 6.6; Monocytes # (A) 0.6 k/uL (0-1.0); Monocytes % (A) 11 %; Neutrophils # (A) 3.5 k/uL (1.3-7.7); Neutrophils % (A) 66 %; Platelet Count 283 k/uL (150-450); RBC 4.15 m/uL (3.80-5.40); RDW 13.9 % (11.5-15.5); WBC 5.4 k/uL (3.8-10.6)
[2020-12-28 08:33] LABS: Appearance,Urine Clear (Clear); Bilirubin,Urine Negative (Negative); Blood,Urine Negative (Negative); Color,Urine Light Yellow; Glucose,Urine (UA) Negative (Negative); Ketones,Urine Negative (Negative); Leukocyte Esterase,Urine Moderate (Negative); Mucus,Urine Rare /hpf; Nitrite,Urine Negative (Negative); PH, Urine 5.5 (5.0-8.0); Protein,Urine Negative (Negative); RBC,Urine <1 /hpf (0-5); Specific Gravity,Urine 1.009 (1.001-1.035); Urobilinogen,Urine <2.0 mg/dL (<2.0); WBC,Urine 3 /hpf (0-5)
[2020-12-28 08:39] LABS: African American GFR (CKD) >90 (>60 ml/min/1.73 sqM); Alcohol <10 mg/dL; Anion Gap 11 mmol/L; Blood Urea Nitrogen 22 mg/dL (7-17); Calcium 9.1 mg/dL (8.4-10.2); Carbon Dioxide 22 mmol/L (22-30); Chloride 100 mmol/L (98-107); Glucose 93 mg/dL (74-99); Non-African American GFR(CKD) >90 (>60 ml/min/1.73 sqM); Sodium 133 mmol/L (137-145)
[2020-12-28 08:43] LABS: Amphetamine Screen,Urine Not Detected (NotDetected); Barbiturate Screen,Urine Not Detected (NotDetected); Benzodiazepines Screen,Urine Detected (NotDetected); Cocaine Screen,Urine Not Detected (NotDetected); Methadone Screen, Urine Not Detected (NotDetected); Opiate Screen,Urine Not Detected (NotDetected); Oxycodone Screen, Urine Not Detected (NotDetected); Phencyclidine Screen,Urine Not Detected (NotDetected); Tricyclic Antidepressant,Urine Not Detected (NotDetected); Urn Cannabinoid Scrn Not Detected (NotDetected)
[2020-12-28 08:44] LABS: Potassium 5.2 mmol/L (3.5-5.1)
[2020-12-28] MEDS ORDERED: LIDOCAINE 5% PATCH TOPICAL SCH (09:00)
[2020-12-28] MEDS ORDERED: ACETAMINOPHEN TAB 325 MG TAB PO STA (09:53)
[2020-12-28 10:24] VITALS: BP 138/82; PULSE 66
== END 2020-12-28 10:30 | disposition home or self-care (01) ==
LOC: EC 07:05
DX: F41.9 Anxiety disorder, unspecified (principal); I10 Essential (primary) hypertension; E07.9 Disorder of thyroid, unspecified; Z79.890 Hormone replacement therapy; Z79.899 Other long term (current) drug therapy; Z88.8 Allergy status to other drugs, medicaments and biological substances
CPT/HCPCS: 36415; 80048; 80306; 80320; 81001; 82075; 85025; 93005; 99284

== ENCOUNTER 2021-04-12 12:29 | Observation (INO) | payer BC, MEDICARE ==
[2021-04-12] MEDS ORDERED: SODIUM CHLORIDE 0.9% 1,000 ML IV ONE (12:41)
--- NOTE | 2021-04-12 12:45 | ED ---
General Adult HPI - General Source: patient, EMS, RN notes reviewed, old records reviewed Mode of arrival: EMS <Lauro James - Last Filed: 04/12/21 14:44> <Oz Toledo - Last Filed: 04/12/21 20:57> - General Chief complaint: Neck Pain/Injury Stated complaint: Loss of Appetite Time Seen by Provider: 04/12/21 12:30 - History of Present Illness Initial comments: This is a 75-year-old female who called EMS because she states she is unable to swallow and she fell a couple days ago and hurt her left shoulder. According to the showed up shortly thereafter he states that she has psychiatric problems and she goes through these periods where she says she can't swallow but she can but she gets so anxious about it she doesn't want to eat so she hasn't eaten in about 3 days. states she did fall but she seems to be using her left arm and shoulder but she complains about the pain all the time. states she always complains about an 8-10 level of pain to matter what area of the body you asked her about. states he would like her admitted for psychiatric reasons because her bipolar symptoms are getting worse and she is not eating well not getting out of bed and he is concerned that they will continued to progress. Patient denies chest pain or difficulty breathing patient denies any fever chills patient denies any abdominal pain patient denies nausea vomiting diarrhea. Patient denies any other injury from her fall (Lauro James) - Related Data Home Medications Medication Instructions Recorded Confirmed Ergocalciferol [Vitamin D2 (1250 1,250 mcg PO Q7D 12/28/20 04/12/21 Mcg = 71495 Iu)] Famotidine [Pepcid] 40 mg PO DAILY 12/28/20 04/12/21 LORazepam [Ativan] 0.5 mg PO TID PRN 12/28/20 04/12/21 Melatonin 6 mg PO HS 12/28/20 04/12/21 Metoprolol Tartrate [Lopressor] 25 mg PO DAILY 12/28/20 04/12/21 Polyethylene Glycol 3350 [Miralax] 17 gm PO DAILY PRN 12/28/20 04/12/21 Citalopram Hydrobromide [CeleXA] 20 mg PO DAILY 04/12/21 04/12/21 Levothyroxine Sodium [Synthroid] 100 mcg PO DAILY 04/12/21 04/12/21 OLANZapine ODT [ZyPREXA Zydis] 10 mg PO HS 04/12/21 04/12/21 OLANZapine [ZyPREXA] 5 mg PO DAILY@1200 04/12/21 04/12/21 PARoxetine [Paxil] 20 mg PO HS 04/12/21 04/12/21 clonazePAM [KlonoPIN] 0.5 mg PO BID 04/12/21 04/12/21 Allergies Allergy/AdvReac Type Severity Reaction Status Date / Time epinephrine AdvReac Rapid Verified 04/12/21 15:04 Heart Rate Review of Systems ROS Other: All systems not noted in ROS Statement are negative. <Lauro James - Last Filed: 04/12/21 14:44> ROS Other: All systems not noted in ROS Statement are negative. <Oz Toledo - Last Filed: 04/12/21 20:57> ROS Statement: Those systems with pertinent positive or pertinent negative responses have been documented in the HPI. Past Medical History Past Medical History: Hypertension, Thyroid Disorder Additional Past Medical History / Comment(s): adrenal insufficiency, major depression disorder History of Any Multi-Drug Resistant Organisms: None Reported Past Surgical History: Orthopedic Surgery Additional Past Surgical History / Comment(s): rt knee Past Anesthesia/Blood Transfusion Reactions: No Reported Reaction Past Psychological History: Anxiety Smoking Status: Never smoker Past Alcohol Use History: None Reported Past Drug Use History: None Reported - Past Family History Father Additional Family Medical History / Comment(s): "heart problems" Mother Family Medical History: No Reported History Additional Family Medical History / Comment(s): Mother was healthy <Lauro James - Last Filed: 04/12/21 14:44> General Exam <Lauro James - Last Filed: 04/12/21 14:44> - General Exam Comments Initial Comments: GENERAL: Patient is well-developed and well-nourished. Patient is nontoxic and well- hydrated and is in no acute distress. ENT: Neck is soft and supple. No significant lymphadenopathy is noted. Oropharynx is clear. Moist mucous membranes. Neck has full range of motion without eliciting any pain. EYES: The sclera were anicteric and conjunctiva were pink and moist. Extraocular movements were intact and pupils were equal round and reactive to light. Eyelids were unremarkable. PULMONARY: Unlabored respirations. Good breath sounds bilaterally. No audible rales rhonchi or wheezing was noted. CARDIOVASCULAR: There is a regular rate and rhythm without any murmurs gallops or rubs. ABDOMEN: Soft and nontender with normal bowel sounds. SKIN: Skin is clear with no lesions or rashes and otherwise unremarkable. NEUROLOGIC: Patient is alert and oriented x3. Cranial nerves II through XII are grossly intact. Motor and sensory are also intact. Normal speech, volume and content. Symmetrical smile. MUSCULOSKELETAL: Normal extremities with adequate strength and full range of motion. LYMPHATICS: No significant lymphadenopathy is noted PSYCHIATRIC: Patient denies suicidal or homicidal ideations however is a very flat affect and has normal motion to anything she says (Lauro James) Course <Oz Toledo - Last Filed: 04/12/21 20:57> Vital Signs 04/12/21 04/12/21 04/12/21 12:30 14:00 20:52 Temperature 98.5 F Pulse Rate 69 66 59 L Respiratory 18 16 18 Rate Blood Pressure 145/85 161/85 141/77 O2 Sat by Pulse 95 98 95 Oximetry - Reevaluation(s) Reevaluation #1: 04/12/21 15:44 The patient is endorsed me at our shift change pending psychiatric evaluation. She has been medically cleared thus far. (Oz Toledo) Reevaluation #2: 04/12/21 20:55 Patient was endorsed me at shift change pending psychiatric evaluation the patient has had frequent falls she did hit her head as well as her shoulder x- rays of the shoulder were negative. Patient is demonstrating evidence of depression failure to thrive not eating. Patient does have some evidence of dehydration also. The patient was evaluated by psychiatric service and did recommend admission due to the patient's current condition she'll be admitted to the medical service with psychiatric consultation. I did discuss this with the patient and her . 04/12/21 20:57 The case was discussed with Dr. Oviedo (Oz Toledo) Medical Decision Making - Lab Data Result diagrams: 04/12/21 12:50 04/12/21 12:50 <Lauro James - Last Filed: 04/12/21 14:44> - Lab Data Result diagrams: 04/12/21 12:50 04/12/21 12:50 <Oz Toledo - Last Filed: 04/12/21 20:57> - Medical Decision Making Patient is medically clear. Dr. Tre agrawal taking over the care of this patient at 3 PM (Lauro James) - Lab Data Lab Results 04/12/21 04/12/21 04/12/21 Range/Units 12:50 12:50 15:00 WBC 6.5 (3.8-10.6) k/uL RBC 4.31 (3.80-5.40) m/uL Hgb 13.7 (11.4-16.0) gm/dL Hct 39.8 (34.0-46.0) % MCV 92.4 (80.0-100.0) fL MCH 31.8 (25.0-35.0) pg MCHC 34.4 (31.0-37.0) g/dL RDW 11.8 (11.5-15.5) % Plt Count 214 (150-450) k/uL MPV 6.7 Neutrophils % 67 % Lymphocytes % 22 % Monocytes % 8 % Eosinophils % 1 % Basophils % 1 % Neutrophils # 4.4 (1.3-7.7) k/uL Lymphocytes # 1.5 (1.0-4.8) k/uL Monocytes # 0.5 (0-1.0) k/uL Eosinophils # 0.1 (0-0.7) k/uL Basophils # 0.0 (0-0.2) k/uL Sodium 133 L (137-145) mmol/L Potassium 4.2 (3.5-5.1) mmol/L Chloride 98 (98-107) mmol/L Carbon Dioxide 29 (22-30) mmol/L Anion Gap 6 mmol/L BUN 20 H (7-17) mg/dL Creatinine 0.58 (0.52-1.04) mg/dL Est GFR (CKD-EPI)AfAm >90 (>60 ml/min/1.73 sqM) Est GFR (CKD-EPI)NonAf >90 (>60 ml/min/1.73 sqM) Glucose 99 (74-99) mg/dL Calcium 9.2 (8.4-10.2) mg/dL Magnesium 2.0 (1.6-2.3) mg/dL Total Bilirubin 0.4 (0.2-1.3) mg/dL AST 25 (14-36) U/L ALT 16 (4-34) U/L Alkaline Phosphatase 27 L (38-126) U/L Total Protein 6.9 (6.3-8.2) g/dL Albumin 4.1 (3.5-5.0) g/dL Urine Opiates Screen Not Detected (NotDetected) Ur Oxycodone Screen Not Detected (NotDetected) Urine Methadone Screen Not Detected (NotDetected) Ur Propoxyphene Screen Not Detected (NotDetected) Ur Barbiturates Screen Not Detected (NotDetected) U Tricyclic Antidepress Not Detected (NotDetected) Ur Phencyclidine Scrn Not Detected (NotDetected) Ur Amphetamines Screen Not Detected (NotDetected) U Methamphetamines Scrn Not Detected (NotDetected) U Benzodiazepines Scrn Not Detected (NotDetected) Urine Cocaine Screen Not Detected (NotDetected) U Marijuana (THC) Screen Not Detected (NotDetected) Disposition <Lauro James - Last Filed: 04/12/21 14:44> <Oz Toledo - Last Filed: 04/12/21 20:57> Clinical Impression: Depression, Failure to thrive, Dehydration, Fall, Contusion of right shoulder Disposition: ADMITTED IP TO THIS [facility] Condition: Fair Referrals: Billy Cisse MD [Primary Care Provider] - 1-2 days
[2021-04-12 12:58] LABS: Basophils % (A) 1 %; Eosinophils # (A) 0.1 k/uL (0-0.7); Eosinophils % (A) 1 %; HCT 39.8 % (34.0-46.0); HGB 13.7 gm/dL (11.4-16.0); Lymphocytes # (A) 1.5 k/uL (1.0-4.8); Lymphocytes % (A) 22 %; MCH 31.8 pg (25.0-35.0); MCHC 34.4 g/dL (31.0-37.0); MCV 92.4 fL (80.0-100.0); Mean Platelet Volume 6.7; Monocytes # (A) 0.5 k/uL (0-1.0); Monocytes % (A) 8 %; Neutrophils # (A) 4.4 k/uL (1.3-7.7); Neutrophils % (A) 67 %; Platelet Count 214 k/uL (150-450); RBC 4.31 m/uL (3.80-5.40); RDW 11.8 % (11.5-15.5); WBC 6.5 k/uL (3.8-10.6)
[2021-04-12 13:07] LABS: ALT 16 U/L (4-34); AST 25 U/L (14-36); African American GFR (CKD) >90 (>60 ml/min/1.73 sqM); Albumin 4.1 g/dL (3.5-5.0); Alkaline Phosphatase 27 U/L (38-126); Anion Gap 6 mmol/L; Blood Urea Nitrogen 20 mg/dL (7-17); Calcium 9.2 mg/dL (8.4-10.2); Carbon Dioxide 29 mmol/L (22-30); Chloride 98 mmol/L (98-107); Glucose 99 mg/dL (74-99); Non-African American GFR(CKD) >90 (>60 ml/min/1.73 sqM); Potassium 4.2 mmol/L (3.5-5.1); Sodium 133 mmol/L (137-145); Total Bilirubin 0.4 mg/dL (0.2-1.3); Total Protein 6.9 g/dL (6.3-8.2)
--- NOTE | 2021-04-12 13:34 | XR ---
EXAMINATION TYPE: XR shoulder complete LT DATE OF EXAM: 04/12/2021 Comparison: None Clinical History: 75-year-old female Shoulder pain Findings: Mild to moderate degenerative change at the AC joint with joint space narrowing, marginal spurring, a nd capsular hypertrophy. Subacromial space is preserved. Mild sclerosis of the greater tuberosity. No acute fracture, subluxation, or dislocation. 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 Some sclerosis of the greater tuberosity may be seen with chronic rotat or cuff tendinopathy. No acute osseous abnormality seen.
[2021-04-12 15:21] LABS: Amphetamine Screen,Urine Not Detected (NotDetected); Barbiturate Screen,Urine Not Detected (NotDetected); Benzodiazepines Screen,Urine Not Detected (NotDetected); Cocaine Screen,Urine Not Detected (NotDetected); Methadone Screen, Urine Not Detected (NotDetected); Opiate Screen,Urine Not Detected (NotDetected); Oxycodone Screen, Urine Not Detected (NotDetected); Phencyclidine Screen,Urine Not Detected (NotDetected); Tricyclic Antidepressant,Urine Not Detected (NotDetected); Urn Cannabinoid Scrn Not Detected (NotDetected)
--- NOTE | 2021-04-12 20:04 | CT ---
EXAMINATION TYPE: CT brain jian ruiz DATE OF EXAM: 04/12/2021 COMPARISON: 11/16/2020 HISTORY: Pt fall, hitting LT side of head. Previous fall 2 weeks ago, hitting back of head, was never checked out CT DLP: 1292.3 mGycm Automated exposure control for dose reduction was used. Images obtained of the brain and cervical spine without contrast. There is some cerebral cortical atrophy. There is no mass effect nor midline shift. There is no sign of intracranial hemorrhage. The cervical vertebra have fairly normal spacing and alignment. Posterior elements are intact. There is no compression fracture. There is mild multilevel cervical hypertrophic facet arthropathy. There i s normal aeration of the mastoid sinuses. Skull base is intact. There are multiple mucous retention cysts in the maxillary sinuses that appears stable. IMPRESSION: Mild cerebral atrophy. No acute intracranial abnormality. Negative CT scan of the cervical spine.
[2021-04-12] MEDS ORDERED: NALOXONE 0.4 MG/ML 1 ML VIAL IV PRN (20:59)
[2021-04-12] MEDS ORDERED: polyethylene glycoL 3350 17 GM POWD.PACK PO PRN (21:01)
[2021-04-12] MEDS: SODIUM CHLORIDE 0.9% 1,000 ML IV SCH (22:24)
[2021-04-12] MEDS: ACETAMINOPHEN TAB 325 MG TAB PO PRN (22:45)
[2021-04-12] MEDS: PARoxetine 20 MG TAB PO SCH (22:45)
[2021-04-13] MEDS: LORazepam 0.5 MG TAB PO PRN ×2 (02:05→10:33)
[2021-04-13] MEDS: ACETAMINOPHEN TAB 325 MG TAB PO PRN (03:57)
[2021-04-13] MEDS: LEVOTHYROXINE 100 MCG TAB PO SCH (06:10)
[2021-04-13] MEDS: FAMOTIDINE 20 MG TAB PO SCH (08:38)
[2021-04-13] MEDS: clonazePAM 0.5 MG TAB PO SCH ×2 (08:38→21:35)
[2021-04-13] MEDS: CITALOPRAM HYDROBROMIDE 20 MG TAB PO SCH (08:38)
[2021-04-13] MEDS: METOPROLOL TARTRATE 25 MG TAB PO SCH (08:39)
[2021-04-13] MEDS ORDERED: ERGOCALCIFEROL 1,250 MCG (50,000 IU) CAPSULE PO SCH (09:00)
--- NOTE | 2021-04-13 09:44 | P.HPIM ---
History of Present Illness H&P Date: 04/13/21 History of present illness This is a 75-year-old female who presented to the emergency room with chief complaint of difficulty swallowing and had a fall a couple days ago and injured her left shoulder. She is well known to Dr Cisse with a past medical history significant for hypertension, hypothyroidism, degenerative disc disease and chronic back pain, scoliosis, depression/bipolar disorder. She is had multiple admissions over the last year due to weakness and falls, difficulty swallowing and failure to thrive. According to the she goes through these periods where she can't swallow and gets very anxious and hasn't eaten in about 3 days. was requesting that she be admitted for psychiatric services because her bipolar symptoms are getting worse and she is not getting out of bed. Patient currently denies any chest pain, difficulty breathing, fever or chills, abdominal pain or discomfort, nausea vomiting or diarrhea. CT of the head showed mild cerebral atrophy no acute intracranial abnormality, cervical CT was negative. Left shoulder x-ray showed moderate away with chronic rotator cuff tendinopathy. Vital signs are stable, she is afebrile, pulse rate 61, blood pressure is elevated 171/87, pulse ox 99% on room air. CBC was unremarkable, sodium was 133, BUN was 20 creatinine 0.58. Patient was admitted for rehydration repeat swallow study, and psychiatric consult. Review Of Systems: Constitutional: No fever, no chills, no night sweats. No weight change. Report weakness and fatigue no lethargy. No daytime sleepiness. EENT: No headache. No blurred vision or double vision, no loss of vision. No loss of Hearing, no ringing in the ears, no dizziness. No nasal drainage or congestion. No epistaxis. No sore throat. Lungs: No shortness of breath, cough, no sputum production. No wheezing. Cardiovascular: No chest pain, no lower extremity edema. No palpitations. No paroxysmal nocturnal dyspnea. No orthopnea. No lightheadedness or dizziness. No syncopal episodes. Abdominal: Reports abdominal discomfort. No nausea, vomiting. no diarrhea. No constipation. No bloody or tarry stools. no loss of appetite. Genitourinary: Reports dysuria, reports increased frequency and urgency. No urinary retention. Musculoskeletal: No myalgias. No muscle weakness, no gait dysfunction, no frequent falls. No back pain. No neck pain. Mild left shoulder pain with movement Integumentary: No wounds, no lesions. No rash or pruritus. No unusual bruising. No change in hair or nails. Neurologic: No aphasia. No facial droop. No change in mentation. No head injury. No headache. No paralysis. No paresthesia. Psychiatric: Denies depression. Reports difficulty sleeping. No anxiety. No mood swings. Endocrine: No abnormal blood sugars. No weight change. No excessive sweating or thirst. Social history: Patient is lifelong nonsmoker, no alcohol use, no marijuana use or illicit drug use. Patient lives at home with her . Family history: Mother at age 49 for cervical cancer. Father at 79 from coronary artery disease. Patient has 5 sisters with no major medical problems. Patient does not have any brothers. She does not have any children. Physical examination General Appearance: Alert, cooperative, cachectic, no distress, 75-year-old pleasant female appears stated age. Neck HEENT: Supple, no lymphadenopathy, no thyroid enlargement, no carotid bruits. Lungs: Clear to auscultation without crackles or wheezes no rhonchi, no deformity. Chest Wall: Chest wall normal expansion with deep inspiration no tenderness and no deformity was found on exam, no costochondral pain or discomfort. Heart: Regular rate and rhythm, S1, S2 normal, no murmur, rub or gallop. Back: Symmetric, no curvature, ROM normal, no CVA tenderness. Abdomen: Soft, non-tender, no rebound or rigidity, no hepatosplenomegaly. Extremities: Extremities normal, atraumatic, no cyanosis or edema. Pulses: 2+ and symmetric. Skin: Skin color, texture, tugor normal, no rashes or lesions. Neurologic: Alert oriented x3 cranial nerves II through XII intact, no motor deficit, no abnormal balance or gait Assessment and plan 1 Failure to thrive secondary to likely worsening depression and bipolar dis order. Patient on Celexa 20 mg daily, Paxil 20 mg at at bedtime, Zyprexa 5 mg in a.m. and 10 mg at at bedtime. Psychiatry consult is appreciated 2. Dehydration. We'll switch IV fluids to D5 normal saline at 100 cc/hour until oral intake improves. 3. Fall with weakness. Consult PT/OT 4. Depression with panic attacks. On clonazepam 0.5 mg twice a day, As above and Ativan 0.5 mg every 6 hours as needed. Consult psychiatry. 5. Dysphagia. Has been worked up by Dr. Spears in the past with EGD that did not require any dilatation, will consult speech therapy for swallow study 6. Hypertension. Metoprolol 25 mg by mouth daily 7. Hypothyroidism. Levothyroxine 100 g by mouth daily 8. Insomnia. Melatonin 6 mg by mouth at bedtime, may utilize Ativan 0.5 mg as needed to help with sleep 9. DVT prophylaxis. Pneumatic compression stockings, 10. GI prophylaxis Pepcid 20 mg daily CODE STATUS: Full code Patient will be admitted minimum 2 night hospital stay Discharge plan: Possibly home with homecare Impression and plan of care have been directed as dictated by the signing physician. Venessa Bernard nurse practitioner acting as scribe for signing physician. Past Medical History Past Medical History: Hypertension, Thyroid Disorder Additional Past Medical History / Comment(s): adrenal insufficiency, major depression disorder History of Any Multi-Drug Resistant Organisms: None Reported Past Surgical History: Orthopedic Surgery Additional Past Surgical History / Comment(s): rt knee Past Anesthesia/Blood Transfusion Reactions: No Reported Reaction Past Psychological History: Anxiety Additional Psychological History / Comment(s): Pt resides with spouse. Smoking Status: Never smoker Past Alcohol Use History: None Reported Past Drug Use History: None Reported - Past Family History Father Additional Family Medical History / Comment(s): "heart problems" Mother Family Medical History: No Reported History Additional Family Medical History / Comment(s): Mother was healthy Medications and Allergies Home Medications Medication Instructions Recorded Confirmed Type Ergocalciferol [Vitamin D2 (1250 1,250 mcg PO Q7D 12/28/20 04/12/21 History Mcg = 08473 Iu)] Famotidine [Pepcid] 40 mg PO DAILY 12/28/20 04/12/21 History LORazepam [Ativan] 0.5 mg PO TID PRN 12/28/20 04/12/21 History Melatonin 6 mg PO HS 12/28/20 04/12/21 History Metoprolol Tartrate [Lopressor] 25 mg PO DAILY 12/28/20 04/12/21 History Polyethylene Glycol 3350 [Miralax] 17 gm PO DAILY PRN 12/28/20 04/12/21 History Citalopram Hydrobromide [CeleXA] 20 mg PO DAILY 04/12/21 04/12/21 History Levothyroxine Sodium [Synthroid] 100 mcg PO DAILY 04/12/21 04/12/21 History OLANZapine ODT [ZyPREXA Zydis] 10 mg PO HS 04/12/21 04/12/21 History OLANZapine [ZyPREXA] 5 mg PO DAILY@1200 04/12/21 04/12/21 History PARoxetine [Paxil] 20 mg PO HS 04/12/21 04/12/21 History clonazePAM [KlonoPIN] 0.5 mg PO BID 04/12/21 04/12/21 History Allergies Allergy/AdvReac Type Severity Reaction Status Date / Time epinephrine AdvReac Rapid Verified 04/12/21 15:04 Heart Rate Physical Exam Vitals: Vital Signs Temp Pulse Pulse Resp BP BP Pulse Ox 04/13/21 03:59 97.7 F 61 15 171/87 99 04/12/21 22:01 97.4 F L 63 15 174/83 96 04/12/21 20:52 59 L 18 141/77 95 04/12/21 14:00 66 16 161/85 98 04/12/21 12:30 98.5 F 69 18 145/85 95 Intake and Output 04/12/21 04/13/21 04/13/21 22:59 06:59 14:59 Intake Total 60 800 Balance 60 800 Intake: Intake, IV Titration 800 Amount Sodium Chloride 0.9% 1, 800 000 ml @ 100 mls/hr IV . Q10H SHAWNA Rx#:[id number] Oral 60 Other: Voiding Method Toilet # Voids 2 Weight 58.5 kg Results CBC & Chem 7: 04/12/21 12:50 04/12/21 12:50 Labs: Abnormal Lab Results - Last 24 Hours (Table) 04/12/21 Range/Units 12:50 Sodium 133 L (137-145) mmol/L BUN 20 H (7-17) mg/dL Alkaline Phosphatase 27 L (38-126) U/L Thrombosis Risk Factor Assmnt - Choose All That Apply Any of the Below Risk Factors Present?: Yes Each Factor Represents 1 point: Swollen legs (current) Each Risk Factor Represents 2 Points: Age 61-74 years Other congenital or acquired thrombophilia - If yes, enter type in comment: No Thrombosis Risk Factor Assessment Total Risk Factor Score: 3 Thrombosis Risk Factor Assessment Level: Moderate Risk
[2021-04-13] MEDS: DEXTROSE 5%-0.45% NACL 1,000 ML IV SCH ×2 (10:31→21:35)
[2021-04-13] MEDS: SODIUM CHLORIDE 0.9% 1,000 ML IV SCH (11:02)
[2021-04-13] MEDS: OLANZapine 5 MG TAB PO SCH (13:11)
[2021-04-13] MEDS ORDERED: MELATONIN 3 MG TABLET PO SCH (21:00)
[2021-04-13] MEDS ORDERED: OLANZapine ODT 10 MG TAB PO SCH (21:00)
[2021-04-13] MEDS: PARoxetine 20 MG TAB PO SCH (21:34)
--- NOTE | 2021-04-14 00:47 | P.CN ---
Psychiatric Consult - . Consult date: 04/13/21 Consult:: Reason for consultation: Depression Identifying data: Patient is a 75-year-old female who currently lives with her . The patient was seen while she was at [facility] medical floor. Chief complaint and history of present illness: The patient was admitted to medical floor because of difficulty with swallowing and failure to thrive. Psychiatry team was consulted because of possible depression and patient's requested psychiatric evaluation and hospitalization. Patient reports not feeling depressed currently, and cannot function because of her swallowing problem. She reports came to the hospital be cause had trouble swallowing and wasn't able to eat because of difficulty swallowing food. She reports continues to take her medications including psych was even she had difficulty swallowing. She denies any current suicidal or homicidal ideation and he denies any hallucinations. Denies any anger or agitation and reports that "my is wonderful "and states "all what I have is burning throat". Patient consented to speak to her Dimitry phone number [phone] court reported that patient had history of severe depression and mood disorder with resistance to medications that she had to receive ECT and last treatment was few months ago. He reports patient received ECT treatment at [facility] and he is trying to get her back to this treatment because she was extremely depressed for the past week with refusing any food, isolating herself, not taking care of herself, and not interacting with anybody. He reports patient was not watching TV and minimally interacting with him. The patient is currently followed with outpatient psychiatrist at [place] and she continues to take her home psychiatric medications over the past week without any improvement in her mood or mental condition. reported that patient has severe anxiety and she came to the hospital with panic attack and extremely nervous and shaking. He confirmed that the patient was barely eating anything over the last week because of her depression and anxiety symptoms. reported patient had history of mood instability with severe episodes of irritable mood and anxiety. He was clear that the patient couldn't take care of herself at home and she is risk of going back home without receiving further treatment of her depression and he is planning to connect her with ECT treatment at [facility] tomorrow. The is willing to petition the patient to get her admitted to psychiatric unit because he doesn't feel that she is safe going back home. According to nursing staff, the patient had some follow-up today but not much. Past psychiatric history: Reportedly she has history of psychiatric hospitalization years ago in [facility]. She received ECT treatment with the most recent was few months ago at [facility]. Has history of outpatient psychiatric treatment. She is currently on psychiatric medications Celexa, Paxil, Klonopin, and Zyprexa. Reports previous suicidal attempt by overdose on Xanax about 3 years ago Substance use history: Denies using any tobacco progress, drinking alcohol, or using any street drugs. Family history of psychiatric illness: Denies any family history of suicide or mental illness. Reports her sister suffer from alcohol problem. Brief social history: Patient is currently living with her , unemployed, has no children. No reported history of psychological trauma. Mental status examination; Appearance: The patient appears stated age, adequately groomed and dressed, no specific features. Gait/posture: Patient was lying in bed. No abnormal movements. Attitude and behavior: Not fully engaged, not fully cooperative, poor eye contact. Motor activity: Normal psychomotor activity Speech: Normal rate, tone. Mood: Anxious Affect: Constricted Thought form: goal-directed, linear, coherent. Thought content: Non-delusional, denies suicidal thoughts, denies homicidal thoughts, denies intentions or plans. Perception: Denies any auditory or visual hallucinations Attention: No impairment. Orientation: Patient patient was fully oriented to time place person and situation. Insight: Patient has fair insight about his psychiatric disorder. Judgment: Patient has fair judgment about his psychiatric treatment. Assessment: Mood disorder unspecified. Anxiety disorder unspecified. Recommendations: Addressed and ensured patient's safety, patient is not actively suicidal, but according to the hospital and reported that she is severely depressed and couldn't take care of herself and he refused eating for the past week, so the patient does meet the criteria for psychiatric hospitalization. The will try to arrange for transfer to ECT treatment from medical floor, otherwise the patient will not be safe to go home for further monitoring and evaluation at the psychiatric unit. Transfer the patient to psychiatric unit after medically stable. Start the patient on one-to-one observation for safety. Medication management: Continue home psychiatric medications including Zyprexa for mood stabilization, Paxil and Celexa for depression and anxiety, and Klonopin for anxiety. Discussed the treatment plan with the requesting physician/service. Psychoeducation was provided to the patient. Thank you for permitting me to assist in this patient's treatment. Please call psychiatry department if you have any question or need further help with this case. 04/13/21 16:56
[2021-04-14] MEDS: LEVOTHYROXINE 100 MCG TAB PO SCH (06:06)
[2021-04-14] MEDS: DEXTROSE 5%-0.45% NACL 1,000 ML IV SCH (06:06)
[2021-04-14 06:08] VITALS: RESP 14
[2021-04-14] MEDS: FAMOTIDINE 20 MG TAB PO SCH (07:25)
[2021-04-14] MEDS: CITALOPRAM HYDROBROMIDE 20 MG TAB PO SCH (07:26)
[2021-04-14] MEDS: METOPROLOL TARTRATE 25 MG TAB PO SCH (07:26)
[2021-04-14] MEDS: clonazePAM 0.5 MG TAB PO SCH (07:26)
[2021-04-14] MEDS: LORazepam 0.5 MG TAB PO PRN ×2 (08:35→16:31)
[2021-04-14] MEDS ORDERED: FAMOTIDINE 20 MG TAB PO SCH (09:00)
[2021-04-14] MEDS: ACETAMINOPHEN TAB 325 MG TAB PO PRN ×2 (09:16→16:31)
[2021-04-14 09:58] LABS: Creatine Kinase 49 U/L (30-135)
--- NOTE | 2021-04-14 11:37 | P.PN ---
Subjective Progress Note Date: 04/14/21 History of present illness This is a 75-year-old female who presented to the emergency room with chief complaint of difficulty swallowing and had a fall a couple days ago and injured her left shoulder. She is well known to Dr Cisse with a past medical history significant for hypertension, hypothyroidism, degenerative disc disease and chronic back pain, scoliosis, depression/bipolar disorder. She is had multiple admissions over the last year due to weakness and falls, difficulty swallowing and failure to thrive. According to the she goes through these periods where she can't swallow and gets very anxious and hasn't eaten in about 3 days. was requesting that she be admitted for psychiatric services because her bipolar symptoms are getting worse and she is not getting out of bed. Patient currently denies any chest pain, difficulty breathing, fever or chills, abdominal pain or discomfort, nausea vomiting or diarrhea. CT of the head showed mild cerebral atrophy no acute intracranial abnormality, cervical CT was negative. Left shoulder x-ray showed moderate away with chronic rotator cuff tendinopathy. Vital signs are stable, she is afebrile, pulse rate 61, blood pressure is elevated 171/87, pulse ox 99% on room air. CBC was unremarkable, sodium was 133, BUN was 20 creatinine 0.58. Patient was admitted for rehydration repeat swallow study, and psychiatric consult. 04/14: Patient continues to complain of difficulty swallowing and anxiety. Speech therapy on consult. Patient has been seen by social work and has been accepted at [facility] in [place] [facility] unit. The physician and certainly completed. Patient was seen by psychiatry yesterday and it was recommended the patient needs to be transferred to a psychiatric facility. Her current psychiatric medications include Zyprexa, Paxil, Celexa and Klonopin. Patient has a highway safety engineer at bedside. She has been afebrile, heart rate 78, blood pr essure 1 6479, pulse ox 99% on room air. CK is 49. Cortisol level XII. Patient will be discharged to psychiatric facility once arrangements are completed. Review Of Systems: Constitutional: No fever, no chills, no night sweats. No weight change. Report weakness and fatigue no lethargy. No daytime sleepiness. EENT: No headache. No blurred vision or double vision, no loss of vision. No loss of Hearing, no ringing in the ears, no dizziness. No nasal drainage or co ngestion. No epistaxis. No sore throat. Lungs: No shortness of breath, cough, no sputum production. No wheezing. Cardiovascular: No chest pain, no lower extremity edema. No palpitations. No paroxysmal nocturnal dyspnea. No orthopnea. No lightheadedness or dizziness. No syncopal episodes. Abdominal: Reports abdominal discomfort. No nausea, vomiting. no diarrhea. No constipation. No bloody or tarry stools. no loss of appetite. Genitourinary: Reports dysuria, reports increased frequency and urgency. No urinary retention. Musculoskeletal: No myalgias. No muscle weakness, no gait dysfunction, no frequent falls. No back pain. No neck pain. Integumentary: No wounds, no lesions. No rash or pruritus. No unusual bruising. No change in hair or nails. Neurologic: No aphasia. No facial droop. No change in mentation. No head injury. No headache. No paralysis. No paresthesia. Reports difficulty swallowing Psychiatric: Denies depression. Reports difficulty sleeping. No anxiety. No mood swings. Endocrine: No abnormal blood sugars. No weight change. No excessive sweating or thirst. Physical examination General Appearance: Alert, cooperative, cachectic, no distress, 75-year-old pleasant female appears stated age. Neck HEENT: Supple, no lymphadenopathy, no thyroid enlargement, no carotid bruits. Lungs: Clear to auscultation without crackles or wheezes no rhonchi, no deformity. Chest Wall: Chest wall normal expansion with deep inspiration no tenderness and no deformity was found on exam, no costochondral pain or discomfort. Heart: Regular rate and rhythm, S1, S2 normal, no murmur, rub or gallop. Back: Symmetric, no curvature, ROM normal, no CVA tenderness. Abdomen: Soft, non-tender, no rebound or rigidity, no hepatosplenomegaly. Extremities: Extremities normal, atraumatic, no cyanosis or edema. Pulses: 2+ and symmetric. Skin: Skin color, texture, tugor normal, no rashes or lesions. Neurologic: Alert oriented x3 cranial nerves II through XII intact, no motor deficit, no abnormal balance or gait Assessment and plan 1 Failure to thrive secondary to likely worsening depression and bipolar disord er. Patient on Celexa 20 mg daily, Paxil 20 mg at at bedtime, Zyprexa 5 mg in a.m. and 10 mg at at bedtime. Psychiatry consult is appreciated 2. Dehydration. IV fluids will be discontinued. 3. Fall with weakness. Consult PT/OT 4. Depression with panic attacks. On clonazepam 0.5 mg twice a day, As above and Ativan 0.5 mg every 6 hours as needed. Consult psychiatry. 5. Dysphagia. Has been worked up by Dr. Spears in the past with EGD that did not require any dilatation, will consult speech therapy for swallow study 6. Hypertension. Metoprolol 25 mg by mouth daily 7. Hypothyroidism. Levothyroxine 100 g by mouth daily 8. Insomnia. Melatonin 6 mg by mouth at bedtime, may utilize Ativan 0.5 mg as needed to help with sleep 9. DVT prophylaxis. Pneumatic compression stockings, 10. GI prophylaxis Pepcid 20 mg daily CODE STATUS: Full code Discharge plan: Transfer to [facility] unit Impression and plan of care have been directed as dictated by the signing physician. Earline Baker nurse practitioner acting as scribe for signing physician. Objective - Vital Signs Vital signs: Vital Signs Temp 97.7 F 04/14/21 06:07 Pulse 78 04/14/21 06:07 Resp 14 04/14/21 06:07 BP 164/79 04/14/21 06:07 Pulse Ox 99 04/14/21 06:07 Intake & Output 04/13/21 04/14/21 04/14/21 18:59 06:59 18:59 Intake Total 2160 Balance 2160 Intake: Oral 2160 Other: Voiding Method Toilet # Voids 4 - Labs CBC & Chem 7: 04/12/21 12:50 04/12/21 12:50
--- NOTE | 2021-04-14 11:41 | P.DS ---
Providers Date of admission: 04/12/21 20:59 Expected date of discharge: 04/14/21 Attending physician: Dara Oviedo MD Consults: 04/12/21 21:00 Consult Physician Routine Consulting Provider: Aida Eduardo Consult Reason/Comments: Depression Do you want consulting provider notified?: Yes, Notify in am Primary care physician: [facility] Course: History of present illness This is a 75-year-old female who presented to the emergency room with chief complaint of difficulty swallowing and had a fall a couple days ago and injured her left shoulder. She is well known to Dr Cisse with a past medical history significant for hypertension, hypothyroidism, degenerative disc disease and chronic back pain, scoliosis, depression/bipolar disorder. She is had multiple admissions over the last year due to weakness and falls, difficulty swallowing and failure to thrive. According to the she goes through these periods where she can't swallow and gets very anxious and hasn't eaten in about 3 days. was requesting that she be admitted for psychiatric services because her bipolar symptoms are getting worse and she is not getting out of bed. Patient currently denies any chest pain, difficulty breathing, fever or chills, abdominal pain or discomfort, nausea vomiting or diarrhea. CT of the head showed mild cerebral atrophy no acute intracranial abnormality, cervical CT was negative. Left shoulder x-ray showed moderate away with chronic rotator cuff tendinopathy. Vital signs are stable, she is afebrile, pulse rate 61, blood pressure is elevated 171/87, pulse ox 99% on room air. CBC was unremarkable, sodium was 133, BUN was 20 creatinine 0.58. Patient was admitted for rehydration repeat swallow study, and psychiatric consult. 04/14: Patient continues to complain of difficulty swallowing and anxiety. Speech therapy on consult. Patient has been seen by social work and has been accepted at [facility] in [place] [facility]. The physician and certainly completed. Patient was seen by psychiatry yesterday and it was recommended the patient needs to be transferred to a psychiatric facility. Her current psychiatric medications include Zyprexa, Paxil, Celexa and Klonopin. Patient has a process safety engineering technologist at bedside. She has been afebrile, heart rate 78, blood pressure 1 6479, pulse ox 99% on room air. CK is 49. Cortisol level XII. Patient will be discharged to psychiatric facility once arrangements are completed. Discharge Diagnoses 1 Failure to thrive secondary to likely worsening depression and bipolar disorder. 2. Dehydration. 3. Fall with weakness. 4. Recurrent depression with panic attacks. 5. Dysphagia. 6. Hypertension. 7. Hypothyroidism. 8. Insomnia. Discharge plan Transfer to [facility] mental health unit Impression and plan of care have been directed as dictated by the signing physician. Earline Baker nurse practitioner acting as scribe for signing physician. Patient Condition at Discharge: Stable Plan - Discharge Summary Discharge Rx Participant: Yes New Discharge Prescriptions: New Clotrimazole Angela [Mycelex Angela] 10 mg MUCOUS MEM 5XD #35 angela Continue Ergocalciferol [Vitamin D2 (1250 Mcg = 58150 Iu)] 1,250 mcg PO Q7D Polyethylene Glycol 3350 [Miralax] 17 gm PO DAILY PRN PRN Reason: Constipation Metoprolol Tartrate [Lopressor] 25 mg PO DAILY Melatonin 6 mg PO HS LORazepam [Ativan] 0.5 mg PO TID PRN PRN Reason: Pain Famotidine [Pepcid] 40 mg PO DAILY Citalopram Hydrobromide [CeleXA] 20 mg PO DAILY OLANZapine ODT [ZyPREXA Zydis] 10 mg PO HS clonazePAM [KlonoPIN] 0.5 mg PO BID Levothyroxine Sodium [Synthroid] 100 mcg PO DAILY OLANZapine [ZyPREXA] 5 mg PO DAILY@1200 PARoxetine [Paxil] 20 mg PO HS Discharge Medication List Ergocalciferol [Vitamin D2 (1250 Mcg = 21994 Iu)] 1,250 mcg PO Q7D 12/28/20 [History] Famotidine [Pepcid] 40 mg PO DAILY 12/28/20 [History] LORazepam [Ativan] 0.5 mg PO TID PRN 12/28/20 [History] Melatonin 6 mg PO HS 12/28/20 [History] Metoprolol Tartrate [Lopressor] 25 mg PO DAILY 12/28/20 [History] Polyethylene Glycol 3350 [Miralax] 17 gm PO DAILY PRN 12/28/20 [History] Citalopram Hydrobromide [CeleXA] 20 mg PO DAILY 04/12/21 [History] Levothyroxine Sodium [Synthroid] 100 mcg PO DAILY 04/12/21 [History] OLANZapine ODT [ZyPREXA Zydis] 10 mg PO HS 04/12/21 [History] OLANZapine [ZyPREXA] 5 mg PO DAILY@1200 04/12/21 [History] PARoxetine [Paxil] 20 mg PO HS 04/12/21 [History] clonazePAM [KlonoPIN] 0.5 mg PO BID 04/12/21 [History] Clotrimazole Angela [Mycelex Angela] 10 mg MUCOUS MEM 5XD #35 angela 04/14/21 [Rx] Follow up Appointment(s)/Referral(s): Billy Cisse MD [Primary Care Provider] - 1 Week (after discharge from mental health unit) Discharge Disposition: TRANSFER TO PSYCH HOSP/UNIT
[2021-04-14] MEDS: OLANZapine 5 MG TAB PO SCH (12:00)
[2021-04-14 12:03] VITALS: BP 134/77; PULSE 62; TEMP 98
--- NOTE | 2021-04-14 13:48 | P.PN ---
Progress Note - Text Progress Note Date: 04/14/21 Interval History: Patient was seen today for psychiatric follow-up regarding patient's depression. 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 Patient was previously seen by Dr. Eduardo over the weekend for psychiatric evaluation and was deemed to meet criteria for inpatient psychiatric hospitalization at a facility to continue on with her ECT treatment. Patient was seen today and spoke of her depression and appeared to have disheveled appearance with poor hygiene and grooming. She states that she is not able to take care of herself. She was fairly somatically preoccupied. She has fairly poor insight into her condition. She claimed that she has been getting her medications. She claims that she has done much better on ECT in the past. She claims that she is not able to take care of herself. She claims to have poor sleep at night. He did speak about passive suicidal thoughts however no intent or plan this time. At this time patient denies any homical ideations, intent or plan. Patient denies any auditory, visual hallucinations and denies any paranoia or delusions. Patient denies any side effects from the medications and has been compliant with meds. Mental Status Exam: General Appearance: Patient appears to be thin, disheveled, stated age is alert, directable, and attempts to be cooperative. Behavior: Patient is calmly seated without any agitated behavior. Constricted Speech: Patient's speech is fluent and nonpressured. Hesitant. Soft tone. Mood/Affect: Mood is depressed and anxious, affect is congruent and constricted. Suicidality/Homicidality: Patient denies having any homicidal ideation intent or plan. She did admit to passive suicidal thoughts. No intent or plan. Perceptions: Patient denies any visual hallucinations and denies any auditory hallucinations Though content/process: Somatically preoccupied. Poor insight into her condition. Logical. Memory and concentration: AOX3, grossly intact for the purposes of this session Judgment and insight: Poor Assessment Major depressive disorder, severe, recurrent Anxiety disorder unspecified Plan: -At this time patient DOES meet criteria for inpatient psychiatric admission. -Delirium precautions recommended with patient including - avoiding use of narcotics and MASTIC FLOOR LAYER sedatives, limit anticholinergic medications when possible, frequent re-orientation, minimize use of restraints, open window shades during the day and close them at night -Would recommend the following medication changes/additions: Continue on with psychiatric medications as prescribed including Celexa, Klonopin, melatonin, Zyprexa and Paxil -Continue 1:1 sitter for safety -Cannot leave AMA at this time. Patient will need a petition and certification if attempting to leave AMA. -completed first clinical cert for patient and given to patients nurse. SW to complete package and arrange for transfer today to [facility] for inpt psych with ECT today. -When medically stable, patient is eligible for transfer to a psych bed when available. -Communicated plan to patient's nurse -Psychiatry will sign off at this time -Please contact with any questions.
[2021-04-14] MEDS ORDERED: CLOTRIMAZOLE TROCHE 10 MG TROCHE MUCOUS MEM SCH (16:00)
== END 2021-04-14 18:00 ==
LOC: EC 12:29 → 5NMEDONC 20:59
PROVIDERS: ADMIT Internal Medicine; ATTEND Internal Medicine
DX: R62.7 Adult failure to thrive (principal); F31.9 Bipolar disorder, unspecified; E86.0 Dehydration; W19.XXXA Unspecified fall, initial encounter; F41.0 Panic disorder [episodic paroxysmal anxiety]; R13.10 Dysphagia, unspecified; I10 Essential (primary) hypertension; E03.9 Hypothyroidism, unspecified; G47.00 Insomnia, unspecified; M54.2 Cervicalgia; G89.29 Other chronic pain; M54.9 Dorsalgia, unspecified; M41.9 Scoliosis, unspecified; M79.89 Other specified soft tissue disorders; M67.912 Unspecified disorder of synovium and tendon, left shoulder; F39 Unspecified mood [affective] disorder; F41.9 Anxiety disorder, unspecified; Z20.822 Contact with and (suspected) exposure to COVID-19; Z79.899 Other long term (current) drug therapy; R45.851 Suicidal ideations; R29.6 Repeated falls; Z91.5 Personal history of self-harm; E27.40 Unspecified adrenocortical insufficiency; Z79.890 Hormone replacement therapy; Z88.8 Allergy status to other drugs, medicaments and biological substances; Z80.49 Family history of malignant neoplasm of other genital organs; Z82.49 Family history of ischemic heart disease and other diseases of the circulatory system
CPT/HCPCS: 96360; 96361; 82075; 99285; 36415; 97162; 92610; 80053; 82533; 82525; 82550; 83735; 85025; 82024; 86301; 80306; 87635; 73030; 72125; 70450; G0378 ×3

== ENCOUNTER 2021-05-05 10:57 | Emergency (ER) | payer MEDICARE, BC ==
[2021-05-05 11:21] VITALS: RESP 18
[2021-05-05 11:56] LABS: Appearance,Urine Clear (Clear); Bilirubin,Urine Negative (Negative); Blood,Urine Negative (Negative); Color,Urine Yellow; Glucose,Urine (UA) Negative (Negative); Ketones,Urine Negative (Negative); Leukocyte Esterase,Urine Small (Negative); Nitrite,Urine Negative (Negative); Protein,Urine Negative (Negative); Specific Gravity,Urine 1.014 (1.001-1.035); Urobilinogen,Urine <2.0 mg/dL (<2.0)
[2021-05-05 11:57] LABS: Mucus,Urine Rare /hpf; RBC,Urine 2 /hpf (0-5); Squamous Epithelial Cell,Urine <1 /hpf (0-4); WBC,Urine 2 /hpf (0-5)
--- NOTE | 2021-05-05 12:36 | ED ---
General Adult HPI - General Chief complaint: Psychiatric Symptoms Stated complaint: Mental Health Time Seen by Provider: 05/05/21 11:26 Source: EMS Mode of arrival: EMS - History of Present Illness Initial comments: Dictation was produced using [email or web address] dictation software. please excuse any grammatical, word or spelling errors. Chief Complaint: 75-year-old female presents for psychiatric evaluation. History of Present Illness: Patient 75-year-old female she has past medical history of major depressive disorder. She is states that she is currently enrolled in a ECT therapy. She is allegedly for herself on the ground at home. Patient states that she is visiting her anxiety is acting up. She states she feels fine right now. Spell so she expressed is somewhat that she was suicidal. She denies suicidal homicidal ideation. No visual or auditory hallucinations. The ROS documented in this emergency department record has been reviewed and confirmed by me. Those systems with pertinent positive or negative responses have been documented in the HPI. All other systems are other negative and/or noncontributory. PHYSICAL EXAM: General Impression: Alert and oriented x3, not in acute distress HEENT: Normocephalic atraumatic, extra-ocular movements intact, pupils equal and reactive to light bilaterally, mucous membranes moist. Cardiovascular: Heart regular rate and rhythm Chest: Able to complete full sentences, no retractions, no tachypnea Abdomen: abdomen soft, non-tender, non-distended, no organomegaly Musculoskeletal: Pulses present and equal in all extremities, no peripheral edema Motor: no focal deficits noted Neurological: CN II-XII grossly intact, no focal motor or sensory deficits noted Skin: Intact with no visualized rashes Psych: Normal affect and mood ED course: 75-year-old female sent in by primary care physician for psychiatric evaluation. Physical examination is benign. Patient is cooperative and well- appearing. Not showing signs of psychosis. Vital signs upon arrival are within acceptable limits. Patient medically cleared for EPS evaluation. Patient evaluated by EPS recommended discharge home to with follow-up. - Related Data Home Medications Medication Instructions Recorded Confirmed Ergocalciferol [Vitamin D2 (1250 1,250 mcg PO Q7D 12/28/20 04/12/21 Mcg = 39303 Iu)] Famotidine [Pepcid] 40 mg PO DAILY 12/28/20 04/12/21 LORazepam [Ativan] 0.5 mg PO TID PRN 12/28/20 04/12/21 Melatonin 6 mg PO HS 12/28/20 04/12/21 Metoprolol Tartrate [Lopressor] 25 mg PO DAILY 12/28/20 04/12/21 Polyethylene Glycol 3350 [Miralax] 17 gm PO DAILY PRN 12/28/20 04/12/21 Citalopram Hydrobromide [CeleXA] 20 mg PO DAILY 04/12/21 04/12/21 Levothyroxine Sodium [Synthroid] 100 mcg PO DAILY 04/12/21 04/12/21 OLANZapine ODT [ZyPREXA Zydis] 10 mg PO HS 04/12/21 04/12/21 OLANZapine [ZyPREXA] 5 mg PO DAILY@1200 04/12/21 04/12/21 PARoxetine [Paxil] 20 mg PO HS 04/12/21 04/12/21 clonazePAM [KlonoPIN] 0.5 mg PO BID 04/12/21 04/12/21 Previous Rx's Medication Instructions Recorded Clotrimazole Raquel [Mycelex 10 mg MUCOUS MEM 5XD #35 raquel 04/14/21 Raquel] Allergies Allergy/AdvReac Type Severity Reaction Status Date / Time epinephrine AdvReac Rapid Verified 04/12/21 15:04 Heart Rate Review of Systems ROS Statement: Those systems with pertinent positive or pertinent negative responses have been documented in the HPI. ROS Other: All systems not noted in ROS Statement are negative. Past Medical History Past Medical History: Hypertension, Thyroid Disorder Additional Past Medical History / Comment(s): adrenal insufficiency, major depression disorder History of Any Multi-Drug Resistant Organisms: None Reported Past Surgical History: Orthopedic Surgery Additional Past Surgical History / Comment(s): rt knee Past Anesthesia/Blood Transfusion Reactions: No Reported Reaction Past Psychological History: Anxiety Smoking Status: Never smoker Past Alcohol Use History: None Reported Past Drug Use History: None Reported - Past Family History Father Additional Family Medical History / Comment(s): "heart problems" Mother Family Medical History: No Reported History Additional Family Medical History / Comment(s): Mother was healthy Course Vital Signs 05/05/21 11:12 Temperature 98.5 F Pulse Rate 77 Respiratory 18 Rate Blood Pressure 124/82 O2 Sat by Pulse 95 Oximetry Medical Decision Making - Lab Data Lab Results 05/05/21 Range/Units 11:29 Urine Color Yellow Urine Appearance Clear (Clear) Urine pH 7.0 (5.0-8.0) Ur Specific [place] 1.014 (1.001-1.035) Urine Protein Negative (Negative) Urine Glucose (UA) Negative (Negative) Urine Ketones Negative (Negative) Urine Blood Negative (Negative) Urine Nitrite Negative (Negative) Urine Bilirubin Negative (Negative) Urine Urobilinogen <2.0 (<2.0) mg/dL Ur Leukocyte Esterase Small H (Negative) Urine RBC 2 (0-5) /hpf Urine WBC 2 (0-5) /hpf Ur Squamous Epith Cells <1 (0-4) /hpf Urine Mucus Rare H (None) /hpf Disposition Clinical Impression: Depression, Acute anxiety Disposition: HOME SELF-CARE Condition: Good Instructions (If sedation given, give patient instructions): Anxiety (ED) Is patient prescribed a controlled substance at d/c from ED?: No Referrals: Billy Cisse MD [Primary Care Provider] - 1-2 days
[2021-05-05 13:56] VITALS: BP 160/84; PULSE 81; TEMP 97.7
== END 2021-05-05 13:55 | disposition home or self-care (01) ==
LOC: EC 10:57
DX: F32.9 Major depressive disorder, single episode, unspecified (principal); F41.9 Anxiety disorder, unspecified; I10 Essential (primary) hypertension; E07.9 Disorder of thyroid, unspecified
CPT/HCPCS: 81001; 82075; 87086; 99284

== ENCOUNTER 2021-07-31 17:30 | Inpatient (IN) | payer BC, MEDICARE ==
[2021-07-31] MEDS ORDERED: SODIUM CHLORIDE 0.9% 1,000 ML IV STA (18:31)
--- NOTE | 2021-07-31 18:34 | ED ---
General Adult HPI - General Chief complaint: Recheck/Abnormal Lab/Rx Stated complaint: Weakness,Poss UTI Time Seen by Provider: 07/31/21 17:38 Source: patient, family, RN notes reviewed Mode of arrival: EMS Limitations: no limitations - History of Present Illness Initial comments: Patient is a pleasant 76-year-old female presenting to the emergency department with increased weakness. Patient was discharged from [facility] on Wednesday. Patient has had rapid decline in function since that time. Patient is not getting out of bed. Patient is unable to walk on her own. Patient is not eating or drinking. Patient is making statements that are nonsensical. Patient does have history of similar symptoms previously associated with urinary tract infection. No fevers. Patient denies problems and majority of history is taken from . - Related Data Home Medications Medication Instructions Recorded Confirmed Famotidine [Pepcid] 20 mg PO BID 12/28/20 07/31/21 LORazepam [Ativan] 0.25 mg PO BID PRN 12/28/20 07/31/21 Melatonin 6 mg PO HS PRN 12/28/20 07/31/21 Levothyroxine Sodium [Synthroid] 100 mcg PO DAILY 04/12/21 07/31/21 Acetaminophen Tab [Tylenol Tab] 500 mg PO Q6HR PRN 07/31/21 07/31/21 Desipramine HCl 50 mg PO DAILY 07/31/21 07/31/21 Ergocalciferol (Vitamin D2) 1,250 mcg PO SA 07/31/21 07/31/21 [Drisdol (50,000 Iu)] cloZAPine [Clozaril] 25 mg PO W/SUPPER 07/31/21 07/31/21 cloZAPine [Clozaril] 50 mg PO HS 07/31/21 07/31/21 Allergies Allergy/AdvReac Type Severity Reaction Status Date / Time epinephrine AdvReac Rapid Verified 07/31/21 20:32 Heart Rate Review of Systems ROS Statement: Those systems with pertinent positive or pertinent negative responses have been documented in the HPI. ROS Other: All systems not noted in ROS Statement are negative. Constitutional: Denies: fever Eyes: Denies: eye pain ENT: Denies: ear pain Respiratory: Denies: cough Cardiovascular: Denies: chest pain Endocrine: Reports: fatigue (Patient has been sleeping a lot) Gastrointestinal: Denies: abdominal pain, vomiting Genitourinary: Denies: dysuria Musculoskeletal: Denies: back pain Skin: Denies: rash Neurological: Reports: as per HPI, weakness Past Medical History Past Medical History: Hypertension, Thyroid Disorder Additional Past Medical History / Comment(s): adrenal insufficiency, major depression disorder History of Any Multi-Drug Resistant Organisms: None Reported Past Surgical History: Orthopedic Surgery Additional Past Surgical History / Comment(s): rt knee Past Anesthesia/Blood Transfusion Reactions: No Reported Reaction Past Psychological History: Anxiety Smoking Status: Never smoker Past Alcohol Use History: None Reported Past Drug Use History: None Reported - Past Family History Father Additional Family Medical History / Comment(s): "heart problems" Mother Family Medical History: No Reported History Additional Family Medical History / Comment(s): Mother was healthy General Exam Limitations: no limitations General appearance: alert, in no apparent distress Head exam: Present: normocephalic Eye exam: Present: normal appearance, PERRL, EOMI ENT exam: Present: mucous membranes dry Neck exam: Present: normal inspection Respiratory exam: Present: normal lung sounds bilaterally Cardiovascular Exam: Present: tachycardia GI/Abdominal exam: Present: soft. Absent: tenderness Extremities exam: Present: normal inspection Neurological exam: Present: alert, oriented X3, CN II-XII intact Expanded Neurological exam: Present: protecting the airway Patient oriented to: Present: person, place, time Speech: Present: fluid speech Motor strength exam: RUE: 4, LUE: 4, RLE: 3, LLE: 3 Eye Response: (4) open spontaneously Motor Response: (6) obeys commands Verbal Response: (5) oriented Psychiatric exam: Present: normal affect, normal mood Skin exam: Present: normal color Course Vital Signs 07/31/21 17:43 Temperature 98.5 F Pulse Rate 118 H Respiratory 18 Rate Blood Pressure 135/83 O2 Sat by Pulse 99 Oximetry EKG Findings - EKG Comments: EKG Findings:: Sinus tachycardia with rate of 114. KS 142. QRS 76. QT 3:30 APTT 465. Normal axis. Normal QRS. No acute ST change. Medical Decision Making - Medical Decision Making Patient reevaluated and resting comfortably in bed. Case discussed with Dr. Calixto, who will admit for Dr. Cisse. She does request neurology and psychiatry evaluation. - Lab Data Result diagrams: 07/31/21 18:45 07/31/21 18:45 Lab Results 07/31/21 07/31/21 07/31/21 Range/Units 18:45 18:45 18:45 WBC 5.4 (3.8-10.6) k/uL RBC 4.69 (3.80-5.40) m/uL Hgb 14.8 (11.4-16.0) gm/dL Hct 44.0 (34.0-46.0) % MCV 93.7 (80.0-100.0) fL MCH 31.6 (25.0-35.0) pg MCHC 33.7 (31.0-37.0) g/dL RDW 11.9 (11.5-15.5) % Plt Count 184 (150-450) k/uL MPV 6.9 Neutrophils % 72 % Lymphocytes % 15 % Monocytes % 8 % Eosinophils % 2 % Basophils % 0 % Neutrophils # 3.9 (1.3-7.7) k/uL Lymphocytes # 0.8 L (1.0-4.8) k/uL Monocytes # 0.4 (0-1.0) k/uL Eosinophils # 0.1 (0-0.7) k/uL Basophils # 0.0 (0-0.2) k/uL PT 9.4 (9.0-12.0) sec INR 0.9 (<1.2) APTT 19.4 L (22.0-30.0) sec Sodium (137-145) mmol/L Potassium (3.5-5.1) mmol/L Chloride (98-107) mmol/L Carbon Dioxide (22-30) mmol/L Anion Gap mmol/L BUN (7-17) mg/dL Creatinine (0.52-1.04) mg/dL Est GFR (CKD-EPI)AfAm (>60 ml/min/1.73 sqM) Est GFR (CKD-EPI)NonAf (>60 ml/min/1.73 sqM) Glucose (74-99) mg/dL Calcium (8.4-10.2) mg/dL Total Bilirubin (0.2-1.3) mg/dL AST (14-36) U/L ALT (4-34) U/L Alkaline Phosphatase (38-126) U/L Troponin I (0.000-0.034) ng/mL Total Protein (6.3-8.2) g/dL Albumin (3.5-5.0) g/dL Urine Color Yellow Urine Appearance Cloudy H (Clear) Urine pH 6.5 (5.0-8.0) Ur Specific [place] 1.024 (1.001-1.035) Urine Protein 1+ H (Negative) Urine Glucose (UA) Negative (Negative) Urine Ketones 2+ H (Negative) Urine Blood Small H (Negative) Urine Nitrite Negative (Negative) Urine Bilirubin Negative (Negative) Urine Urobilinogen >12.0 (<2.0) mg/dL Ur Leukocyte Esterase Negative (Negative) Urine RBC 54 H (0-5) /hpf Urine WBC 12 H (0-5) /hpf Urine Bacteria Many H (None) /hpf Urine Yeast (Budding) Moderate H (None) /hpf Urine Opiates Screen Not Detected (NotDetected) Ur Oxycodone Screen Not Detected (NotDetected) Urine Methadone Screen Not Detected (NotDetected) Ur Propoxyphene Screen Not Detected (NotDetected) Ur Barbiturates Screen Not Detected (NotDetected) U Tricyclic Antidepress Detected H (NotDetected) Ur Phencyclidine Scrn Not Detected (NotDetected) Ur Amphetamines Screen Not Detected (NotDetected) U Methamphetamines Scrn Not Detected (NotDetected) U Benzodiazepines Scrn Detected H (NotDetected) Urine Cocaine Screen Not Detected (NotDetected) U Marijuana (THC) Screen Not Detected (NotDetected) 07/31/21 07/31/21 Range/Units 18:45 18:45 WBC (3.8-10.6) k/uL RBC (3.80-5.40) m/uL Hgb (11.4-16.0) gm/dL Hct (34.0-46.0) % MCV (80.0-100.0) fL MCH (25.0-35.0) pg MCHC (31.0-37.0) g/dL RDW (11.5-15.5) % Plt Count (150-450) k/uL MPV Neutrophils % % Lymphocytes % % Monocytes % % Eosinophils % % Basophils % % Neutrophils # (1.3-7.7) k/uL Lymphocytes # (1.0-4.8) k/uL Monocytes # (0-1.0) k/uL Eosinophils # (0-0.7) k/uL Basophils # (0-0.2) k/uL PT (9.0-12.0) sec INR (<1.2) APTT (22.0-30.0) sec Sodium 134 L (137-145) mmol/L Potassium 3.9 (3.5-5.1) mmol/L Chloride 101 (98-107) mmol/L Carbon Dioxide 23 (22-30) mmol/L Anion Gap 10 mmol/L BUN 17 (7-17) mg/dL Creatinine 0.68 (0.52-1.04) mg/dL Est GFR (CKD-EPI)AfAm >90 (>60 ml/min/1.73 sqM) Est GFR (CKD-EPI)NonAf 86 (>60 ml/min/1.73 sqM) Glucose 122 H (74-99) mg/dL Calcium 8.9 (8.4-10.2) mg/dL Total Bilirubin 0.7 (0.2-1.3) mg/dL AST 31 (14-36) U/L ALT 18 (4-34) U/L Alkaline Phosphatase 42 (38-126) U/L Troponin I 0.022 (0.000-0.034) ng/mL Total Protein 7.3 (6.3-8.2) g/dL Albumin 4.1 (3.5-5.0) g/dL Urine Color Urine Appearance (Clear) Urine pH (5.0-8.0) Ur Specific [place] (1.001-1.035) Urine Protein (Negative) Urine Glucose (UA) (Negative) Urine Ketones (Negative) Urine Blood (Negative) Urine Nitrite (Negative) Urine Bilirubin (Negative) Urine Urobilinogen (<2.0) mg/dL Ur Leukocyte Esterase (Negative) Urine RBC (0-5) /hpf Urine WBC (0-5) /hpf Urine Bacteria (None) /hpf Urine Yeast (Budding) (None) /hpf Urine Opiates Screen (NotDetected) Ur Oxycodone Screen (NotDetected) Urine Methadone Screen (NotDetected) Ur Propoxyphene Screen (NotDetected) Ur Barbiturates Screen (NotDetected) U Tricyclic Antidepress (NotDetected) Ur Phencyclidine Scrn (NotDetected) Ur Amphetamines Screen (NotDetected) U Methamphetamines Scrn (NotDetected) U Benzodiazepines Scrn (NotDetected) Urine Cocaine Screen (NotDetected) U Marijuana (THC) Screen (NotDetected) - Radiology Data Radiology results: report reviewed (Chest x-ray shows no acute abnormality. Nonspecific reticular pattern can correlate with normal pressure hydrocephalus), image reviewed Disposition Clinical Impression: Altered mental status, Urinary tract infection Disposition: ADMITTED IP TO THIS HOSP Is patient prescribed a controlled substance at d/c from ED?: No Referrals: Billy Cisse MD [Primary Care Provider] - 1-2 days Decision Time: 20:59
[2021-07-31 19:05] LABS: Basophils % (A) 0 %; Eosinophils # (A) 0.1 k/uL (0-0.7); Eosinophils % (A) 2 %; HGB 14.8 gm/dL (11.4-16.0); Lymphocytes # (A) 0.8 k/uL (1.0-4.8); Lymphocytes % (A) 15 %; MCH 31.6 pg (25.0-35.0); MCHC 33.7 g/dL (31.0-37.0); MCV 93.7 fL (80.0-100.0); Mean Platelet Volume 6.9; Monocytes # (A) 0.4 k/uL (0-1.0); Monocytes % (A) 8 %; Neutrophils # (A) 3.9 k/uL (1.3-7.7); Neutrophils % (A) 72 %; Platelet Count 184 k/uL (150-450); RBC 4.69 m/uL (3.80-5.40); RDW 11.9 % (11.5-15.5); WBC 5.4 k/uL (3.8-10.6)
[2021-07-31 19:14] LABS: Appearance,Urine Cloudy (Clear); Bacteria,Urine Many /hpf; Bilirubin,Urine Negative (Negative); Blood,Urine Small (Negative); Budding Yeast,Urine Moderate /hpf; Color,Urine Yellow; Glucose,Urine (UA) Negative (Negative); Ketones,Urine 2+ (Negative); Leukocyte Esterase,Urine Negative (Negative); Nitrite,Urine Negative (Negative); PH, Urine 6.5 (5.0-8.0); Protein,Urine 1+ (Negative); RBC,Urine 54 /hpf (0-5); Specific Gravity,Urine 1.024 (1.001-1.035); Urobilinogen,Urine >12.0 mg/dL (<2.0); WBC,Urine 12 /hpf (0-5)
[2021-07-31 19:17] LABS: Amphetamine Screen,Urine Not Detected (NotDetected); Barbiturate Screen,Urine Not Detected (NotDetected); Benzodiazepines Screen,Urine Detected (NotDetected); Cocaine Screen,Urine Not Detected (NotDetected); Methadone Screen, Urine Not Detected (NotDetected); Opiate Screen,Urine Not Detected (NotDetected); Oxycodone Screen, Urine Not Detected (NotDetected); Phencyclidine Screen,Urine Not Detected (NotDetected); Tricyclic Antidepressant,Urine Detected (NotDetected); Urn Cannabinoid Scrn Not Detected (NotDetected)
[2021-07-31 19:20] LABS: ALT 18 U/L (4-34); AST 31 U/L (14-36); African American GFR (CKD) >90 (>60 ml/min/1.73 sqM); Albumin 4.1 g/dL (3.5-5.0); Alkaline Phosphatase 42 U/L (38-126); Anion Gap 10 mmol/L; Blood Urea Nitrogen 17 mg/dL (7-17); Calcium 8.9 mg/dL (8.4-10.2); Carbon Dioxide 23 mmol/L (22-30); Chloride 101 mmol/L (98-107); Glucose 122 mg/dL (74-99); Non-African American GFR(CKD) 86 (>60 ml/min/1.73 sqM); Potassium 3.9 mmol/L (3.5-5.1); Sodium 134 mmol/L (137-145); Total Bilirubin 0.7 mg/dL (0.2-1.3); Total Protein 7.3 g/dL (6.3-8.2)
[2021-07-31 19:21] LABS: INR 0.9 (<1.2); Prothrombin Time 9.4 sec (9.0-12.0)
[2021-07-31 19:22] LABS: Partial Thromboplastin Time 19.4 sec (22.0-30.0)
--- NOTE | 2021-07-31 20:31 | CT ---
EXAMINATION: CT brain wo con DATE AND TIME: 07/31/2021 7:42 PM CLINICAL INDICATION: PHH; Altered mental status TECHNIQUE: Standard departmental protocol DLP: 1099.4 mGy-cm COMPARISON: 04/12/2021 FINDINGS: The calvarium is intact. There is no intracranial hemorrhage. There is no intracranial mass or mass effect. No definite new intra-axial or extra-axial attenuation defect. It is noted that the ventricles are more prominent than the sulci and cisterns, a nonspecific radiolo gic pattern which can correlate with a clinical diagnosis of normal pressure hydrocephalus. The nonsp ecific pattern is similar to the prior study. The paranasal sinuses, middle ear cavities, and mastoid sinus air cells are clear. The orbits are unremarkable. IMPRESSION: 1. NO ACUTE PROCESS. 2. Nonspecific ventricular pattern which can correlate with a clinical diagnosis of normal pressure h ydrocephalus.
[2021-07-31] MEDS ORDERED: NALOXONE 0.4 MG/ML 1 ML VIAL IV PRN (20:59)
--- NOTE | 2021-07-31 21:00 | XR ---
EXAMINATION: XR chest 2V DATE AND TIME: 07/31/2021 7:45 PM CLINICAL INDICATION: PHH; altered mental status TECHNIQUE: Departmental protocol COMPARISON: 11/16/2020 FINDINGS: The hemidiaphragms are both elevated, consistent with relatively low lung inflation at the moment of x-ray exposure, compared with the prior study. Given this factor, there are no definite lung parenchymal findings. However, radiographic sensitivity is limited because low lung inflation crowds the pulmonary vasculature bilaterally. The pleural spaces are negative. The cardiac silhouette is not enlarged. The aortic arch appears more prominent than the prior study. This radiographic finding can be best ev aluated with CTA. The skeletal structures and soft tissues are negative for acute findings. IMPRESSION: 1. NO DEFINITE ACUTE RADIOGRAPHIC PROCESS. 2. However, aortic arch appears more prominent than the prior study, as discussed.
[2021-08-01] MEDS: SODIUM CHLORIDE 0.9% 1,000 ML IV SCH ×3 (00:35→14:28)
[2021-08-01] MEDS: ACETAMINOPHEN TAB 325 MG TAB PO PRN ×2 (07:24→18:19)
[2021-08-01] MEDS ORDERED: ACETAMINOPHEN TAB 500 MG TAB PO PRN (08:53)
[2021-08-01] MEDS ORDERED: LORazepam 0.5 MG TAB PO PRN (08:53)
[2021-08-01] MEDS: LEVOTHYROXINE 100 MCG TAB PO SCH (09:35)
[2021-08-01] MEDS: FAMOTIDINE 20 MG TAB PO SCH ×2 (09:35→20:57)
--- NOTE | 2021-08-01 11:11 | P.CNNES ---
History of Present Illness Consult date: 08/01/21 Requesting physician: Elio Garcia Reason for Consult: mental status change with suspicion of normal pressure hydrocephalus History of Present Illness: This is a 76-year-old woman with medical history of hypothyroidism, hyp ertension, chronic pain, UTI presented emergency department on 07/31/2021 for generalized weakness and failure to thrive. Some of the history is obtained from medical record and is seems the patient is having generalized weakness, not eating or drinking in and the making statements are nonsensical. She had similar symptoms previously associate with urinary tract infection. The denies to the ED that she has any recent fevers. She was seen by our T multiple times and we felt the patient had toxic encephalopathy due to urinary tract infection as well as that she had generalized weakness secondary due to excessive weight loss and UTI as well as on expanding weight loss. She was seen last by our team on 11/18/2020. Last TSH was a injected 2020 is 0.078 and the free T4 is 1.50. The vitamin B12 is 416 and the red blood cell folate is 683. Was felt in the past by Dr. Smith that the patient has a thyroid issue that can cause some memory problems and recommended neurology follow-up as an outpatient and have further neurocognitive testing as an outpatient Some of the workup in the hospital consisted of: Initial vital signs: Blood pressure of 135/83, heart rate of 118, respiratory of 18, temperature of 98.5 Fahrenheit oral pulse ox of 99% room air. Today the patient had a T-max of 102.6 and currently rates 99.2 White blood cell is 5.4 thousand. Initial serum glucose is 122, AST of 31 ALT of 18 otherwise the rest of the chemistry panel is unremarkable. Urine drug seems positive for tricyclics and benzo otherwise the rest is on non- detected that. Mata virus to start nondetected Urinalysis is nitrite was negative, looks as is negative, urine red blood cells 54 urine white blood cell is 12 urine bacteria is many urine use is moderate possibly there is underlying urinary tract infection CT of the head is reported as no acute process. Nonspecific ventricular pattern which can correlate with a clinical diagnosis of normal pressure hydrocephalus. I personally reviewed the CT and compared it with the 2019 CT brain and it looks about the same. There might be slight dilation of the ventricles Review of Systems Review of system is limited with apparent positive and negative as per HPI. Past Medical History Past Medical History: Hypertension, Thyroid Disorder Additional Past Medical History / Comment(s): adrenal insufficiency, major depression disorder History of Any Multi-Drug Resistant Organisms: None Reported Past Surgical History: Orthopedic Surgery Additional Past Surgical History / Comment(s): rt knee Past Anesthesia/Blood Transfusion Reactions: No Reported Reaction Past Psychological History: Anxiety Smoking Status: Never smoker Past Alcohol Use History: None Reported Past Drug Use History: None Reported - Past Family History Father Additional Family Medical History / Comment(s): "heart problems" Mother Family Medical History: No Reported History Additional Family Medical History / Comment(s): Mother was healthy Medications and Allergies Home Medications Medication Instructions Recorded Confirmed Type Famotidine [Pepcid] 20 mg PO BID 12/28/20 07/31/21 History LORazepam [Ativan] 0.25 mg PO BID PRN 12/28/20 07/31/21 History Melatonin 6 mg PO HS PRN 12/28/20 07/31/21 History Levothyroxine Sodium [Synthroid] 100 mcg PO DAILY 04/12/21 07/31/21 History Acetaminophen Tab [Tylenol Tab] 500 mg PO Q6HR PRN 07/31/21 07/31/21 History Desipramine HCl 50 mg PO DAILY 07/31/21 07/31/21 History Ergocalciferol (Vitamin D2) 1,250 mcg PO SA 07/31/21 07/31/21 History [Drisdol (50,000 Iu)] cloZAPine [Clozaril] 25 mg PO W/SUPPER 07/31/21 07/31/21 History cloZAPine [Clozaril] 50 mg PO HS 07/31/21 07/31/21 History Allergies Allergy/AdvReac Type Severity Reaction Status Date / Time epinephrine AdvReac Rapid Verified 07/31/21 20:32 Heart Rate Physical Examination - Vital Signs Vital Signs: Vital Signs Temp Pulse Resp BP Pulse Ox 08/01/21 09:38 99.2 F 105 H 18 08/01/21 08:43 101.4 F H 108 H 18 149/89 93 L 08/01/21 07:25 102.6 F H 115 H 18 145/83 98 08/01/21 07:00 113 H 18 143/83 98 08/01/21 06:08 110 H 08/01/21 05:00 108 H 08/01/21 04:00 110 H 15 138/82 08/01/21 03:00 112 H 08/01/21 00:00 118 H 14 139/86 07/31/21 23:00 113 H 17 145/90 07/31/21 20:58 115 H 14 145/86 96 07/31/21 17:43 98.5 F 118 H 18 135/83 99 Intake and Output 07/31/21 08/01/21 08/01/21 22:59 06:59 14:59 Other: Weight 61.28 kg GENERAL: The patient is lying in bed and does not seem in acute distress. CHEST: The heart rate is regular rate rhythm. No murmurs to auscultation. No carotid bruit bilaterally. LUNG: Clear to auscultation bilaterally no wheezing noted throughout. Not labored breathing. ABDOMEN/GI: Bowel sounds present in all 4 quadrants. No tenderness to palpation throughout. NEUROLOGICAL: Higher mental function: The patient is drowsy but is awakeable to avoice. Is oriented to self. She stated she is in the hospital but did not know name. She is oriented to year but did not repond to month. Patient is following simple commands. No no neglect and does not appear to have neglect. Cranial nerves: The pupils are round, equal and reactive to light. Visual arshad are hard to assess because of cooperation. Extraocular movement is intact no nystagmus is noted. Facial sensation is normal to touch throughout. The facial strength is normal throughout. Tongue is midline and moved [id number] without any difficulty. No dysarthria is noted. Shoulder shrug is normal bilaterally. Motor: Gait is deferred. The strength is moving all extremities above gravity without focality. Normal tone and bulk. Cerebellum: Could not assess. Sensation: Sensation is normal to touch throughout. Reflexes (right/left): 2+ throughout. Plantars are downgoing bilaterally. Results - Laboratory Findings CBC and BMP: 07/31/21 18:45 07/31/21 18:45 Abnormal Lab Findings: Abnormal Labs 07/31/21 07/31/21 07/31/21 18:45 18:45 18:45 Lymphocytes # 0.8 L APTT 19.4 L Sodium Glucose Urine Appearance Cloudy H Urine Protein 1+ H Urine Ketones 2+ H Urine Blood Small H Urine RBC 54 H Urine WBC 12 H Urine Bacteria Many H Urine Yeast (Budding) Moderate H U Tricyclic Antidepress Detected H U Benzodiazepines Scrn Detected H 07/31/21 18:45 Lymphocytes # APTT Sodium 134 L Glucose 122 H Urine Appearance Urine Protein Urine Ketones Urine Blood Urine RBC Urine WBC Urine Bacteria Urine Yeast (Budding) U Tricyclic Antidepress U Benzodiazepines Scrn Assessment and Plan Assessment: Altered mental status. Uncertain exact reason for encephalopathy but possibly due to underlying urinary tract infection. Generalized weakness and failure to thrive Possibly underlying UTI. Hypothyroidism Hypertension Unexplained weight loss Chronic pain History of UTI Plan: She had a vitamin B12 and folate that were checked and 11/2020 and that was a normal. Consulted infection disease team. Regarding this questionable finding on the current CT of the head of normal pressure hydrocephalus the CT of the head looks about the same compared to 2019 and I would recommend outpatient workup. I would recommend a large volume tap as an outpatient and if she does have any improvement then the recommended that BANBURY OPERATOR shunt. Recommend neuropsych eval she has an outpatient. Consulted physical therapy and occupation therapy We'll defer the rest of the medical management to primary team. The plan is discussed with the nurse. Thank you for the consultation. Mohsen Edwards M.D. Neuro-hospitalist Time with Patient: Greater than 30
--- NOTE | 2021-08-01 12:26 | P.HPIM ---
History of Present Illness H&P Date: 08/01/21 History of present illness This is a 76-year-old female patient of Dr. Cisse with past medical history of depression with panic attacks, hypertension, hypothyroidism, degenerative disc disease and chronic back pain, scoliosis. She is had multiple admissions due to weakness and falls, difficulty swallowing and failure to thrive. Patient now presents to [facility] due to complaints of being scared, complains of fever and chills for 4 days along with abdominal pain for 4 days. She denies any dysuria, no diarrhea. She apparently was recently at [facility] which she states was for therapy but she did not have any procedures done. She denies having an MRI or lumbar puncture at that time. Patient is a very poor historian. According to the ER and documentation, patient was brought in by EMS due to rapid decline in her function not able to get out of bed, unable to walk on her own and not eating or drinking. Statements are nonsensical. Patient was found to be febrile with temperature 102.6, heart rate 115, blood pressure 145/83, pulse ox 90% on room air. EKG was sinus tachycardia 114 bpm with no acute ST changes. WBCs 4.29, hemoglobin 13.1, platelet count 190. INR 0.9. Sodium 134 otherwise electrolytes and renal function were normal. Glucose 122. Lactic acid 0.9. Liver function tests were normal. Troponin 0.022. Urinalysis was cloudy, nitrite negative, leukoesterase negative, RBCs 54 WBCs 12, bacteria many. Budding yeast moderate. Urine drug screen was positive for tricyclic antidepressants and benzodiazepines. Coronal virus PCR not detected. Urine culture is in progress. CAT scan of the brain revealed no acute process. Nonspecific ventricular pattern which can correlate with the clinical diagnosis of normal pressure hydrocephalus. Chest x-ray reveals no definite acute process. She is seen today in the emergency center waiting for the [facility], consult in place with psychiatry and neurology. Patient is been started on IV antibiotics. Review Of Systems: Constitutional: Documented fever, reports chills, no night sweats. No weight change. Report weakness and fatigue no lethargy. No daytime sleepiness. EENT: No headache. No blurred vision or double vision, no loss of vision. No loss of Hearing, no ringing in the ears, no dizziness. No nasal drainage or congestion. No epistaxis. No sore throat. Lungs: No shortness of breath, cough, no sputum production. No wheezing. Cardiovascular: No chest pain, no lower extremity edema. No palpitations. No paroxysmal nocturnal dyspnea. No orthopnea. No lightheadedness or dizziness. No syncopal episodes. Abdominal: Reports abdominal discomfort. No nausea, vomiting. no diarrhea. No constipation. No bloody or tarry stools. no loss of appetite. Genitourinary: Reports dysuria, reports increased frequency and urgency. No urinary retention. Musculoskeletal: No myalgias. No muscle weakness, no gait dysfunction, no frequent falls. No back pain. No neck pain. Mild left shoulder pain with movement Integumentary: No wounds, no lesions. No rash or pruritus. No unusual bruising. No change in hair or nails. Neurologic: No aphasia. No facial droop. Noted change in mentation. No head injury. No headache. No paralysis. No paresthesia. Psychiatric: Denies depression. Reports difficulty sleeping. No anxiety. No mood swings. Endocrine: No abnormal blood sugars. Social history: Patient is lifelong nonsmoker, no alcohol use, no marijuana use or illicit drug use. Patient lives at home with her . Family history: Mother at age 49 for cervical cancer. Father at 79 from coronary artery disease. Patient has 5 sisters with no major medical problems. Patient does not have any brothers. She does not have any children. Physical examination Gen: This is a 76-year-old female. Patient is resting in ER stretcher appears to be comfortable but anxious. HEENT: Head is atraumatic, normocephalic. Pupils equal, round. Sclerae is anicteric. Conjunctiva slightly pale. Oral mucous membranes are dry. NECK: Supple. No JVD. No lymphadenopathy. No thyromegaly. LUNGS: Clear to auscultation. No wheezes or rhonchi. No intercostal retractions. HEART: Regular rate and rhythm. No murmur. ABDOMEN: Soft. Bowel sounds are present. No masses. No tenderness. BACK: Tenderness to the left buttocks area. EXTREMITIES: No pedal edema. No calf tenderness. NEUROLOGICAL: Patient is awake, alert and oriented to person and place. She is able to follow simple commands. Cranial nerves 2 through 12 are grossly intact. Significant generalized weakness. Assessment and plan 1. Metabolic encephalopathy most likely secondary to acute urinary tract infection. Continue patient on ceftriaxone 2. Acute urinary tract infection and sepsis. Continue ceftriaxone, await urine culture and blood culture. 3. Possible NPH on CAT scan. Consult with neurology appreciated. Recommends large volume tap as an outpatient and if she does have improvement then recommend CULTURIST shunt. 4. Failure to thrive secondary to likely worsening depression and bipolar disorder. Patient on Clozapine 5 mg with supper, 50 mg at bedtime, Desipramine 30 mg daily, melatonin 6 mg at bedtime, consult with psychiatry. 5. History of dysphagia. Has been worked up by Dr. Spears in the past with EGD that did not require any dilatation patient is also had speech therapy evaluations and swallow studies. 6. Hypertension. Not currently on any antihypertensives. Monitor blood pressure. 7. Hypothyroidism. Levothyroxine 100 g by mouth daily, obtain TSH and free T4. 8. Insomnia. Melatonin 6 mg by mouth at bedtime. 9. DVT prophylaxis. Pneumatic compression stockings, ASHOK hose. 10. Gastroesophageal reflux disease and GI prophylaxis Pepcid 20 mg twice daily. CODE STATUS: Full code Patient will be admitted minimum 2 night hospital stay DISCHARGE PLAN TBD. PT and OT consults. Impression and plan of care have been directed as dictated by the signing physician. Earline Baker nurse practitioner acting as scribe for signing physician. Past Medical History Past Medical History: Hypertension, Thyroid Disorder Additional Past Medical History / Comment(s): adrenal insufficiency, major depression disorder History of Any Multi-Drug Resistant Organisms: None Reported Past Surgical History: Orthopedic Surgery Additional Past Surgical History / Comment(s): rt knee Past Anesthesia/Blood Transfusion Reactions: No Reported Reaction Past Psychological History: Anxiety Smoking Status: Never smoker Past Alcohol Use History: None Reported Past Drug Use History: None Reported - Past Family History Father Additional Family Medical History / Comment(s): "heart problems" Mother Family Medical History: No Reported History Additional Family Medical History / Comment(s): Mother was healthy Medications and Allergies Home Medications Medication Instructions Recorded Confirmed Type Famotidine [Pepcid] 20 mg PO BID 12/28/20 07/31/21 History LORazepam [Ativan] 0.25 mg PO BID PRN 12/28/20 07/31/21 History Melatonin 6 mg PO HS PRN 12/28/20 07/31/21 History Levothyroxine Sodium [Synthroid] 100 mcg PO DAILY 04/12/21 07/31/21 History Acetaminophen Tab [Tylenol Tab] 500 mg PO Q6HR PRN 07/31/21 07/31/21 History Desipramine HCl 50 mg PO DAILY 07/31/21 07/31/21 History Ergocalciferol (Vitamin D2) 1,250 mcg PO SA 07/31/21 07/31/21 History [Drisdol (50,000 Iu)] cloZAPine [Clozaril] 25 mg PO W/SUPPER 07/31/21 07/31/21 History cloZAPine [Clozaril] 50 mg PO HS 07/31/21 07/31/21 History Allergies Allergy/AdvReac Type Severity Reaction Status Date / Time epinephrine AdvReac Rapid Verified 07/31/21 20:32 Heart Rate Physical Exam Vitals: Vital Signs Temp Pulse Resp BP Pulse Ox 08/01/21 07:25 102.6 F H 115 H 18 145/83 98 08/01/21 07:00 113 H 18 143/83 98 08/01/21 06:08 110 H 08/01/21 05:00 108 H 08/01/21 04:00 110 H 15 138/82 08/01/21 03:00 112 H 08/01/21 00:00 118 H 14 139/86 07/31/21 23:00 113 H 17 145/90 07/31/21 20:58 115 H 14 145/86 96 07/31/21 17:43 98.5 F 118 H 18 135/83 99 Intake and Output 07/31/21 08/01/21 08/01/21 22:59 06:59 14:59 Other: Weight 61.28 kg Results CBC & Chem 7: 07/31/21 18:45 07/31/21 18:45 Labs: Abnormal Lab Results - Last 24 Hours (Table) 07/31/21 07/31/21 07/31/21 Range/Units 18:45 18:45 18:45 Lymphocytes # 0.8 L (1.0-4.8) k/uL APTT 19.4 L (22.0-30.0) sec Sodium (137-145) mmol/L Glucose (74-99) mg/dL Urine Appearance Cloudy H (Clear) Urine Protein 1+ H (Negative) Urine Ketones 2+ H (Negative) Urine Blood Small H (Negative) Urine RBC 54 H (0-5) /hpf Urine WBC 12 H (0-5) /hpf Urine Bacteria Many H (None) /hpf Urine Yeast (Budding) Moderate H (None) /hpf U Tricyclic Antidepress Detected H (NotDetected) U Benzodiazepines Scrn Detected H (NotDetected) 07/31/21 Range/Units 18:45 Lymphocytes # (1.0-4.8) k/uL APTT (22.0-30.0) sec Sodium 134 L (137-145) mmol/L Glucose 122 H (74-99) mg/dL Urine Appearance (Clear) Urine Protein (Negative) Urine Ketones (Negative) Urine Blood (Negative) Urine RBC (0-5) /hpf Urine WBC (0-5) /hpf Urine Bacteria (None) /hpf Urine Yeast (Budding) (None) /hpf U Tricyclic Antidepress (NotDetected) U Benzodiazepines Scrn (NotDetected)
[2021-08-01] MEDS: DESIPRAMINE 25 MG TAB PO SCH (12:55)
--- NOTE | 2021-08-01 13:30 | P.CN ---
Psychiatric Consult - . Consult date: 08/01/21 Consult:: 08/01/21 12:58 Identifying data: Patient is a 76-year-old female who currently lives with her and has a history of depression Chief complaint and history of present illness: The patient was brought into the hospital for complaints of weakness generalized. Patient apparently has been recently discharged from a mental health hospital on Wednesday according to ER report. Patient is currently experiencing a decline in her functioning and has been not getting out of bed and not eating or drinking. Patient's UDS was positive for benzodiazepines and TCA. Patient was admitted to the medical floors for altered mental status in a UTI which is currently being treated with antibiotics. Patient was seen at the bedside and was fairly lethargic while speaking with the staff writer. She appeared to have poor attention span. She spoke nonsensically at times and was oriented to her name only however did not know where she wasn't believed that she was in a "steal structure". She did not know who the current president is. She had poor attention span. Poor memory recall. When asked about her medications she states that she's been taking them as prescribed however cannot list which medication she is on. She is denying any depression or anxiety at this time and states that her mood is "fine". She was fairly concrete in her answers. She claims that her sleep and appetite are fair. SHe is not endorsing any delusions or paranoia. Past psychiatric history: Reportedly she has history of psychiatric hospitalization over a year ago in [facility]. She received ECT treatment with the most recent was few months ago at [facility]. Has history of outpatient psychiatric treatment. She was on psychiatric medications Celexa, Paxil, Klonopin, and Zyprexa. She is not currently on clozapine and desipramine along with melatonin. Reports previous suicidal attempt by overdose on Xanax about 3 years ago Substance use history: Denies using any tobacco progress, drinking alcohol, or using any street drugs. Family history of psychiatric illness: Denies any family history of suicide or mental illness. Reports her sister suffer from alcohol problem. Brief social history: Patient is currently living with her , unemployed, has no children. No reported history of psychological trauma. Mental status examination; Appearance: The patient appears stated age, appears to be frail, adequately groomed and dressed, no specific features. Appears to be lethargic Gait/posture: Patient was lying in bed. No abnormal movements. Attitude and behavior: Not fully engaged, not fully cooperative, poor eye contact. Motor activity: Normal psychomotor activity Speech: Normal rate, tone. Mood: "Fine", constricted affect. Thought form: goal-directed, linear, coherent. [place]. Thought content: Non-delusional, denies suicidal thoughts, denies homicidal thoughts, denies intentions or plans. Perception: Denies any auditory or visual hallucinations Orientation: Patient patient was oriented to person only and does not know where she is or what today's date is. She has poor attention span. Insight/jusgment: Patient has poor insight and judgment. Assessment: Delirium likely secondary to infection and toxic metabolic. History of major depressive disorder and anxiety. Recommendations: -At this time patient DOES NOT meet criteria for inpatient psychiatric admission. -Delirium precautions recommended with patient including - avoiding use of narcotics and FORMULATOR COMPOUNDER sedatives, limit anticholinergic medications when possible, frequent re-orientation, minimize use of restraints, open window shades during the day and close them at night -Would recommend the following medication changes/additions: Can continue with current medications as prescribed however would recommend decreasing clozapine to only 50mg qhs due to patients sedation. Can continue with melatonin daily at bedtime when necessary for sleep. Discontinued Ativan as this may cause further confusion and delirium. -Primary team to consider placement as patient appears to not be able to care for herself due to her repeated hospitalizations and questionable compliance. -Medical team to continue treatment of patient's general medical conditions including urinary tract infection which will eventually improve patient's mental status. -Psychiatry will sign off at this time however will re-see patient IF requested. -Please contact with any questions.
[2021-08-01] MEDS ORDERED: cloZAPine 25 MG TAB PO SCH (17:30)
[2021-08-01] MEDS: cloZAPine 25 MG TAB PO SCH (21:57)
--- NOTE | 2021-08-01 22:43 | P.CONS ---
History of Present Illness - Reason for Consult Consult date: 08/01/21 UTI Requesting physician: Mohsen Edwards - Chief Complaint weakness and mental status changes x 1 day - History of Present Illness History of present illness : Patient is 76-year-old female presented to the ER last evening for evaluation of increased weakness in this patient who was recently discharged from the mental health unit on Wednesday patient apparently noted to have a rapid decline in her function since that time and the patient has not been getting out of bed unable to walk on her own did have decreased oral intake patient apparently previously have similar symptoms associated with urinary tract infection patient denies having any headache or URI symptoms no chest pain shortness of breath or cough no abdominal pain or diarrhea patient presented to the hospital have a fever of 102.6 degree for right white count was normal with lymphopenia kidney function was normal liver enzymes are normal did have a positive UA urine testing was positive for tricyclics benzo ricketts PCR was negative patient did have a CT of the brain that was negative for any bleed patient did have a chest x-ray was negative for any acute pulmonary process patient was started on her Rocephin has been admitted to hospital infectious disease was consulted for possible UTI and acute mental status patient herself is very good historian so most information has been extracted from review the chart Review of system: Positive point has been mentioned in HPI complete review could not be obtained because of underlying mental status Past medical history : Reviewed, documented below Past surgical history : Reviewed, documented below Social history: Reviewed, documented below Medications: Reviewed, as documented below EXAMINATION: Vital sigans= Reviewed and documented below GENERAL DESCRIPTION: Elderly female lying in bed, no distress. No tachypnea or accessory muscle of respiration use. HEENT: Shows Pallor , no scleral icterus. Oral mucous membrane is dry. NECK: Trachea central, no thyromegaly. LUNGS: Unlabored breathing. Clear to auscultation anteriorly. No wheeze or crackle. HEART: S1, S2, regular rate and rhythm. ABDOMEN: Soft, no tenderness , guarding or rigidity EXTREMITIES: No edema of feet. SKIN: No rash, no masses palpable. NEUROLOGICAL: The patient is awake, alert, oriented x2, mood and affect normal. LABS AND RADIOLOGY: Reviewed results see below Assessment : Patient presented to hospital with mental status changes multifactorial and likely component of a urinary tract infection likely from enteric gram-negative pathogen patient currently do not have any other obvious focus of infection abdominal soft ankle examination no cellulitis chest x-ray was reported negative for any acute infiltrate Plan: 1-neurologically with respiratory cefepime 2 g every 8 hour as the patient has been on the hospital and concern for possible resistant gram-negative pathogen 2-check an ultrasound of the kidney and bladder area rule out structural abno rmality 3-IV fluid We will follow on clinical condition and cultures to further adjust medication if needed Thank you for this consultation we will follow the patient along with you Past Medical History Past Medical History: Hypertension, Thyroid Disorder Additional Past Medical History / Comment(s): adrenal insufficiency, major depr ession disorder History of Any Multi-Drug Resistant Organisms: None Reported Past Surgical History: Orthopedic Surgery Additional Past Surgical History / Comment(s): rt knee Past Anesthesia/Blood Transfusion Reactions: No Reported Reaction Past Psychological History: Anxiety Smoking Status: Never smoker Past Alcohol Use History: None Reported Past Drug Use History: None Reported - Past Family History Father Additional Family Medical History / Comment(s): "heart problems" Mother Family Medical History: No Reported History Additional Family Medical History / Comment(s): Mother was healthy Medications and Allergies Home Medications Medication Instructions Recorded Confirmed Type Famotidine [Pepcid] 20 mg PO BID 12/28/20 07/31/21 History LORazepam [Ativan] 0.25 mg PO BID PRN 12/28/20 07/31/21 History Melatonin 6 mg PO HS PRN 12/28/20 07/31/21 History Levothyroxine Sodium [Synthroid] 100 mcg PO DAILY 04/12/21 07/31/21 History Acetaminophen Tab [Tylenol Tab] 500 mg PO Q6HR PRN 07/31/21 07/31/21 History Desipramine HCl 50 mg PO DAILY 07/31/21 07/31/21 History Ergocalciferol (Vitamin D2) 1,250 mcg PO SA 07/31/21 07/31/21 History [Drisdol (50,000 Iu)] cloZAPine [Clozaril] 25 mg PO W/SUPPER 07/31/21 07/31/21 History cloZAPine [Clozaril] 50 mg PO HS 07/31/21 07/31/21 History Allergies Allergy/AdvReac Type Severity Reaction Status Date / Time epinephrine AdvReac Rapid Verified 07/31/21 20:32 Heart Rate Physical Exam Vitals: Vital Signs Temp Pulse Pulse Resp BP BP Pulse Ox 08/01/21 14:15 97.9 F 106 H 16 111/72 99 08/01/21 12:21 99 F 103 H 18 103/64 98 08/01/21 11:20 98 18 131/77 97 08/01/21 09:38 99.2 F 105 H 18 08/01/21 08:43 101.4 F H 108 H 18 149/89 93 L 08/01/21 07:25 102.6 F H 115 H 18 145/83 98 08/01/21 07:00 113 H 18 143/83 98 08/01/21 06:08 110 H 08/01/21 05:00 108 H 08/01/21 04:00 110 H 15 138/82 08/01/21 03:00 112 H 08/01/21 00:00 118 H 14 139/86 07/31/21 23:00 113 H 17 145/90 07/31/21 20:58 115 H 14 145/86 96 07/31/21 17:43 98.5 F 118 H 18 135/83 99 Results CBC & Chem 7: 07/31/21 18:45 07/31/21 18:45 Labs: Abnormal Lab Results - Last 24 Hours (Table) 07/31/21 07/31/21 07/31/21 Range/Units 18:45 18:45 18:45 Lymphocytes # 0.8 L (1.0-4.8) k/uL APTT 19.4 L (22.0-30.0) sec Sodium (137-145) mmol/L Glucose (74-99) mg/dL Urine Appearance Cloudy H (Clear) Urine Protein 1+ H (Negative) Urine Ketones 2+ H (Negative) Urine Blood Small H (Negative) Urine RBC 54 H (0-5) /hpf Urine WBC 12 H (0-5) /hpf Urine Bacteria Many H (None) /hpf Urine Yeast (Budding) Moderate H (None) /hpf U Tricyclic Antidepress Detected H (NotDetected) U Benzodiazepines Scrn Detected H (NotDetected) 07/31/21 Range/Units 18:45 Lymphocytes # (1.0-4.8) k/uL APTT (22.0-30.0) sec Sodium 134 L (137-145) mmol/L Glucose 122 H (74-99) mg/dL Urine Appearance (Clear) Urine Protein (Negative) Urine Ketones (Negative) Urine Blood (Negative) Urine RBC (0-5) /hpf Urine WBC (0-5) /hpf Urine Bacteria (None) /hpf Urine Yeast (Budding) (None) /hpf U Tricyclic Antidepress (NotDetected) U Benzodiazepines Scrn (NotDetected) Microbiology - Last 24 Hours (Table) 07/31/21 18:45 Urine Culture - Preliminary Urine,Clean Catch
[2021-08-02] MEDS: CEFEPIME 2 GM in SODIUM CHLORIDE 0.9% 100 ML IVPB SCH ×3 (00:57→15:12)
[2021-08-02] MEDS: ACETAMINOPHEN TAB 325 MG TAB PO PRN ×2 (02:51→14:27)
[2021-08-02] MEDS: IBUPROFEN 400 MG TAB PO PRN ×2 (04:55→19:31)
[2021-08-02] MEDS: LEVOTHYROXINE 100 MCG TAB PO SCH (06:04)
[2021-08-02 07:58] LABS: T4, Free (Free Thyroxine) 2.11 ng/dL (0.78-2.19)
--- NOTE | 2021-08-02 08:00 | US ---
EXAMINATION TYPE: US kidneys/renal and bladder DATE OF EXAM: 08/02/2021 COMPARISON: CT June 21, 2020 CLINICAL HISTORY: uti and bacteremia. UTI EXAM MEASUREMENTS: Right Kidney: 9.6 x 4.9 x 4.4 cm Left Kidney: 10.0 x 5.3 x 4.7 cm Right Kidney: Small 6mm cyst upper pole, otherwise appeared wnl Left Kidney: Appeared wnl Bladder: wnl Bilateral Jets seen: Only right jet visualized There is no evidence for hydronephrosis at this point in time. No nephrolithiasis is seen. Stable dawson bcentimeter thin-walled cyst upper pole of the right kidney. The urinary bladder is satisfactorily d istended. Bilateral ureteral jets are not seen. IMPRESSION: No hydronephrosis noted bilaterally.
[2021-08-02] MEDS: DESIPRAMINE 25 MG TAB PO SCH (08:21)
[2021-08-02] MEDS: FAMOTIDINE 20 MG TAB PO SCH ×2 (08:22→20:17)
[2021-08-02] MEDS: SODIUM CHLORIDE 0.9% 1,000 ML IV SCH (08:22)
[2021-08-02] MEDS ORDERED: ERGOCALCIFEROL 1,250 MCG (50,000 IU) CAPSULE PO SCH (09:00)
--- NOTE | 2021-08-02 10:34 | P.PN ---
Subjective Progress Note Date: 08/02/21 The patient is seen at bedside and feels she is doing much better compared to initial presentation. She denies of any focal weakness, numbness, headache. Objective - Vital Signs Vital signs: Vital Signs Temp 98.2 F 08/02/21 08:00 Pulse 99 08/02/21 08:00 Resp 16 08/02/21 08:00 BP 116/74 08/02/21 08:00 Pulse Ox 96 08/02/21 08:00 Intake & Output 08/01/21 08/02/21 08/02/21 18:59 06:59 18:59 Weight 61.28 kg Other: Voiding Method Bedside Commode Incontinent # Voids 0 2 - Exam GENERAL: The patient is lying in bed and is not in acute distress. NEUROLOGICAL: Higher mental function: The patient is awake, alert, oriented to self, place and time. Patient is following commands. No aphasia and no neglect. Cranial nerves: The pupils are round, equal and reactive to light and accommodation. Visual arshad are full to confrontation throughout. Extraocular movement is intact no nystagmus is noted. Facial sensation is normal to touch throughout. The facial strength is normal throughout. Tongue is midline and moved [id number] without any difficulty. No dysarthria is noted. Shoulder shrug is normal bilaterally. Motor: The strength is 5 over 5 throughout. Normal tone and bulk. Cerebellum: Normal finger to nose bilaterally. Sensation: Sensation is normal to touch throughout. Reflexes (right/left): 2+ throughout. Plantars are downgoing bilaterally. - Labs CBC & Chem 7: 07/31/21 18:45 07/31/21 18:45 Labs: Abnormal Lab Results - Last 24 Hours (Table) 07/31/21 Range/Units 13:27 TSH <0.015 L (0.465-4.680) mIU/L Microbiology - Last 24 Hours (Table) 07/31/21 18:45 Urine Culture - Preliminary Urine,Clean Catch Assessment and Plan Assessment: Altered mental status. Due to underlying UT---mentation improved Generalized weakness and failure to thrive Possibly underlying UTI. Hypothyroidism Hypertension Unexplained weight loss Chronic pain History of UTI Plan: She had a vitamin B12 and folate that were checked and 11/2020 and that was a normal. Infection disease team is on board. Regarding this questionable finding on the current CT of the head of normal pressure hydrocephalus the CT of the head looks about the same compared to 2019 and I would recommend outpatient workup. I would recommend a large volume tap as an outpatient and if she does have any improvement then the recommended that TECHNOLOGY EDUCATION TEACHER shunt. Recommend neuropsych eval she has an outpatient. Physical therapy and occupation therapy are consulted We'll defer the rest of the medical management to primary team. There is no further neurological work-up. Neurology will sign off. Please reconsult if needed. Mohsen Edwards M.D. Neuro-hospitalist Time with Patient: Less than 30
--- NOTE | 2021-08-02 10:49 | P.PN ---
Subjective Progress Note Date: 08/02/21 History of present illness This is a 76-year-old female patient of Dr. Cisse with past medical history of depression with panic attacks, hypertension, hypothyroidism, degenerative disc disease and chronic back pain, scoliosis. She is had multiple admissions due to weakness and falls, difficulty swallowing and failure to thrive. Patient now presents to [facility] due to complaints of being scared, complains of fever and chills for 4 days along with abdominal pain for 4 days. She denies any dysuria, no diarrhea. She apparently was recently at [facility] which she states was for therapy but she did not have any procedures done. She denies having an MRI or lumbar puncture at that time. Patient is a very poor historian. According to the ER and documentation, patient was brought in by EMS due to rapid decline in her function not able to get out of bed, unable to walk on her own and not eating or drinking. Statements are nonsensical. Patient was found to be febrile with temperature 102.6, heart rate 115, blood pressure 145/83, pulse ox 90% on room air. EKG was sinus tachycardia 114 bpm with no acute ST changes. WBCs 4.29, hemoglobin 13.1, platelet count 190. INR 0.9. Sodium 134 otherwise electrolytes and renal function were normal . Glucose 122. Lactic acid 0.9. Liver function tests were normal. Troponin 0.022. Urinalysis was cloudy, nitrite negative, leukoesterase negative, RBCs 54 WBCs 12, bacteria many. Budding yeast moderate. Urine drug screen was positive for tricyclic antidepressants and benzodiazepines. Coronal virus PCR not detected. Urine culture is in progress. CAT scan of the brain revealed no acute process. Nonspecific ventricular pattern which can correlate with the clinical diagnosis of normal pressure hydrocephalus. Chest x-ray reveals no definite acute process. She is seen today in the emergency center waiting for the [facility] blood, consult in place with psychiatry and neurology. Patient is been started on IV antibiotics. 08/02: Renal ultrasound showed no hydronephrosis bilaterally. Patient has been seen by Dr. Johnson and started on cefepime 2 g every 8 hours for UTI. Urine culture is in progress and blood cultures showing no growth at 24 hours. Patient remains febrile with temperature max this morning of 103.1, heart rate was 119 at that time and currently patient is afebrile with heart rate of 99 and blood pressure 116/74, pulse ox 96% on room air Patient is been seen by psychiatry and recommended delirium precautions and recommended decreasing irina set then to only 50 mg at at bedtime due to patient sedation and continue melatonin, discontinue Ativan. Psychiatry also recommended placement and they have signed off. Patient has been seen and followed by neurology for altered mental status secondary to underlying UTI. Regarding the normal pressures systolics on CAT scan he would recommend outpatient workup with volume tap and if she does have improvement then recommend SEED TECHNICIAN shunt. Neurology is also signed off. Patient's mental status is improved today. Review Of Systems: Constitutional: Documented fever, reports chills, no night sweats. No weight change. Report weakness and fatigue no lethargy. No daytime sleepiness. EENT: No headache. No blurred vision or double vision, no loss of vision. No loss of Hearing, no ringing in the ears, no dizziness. No nasal drainage or congestion. No epistaxis. No sore throat. Lungs: No shortness of breath, cough, no sputum production. No wheezing. Cardiovascular: No chest pain, no lower extremity edema. No palpitations. No paroxysmal nocturnal dyspnea. No orthopnea. No lightheadedness or dizziness. No syncopal episodes. Abdominal: Reports abdominal discomfort. No nausea, vomiting. no diarrhea. No constipation. No bloody or tarry stools. no loss of appetite. Genitourinary: Reports dysuria, reports increased frequency and urgency. No urinary retention. Musculoskeletal: No myalgias. No muscle weakness, no gait dysfunction, no frequent falls. No back pain. No neck pain. Mild left shoulder pain with movement Integumentary: No wounds, no lesions. No rash or pruritus. No unusual bruising. No change in hair or nails. Neurologic: No aphasia. No facial droop. Noted change in mentation, improved. No head injury. No headache. No paralysis. No paresthesia. Psychiatric: Denies depression. Reports difficulty sleeping. No anxiety. No mood swings. Endocrine: No abnormal blood sugars. Physical examination Gen: This is a 76-year-old female. Patient is resting in bed and appears to be comfortable. Patient is more interactive today. HEENT: Head is atraumatic, normocephalic. Pupils equal, round. Sclerae is anicteric. Conjunctiva slightly pale. Oral mucous membranes are slightly dry. NECK: Supple. No JVD. No lymphadenopathy. No thyromegaly. LUNGS: Clear to auscultation. No wheezes or rhonchi. No intercostal retractions. HEART: Regular rate and rhythm. No murmur. ABDOMEN: Soft. Bowel sounds are present. No masses. No tenderness. BACK: Tenderness to the left buttocks area. EXTREMITIES: No pedal edema. No calf tenderness. NEUROLOGICAL: Patient is awake, alert and oriented to person and place. Cranial nerves 2 through 12 are grossly intact. Significant generalized weakness. Assessment and plan 1. Metabolic encephalopathy most likely secondary to acute urinary tract infection. Consult with Dr. Johnson appreciated. Patient is been changed to cefepime 2 g IV piggyback every 8 hours, await urine culture, follow blood cultures. Stat blood cultures to obtain when patient has temperature greater than 101. 2. Acute urinary tract infection and sepsis. Continue cefepime, await urine culture and blood culture. 3. Possible NPH on CAT scan. Consult with neurology appreciated. Recommends large volume tap as an outpatient and if she does have improvement then recommend SEED TECHNICIAN shunt. 4. Failure to thrive secondary to likely worsening depression and bipolar disorder. Patient on Clozapine 50 mg at bedtime, Desipramine 50 mg daily, melatonin 6 mg at bedtime, consult with psychiatry appreciated. 5. History of dysphagia. Has been worked up by Dr. Spears in the past with EGD that did not require any dilatation patient is also had speech therapy george luations and swallow studies. 6. Hypertension. Not currently on any antihypertensives. Monitor blood pressure. 7. Hypothyroidism. Levothyroxine 100 g by mouth daily, obtain TSH and free T4. 8. Insomnia. Melatonin 6 mg by mouth at bedtime. 9. DVT prophylaxis. Pneumatic compression stockings, ASHOK hose. 10. Gastroesophageal reflux disease and GI prophylaxis Pepcid 20 mg twice daily. CODE STATUS: Full code DISCHARGE PLAN TBD. PT and OT consults. Impression and plan of care have been directed as dictated by the signing physician. Earline Baker nurse practitioner acting as scribe for signing physician. Objective - Vital Signs Vital signs: Vital Signs Temp 98.2 F 08/02/21 08:00 Pulse 99 08/02/21 08:00 Resp 16 08/02/21 08:00 BP 116/74 08/02/21 08:00 Pulse Ox 96 08/02/21 08:00 Intake & Output 08/01/21 08/02/21 08/02/21 18:59 06:59 18:59 Weight 61.28 kg Other: Voiding Method Bedside Commode Incontinent # Voids 0 2 - Labs CBC & Chem 7: 07/31/21 18:45 07/31/21 18:45 Labs: Abnormal Lab Results - Last 24 Hours (Table) 07/31/21 Range/Units 13:27 TSH <0.015 L (0.465-4.680) mIU/L Microbiology - Last 24 Hours (Table) 07/31/21 18:45 Urine Culture - Preliminary Urine,Clean Catch
[2021-08-02] MEDS: AMPICILLIN-SULBACTAM 3 GM in SODIUM CHLORIDE 0.9% 100 ML IVPB SCH ×2 (17:10→23:17)
--- NOTE | 2021-08-02 18:36 | PN ---
PROGRESS NOTE DATE OF SERVICE: 08/02/2021 REASON FOR FOLLOWUP: Fever, likely urinary tract infection. INTERVAL HISTORY: The patient is back The patient is currently breathing comfortably on room air. The patient denies having any chest pain or cough. She mentioned feeling weak. Some nausea but no vomiting. No abdominal pain or diarrhea. PHYSICAL EXAMINATION: Blood pressure 129/84, pulse 130, temperature . She is 98% on room air. GENERAL DESCRIPTION: General description is an elderly female lying in bed in no distress. RESPIRATORY SYSTEM: Unlabored breathing. Clear to auscultation anteriorly. HEART: S1, S2. Regular rate and rhythm. ABDOMEN: Soft. No tenderness. LABS: Urine now showing Aerococcus urinae. Blood culture has been negative. DIAGNOSTIC IMPRESSION AND PLAN: Patient with a fever, concern likely for urinary tract infection. Urine is showing Aerococcus. Antibiotic will be adjusted to Unasyn. Culture has been repeated. Monitor clinical course closely. MMODL / IJN: [id number] /
[2021-08-02] MEDS: cloZAPine 25 MG TAB PO SCH (20:17)
[2021-08-02] MEDS: LORazepam 0.5 MG TAB PO SCH (20:17)
[2021-08-02] MEDS: MELATONIN 3 MG TABLET PO PRN (23:00)
[2021-08-03] MEDS: SODIUM CHLORIDE 0.9% 1,000 ML IV SCH (04:20)
[2021-08-03] MEDS: AMPICILLIN-SULBACTAM 3 GM in SODIUM CHLORIDE 0.9% 100 ML IVPB SCH ×3 (05:00→17:13)
[2021-08-03] MEDS: LEVOTHYROXINE 100 MCG TAB PO SCH (05:33)
[2021-08-03] MEDS: LORazepam 0.5 MG TAB PO SCH ×2 (08:04→20:07)
[2021-08-03] MEDS: FAMOTIDINE 20 MG TAB PO SCH ×2 (08:04→20:07)
[2021-08-03] MEDS: ACETAMINOPHEN TAB 325 MG TAB PO PRN (08:04)
[2021-08-03] MEDS: DESIPRAMINE 25 MG TAB PO SCH (08:04)
--- NOTE | 2021-08-03 09:42 | XR ---
EXAMINATION TYPE: XR chest 2V DATE OF EXAM: 08/03/2021 COMPARISON: Chest x-ray 3 days ago HISTORY: Fever. TECHNIQUE: Frontal and lateral views of the chest are obtained. FINDINGS: Improved inspiration. There is no new suspicious focal air space opacity or pneumothorax se en. Subtle blunting posterior costophrenic angles consistent with tiny bilateral pleural effusions o n current study. The cardiac silhouette size is stable and upper limits of normal. The osseous stru ctures are intact. IMPRESSION: New tiny bilateral pleural effusions. No new focal infiltrate.
[2021-08-03 10:11] LABS: HCT 34.3 % (34.0-46.0); HGB 12.4 gm/dL (11.4-16.0); Hyperchromasia Slight; MCH 31.9 pg (25.0-35.0); MCHC 36.1 g/dL (31.0-37.0); Mean Platelet Volume 7.6; Platelet Count 129 k/uL (150-450); RBC 3.87 m/uL (3.80-5.40); RDW 12.3 % (11.5-15.5); WBC 3.1 k/uL (3.8-10.6)
[2021-08-03 10:12] LABS: MCV 88.5 fL (80.0-100.0)
--- NOTE | 2021-08-03 10:17 | P.PN ---
Subjective Progress Note Date: 08/03/21 History of present illness This is a 76-year-old female patient of Dr. Cisse with past medical history of depression with panic attacks, hypertension, hypothyroidism, degenerative disc disease and chronic back pain, scoliosis. She is had multiple admissions due to weakness and falls, difficulty swallowing and failure to thrive. Patient now presents to [facility] due to complaints of being scared, complains of fever and chills for 4 days along with abdominal pain for 4 days. She denies any dysuria, no diarrhea. She apparently was recently at [facility] which she states was for therapy but she did not have any procedures done. She denies having an MRI or lumbar puncture at that time. Patient is a very poor historian. According to the ER and documentation, patient was brought in by EMS due to rapid decline in her function not able to get out of bed, unable to walk on her own and not eating or drinking. Statements are nonsensical. Patient was found to be febrile with temperature 102.6, heart rate 115, blood pressure 145/83, pulse ox 90% on room air. EKG was sinus tachycardia 114 bpm with no acute ST changes. WBCs 4.29, hemoglobin 13.1, platelet count 190. INR 0.9. Sodium 134 otherwise electrolytes and renal function were normal . Glucose 122. Lactic acid 0.9. Liver function tests were normal. Troponin 0.022. Urinalysis was cloudy, nitrite negative, leukoesterase negative, RBCs 54 WBCs 12, bacteria many. Budding yeast moderate. Urine drug screen was positive for tricyclic antidepressants and benzodiazepines. Coronal virus PCR not detected. Urine culture is in progress. CAT scan of the brain revealed no acute process. Nonspecific ventricular pattern which can correlate with the clinical diagnosis of normal pressure hydrocephalus. Chest x-ray reveals no definite acute process. She is seen today in the emergency center waiting for the [facility] blood, consult in place with psychiatry and neurology. Patient is been started on IV antibiotics. 08/02: Renal ultrasound showed no hydronephrosis bilaterally. Patient has been seen by Dr. Johnson and started on cefepime 2 g every 8 hours for UTI. Urine culture is in progress and blood cultures showing no growth at 24 hours. Patient remains febrile with temperature max this morning of 103.1, heart rate was 119 at that time and currently patient is afebrile with heart rate of 99 and blood pressure 116/74, pulse ox 96% on room air Patient is been seen by psychiatry and recommended delirium precautions and recommended decreasing irina set then to only 50 mg at at bedtime due to patient sedation and continue melatonin, discontinue Ativan. Psychiatry also recommended placement and they have signed off. Patient has been seen and followed by neurology for altered mental status secondary to underlying UTI. Regarding the normal pressures systolics on CAT scan he would recommend outpatient workup with volume tap and if she does have improvement then recommend ROUND KILN DRAWER shunt. Neurology is also signed off. Patient's mental status is improved today. 08/03: Patient has documented fever 102.8 yesterday afternoon, temperature max this morning is 100.4. Antibiotics were changed yesterday to Unasyn by Dr. Johnson and repeat culture was ordered. Heart rate 112, blood pressure 122/76, pulse ox 95% on room air. Urine culture is positive for enterococcus urinae and was finalized. Repeat chest x-ray will be ordered. Received call during the night regarding severe anxiety and patient was replaced back on Ativan as her mental status is improved. EKG from yesterday was a sinus tachycardia. Levothyroxine dose decreased to [address] Oviedo spoke with patient's over the phone. Discharge plan is for [facility] and he has already been in contact with [facility] who is accepted the patient. Review Of Systems: Constitutional: Documented fever, denies chills, no night sweats. No weight change. Report weakness and fatigue no lethargy. No daytime sleepiness. EENT: No headache. No blurred vision or double vision, no loss of vision. No loss of Hearing, no ringing in the ears, no dizziness. No nasal drainage or congestion. No epistaxis. No sore throat. Lungs: No shortness of breath, cough, no sputum production. No wheezing. Cardiovascular: No chest pain, no lower extremity edema. No palpitations. No paroxysmal nocturnal dyspnea. No orthopnea. No lightheadedness or dizziness. No syncopal episodes. Abdominal: Reports abdominal discomfort. No nausea, vomiting. no diarrhea. No constipation. No bloody or tarry stools. no loss of appetite. Genitourinary: Reports dysuria, reports increased frequency and urgency. No urinary retention. Musculoskeletal: No myalgias. No muscle weakness, no gait dysfunction, no frequent falls. No back pain. No neck pain. Mild left shoulder pain with movement Integumentary: No wounds, no lesions. No rash or pruritus. No unusual bruising. No change in hair or nails. Neurologic: No aphasia. No facial droop. Noted change in mentation, improved. No head injury. No headache. No paralysis. No paresthesia. Psychiatric: Denies depression. Reports difficulty sleeping. Reports anxiety. No mood swings. Endocrine: No abnormal blood sugars. Physical examination Gen: This is a 76-year-old female. Patient is resting in bed and appears to be comfortable. Patient is more interactive today. She admits to having anxiety. HEENT: Head is atraumatic, normocephalic. Pupils equal, round. Sclerae is anicteric. Conjunctiva slightly pale. Oral mucous membranes are slightly dry. NECK: Supple. No JVD. No lymphadenopathy. No thyromegaly. LUNGS: Clear to auscultation. No wheezes or rhonchi. No intercostal retractions. HEART: Regular rate and rhythm. No murmur. ABDOMEN: Soft. Bowel sounds are present. No masses. No tenderness. BACK: Tenderness to the left buttocks area. EXTREMITIES: No pedal edema. No calf tenderness. NEUROLOGICAL: Patient is awake, alert and oriented to person and place. Cranial nerves 2 through 12 are grossly intact. Significant generalized weakness. Assessment and plan 1. Metabolic encephalopathy most likely secondary to acute urinary tract infection. Consult with Dr. Johnson appreciated. Abdomen exchange to Unasyn, await repeat urine culture, follow blood cultures. Stat blood cultures to obtain when patient has temperature greater than 101. Repeat chest x-ray ordered. 2. Acute urinary tract infection and sepsis. Continue Unasyn, await repeat urine culture and blood culture. 3. Possible NPH on CAT scan. Consult with neurology appreciated. Recommends large volume tap as an outpatient and if she does have improvement then recommend ROUND KILN DRAWER shunt. 4. Failure to thrive secondary to likely worsening depression and bipolar disorder. Patient on Clozapine 50 mg at bedtime, Desipramine 50 mg daily, zane onin 6 mg at bedtime, consult with psychiatry appreciated. 5. History of dysphagia. Has been worked up by Dr. Spears in the past with EGD that did not require any dilatation patient is also had speech therapy evaluations and swallow studies. 6. Hypertension. Not currently on any antihypertensives. Monitor blood pressure. 7. Hypothyroidism. Levothyroxine 100 g by mouth daily, obtain TSH and free T4. 8. Insomnia. Melatonin 6 mg by mouth at bedtime. Resume Ativan 9. DVT prophylaxis. Pneumatic compression stockings, ASHOK hose. 10. Gastroesophageal reflux disease and GI prophylaxis Pepcid 20 mg twice daily. CODE STATUS: Full code DISCHARGE PLAN [facility] this week. Impression and plan of care have been directed as dictated by the signing physician. Earline Baker nurse practitioner acting as scribe for signing physician. Objective - Vital Signs Vital signs: Vital Signs Temp 100.4 F H 08/03/21 08:00 Pulse 112 H 08/03/21 08:00 Resp 18 08/03/21 08:00 BP 122/76 08/03/21 08:00 Pulse Ox 95 08/03/21 08:00 Intake & Output 08/02/21 08/03/21 08/03/21 18:59 06:59 18:59 Intake Total 480 Balance 480 Intake: Oral 480 Other: Voiding Method Bedside Commode # Voids 1 - Labs CBC & Chem 7: 08/03/21 09:14 07/31/21 18:45 Labs: Microbiology - Last 24 Hours (Table) 07/31/21 18:45 Urine Culture - Final Urine,Clean Catch Aerococcus urinae 08/01/21 07:58 Blood Culture - Preliminary Blood No Growth after 24 hours
[2021-08-03 10:19] LABS: ALT 26 U/L (4-34); AST 51 U/L (14-36); African American GFR (CKD) >90 (>60 ml/min/1.73 sqM); Albumin 2.6 g/dL (3.5-5.0); Alkaline Phosphatase 28 U/L (38-126); Anion Gap 6 mmol/L; Blood Urea Nitrogen 11 mg/dL (7-17); Calcium 7.5 mg/dL (8.4-10.2); Carbon Dioxide 25 mmol/L (22-30); Chloride 101 mmol/L (98-107); Globulin 2.5 g/dL; Glucose 161 mg/dL (74-99); Non-African American GFR(CKD) >90 (>60 ml/min/1.73 sqM); Potassium 3.2 mmol/L (3.5-5.1); Sodium 132 mmol/L (137-145); Total Bilirubin 0.3 mg/dL (0.2-1.3); Total Protein 5.1 g/dL (6.3-8.2)
[2021-08-03] MEDS ORDERED: Potassium Replacement Protocol 1 EACH MISC MISCELLANE PRN (10:44)
[2021-08-03] MEDS: POTASSIUM CHLORIDE ER 20 MEQ TAB.ER PO SCH ×3 (11:28→13:06)
[2021-08-03] MEDS: polyethylene glycoL 3350 17 GM POWD.PACK PO SCH (13:06)
[2021-08-03] MEDS: SENNOSIDES 8.6 MG TAB PO SCH (13:06)
--- NOTE | 2021-08-03 18:34 | PN ---
PROGRESS NOTE DATE OF SERVICE: 08/30/2021 REASON FOR FOLLOWUP: Urinary tract infection. INTERVAL HISTORY: The patient is afebrile. The patient is feeling better. She is breathing comfortably. No chest pain, shortness of breath or cough. No nausea, no vomiting. No abdominal pain or diarrhea. PHYSICAL EXAMINATION: Blood pressure is 99/63, pulse of 105, temperature 98.2. She is 98% on room air. General description is an elderly female lying in bed in no distress. Respiratory system: Unlabored breathing, clear to auscultation anteriorly. Heart S1, S2. Regular rate and rhythm. Abdomen soft, no tenderness. Extremities: No edema of the feet. LABS: Hemoglobin is 12.4, white count of 3, creatinine 0.49. Urine with Enterococcus. Blood culture has been negative. DIAGNOSTIC IMPRESSION AND PLAN: Patient admitted to the hospital sepsis, source is urinary. Urine has been aerococcus urinae, Unasyn to continue. Plan to finish therapy with oral antibiotics and continue supportive care. MMODL / IJN: [id number] /
[2021-08-03] MEDS: MELATONIN 3 MG TABLET PO PRN (20:07)
[2021-08-03] MEDS: cloZAPine 25 MG TAB PO SCH (20:07)
[2021-08-04] MEDS: AMPICILLIN-SULBACTAM 3 GM in SODIUM CHLORIDE 0.9% 100 ML IVPB SCH ×3 (00:23→11:05)
[2021-08-04] MEDS: SODIUM CHLORIDE 0.9% 1,000 ML IV SCH (00:24)
[2021-08-04] MEDS: ACETAMINOPHEN TAB 325 MG TAB PO PRN (00:37)
[2021-08-04] MEDS ORDERED: LEVOTHYROXINE 75 MCG TAB PO SCH (06:30)
[2021-08-04] MEDS: LORazepam 0.5 MG TAB PO SCH (07:38)
[2021-08-04] MEDS: FAMOTIDINE 20 MG TAB PO SCH (07:38)
[2021-08-04] MEDS: SENNOSIDES 8.6 MG TAB PO SCH (07:38)
[2021-08-04] MEDS: DESIPRAMINE 25 MG TAB PO SCH (07:40)
[2021-08-04] MEDS: polyethylene glycoL 3350 17 GM POWD.PACK PO SCH (07:40)
--- NOTE | 2021-08-04 11:19 | P.DS ---
Providers Date of admission: 08/02/21 11:26 Expected date of discharge: 08/04/21 Attending physician: Barby Calixto Consults: 07/31/21 21:00 Consult Physician Urgent Consulting Provider: Mohsen Edwards Consult Reason/Comments: Mental status change with suspicion of normal pressure hydrocephalus. Do you want consulting provider notified?: Yes 07/31/21 21:01 Consult Physician Routine Consulting Provider: Ralph Gilmore Consult Reason/Comments: ams Do you want consulting provider notified?: Yes 08/01/21 10:51 Consult Physician Routine Consulting Provider: Cindy Johnson Consult Reason/Comments: Dr. Edwards asked to consult you for UTI with AMS. Do you want consulting provider notified?: Yes Primary care physician: [facility] Course: History of present illness This is a 76-year-old female patient of Dr. Cisse with past medical history of depression with panic attacks, hypertension, hypothyroidism, degenerative disc disease and chronic back pain, scoliosis. She is had multiple admissions due to weakness and falls, difficulty swallowing and failure to thrive. Patient now presents to [facility] due to complaints of being scared, complains of fever and chills for 4 days along with abdominal pain for 4 days. She denies any dysuria, no diarrhea. She apparently was recently at [facility] which she states was for therapy but she did not have any procedures done. She denies having an MRI or lumbar puncture at that time. Patient is a very poor historian. According to the ER and documentation, patient was brought in by EMS due to rapid decline in her function not able to get out of bed, unable to walk on her own and not eating or drinking. Statements are nonsensical. Patient was found to be febrile with temperature 102.6, heart rate 115, blood pressure 145/83, pulse ox 90% on room air. EKG was sinus tachycardia 114 bpm with no acute ST changes. WBCs 4.29, hemoglobin 13.1, platelet count 190. INR 0.9. Sodium 134 otherwise electrolytes and renal function were normal. Glucose 122. Lactic acid 0.9. Liver function tests were normal. Troponin 0.022. Urinalysis was cloudy, nitrite negative, leukoesterase negative, RBCs 54 WBCs 12, bacteria many. Budding yeast moderate. Urine drug screen was positive for tricyclic antidepressants and benzodiazepines. Coronal virus PCR not detected. Urine culture is in progress. CAT scan of the brain revealed no acute process. Nonspecific ventricular pattern which can correlate with the clinical diagnosis of normal pressure hydrocephalus. Chest x-ray reveals no definite acute process. She is seen today in the emergency center waiting for the [facility] blood, consult in place with psychiatry and neurology. Patient is been started on IV antibiotics. 08/02: Renal ultrasound showed no hydronephrosis bilaterally. Patient has been seen by Dr. Johnson and started on cefepime 2 g every 8 hours for UTI. Urine culture is in progress and blood cultures showing no growth at 24 hours. Patient remains febrile with temperature max this morning of 103.1, heart rate was 119 at that time and currently patient is afebrile with heart rate of 99 and blood pressure 116/74, pulse ox 96% on room air Patient is been seen by psychiatry and recommended delirium precautions and recommended decreasing closet then to only 50 mg at at bedtime due to patient sedation and continue melatonin, discontinue Ativan. Psychiatry also recommended placement and they have signed off. Patient has been seen and followed by neurology for altered mental status secondary to underlying UTI. Regarding the normal pressures systolics on CAT scan he would recommend outpatient workup with volume tap and if she does have improvement then recommend SENIOR SOFTWARE ENGINEER shunt. Neurology is also signed off. Patient's mental status is improved today. 08/03: Patient has documented fever 102.8 yesterday afternoon, temperature max this morning is 100.4. Antibiotics were changed yesterday to Unasyn by Dr. Johnson and repeat culture was ordered. Heart rate 112, blood pressure 122/76, pulse ox 95% on room air. Urine culture is positive for enterococcus urinae and was finalized. Repeat chest x-ray will be ordered. Received call during the night regarding severe anxiety and patient was replaced back on Ativan as her mental status is improved. EKG from yesterday was a sinus tachycardia. Levothyroxine dose decreased to [address] Oviedo spoke with patient's over the phone. Discharge plan is for [facility] and he has already been in contact with Leanne who is accepted the patient. 08/04: Patient's is in the room and all his questions have been answered. Patient has been afebrile for greater than 24 hours. Heart rate 72, blood pressure 114/75, pulse ox 96% on room air. Blood work from yesterday revealed WBC 3.1, hemoglobin 12.4, he is accompanied 129. Sodium 132, potassium 3.2 and will be replaced, chloride 101, CO2 25, BUN 11 creatinine 0.49. Calcium 7.5. Total bilirubin 0.3, AST 51, ALT 26, alkaline phosphatase 28. Albumin 2.6. Blood cultures remain with no growth. Dr. Johnson is recommended Augmentin for 7 days. Patient will be discharged to [facility] in stable condition. Assessment and plan 1. Metabolic encephalopathy most likely secondary to acute urinary tract infection. 2. Acute urinary tract infection and sepsis. 3. Possible NPH on CAT scan. Consult with neurology Recommends large volume tap as an outpatient and if she does have improvement then recommend SENIOR SOFTWARE ENGINEER shunt. 4. Failure to thrive secondary to likely worsening depression and bipolar disorder. 5. History of dysphagia. Has been worked up by Dr. Spears in the past with EGD that did not require any dilatation patient is also had speech therapy evaluations and swallow studies. 6. Hypertension. 7. Hypothyroidism. 8. Insomnia. 9. Gastroesophageal reflux disease. DISCHARGE PLAN [facility] Impression and plan of care have been directed as dictated by the signing physician. Earline Baker nurse practitioner acting as scribe for signing physician. Patient Condition at Discharge: Good Plan - Discharge Summary Discharge Rx Participant: Yes New Discharge Prescriptions: New polyethylene glycoL 3350 [Miralax] 17 gm PO DAILY packet Ibuprofen [Motrin] 400 mg PO Q6HR PRN tab PRN Reason: Pain Sennosides [Senokot] 8.6 mg PO DAILY tab Levothyroxine Sodium [Synthroid] 75 mcg PO DAILY@0630 tab Amoxicillin/Potassium Clav [Augmentin 875-125 Tablet] 1 tab PO BID 7 Days #14 tab Continue Melatonin 6 mg PO HS PRN PRN Reason: SLEEP Famotidine [Pepcid] 20 mg PO BID Ergocalciferol (Vitamin D2) [Drisdol (50,000 Iu)] 1,250 mcg PO SA Desipramine HCl 50 mg PO DAILY cloZAPine [Clozaril] 50 mg PO HS Acetaminophen Tab [Tylenol] 500 mg PO Q6HR PRN PRN Reason: Pain LORazepam [Ativan] 0.25 mg PO BID PRN #6 tab PRN Reason: Anxiety Discontinued cloZAPine [Clozaril] 25 mg PO W/SUPPER Levothyroxine Sodium [Synthroid] 100 mcg PO DAILY Discharge Medication List Famotidine [Pepcid] 20 mg PO BID 12/28/20 [History] Melatonin 6 mg PO HS PRN 12/28/20 [History] Acetaminophen Tab [Tylenol] 500 mg PO Q6HR PRN 07/31/21 [History] Desipramine HCl 50 mg PO DAILY 07/31/21 [History] Ergocalciferol (Vitamin D2) [Drisdol (50,000 Iu)] 1,250 mcg PO SA 07/31/21 [History] cloZAPine [Clozaril] 50 mg PO HS 07/31/21 [History] Amoxicillin/Potassium Clav [Augmentin 875-125 Tablet] 1 tab PO BID 7 Days #14 tab 08/04/21 [Rx] Ibuprofen [Motrin] 400 mg PO Q6HR PRN tab 08/04/21 [Rx] LORazepam [Ativan] 0.25 mg PO BID PRN #6 tab 08/04/21 [Rx] Levothyroxine Sodium [Synthroid] 75 mcg PO DAILY@0630 tab 08/04/21 [Rx] Sennosides [Senokot] 8.6 mg PO DAILY tab 08/04/21 [Rx] polyethylene glycoL 3350 [Miralax] 17 gm PO DAILY packet 08/04/21 [Rx] Follow up Appointment(s)/Referral(s): Billy Cisse MD [Primary Care Provider] - 1 Week (at [facility])
[2021-08-04] MEDS ORDERED: POTASSIUM CHLORIDE ER 20 MEQ TAB.ER PO STA (13:04)
[2021-08-04 13:31] VITALS: BP 119/78; PULSE 60; RESP 18; TEMP 98.3
== END 2021-08-04 15:21 | DRG 871 ==
LOC: EC 17:30 → 4SSUR 21:00 → OBSVTOIN 08-02 11:26
PROVIDERS: ADMIT Family Medicine; ATTEND Family Medicine
DX: A41.9 Sepsis, unspecified organism (principal); G93.41 Metabolic encephalopathy; N39.0 Urinary tract infection, site not specified; E27.40 Unspecified adrenocortical insufficiency; G91.2 (Idiopathic) normal pressure hydrocephalus; Z20.822 Contact with and (suspected) exposure to COVID-19; E03.9 Hypothyroidism, unspecified; M54.9 Dorsalgia, unspecified; F32.9 Major depressive disorder, single episode, unspecified; K21.9 Gastro-esophageal reflux disease without esophagitis; I10 Essential (primary) hypertension; Z79.890 Hormone replacement therapy; Z80.49 Family history of malignant neoplasm of other genital organs; Z82.49 Family history of ischemic heart disease and other diseases of the circulatory system; Z87.440 Personal history of urinary (tract) infections; B95.2 Enterococcus as the cause of diseases classified elsewhere; F31.9 Bipolar disorder, unspecified; F41.0 Panic disorder [episodic paroxysmal anxiety]; R62.7 Adult failure to thrive; G47.00 Insomnia, unspecified; G89.29 Other chronic pain; M41.9 Scoliosis, unspecified; R63.4 Abnormal weight loss
CPT/HCPCS: 36415; 70450; 71046; 76770; 80053; 80306; 81001; 83605; 84439; 84443; 84484; 85025; 85027; 85610; 85730; 87040; 87086; 87635; 93005; 94760; 96360; 96361; 99285